=== PATIENT | female | born 1950 | race Two or more races ===

== ENCOUNTER → 2018-06-26 07:48 | Outpatient (CLI) | payer MEDICARE, OTHER, SELFPAY ==
--- NOTE | 2018-06-26 08:02 | NM_ITS ---
History and Indications: Coronary artery disease, history of DE, hypertension, hyperlipidemia, family history, chest pain and shortness of breath. Procedure: Patient received 2.2 mCi of technetium 99 Myoview for the resting study. Electrocardiogram: Not electrocardiogram performed Cardiac resting SPECT images: Cardiac resting SPECT scan shows uniform myocardial activity, computer derived ejection fraction 63% with no obvious regional wall motion abnormality. Conclusion: 1. Resting Myoview SPECT scan shows an ejection fraction of 63% with no obvious regional wall motion abnormality, there is uniform tracer distribution at rest.
--- NOTE | 2018-06-26 08:02 | CA_ITS ---
PROCEDURE: 2-D M-mode and color Doppler study INDICATIONS FOR THE TEST: Chest pain COPD Heart Murmur Tobacco Smoking Palpitations Fatigue Syncope Edema+ Hypertension+Diabetes Mellitus Rheumatic Fever SOB+NUÑEZ Obesity Hyperlipidemia+ Family History HD Additional History PACER, CABG, ABLATION, ,AFIB, CHF PATIENT INFORMATION HEIGHT: 60 WEIGHT:155 GENDER: Female B/P:125/63 2-D/M-MODE INTERPRETATION: 2-D MEASUREMENTS OBSERVED VALUES IN CMS Right Ventricular Dimension (RVDd) 2.9 Interventricular Septum (Thickness)(IVsd) 1.3 Left Ventricular Internal Dimensions(LVIDd) 5.5 Left Ventricular Posterior Wall (Thickness)(LVPWd) 1.1 Aortic Root 3.5 Aortic Cusp Separation 2.1 Left Atrial Dimensions (LAD) 4.9 2D 1. Left atrium is moderately enlarged, left ventricle is normal size, mild concentric left ventricular hypertrophy, visually estimated ejection fraction of 45%, there appears to be moderate hypokinesis involving the mid to distal septum and apical wall. Endocardial surfaces are poorly visualized. 2. The right atrium and right ventricle are moderately enlarged, contractility of the right ventricle is normal. There is a pacemaker lead seen in the right atrium and right ventricle. 3. The aortic valve is minimally thickened and calcified, leaflet continue to display mobility. 4. The mitral valve has mitral calcification, leaflets are minimally thickened. 5. The tricuspid valve is grossly normal. 6. The pulmonic valve is poorly visualized. 7. No significant pericardial effusion noted. DOPPLER INTERROGATION: Doppler interrogation of the aortic, mitral and tricuspid valvular presence of mild mitral and moderate tricuspid regurgitation, calculated right ventricular systolic pressure of 51 mmHg consistent with moderate pulmonary hypertension. Diastolic parameters are inconclusive. CONCLUSION: 1. Moderate biatrial enlargement, normal left ventricular size, visually estimated ejection fraction of 45% with segmental wall motion abnormality described above, diastolic parameters are inconclusive. 2. Moderately enlarged right ventricle with normal contractility. 3. Mild mitral and moderate tricuspid regurgitation, calculated right ventricular systolic pressure is 51 mmHg consistent with moderate pulmonary hypertension. 4. No significant pericardial effusion noted.
--- NOTE | 2018-06-26 09:48 | HMH.ITSHM ---
crestor aldactone lasix mirpex lorartan isosorbide
== END ==
PROVIDERS: PCP Internal Medicine; Visit Provider Internal Medicine
DX: I48.91 Unspecified atrial fibrillation; I11.9 Hypertensive heart disease without heart failure; I65.23 Occlusion and stenosis of bilateral carotid arteries; Z95.0 Presence of cardiac pacemaker; I25.10 Atherosclerotic heart disease of native coronary artery without angina pectoris
CPT/HCPCS: 78451; 93306; A9502

== ENCOUNTER → 2020-11-21 14:22 | Outpatient (CLI) | payer MEDICARE, OTHER, SELFPAY ==
[2020-11-21 15:09] LABS: Basophils # 0.1 K/mm3 (0-0.2); Basophils % 0.8 % (0.1-2.0); Eosinophils # 0.2 K/mm3 (0.0-0.4); Eosinophils % 2.2 % (0.1-12.0); Hematocrit 40.2 % (37.0-47.0); Hemoglobin 13.5 g/dL (12.2-16.2); Lymphocytes # 2.8 K/mm3 (0.7-4.5); Lymphocytes % 26.1 % (10-50); Mean Corpuscular HGB Conc 33.5 g/dL (31.8-35.4); Mean Corpuscular Hemoglobin 32.2 pg (27.0-31.2); Mean Corpuscular Volume 96.1 fl (81-99); Mean Platelet Volume 7.2 fl (7.4-10.4); Monocytes # 0.8 K/mm3 (0.1-1.0); Monocytes % 7.5 % (1.7-9.3); Neutrophils # 6.7 K/mm3 (1.8-7.8); Neutrophils % 63.4 % (37.0-80.0); Platelet Count 324 K/mm3 (142-424); Red Blood Count 4.18 M/mm3 (4.20-5.40); Red Cell Distribution Width 13.5 % (11.5-17.5); White Blood Count 10.6 K/mm3 (4.8-10.8)
[2020-11-21 15:32] LABS: Alanine Aminotransferase 13 U/L (12-78); Albumin Level 4.2 g/dl (3.5-5.0); Alkaline Phosphatase 99 U/L (38-126); Anion Gap 14.1 mEq/L (5-15); Aspartate Amino Transferase 20 U/L (14-36); Bilirubin,Direct 0.3 mg/dl (0.0-0.4); Bilirubin,Total 0.3 mg/dl (0.2-1.3); Blood Urea Nitrogen 8 mg/dl (7-17); Calcium 9.8 mg/dl (8.4-10.2); Carbon Dioxide 29 mmol/L (22.0-30.0); Chloride 99 mmol/L (98-107); Chol/HDL Ratio 2.5 (1-3.5); Cholesterol 143 mg/dl (140-200); Estimated Glomerular Filt Rate 98 ml/min (>60); GFR (African American) 119 ML/MIN (>60); Glucose 109 mg/dl (74-100); HDL Cholesterol 58 mg/dl (40-60); Potassium 4.1 mmoL/L (3.5-5.1); Sodium 138 mmol/L (136-145); Total Protein,Serum 7.2 g/dl (6.3-8.2); Triglycerides 175 mg/dl (30-150); VLDL Cholesterol 35 mg/dL (0-40)
[2020-11-21 15:45] LABS: Direct LDL Cholesterol 56.37 mg/dL (100-129)
[2020-11-21 15:53] LABS: Free T4 (Free Thyroxine) 1.06 ng/dl (0.78-2.19)
[2020-11-21 16:04] LABS: Thyroid Stimulating Hormone 1.23 uIU/mL (0.465-4.68)
== END ==
PROVIDERS: Visit Provider Nurse Practitioner Family
DX: E04.1 Nontoxic single thyroid nodule (principal); E78.5 Hyperlipidemia, unspecified; I07.1 Rheumatic tricuspid insufficiency; I11.9 Hypertensive heart disease without heart failure; I25.10 Atherosclerotic heart disease of native coronary artery without angina pectoris; I25.810 Atherosclerosis of coronary artery bypass graft(s) without angina pectoris; I27.20 Pulmonary hypertension, unspecified; I34.0 Nonrheumatic mitral (valve) insufficiency; I48.91 Unspecified atrial fibrillation; I65.29 Occlusion and stenosis of unspecified carotid artery; G47.33 Obstructive sleep apnea (adult) (pediatric); Z86.73 Personal history of transient ischemic attack (TIA), and cerebral infarction without residual deficits; Z99.89 Dependence on other enabling machines and devices; Z87.891 Personal history of nicotine dependence
CPT/HCPCS: 36415; 80048; 80061; 80076; 84439; 84443; 85025

== ENCOUNTER → 2020-11-22 12:25 | Outpatient (CLI) | payer MEDICARE, OTHER, SELFPAY ==
--- NOTE | 2020-11-22 12:26 | CT_ITS ---
PROCEDURE: CT CHEST W CON CLINCAL INDICATION: pulmonary nodules survellience f/u lung nodules hx of covid-19, 10/2020 cough 75ml iso 370 no prior cxr on pacs COMPARISON: No exams were available for comparison TECHNIQUE: IV Contrast: 75ml Isovue 370 Axial images obtained with sagittal and coronal reformats. All CT scans at the facility use one or more dose reduction, viz: automated exposure control, ma/kV adjustment per patient size (including targeted exams where dose is matched to indication, i.e. head), or iterative reconstruction technique. FINDINGS: There are no previous exams or reports available for comparison. There has been a prior CABG. There is mild cardiomegaly. No evidence of pulmonary embolus. No mediastinal or hilar mass or adenopathy. No evidence of aortic aneurysm. Cardiac pacemaker device is present. There is dense consolidation in the right lower lobe posteriorly consistent with pneumonia. This could obscure an underlying nodule. Therefore, follow-up is suggested. There are a few small pulmonary nodules in the right middle lobe and right lower lobe 5 mm or less. Within the lingula laterally, there is a nodular opacity measuring approximately 1.8 by 1.7 cm. Just lateral to this region is an area of gas density in the pleural area and extends just lateral to the left 6th rib between the rib and the overlying muscle. Just inferior to this region is an area of pleural thickening nonspecific. No pleural effusions evident. There postsurgical changes of the right breast There are mild degenerative changes of the thoracic spine. IMPRESSION: 1. Dense consolidation in the right lower lobe posteriorly consistent with pneumonia. Convalescent follow-up suggested as underlying lesion may be obscured. 2. Scattered small pulmonary nodules in the right middle lobe and right lower lobe. These are less than 5 mm. 3. Unusual subpleural pulmonary opacity within the lingula laterally and inferiorly with gas density lateral to this which extends just lateral to the left 6th rib. Correlation with old films needed to determine stability or progression. This could represent an area of neoplasm or inflammatory nodule. The gas in this region could be due to herniation of the pleura into the surrounding tissues. Gas-forming infection also a consideration. Small pneumothorax with subcutaneous emphysema is also consideration. Has the patient had in the biopsies of this area recently? Follow-up is recommended. Dictated by: Pradeep Wallace MD 11/23/2020 09:19 Pradeep Wallace MD in [place] 11/23/2020 09:19
--- NOTE | 2020-11-22 13:37 | CA_ITS ---
APPROVED REPORT EXAM: Comprehensive 2D, Doppler, and color-flow Echocardiogram Operations [place]: Opal Barcenas RT(R) Ht: 5 ft 1 in Wt: 154lbs BSA: 1.69 BP: 170/61 mmHg Indications: SOA, CAD, AFIB, PHTN, CHF, CM, CABG, CORINE, pacemaker, ex smoker, palpitations, HTN, hyperlipidemia 2D Dimensions LVOT 1.98 cm (M/F) 1.5-2.5 M-Mode Dimensions RVDd 2.96 cm (0.9-2.6) LA Diam 5.38 cm (1.9-4.0) LVDd 4.32 cm (3.5-5.7) Ao Diam 2.22 cm (2.0-3.7) LVDs 3.39 cm (3.5-5.7) IVSd 0.86 cm (0.6-1.1) PWd 0.61 cm (0.6-1.1) EF (Teich) 43.90% FS 21.50% EDV (Teich) 84.00 mL ESV (Teich) 47.10 mL LV Diastology LAT E' 11.00 (<10 cm/sec) Tricuspid Valve TR P. Velocity 255.00 cm/s RAP Estimate 10.00 mmHg RVSP 36.00 mmHg Left Ventricle Left atrium is mildly enlarged, left ventricle is normal size, mild concentric left ventricular hypertrophy, visually estimated ejection fraction 50% with no regional wall motion abnormality, endocardial surfaces are poorly visualized, diastolic parameters are inconclusive. There is abnormal septal motion. Right Ventricle Right atrium and right ventricle are mildly enlarged with normal contractility, there is pacemaker leads in the right ventricle. Aortic Valve Aortic valve is thickened and calcified without Doppler evidence of aortic stenosis or aortic insufficiency. Mitral Valve Mitral valve is grossly normal, there is mild mitral regurgitation. Tricuspid Valve Tricuspid valve is grossly normal, there is mild tricuspid regurgitation, tricuspid regurgitation jet velocity is inadequate for calculation of the right ventricular systolic pressure. Pulmonic Valve Pulmonic valve is poorly visualized. Great Vessels Aortic root is normal size. Pericardium No significant pericardial effusion noted. Conclusion 1. Normal left ventricular size, mild concentric left ventricular hypertrophy, visually estimated ejection fraction 50% with no regional wall motion abnormality, diastolic parameters are inconclusive. 2. Thickened and calcified aortic valve without aortic stenosis or aortic insufficiency. 3. Mild mitral and tricuspid regurgitation. 4. No significant pericardial effusion noted. Electronically signed by : Rufus Correa, 11/22/2020 21:43:25
--- NOTE | 2020-11-22 13:37 | CA_ITS ---
APPROVED REPORT Wide Area Network Engineer: LISA Laterality: Bilateral Indications: MARTA, Afib, CAD, PHTN, CHF, CORINE, pacemaker, hx CABG, HTN, Hyperlipidemia, ex smoker Risk Factors Hypertension: Hyperlipidemia Family History: Surgery/Intervention Endarterectomy: left Doppler Spectral Velocity Analysis ECA (R) 98.80/8.20 cm/s ECA (L) 111.20/13.90 cm/s dICA (R) 125.40/44.60 cm/s dCCA (L) 47.80/5.80 cm/s Vaishali (R) 143.50/51.50 cm/s pCCA (L) 77.10/15.00 cm/s pICA (R) 111.40/33.40 cm/s Vert (L) 55.60/23.50 cm/s dCCA (R) 83.40/22.50 cm/s pCCA (R) 101.60/22.50 cm/s Vert (R) 55.40/19.50 cm/s ICA/CCA 1.70 Findings Duplex evaluation demonstrates stenosis of the right proximal internal carotid artery in the range of 20-49%(upper end of scale) with PSV <140 cm/sec, EDV <100 cm/sec, and IC/CC Ratio <4.0, unchanged since study done 11/24/19 Duplex evaluation demonstrates occlusion for the left proximal internal carotid artery, unchanged from study 11/24/19. Conclusion Duplex evaluation demonstrates stenosis of the right proximal internal carotid artery in the range of 20-49%(upper end of scale) with PSV <140 cm/sec, EDV <100 cm/sec, and IC/CC Ratio <4.0, unchanged since study done 11/24/19 Duplex evaluation demonstrates occlusion for the left proximal internal carotid artery, unchanged from study 11/24/19. Electronically signed by : Pradeep Wallace MD 11/22/2020 15:12:51
== END ==
PROVIDERS: Visit Provider Nurse Practitioner Family
DX: R07.9 Chest pain, unspecified; R06.00 Dyspnea, unspecified; I65.23 Occlusion and stenosis of bilateral carotid arteries; E04.1 Nontoxic single thyroid nodule; E78.5 Hyperlipidemia, unspecified; I07.1 Rheumatic tricuspid insufficiency; I11.0 Hypertensive heart disease with heart failure; I25.810 Atherosclerosis of coronary artery bypass graft(s) without angina pectoris; I27.20 Pulmonary hypertension, unspecified; I34.0 Nonrheumatic mitral (valve) insufficiency; I48.91 Unspecified atrial fibrillation; I50.9 Heart failure, unspecified; G47.33 Obstructive sleep apnea (adult) (pediatric); Z86.73 Personal history of transient ischemic attack (TIA), and cerebral infarction without residual deficits; Z87.898 Personal history of other specified conditions; Z95.0 Presence of cardiac pacemaker; Z98.890 Other specified postprocedural states
CPT/HCPCS: 71260; 93306; 93880; Q9967

== ENCOUNTER → 2020-11-30 09:46 | Outpatient (CLI) | payer MEDICARE, OTHER, SELFPAY | PROVIDERS: Visit Provider Internal Medicine Pulmonary Disease | DX: R06.09 Other forms of dyspnea (principal); J18.9 Pneumonia, unspecified organism; R91.1 Solitary pulmonary nodule | CPT/HCPCS: 87070; 87205 ==

== ENCOUNTER → 2020-12-26 09:58 | Outpatient (CLI) | payer MEDICARE, OTHER, SELFPAY ==
--- NOTE | 2020-12-26 09:59 | CT_ITS ---
PROCEDURE: CT CHEST WO CON CLINICAL INDICATION: Follow up pneumonia cough Covid-October 2020 headache COMPARISON: CT CT CHEST W/O CONTRAST from 11/07/[address] CHEST W CON from 11/22/2020 TECHNIQUE: Axial images obtained with sagittal and coronal reformats. All CT scans at the facility use one or more dose reduction, viz: automated exposure control, ma/kV adjustment per patient size (including targeted exams where dose is matched to indication, i.e. head), or iterative reconstruction technique. FINDINGS: There has been a prior median sternotomy. Cardiac pacemaker device is present. Atherosclerotic calcification is present within the aorta. Calcified nodes are present in the mediastinum. There is mild cardiomegaly. COPD changes with evidence of old granulomatous disease. Dense consolidation has developed in the superior segment of the right lower lobe. Previously noted pneumonia in the right lower lobe posteriorly has shown improvement with some scarring/atelectatic changes in this region. There is an spiculated nodule in the right lower lobe anteriorly which is developed in the interval. This measures 13 mm. Pleural parenchymal thickening noted in the left lower lobe laterally. There is a parenchymal opacity within the left lower lobe anteriorly at not significantly changed. IMPRESSION: 1. There is mixed response. There is new consolidation in the superior segment of the right lower lobe consistent with pneumonia which has developed in the interval. There has been improvement in the right lower lobe pneumonia posteriorly with some residual atelectatic changes. 2. There is a new spiculated nodule in the right middle lobe at 13 mm. This could be inflammatory/infectious or neoplastic and continued follow-up is suggested. Dictated by: Pradeep Wallace MD 12/27/2020 11:35 Pradeep Wallace MD in [place] 12/27/2020 11:35
== END ==
PROVIDERS: PCP Family Medicine; Visit Provider Internal Medicine Pulmonary Disease
DX: R91.8 Other nonspecific abnormal finding of lung field (principal); R06.02 Shortness of breath
CPT/HCPCS: 71250; 94618

== ENCOUNTER → 2020-12-27 16:18 | Outpatient (CLI) | payer MEDICARE, OTHER, SELFPAY ==
[2020-12-27 18:57] LABS: Lactate Dehydrogenase 179 U/L (313-618)
[2020-12-27 19:04] LABS: C-Reactive Protein 25.9 mg/L (0-4)
[2020-12-30 12:32] LABS: Histoplasma Gal'mannan Ag Ur <0.5 (<0.5 ng/mL)
[2020-12-30 18:39] LABS: Aspergillus Antigen, BAL/Serum 0.04 Index (0.00-0.49); Fungitell(Beta D-Glucan) Serum <31 pg/mL (<80)
[2020-12-31 18:33] LABS: Aspergillus flavus Negative (Neg:<1:1); Aspergillus fumigatus Negative (Neg:<1:1); Aspergillus niger Negative (Neg:<1:1)
[2020-12-31 19:38] LABS: Blastomyces Antibody Negative (Neg:<1:1)
[2021-01-03 11:33] LABS: QuantiFERON-TB Gold Plus Negative (Negative)
[2021-01-07 22:14] LABS: Antinuclear Antibodies (ANA) NEGATIVE
== END ==
PROVIDERS: Visit Provider Internal Medicine Pulmonary Disease
DX: R06.00 Dyspnea, unspecified; J84.9 Interstitial pulmonary disease, unspecified; B49 Unspecified mycosis; J17 Pneumonia in diseases classified elsewhere; J84.10 Pulmonary fibrosis, unspecified
CPT/HCPCS: 36415; 83615; 86038; 86140; 86225; 86235; 86480; 86606; 86612; 87070; 87205; 87305; 87385; 87449

== ENCOUNTER → 2021-01-17 08:10 | Outpatient (CLI) | payer MEDICARE, OTHER, SELFPAY ==
--- NOTE | 2021-01-17 08:31 | XR_ITS ---
PROCEDURE: XR CHEST 2V CLINICAL HISTORY: Pneumonia COMPARISON: CR CXR1VP XR chest portable from 07/04/[address] CHEST WO CON from 12/26/2020 FINDINGS: Prior CABG. Biventricular pacemaker is present from left subclavian approach. Mild cardiomegaly without failure. Pneumonia is present in the right lower lobe superior segment. No obvious effusion. Small parenchymal opacity is present in the left lower lobe laterally nonspecific. There is mild wedging of T4 which may be old. IMPRESSION: Right lower lobe pneumonia Dictated by: Pradeep Wallace MD 01/17/2021 09:20 Pradeep Wallace MD in [place] 01/17/2021 09:20
== END ==
PROVIDERS: PCP Family Medicine; Visit Provider Internal Medicine Pulmonary Disease
DX: J44.9 Chronic obstructive pulmonary disease, unspecified (principal); Z20.822 Contact with and (suspected) exposure to COVID-19
CPT/HCPCS: 71046; U0003

== ENCOUNTER 2021-01-18 10:50 | Day surgery (SDC) | payer MEDICARE, OTHER, SELFPAY ==
[2021-01-17 14:07] VITALS: BMI 29.2
[2021-01-18] VITALS (11 sets, daily range): BP systolic 96–180; BP diastolic 44–83; PULSE 70–71; RESP 16–18; TEMP 36.1–36.3; O2SAT 91–96
--- NOTE | 2021-01-18 12:44 | P.PN_ITS ---
[facility] Anesthesia Record Part I Intake, IV Amount: 500 Estimated blood loss (mL): 0 Urine output (mL): 0 Blood Pressure: 146/59 SaO2: 93 Pulse Rate: 70 Respiratory Rate: 16 Temperature: 97 F Patient is:: Drowsy, Stable Stable to PACU at:: 12:40
--- NOTE | 2021-01-18 12:44 | P.PN_ITS ---
[facility] Anesthesia Checklist - Patient Identification Patient Identification: Arm Band - Structural Data Admitted From: Home Planned Operative Procedure/s: bronchoscopy with biopsy Consent for Planned Operative Procedure(s) Verified: Yes Verified Documents: Surgical Consent, History and Physical - NPO Status Verified Time NPO: 00:00 - Additional verifications Anesthesia Reactions: No Hx Blood Transfusions: Yes Blood Transfusion Reaction: No - Airway Assessment C-Spine Mobility Assessed: Yes (mp2) TMJ Mobility Assessed: Yes Dentition: Good Dentition - Neurological Assessment Level of Consciousness: Awake, Alert - Anesthesia Plan Anesthesia Risk discussed: Yes Anesthesia Plan: Verified ASA Class: III Anesthesia Type: General [facility] History I have reviewed the patient's past medical history: Yes Medical History: Reports:: Atrial Fibrillation, Cancer (breast), Carotid Stenosis, Congestive Heart Failure, Coronary Artery Disease, Cerebrovascular Accident, Gastroesophageal Reflux Disease(GERD), Hyperlipidemia, Hypertension, Internal Pacemaker, Palpitations Denies:: Diabetes Mellitus Type 1, Diabetes Mellitus Type 2, MRSA, Seizures *Have you ever received a pneumonia vaccine?: Yes *Have you received a flu vaccine this season?: Yes Other Medical History: Reports: Other. Denies: Blood Transfusion Reaction Anesthesia experience/problems:: nac Laterality Cases: Right: Lumpectomy Other Surgeries: Yes: Angioplasty, Cardiac Catheterization, Colonoscopy, Coronary Stent, Pacemaker, Tubal Ligation Amputation: No Fractures: No - *Social History Last grade of school completed: 9th or 10th Smoking Status: Former smoker Tobacco Type: cigarettes Alcohol Intake: never Substance Use Type: denies use *Occupational Status:: retired Housing: house Household Members: spouse *Travel in the last 8 weeks: None Family Hx:: Cancer, Coronary Artery Disease
--- NOTE | 2021-01-18 12:52 | XR_ITS ---
PROCEDURE: XR CHEST AP CLINICAL HISTORY: RIGHT LUNG BIOPSY 3:29 FLURO TIME Pulmonary mass COMPARISON: CR CXR1VP XR chest portable from 07/04/[address] CHEST WO CON from 12/26/2020 CR XR CHEST 2V from 01/17/2021 FINDINGS: Fluoroscopy time: 3 minutes and 29 seconds Single image submitted demonstrates the bronchus scope overlying the right lower lobe with biopsy catheter present. IMPRESSION: Status post fluoroscopic guided lung biopsy Dictated by: Pradeep Wallace MD 02/24/2021 17:37 Pradeep Wallace MD in [place] 02/24/2021 17:37
--- NOTE | 2021-01-18 13:14 | XR_ITS ---
PROCEDURE: XR CHEST PORTABLE CLINICAL HISTORY: post surgical Pneumonia COMPARISON: CR CXR1VP XR chest portable from 07/04/[address] CHEST WO CON from 12/26/2020 CR XR CHEST 2V from 01/17/2021 CR XR CHEST AP from 01/18/2021 Follow-up biopsy FINDINGS: Mild cardiomegaly without failure. Biventricular pacemaker is present. There has been a prior CABG. There remains consolidation in the right lower lobe which may be slightly worse compared to the previous exam. Surgical clips are present in the right hemithorax. No acute bony abnormalities. IMPRESSION: Right lower lobe pneumonia which appears slightly worse. No evidence of pneumothorax. Dictated by: Pradeep Wallace MD 01/18/2021 13:39 Pradeep Wallace MD in [place] 01/18/2021 13:39
--- NOTE | 2021-01-18 14:13 | HMH.BRONCH ---
- Procedure: Date: 01/18/21 Patient Date of :: 1950 Procedure Performed:: Bronchoscopy with bronchoalveolar lavage and transbronchial biopsy Indications:: Nonresolving pneumonia Performing Provider:: Nancy Perez MD Referring Provider:: Dr: Roberto Robles Sedation:: General anesthesia Procedure:: Bronchoscopy with bronchoalveolar lavage and transbronchial biopsy: Clean therapeutic bronchoscopy was advanced to the ET tube and airways were examined up to subsegmental bronchi, airway appeared normal with no evidence of mucous plugging or active bleeding. Bronchoalveolar lavage was performed the right lower lobe superior subsegment with a total of 60 cc instillation with a return of 30 cc, lavage was sent for BAL differential, bacterial fungal and AFB staining culture along with cytopathology. BAL Aspergillus galactomannan was also ordered. After lavage transbronchial biopsies was performed the right lower lobe superior segment. A total of 8 biopsies was performed, 6 were sent in formalin for cytopathology. 2 biopsy samples were sent for bacterial fungal and AFB cultures. Patient tolerated the procedure well with no complications. Postprocedure chest x-ray did not show any evidence of pneumothorax. Patient advised to hold Plavix for 5 more days from today. We will follow the patient in the clinic as previously scheduled. Findings:: See the procedure note Specimens:: Bronchoalveolar lavage and transbronchial biopsy specimens Recommendations:: See the procedure note Hold Plavix for 5 days. Follow in the clinic as previously scheduled. Complications:: None Estimated blood obtained (mL): 5
--- NOTE | 2021-01-18 17:22 | HMH.ANESII ---
[facility] Anesthesia Record Part II Discharge Time: 13:10 Destination: Surgical Day Care (OP Surgery) PACU nurse assessment reviewed?: Yes Patient Condition:: Good Anesthesia Complications:: None Swallowing reflex intact?: Yes Cyanosis?: No Blood Pressure: 123/74 Pulse Rate: 71 Temperature: 97 F Mental Status: Alert & Oriented Pain level:: 0 Nausea and/or vomitting:: None Intake, IV Amount: 0
[2021-01-20 23:23] LABS: Aspergillus Antigen, BAL/Serum 0.04 Index (0.00-0.49)
== END 2021-01-18 14:00 | disposition home or self-care (01) ==
LOC: OR 10:51
PROVIDERS: PCP Family Medicine; Visit Provider Internal Medicine Pulmonary Disease
DX: J18.9 Pneumonia, unspecified organism (principal); Z86.16 Personal history of COVID-19; I48.91 Unspecified atrial fibrillation; I11.0 Hypertensive heart disease with heart failure; I50.9 Heart failure, unspecified; Z87.891 Personal history of nicotine dependence; Z79.899 Other long term (current) drug therapy; Z88.8 Allergy status to other drugs, medicaments and biological substances
CPT/HCPCS: 31624; 31628; 71045; 76000; 87070; 87077; 87102; 87116; 87186; 87205; 87206; 87220; 87305; 88112; 88305; 88312; 89051; J2405

== ENCOUNTER → 2021-02-28 13:42 | Outpatient (CLI) | payer MEDICARE, OTHER, SELFPAY ==
--- NOTE | 2021-02-28 13:49 | XR_ITS ---
PROCEDURE: XR CHEST 2V CLINICAL HISTORY: pnm COMPARISON: CR CXR1VP XR chest portable from 07/04/[address] CHEST WO CON from 12/26/2020 CR XR CHEST 2V from 01/17/2021 CR XR CHEST PORTABLE from 01/18/2021 CR XR CHEST AP from 01/18/2021 FINDINGS: Prior median sternotomy. Biventricular pacemaker is present left subclavian approach. Borderline cardiomegaly without failure. Right lower lobe pneumonia has shown some improvement. There is some residual density in the superior segment of the right lower lobe suggesting persistent area of consolidation. Nodularity noted in the right mid to lower lung zone which may also be due to some persistent infiltrate. Small peripheral chronic opacification noted in the left lower lobe laterally. Surgical clips are present in the right axillary region. Prior right-sided breast surgery No acute bony abnormalities. IMPRESSION: Persistent but improving right lower lobe pneumonia Dictated by: Pradeep Wallace MD 02/28/2021 14:53 Pradeep Wallace MD in [place] 02/28/2021 14:53
== END ==
PROVIDERS: PCP Family Medicine; Visit Provider Internal Medicine Pulmonary Disease
DX: J44.9 Chronic obstructive pulmonary disease, unspecified (principal)
CPT/HCPCS: 71046

== ENCOUNTER → 2021-04-18 12:18 | Outpatient (CLI) | payer MEDICARE, OTHER, SELFPAY ==
--- NOTE | 2021-04-18 13:47 | CT_ITS ---
PROCEDURE: CT CHEST WO CON CLINICAL INDICATION: 3-month follow-up COMPARISON: CT CT CHEST W CON from 11/22/[address] CHEST WO CON from 12/26/2020 TECHNIQUE: Axial images obtained with sagittal and coronal reformats. All CT scans at the facility use one or more dose reduction, viz: automated exposure control, ma/kV adjustment per patient size (including targeted exams where dose is matched to indication, i.e. head), or iterative reconstruction technique. FINDINGS: Current exam shows near complete resolution of the previously noted consolidating infiltrate in the right lower lobe superiorly. However, current exam shows a residual area consolidation in anterior aspect of the right lower lobe measuring about 5 centimeters x 3 centimeters, with additional areas of residual nodularity in the right base measuring about 2 centimeters and subpleural in the left lower lobe with increase in the size of the pleural-based nodules now measuring upwards of 3 centimeters and 2 centimeters. Small amount of residual gas is seen along the left 7th lateral rib associated with the subpleural nodules. No discrete rib fracture. No discrete pneumothorax. Few scattered additional small subcentimeter nodules are noted and there is a small nodular density in the left lower lobe anteriorly measuring about 2 centimeters. Therefore, at this point, I would recommend PET-CT chest for further assessment. Heart is not enlarged. No pericardial effusion or thickening. Mild aneurysmal dilatation of the ascending thoracic aorta of 4.4 centimeters again noted. Dense calcified mediastinal and bilateral hilar lymph nodes. Airways are patent. Some diffuse degenerative changes of the thoracic spine are present. Images of the upper abdomen show no discrete abnormality. IMPRESSION: Near complete resolution of the previously noted consolidating infiltrate in the right lower lobe superiorly. Current exam shows residual consolidation in anterior aspect of the right lower lobe with additional areas of residual nodularity in the right base and subpleural region in the left lower lobe as well as small nodular density in the left lower lobe anteriorly. Therefore, at this point, I would recommend PET-CT chest to more definitively distinguish benign versus malignant nodules/masses. A few additional scattered small subcentimeter nodules noted in the right lower lobe. No pleural effusion or pneumothorax. Mild aneurysmal dilatation of the ascending thoracic aorta of 4.4 centimeters again noted. Dictated by: Eugene Bryan MD 04/18/2021 18:08 Eugene Bryan MD in [place] 04/18/2021 18:08
== END ==
PROVIDERS: PCP Family Medicine; Visit Provider Internal Medicine Pulmonary Disease
DX: R91.8 Other nonspecific abnormal finding of lung field
CPT/HCPCS: 71250; 94060; 94726; 94729

== ENCOUNTER → 2021-06-15 09:08 | Outpatient (CLI) | payer MEDICARE, OTHER, SELFPAY ==
--- NOTE | 2021-06-15 09:08 | US_ITS ---
PROCEDURE: US THYROID CLINICAL INDICATION: thyroid nodules COMPARISON: No exams were available for comparison FINDINGS: Right lobe: 3.2 x 1.3 x 1.7 cm. 5 mm isoechoic to slightly hypoechoic nodule upper pole without obvious calcifications wider than tall fairly well-circumscribed. 8 x 4 mm well-circumscribed I so to slightly hyperechoic nodule lower pole benign-appearing. 2 mm cystic area lower pole. Left lobe: 3.9 x 1.8 x 1.6 cm. 5 mm by 3 mm hypoechoic nodule upper pole. 4 mm hypoechoic nodule upper pole. 5 mm hypoechoic nodule mid polar region. 13 x 10 mm spongiform appearing nodule mid polar region. 7 x 3 mm isodense slightly hypoechoic nodule lower pole peripherally. Isthmus: Isoechoic 7 x 4 mm nodule in the isthmus on the left Additional findings: IMPRESSION: Bilateral thyroid nodules as described above TR level 3 in lower. Recommend 12 month follow-up. Dictated by: Pradeep Wallace MD 06/15/2021 12:12 Pradeep Wallace MD in [place] 06/15/2021 12:12
--- NOTE | 2021-06-15 09:42 | CT_ITS ---
PROCEDURE: CT CHEST WO CON CLINICAL INDICATION: soa Follow-up pulmonary nodule COMPARISON: CT CT CHEST W/CONTRAST from 06/23/[address] CHEST WO CON from 12/26/[address] CHEST WO CON from 04/18/2021 TECHNIQUE: Axial images obtained with sagittal and coronal reformats. All CT scans at the facility use one or more dose reduction, viz: automated exposure control, ma/kV adjustment per patient size (including targeted exams where dose is matched to indication, i.e. head), or iterative reconstruction technique. FINDINGS: HEART AND MEDIASTINAL STRUCTURES: Biventricular pacemaker from left subclavian approach noted. Prior CABG. LUNGS AND PLEURAL SPACES: Scattered small pulmonary nodular opacities once again noted in the right middle and right lower lobe which appears stable. Consolidation within the anterior aspect of the right lower lobe has shown improvement with some residual opacity/volume loss in this region.. Chronic nodular opacity noted in the left lower lobe anteriorly with sub adjacent pleural thickening similar to the previous exam. No new areas of consolidation and no new nodules apparent. BONY STRUCTURES: No acute bony abnormalities apparent. UPPER ABDOMEN: Unremarkable. ADDITIONAL FINDINGS: No other significant abnormalities. IMPRESSION: 1. Continued improvement in the consolidation in the right lower lobe with some residual opacity at this region which may be due to volume loss or developing scarring. 2. No change in this small pulmonary nodules in the right middle lobe and right lower lobe as well as the parenchymal opacities in the left lower lobe. Dictated by: Pradeep Wallace MD 06/16/2021 10:19 Pradeep Wallace MD in [place] 06/16/2021 10:19
== END ==
PROVIDERS: PCP Family Medicine; Visit Provider Urology
DX: E04.1 Nontoxic single thyroid nodule (principal); R91.1 Solitary pulmonary nodule
CPT/HCPCS: 71250; 76536

== ENCOUNTER → 2021-10-10 13:34 | Outpatient (CLI) | payer MEDICARE, OTHER, SELFPAY ==
--- NOTE | 2021-10-10 13:40 | XR_ITS ---
PROCEDURE: XR CHEST 2V CLINICAL HISTORY: shortness of breath COMPARISON: CR XR CHEST PORTABLE from 01/18/2021 CR XR CHEST AP from 01/18/2021 CR XR CHEST 2V from 02/28/[address] CHEST WO CON from 06/15/2021 FINDINGS: Prior CABG. Mild cardiomegaly with biventricular pacemaker present. There are some mild atelectatic changes versus scarring in the left lower lung zone. No lobar consolidation or collapse. Minimal blunting of the posterior costophrenic sulcus unchanged. Mild scarring in the left lower lobe. Mild thoracic kyphosis. IMPRESSION: Overall no change with no acute finding. Dictated by: Pradeep Wallace MD 10/10/2021 16:16 Pradeep Wallace MD in [facility] 10/10/2021 16:16
== END ==
PROVIDERS: PCP Family Medicine; Visit Provider Internal Medicine Pulmonary Disease
DX: R06.02 Shortness of breath (principal)
CPT/HCPCS: 71046

== ENCOUNTER → 2021-11-16 07:04 | Outpatient (CLI) | payer MEDICARE, OTHER, SELFPAY ==
--- NOTE | 2021-11-16 07:05 | NM_ITS ---
APPROVED REPORT Exam: Nuclear Stress Test Indication: CAD, Hx of [place], CABG, HTN, High cholesterol, Family history, Chest pain, SOB, Fatigue Patient Location: Outpatient Stress Tech: Amy Lopez NM Tech:Marelna Jim, ARRT, RT (R)(N) Ht: 5 ft 0 in Wt: 154 lbs Bra Size: 38C HR: 70 bpm BP: 170/72 mmHg BSA: 1.67 m2 History: CAD, Hx of [place], CABG, HTN, High cholesterol, Family history, Chest pain, SOB, Fatigue Procedure: Patient received a 0.4 mg of intravenous Lexiscan, resting heart rate 70 bpm, resting blood pressure 170/72 mmHg, with Lexiscan maximum heart rate achived was 73 bpm which is Less than 85 % of the maximum predicted heart rate and blood pressure was 170/72 mmHg. With Lexiscan, patient denied any complaint of chest pain. Electrocardiogram Resting electrocardiogram showed electronically paced ventricular rhythm, with Lexiscan there is less than 1.[address] segment depression or from the baseline EKG. The EKG portion of the Lexiscan is nondiagnostic. Cardiac Stress and Resting SPECT Images: Cardiac Stress and Resting SPECT images were obtained using technetium 99m Myoview 32.5 mCi stress and 10.53 mCi at rest. Gated SPECT analysis of segmental wall motion and calculation of the ejection fraction also done. Cardiac stress and rest SPECT images show mild fixed defect in the anterior wall with normal contractility on the gated SPECT is likely secondary to soft tissue attenuation, no reversible ischemia seen, however there is marked transient ischemic dilatation seen, raising the concerns for presence of balanced ischemia, computer derived ejection fraction is 68% with no regional wall motion abnormality, right ventricle is mildly enlarged with normal contractility. Conclusion: 1. The EKG portion of the Lexiscan is nondiagnostic. 2. No scintigraphic evidence of reversible ischemia seen, however there is marked transient ischemic dilatation of the left ventricle seen raising the concerns of presence of balanced ischemia. Computer read ejection fraction is 68% with no regional wall motion abnormality, right ventricle is mildly enlarged with normal contractility. 3. Abnormal Lexiscan Myoview study. Electronically signed by : Rufus Correa MD 11/16/2021 15:50:28
--- NOTE | 2021-11-16 07:05 | CA_ITS ---
FINAL REPORT TECHNIQUE: Color Doppler, duplex Doppler and corey scale sonography of the bilateral neck arterial vasculature was performed. Velocities were measured in the carotid arteries. Stenosis evaluation based on the validated velocity criteria. CLINICAL HISTORY: MARTA,HX LT ICA OCCLUSION,HX LT ENDARDECTOMY,HTN,HLD,ES-SMOKER FINDINGS: The peak systolic velocity of the right common carotid artery is 111 cm/s. The peak systolic velocity of the right internal carotid artery is 168 cm/s and end diastolic velocity 54 cm/s. A moderate amount of plaque is present. The right external carotid artery is patent. The right vertebral artery is patent with antegrade flow. The peak systolic velocity of the left common carotid artery is 78 cm/s. The left internal carotid artery is occluded. Small The left external carotid artery is patent.The left vertebral artery is patent with antegrade flow. IMPRESSION: 50-69% right internal carotid artery stenosis. Occluded left internal carotid artery. Bilateral patent vertebral arteries with antegrade flow. If indicated, CTA or MRA could further evaluate. Reviewed, Interpreted and Dictated by Zachary Frausto III, MD Transcribed by Yadi Angulo Authenticated by Zachary Frausto III, MD on 11/16/2021 10:05:45 AM [facility]
--- NOTE | 2021-11-16 07:05 | CA_ITS ---
APPROVED REPORT Exam: Pharmacologic Technologist: Amy Lopez, Ht: 5 ft 2 in Wt: 155 lbs BSA: 1.72 m2 HR: 70 bpm BP: 170/72 mmHg Rhythm: V paced rhytm Medical History Medical History: HTN, Hyperlipidemia Medications: Losartan,,,,, CloPIdogrel,,,,, Aldactone,,,,, Nitroglycerin,,,,, IsosoBIDE,,,,, ANoro,,,,, Potassium,,,,, Pramiprexole,,,,, OmPEprazole,,,,, RoSUVASatin,,,,, Furosemide,,,,, Cardiac Risk Factors: HTN, Hyperlipidemia Stress Test Details Test: LEXISCAN HR Resting HR: 70 bpm Max Heart Rate (APMHR): 147.841948 bpm Max HR Achieved: 73 bpm Target HR (85% APMHR): 124.006448 bpm % of APMHR: 49.66 Recovery HR: 70 bpm BP Resting BP: 170/72 mmHg Max BP: 170/72 mmHg Recovery BP: 155.0/64.0 mmHg ECG Resting ECG: V paced rhythm Clinical Exercise duration: 04:01 min Highest Stage Achieved: Stress ECG Conclusion During lexiscan pt experinced YENY WATT. No CP noted. Rare PVC noted. No significant changes noted to ST-T. Non diagostic lexiscan stress. Myoview images reported separately. Test Summary RECOVERY 03:19 . . 70 . 155/ 64 . . REST 02:48 . . 70 . 170/ 72 . . Stage 1 01:00 . . 70 . . . . Stage 2 01:00 . . 70 . . . . Stage 3 01:00 . . 70 . 149/ 57 . . Stage 4 01:00 . . 70 . 142/ 63 . . Stage 4 01:01 . . 70 . 142/ 63 . Stop exercise at 04:01 RECOVERY 01:00 . . 70 . . . . RECOVERY 02:00 . . 70 . . . . RECOVERY 03:00 . . 70 . 155/ 64 . . RECOVERY 03:19 . . 70 . 155/ 64 . . Electronically signed by : Rufus Correa MD 11/16/2021 15:38:13
--- NOTE | 2021-11-16 08:50 | HMH.ITSHM ---
Current Home Medications as stated by this patient Sheryl Vazquez or collections representative. []SPIRONOLACTONE PRAMIPEXOLE POTASSIUM OMEPRAZOLE NITRO LOSARTAN ROSUVASTATIN ISOSORBIDE FUROSEMIDE CLOPIDOGREL
== END ==
PROVIDERS: PCP Family Medicine; Visit Provider Urology
DX: R06.00 Dyspnea, unspecified; R07.9 Chest pain, unspecified; I65.23 Occlusion and stenosis of bilateral carotid arteries; E04.1 Nontoxic single thyroid nodule; E78.5 Hyperlipidemia, unspecified; G47.33 Obstructive sleep apnea (adult) (pediatric); I11.9 Hypertensive heart disease without heart failure; I27.20 Pulmonary hypertension, unspecified; I34.0 Nonrheumatic mitral (valve) insufficiency; I48.91 Unspecified atrial fibrillation; I50.9 Heart failure, unspecified; Z86.73 Personal history of transient ischemic attack (TIA), and cerebral infarction without residual deficits; Z87.898 Personal history of other specified conditions; Z95.0 Presence of cardiac pacemaker; Z98.890 Other specified postprocedural states; Z99.89 Dependence on other enabling machines and devices; E78.2 Mixed hyperlipidemia
CPT/HCPCS: 78452; 93017; 93880; A9502; J2785

== ENCOUNTER → 2022-03-19 14:23 | Outpatient (CLI) | payer MEDICARE, OTHER, SELFPAY ==
--- NOTE | 2022-03-19 14:23 | CT_ITS ---
FINAL REPORT TECHNIQUE: Axial images were obtained from the lung apex to the mid abdomen by computed tomography. Coronal reformatted images were obtained. This study was performed with techniques to keep radiation doses as low as reasonably achievable, (ALARA). Individualized dose reduction techniques using automated exposure control or adjustment of mA and/or kV according to the patient''s size were employed. CLINICAL HISTORY: 9-month follow-up CT chest from June 2021 COMPARISON: June 15, 2021 FINDINGS: There is been median sternotomy. The heart is enlarged. There is no axillary adenopathy. There is no hilar or mediastinal adenopathy. There is no pericardial or pleural effusion. Limited images of the upper abdomen are unremarkable. There are persistent mild pulmonary ground-glass opacities that may represent edema or of the latest. There are multiple small nodules in the right middle lobe and right lower lobe. A lateral right middle lobe nodule on image 43 measures 4 mm. Other small nodules are stable. The bilateral lower lobe parenchymal opacities are stable and favored to represent scarring. IMPRESSION: Stable small nodules are favored benign. Consider additional follow-up CT in 12 months. Reviewed, Interpreted and Dictated by Zachary Frausto III, MD Transcribed by Keo Hernandez Authenticated by Zachary Frausto III, MD on 03/19/2022 04:24:18 PM [facility]
== END ==
PROVIDERS: PCP Internal Medicine; Visit Provider Internal Medicine Pulmonary Disease
DX: R91.8 Other nonspecific abnormal finding of lung field (principal)
CPT/HCPCS: 71250

== ENCOUNTER → 2022-05-25 08:18 | Outpatient (CLI) | payer MEDICARE, OTHER, SELFPAY ==
--- NOTE | 2022-05-25 08:19 | CT_ITS ---
FINAL REPORT CLINICAL HISTORY: thoracic aneurysm COMPARISON: 04/18/2021 FINDINGS: Thin section axial CT images of the chest were obtained with contrast. 3D reformatted images were also obtained. This study was performed with techniques to keep radiation doses as low as reasonably achievable (ALARA). Individualized dose reduction techniques using automated exposure control or adjustment of mA and/or kV according to the patient's size were employed. There is postoperative change from median sternotomy. There is postoperative change in the right breast. There is no evidence of pulmonary embolism. The ascending aorta is dilated, measuring up to approximately 4 cm, stable. There is no evidence of dissection. There is no evidence of mediastinal or hilar mass or adenopathy. There are multifocal mild pulmonary ground-glass opacities representing pneumonia or edema. There is mild atelectasis or scarring. Improved atelectasis in the right lung base. There are several small nodules in the right middle lobe and right lower lobe which are stable. For example, there is an anterior right lower lobe nodule on image 44 measuring 5 mm, stable. Other small nodules are stable. Limited images of the upper abdomen are unremarkable. IMPRESSION: Ascending aorta dilation measuring up to approximately 4 cm, stable. Improved right lung base atelectasis. Other stable findings. Reviewed, Interpreted and Dictated by Zachary Frausto III, MD Transcribed by Kasie Parsons Authenticated and . [facility]
[2022-05-25 08:53] LABS: Blood Urea Nitrogen 11 mg/dl (7-17); Estimated Glomerular Filt Rate 98 ml/min (>60); GFR (African American) 119 ML/MIN (>60)
== END ==
PROVIDERS: PCP Family Medicine; Visit Provider Nurse Practitioner Family
DX: I71.2 Thoracic aortic aneurysm, without rupture (principal)
CPT/HCPCS: 36415; 71275; 82565; 84520; Q9967

== ENCOUNTER → 2023-03-20 07:59 | Outpatient (CLI) | payer MEDICARE, SELFPAY ==
--- NOTE | 2023-03-20 08:00 | CT_ITS ---
FINAL REPORT TECHNIQUE: Axial CT images were performed from the lung apices through the upper abdomen. Coronal reformats were submitted. This study was performed with techniques to keep radiation doses as low as reasonably achievable (ALARA). Individualized dose reduction techniques using automated exposure control or adjustment of mA and/or kV according to the patient's size were employed. CLINICAL HISTORY: 12 month F/U COMPARISON: 03/19/2022 FINDINGS: There is no axillary adenopathy. The patient is status post median sternotomy. Left subclavian pacer is identified. There are multiple small mediastinal nodes. There are postoperative changes in the right anterior chest wall. Heart size is normal. There is no pericardial or pleural effusion. Mild scarring is identified. There is a stable 4 mm lateral right middle lobe nodule. Multiple other small nodules are seen in both lungs measuring less than 5 mm, stable. There is a questionable small area of fat necrosis in the anterior abdominal subcutaneous tissues, stable. IMPRESSION: Multiple small pulmonary nodules which are stable. Consider additional follow-up in 12 months to ensure stability. Reviewed, Interpreted and Dictated by Zachary Frausto III, MD Transcribed by June Vasquez Authenticated and [facility]
== END ==
PROVIDERS: PCP Family Medicine; Visit Provider Internal Medicine Pulmonary Disease
DX: R91.8 Other nonspecific abnormal finding of lung field (principal)
CPT/HCPCS: 71250

== ENCOUNTER → 2023-07-09 08:47 | Outpatient (CLI) | payer MEDICARE, SELFPAY ==
--- NOTE | 2023-07-09 08:47 | CT_ITS ---
FINAL REPORT CLINICAL HISTORY: aortic aneurysm 4.0cm COMPARISON: 03/20/2023 FINDINGS: Thin section axial CT images of the chest were obtained with contrast. This study was performed with techniques to keep radiation doses as low as reasonably achievable (ALARA). Individualized dose reduction techniques using automated exposure control or adjustment of mA and/or kV according to the patient's size were employed. The patient has undergone a prior median sternotomy, and cardiomegaly remains present. There is no evidence of pulmonary embolism. There is an enlarged and ectatic ascending aorta measuring up to 4 cm in size, not significantly changed in size or appearance since the prior CT of March 2023. There is no evidence of dissection. There is no evidence of mediastinal or hilar mass or adenopathy. There are bilateral ground glass appearing pulmonary opacities, likely edema. Scarring is noted in the lung aguilar bilaterally. There is a chronic left seventh posterior rib fracture. Limited images of the upper abdomen are unremarkable. IMPRESSION: Ascending aortic aneurysm, unchanged since the prior CT of March 2023. Bilateral ground glass pulmonary opacities, likely edema. Reviewed, Interpreted and Dictated by Zachary Frausto III, MD Transcribed by Flaca Paz Authenticated and [facility]
[2023-07-09 09:32] LABS: Blood Urea Nitrogen 8 mg/dl (7-17); Estimated Glomerular Filt Rate 98 ml/min (>60); GFR (African American) 118 ML/MIN (>60)
== END ==
PROVIDERS: PCP Family Medicine; Visit Provider Physician Assistant
DX: I71.20 Thoracic aortic aneurysm, without rupture, unspecified (principal); I71.019 Dissection of thoracic aorta, unspecified
CPT/HCPCS: 36415; 71275; 82565; 84520; Q9967

== ENCOUNTER 2024-02-13 14:28 | Outpatient (CLI) | payer MEDICARE, SELFPAY ==
--- NOTE | 2024-02-13 14:30 | CA_ITS ---
FINAL REPORT TECHNIQUE: Color Doppler, duplex Doppler and corey scale sonography of the bilateral neck vasculature was performed. Velocities were measured in the carotid arteries. Stenosis evaluation based on velocity criteria. CLINICAL HISTORY: MARTA, hx LT ICA occlusion, hx lt endarterectomy, HTN, HLD, ex smoker COMPARISON: None FINDINGS: The peak systolic velocity of the right common carotid artery is 76 cm/sec and internal carotid artery 163 cm/sec. The diastolic velocity in the internal carotid artery is 49 cm/sec. The ICA/CCA ratio is 2.1. Visually, a small amount of plaque is seen. These findings are consistent with less than 50% stenosis. The external carotid artery is patent. The right vertebral artery is patent with antegrade flow. The peak systolic velocity of the left common carotid artery is 73 cm/sec. there is total occlusion of the left internal carotid artery at its origin, which was noted on prior ultrasound examinations. The ICA/CCA ratio cannot be calculated. The external carotid artery is patent. The left vertebral artery is patent with antegrade flow. IMPRESSION: The left internal carotid artery is totally occluded, as seen on prior carotid Doppler examinations. There is less than 50% luminal diameter stenosis in the right carotid bifurcation. Bilateral patent vertebral arteries. If indicated, CTA or MRA could further evaluate. Reviewed, Interpreted and Dictated by Zachary Frausto III, MD Transcribed by Flaca Paz Authenticated and [facility]
== END 2024-02-13 23:59 | disposition home or self-care (01) ==
PROVIDERS: PCP Family Medicine; Visit Provider Physician Assistant
DX: I65.23 Occlusion and stenosis of bilateral carotid arteries (principal)
CPT/HCPCS: 93880

== ENCOUNTER 2024-07-31 07:18 | Outpatient (CLI) | payer MEDICARE, SELFPAY ==
--- NOTE | 2024-07-31 07:27 | CT_ITS ---
FINAL REPORT TECHNIQUE: Postcontrast axial images of the chest were performed in a CTA protocol. This study was performed with techniques to keep radiation doses as low as reasonably achievable, (ALARA). Individualized dose reduction technique using automated exposure control or adjustment of mA and/or kV according to the patient's size were employed. CLINICAL HISTORY: thoracic aortic aneurysm COMPARISON: 07/09/2023 FINDINGS: The heart is normal in size. No adenopathy is identified. No pleural or pericardial effusion is identified. The thoracic aorta measures up to 36 mm on sagittal imaging, previously measured 38 mm. There is scattered calcified plaque disease. There is no filling defect to suggest pulmonary embolism. There are groundglass opacities diffusely, similar to prior exam which may resent air trapping. There is rounded atelectasis at the lateral lung base with a small intercostal hernia of the left lower lobe into the chest wall. The images of the upper abdomen are unremarkable. IMPRESSION: Thoracic aorta measuring at 36 mm, previously measured 38 mm. Diffuse groundglass opacities, similar to prior exam which represent air trapping. Rounded atelectasis at the lateral left lung base with a small intercostal hernia of the left lower lobe into the chest wall. Reviewed, Interpreted and Dictated by Greg Sanders MD Transcribed by Meka Tsai Authenticated and [facility]
[2024-07-31 07:50] LABS: Blood Urea Nitrogen 14 mg/dl (7-17); Estimated Glomerular Filt Rate 97 ml/min (>60); GFR (African American) 118 ML/MIN (>60)
--- NOTE | 2024-07-31 08:09 | CA_ITS ---
APPROVED REPORT EXAM: Comprehensive 2D, Doppler, and color-flow Echocardiogram Malware Analyst: Monika Joyner CRT Ht: 110 ft 10 in Wt: 154lbs BSA: 15.80 BP: 107/46 mmHg Indications: Chest Pain, COPD, CVA/TIA, Atrial Fibrillation, CAD, CABG, Ablation, COPD, SOB, HLD, 2D Dimensions LA Volume 48.80 mL LA Volume Index 3.09 mL/m2 (M/F) 16-34 M-Mode Dimensions RVDd 3.09 cm (0.9-2.6) LA Diam 4.61 cm (1.9-4.0) LVDd 4.84 cm (3.5-5.7) LVDs 3.16 cm (3.5-5.7) IVSd 1.33 cm (0.6-1.1) PWd 0.75 cm (0.6-1.1) EF (Teich) 63.80% FS 34.70% EDV (Teich) 109.60 mL TAPSE 1.15 (<1.7) ESV (Teich) 39.70 mL LV Diastology E Decel Time 213 (160-240 msec) E/A Ratio 3.4 MED A' 5.20 cm/s LAT A' 3.20 cm/s Aortic Valve AO Peak GR. 6.90 mmHg Mitral Valve MV E Max Jayme. 132.0 (40-130 cm/s) MV A Velocity 39.0 (40-130 cm/s) E/A Ratio 3.36 MV PHT 62.0 ms Pulmonary Valve PV Peak Velocity 189.0 (50-150 cm/s) Tricuspid Valve TR P. Velocity 330.00 cm/s RAP Estimate 10.00 mmHg RVSP 53.60 mmHg Left Ventricle The left ventricle is normal size. The left ventricular systolic function is normal. The left ventricular ejection fraction is within the normal range. There is increased LV wall thickness. There is normal LV segmental wall motion. Diastolic function is indeterminate. LVEF is 55%. Right Ventricle Right ventricle is moderately dilated. Right ventricle is mildly hypokinetic. There is a device lead present in the right ventricle. Atria Left atrium is moderately dilated. Right atrium is moderately dilated. There is no Doppler evidence of interatrial shunt. Aortic Valve The aortic valve is mildly thickened. There is no aortic valvular stenosis. Trace aortic regurgitation. Mitral Valve Mild mitral annular calcification. The mitral valve leaflets are mildly thickened. No evidence of mitral valve stenosis. Mild mitral regurgitation. Tricuspid Valve The tricuspid valve leaflets are thin and pliable. Moderate tricuspid regurgitation. RVSP is 40-45 mmHg. Pulmonic Valve The pulmonary valve is normal in structure. Mild pulmonic regurgitation. Great Vessels The aortic root is normal in size. The ascending aorta is normal in size. IVC is normal in size and collapses >50% with inspiration. Pericardium There is no pericardial effusion. Other Information Study Quality: Fair Conclusion Normal LV systolic function. Moderate RV dilation with mild reduction in RV function. Biatrial dilation. Mild MR, mild TR. Elevated RVSP 40-45 mmHg. Electronically signed by : Kira Talamantes MD 08/02/2024 21:09:38
[2024-07-31] MEDS: 0.9 % SODIUM CHLORIDE 50 ML VIAL IV (08:17)
[2024-07-31] MEDS: IOPAMIDOL-370 (76%);100ML BOTTLE 80 ML IV (08:17)
[2024-07-31] MEDS: SODIUM CHLORIDE 0.9% 10ML SYR (RAD ONLY) 10 ML IV (08:17)
== END 2024-07-31 23:59 | disposition home or self-care (01) ==
LOC: RAD 07:19
PROVIDERS: PCP Family Medicine; Visit Provider Nurse Practitioner Family
DX: I25.10 Atherosclerotic heart disease of native coronary artery without angina pectoris (principal); R06.09 Other forms of dyspnea; Z95.0 Presence of cardiac pacemaker; E78.2 Mixed hyperlipidemia; I11.9 Hypertensive heart disease without heart failure; I48.91 Unspecified atrial fibrillation; I65.23 Occlusion and stenosis of bilateral carotid arteries; I25.708 Atherosclerosis of coronary artery bypass graft(s), unspecified, with other forms of angina pectoris; Z86.73 Personal history of transient ischemic attack (TIA), and cerebral infarction without residual deficits; G47.33 Obstructive sleep apnea (adult) (pediatric); Z99.89 Dependence on other enabling machines and devices; Z98.890 Other specified postprocedural states; I71.20 Thoracic aortic aneurysm, without rupture, unspecified
CPT/HCPCS: 36415; 71275; 82565; 84520; 93306; Q9967

== ENCOUNTER 2024-09-22 11:20 | Outpatient (CLI) | payer MEDICARE, SELFPAY ==
[2024-09-22 12:45] LABS: Basophils # 0.1 K/mm3 (0-0.2); Basophils % 1.1 % (0.1-2.0); Eosinophils # 0.1 K/mm3 (0.0-0.4); Eosinophils % 1.3 % (0.1-12.0); Hematocrit 32.1 % (37.0-47.0); Hemoglobin 10.3 g/dL (12.2-16.2); Lymphocytes # 2.3 K/mm3 (0.7-4.5); Lymphocytes % 29.8 % (10-50); Mean Corpuscular HGB Conc 32.2 g/dL (31.8-35.4); Mean Corpuscular Hemoglobin 29.1 pg (27.0-31.2); Mean Corpuscular Volume 90.4 fl (81-99); Mean Platelet Volume 7.3 fl (7.4-10.4); Monocytes # 0.6 K/mm3 (0.1-1.0); Monocytes % 7.9 % (1.7-9.3); Neutrophils # 4.7 K/mm3 (1.8-7.8); Neutrophils % 59.9 % (37.0-80.0); Platelet Count 364 K/mm3 (142-424); Red Blood Count 3.56 M/mm3 (4.20-5.40); Red Cell Distribution Width 13.8 % (11.5-17.5); White Blood Count 7.8 K/mm3 (4.8-10.8)
[2024-09-22 13:20] LABS: Alanine Aminotransferase 12 U/L (12-78); Albumin Level 4.2 g/dl (3.5-5.0); Alkaline Phosphatase 117 U/L (38-126); Aspartate Amino Transferase 20 U/L (14-36); Bilirubin,Direct 0.3 mg/dl (0.0-0.4); Bilirubin,Indirect 0.3 mg/dL (0.0-0.9); Bilirubin,Total 0.6 mg/dl (0.2-1.3); Bilirubin,Unconjugated 0.4 mg/dL (0.0-1.1); Blood Urea Nitrogen 7 mg/dl (7-17); Calcium 9.3 mg/dl (8.4-10.2); Carbon Dioxide 27 mmol/L (22.0-30.0); Chloride 104 mmol/L (98-107); Chol/HDL Ratio 2.1 (1-3.5); Cholesterol 123 mg/dl (140-200); Estimated Glomerular Filt Rate 97 ml/min (>60); GFR (African American) 118 ML/MIN (>60); Glucose 89 mg/dl (74-100); HDL Cholesterol 59 mg/dl (40-60); Sodium 139 mmol/L (136-145); Total Protein,Serum 6.8 g/dl (6.3-8.2); Triglycerides 58 mg/dl (30-150); VLDL Cholesterol 12 mg/dL (0-40)
[2024-09-22 13:30] LABS: Direct LDL Cholesterol 55.03 mg/dL (100-129)
[2024-09-22 13:36] LABS: Free T4 (Free Thyroxine) 1.17 ng/dl (0.78-2.19)
[2024-09-22 13:51] LABS: Thyroid Stimulating Hormone 2.17 uIU/mL (0.465-4.68)
== END 2024-09-22 23:59 | disposition home or self-care (01) ==
LOC: LAB 11:21
PROVIDERS: Physician Assistant; PCP Family Medicine; Visit Provider Internal Medicine
DX: E78.5 Hyperlipidemia, unspecified (principal); R93.1 Abnormal findings on diagnostic imaging of heart and coronary circulation; R53.83 Other fatigue; R06.09 Other forms of dyspnea; I42.0 Dilated cardiomyopathy; R06.02 Shortness of breath; R06.00 Dyspnea, unspecified; R07.89 Other chest pain; I25.10 Atherosclerotic heart disease of native coronary artery without angina pectoris; I27.20 Pulmonary hypertension, unspecified; I65.23 Occlusion and stenosis of bilateral carotid arteries; I11.9 Hypertensive heart disease without heart failure; I25.810 Atherosclerosis of coronary artery bypass graft(s) without angina pectoris; I65.29 Occlusion and stenosis of unspecified carotid artery
CPT/HCPCS: 36415; 80048; 80061; 80076; 84439; 84443; 85025

== ENCOUNTER 2024-09-24 07:59 | Day surgery (SDC) | payer MEDICARE, SELFPAY ==
[2024-09-24] VITALS (14 sets, daily range): BP systolic 107–158; BP diastolic 45–80; PULSE 69–70; RESP 16–25; TEMP 36.1; O2SAT 92–98; BMI 29.5
--- NOTE | 2024-09-24 06:57 | IR_ITS ---
APPROVED REPORT Patient Location: Outpatient Manager Pharmacy: MELISSA Kramer RT (R) PROCEDURES Selective coronary angiogram Selective engagement of the saphenous vein graft to the diagonal artery Selective engagement of the saphenous vein graft to the right coronary Selective engagement of the saphenous vein graft to the circumflex artery INDICATION Coronary artery disease, History of coronary bypass surgery, Worsening angina pectoris Informed consent was obtained prior to the procedure. COMPLICATIONS NONE Estimated Blood Loss: LESS THAN 10 ML TECHNIQUE One percent lidocaine used to anesthetize the right groin. The right femoral artery was accessed via the Seldinger technique and a 5 [place] sheath was placed in the right femoral artery. A JL 4, JL 3.5 and a JL 5 JR4 catheter were used to perform left heart catheterization, left ventriculogram selective coronary angiography as well as selective engagement of the 3 vein grafts and the left internal mammary artery. A JL 5 catheter was used to eventually cannulate the left main artery. A mini exchange technique was performed with each catheter exchange. At the end of the procedure the patient was transferred to the postop holding area in stable condition for sheath removal. ANGIOGRAPHIC RESULTS The left main artery Is widely patent The left anterior descending artery Has proximal 20 and 30% stenosis with a mid vessel stent which is widely patent with mild to moderate concentric in-stent restenosis. The LAD is then occluded after 2 large second and third septal perforators. The circumflex artery Proximally occluded The right coronary artery Proximally occluded. The distal right coronary fills via left to right collaterals from the 2 large septal perforators off the LAD The JALLOH ventriculogram reveals Not performed The left ventricular end-diastolic pressure Not measured Saphenous to circumflex artery is widely patent Saphenous to right coronary artery ostially occluded Saphenous to diagonal artery ostially occluded IMPRESSION Coronary disease as described above which is unchanged from last cardiac catheterization PLAN 1. Continue medical management 2. Risk factor modification 3. Treatment of diastolic dysfunction Electronically signed by : Bin Cade MD 09/24/2024 12:15:07
[2024-09-24] MEDS: CLOPIDOGREL 75MG TAB 75 MG PO (08:32)
[2024-09-24 08:38] LABS: Basophils # 0.1 K/mm3 (0-0.2); Basophils % 1.4 % (0.1-2.0); Eosinophils # 0.2 K/mm3 (0.0-0.4); Eosinophils % 1.7 % (0.1-12.0); Hematocrit 33.8 % (37.0-47.0); Lymphocytes # 2.5 K/mm3 (0.7-4.5); Lymphocytes % 29.6 % (10-50); Mean Corpuscular HGB Conc 32.6 g/dL (31.8-35.4); Mean Corpuscular Hemoglobin 28.8 pg (27.0-31.2); Mean Corpuscular Volume 88.3 fl (81-99); Mean Platelet Volume 7.4 fl (7.4-10.4); Monocytes # 0.6 K/mm3 (0.1-1.0); Monocytes % 6.7 % (1.7-9.3); Neutrophils # 5.1 K/mm3 (1.8-7.8); Neutrophils % 60.6 % (37.0-80.0); Platelet Count 414 K/mm3 (142-424); Red Blood Count 3.82 M/mm3 (4.20-5.40); Red Cell Distribution Width 13.8 % (11.5-17.5); White Blood Count 8.5 K/mm3 (4.8-10.8)
[2024-09-24 08:53] LABS: Anion Gap 14.9 mEq/L (5-15); Blood Urea Nitrogen 19 mg/dl (7-17); Calcium 9.8 mg/dl (8.4-10.2); Carbon Dioxide 27 mmol/L (22.0-30.0); Chloride 101 mmol/L (98-107); Creatinine Clearance Estimated 52 mL/min (50-200); Estimated Glomerular Filt Rate 81 ml/min (>60); GFR (African American) 98 ML/MIN (>60); Glucose 122 mg/dl (74-100); Potassium 3.9 mmoL/L (3.5-5.1); Sodium 139 mmol/L (136-145)
[2024-09-24] MEDS: diphenhydrAMINE 50MG/ML VIAL 50 MG IV (10:36)
[2024-09-24] MEDS: LIDOCAINE 1% 10ML MDV 20 ML IJ (10:36)
[2024-09-24] MEDS: HEPARIN 1,000 UNITS/500ML NS (CATH LAB) 3000 UNIT IV (10:37)
[2024-09-24] MEDS: 0.9 % SODIUM CHLORIDE 500 ML 25 ML IV (10:37)
[2024-09-24] MEDS: FENTANYL 100MCG/2ML VIAL 50 MCG IV (11:17)
[2024-09-24] MEDS: MIDAZOLAM HCL 1MG/ML 5ML VIAL 1 MG IV (11:17)
[2024-09-24] MEDS: IOPAMIDOL-370 (76%);100ML BOTTLE 75 ML IV (11:37)
== END 2024-09-24 14:42 | disposition home or self-care (01) ==
LOC: CATHLAB 08:01
PROVIDERS: PCP Family Medicine; Visit Provider Internal Medicine
DX: I25.118 Atherosclerotic heart disease of native coronary artery with other forms of angina pectoris (principal); T82.855A Stenosis of coronary artery stent, initial encounter; I77.1 Stricture of artery; I25.810 Atherosclerosis of coronary artery bypass graft(s) without angina pectoris; I42.0 Dilated cardiomyopathy; R07.89 Other chest pain; I27.20 Pulmonary hypertension, unspecified; I65.23 Occlusion and stenosis of bilateral carotid arteries; I11.0 Hypertensive heart disease with heart failure; Z79.01 Long term (current) use of anticoagulants; Z95.1 Presence of aortocoronary bypass graft; R29.6 Repeated falls; Z79.899 Other long term (current) drug therapy; R93.1 Abnormal findings on diagnostic imaging of heart and coronary circulation; R53.83 Other fatigue; R06.02 Shortness of breath; Y83.1 Surgical operation with implant of artificial internal device as the cause of abnormal reaction of the patient, or of later complication, without mention of misadventure at the time of the procedure; I50.9 Heart failure, unspecified
CPT/HCPCS: 80048; 85025; 93459; 99152; 99153; C1725; C1769; C1894; J1200; J1644; J2250; J3010; Q9967

== ENCOUNTER 2024-11-03 09:53 | Outpatient (CLI) | payer MEDICARE, SELFPAY ==
[2024-11-03 11:07] LABS: Chloride 97 mmol/L (98-107)
[2024-11-03 11:08] LABS: Potassium 5.2 mmoL/L (3.5-5.1); Sodium 132 mmol/L (136-145)
[2024-11-03 11:11] LABS: Anion Gap 12.2 mEq/L (5-15); Blood Urea Nitrogen 14 mg/dl (7-17); Calcium 10.3 mg/dl (8.4-10.2); Carbon Dioxide 28 mmol/L (22.0-30.0); Estimated Glomerular Filt Rate 97 ml/min (>60); GFR (African American) 118 ML/MIN (>60); Glucose 107 mg/dl (74-100)
== END 2024-11-03 23:59 | disposition home or self-care (01) ==
PROVIDERS: PCP Family Medicine; Visit Provider Nurse Practitioner Family
DX: R53.83 Other fatigue (principal); E78.5 Hyperlipidemia, unspecified; I25.10 Atherosclerotic heart disease of native coronary artery without angina pectoris; Z87.891 Personal history of nicotine dependence; I11.9 Hypertensive heart disease without heart failure
CPT/HCPCS: 36415; 80048

== ENCOUNTER 2024-12-03 07:47 | Outpatient (CLI) | payer MEDICARE, SELFPAY ==
[2024-12-03 08:52] LABS: Anion Gap 12.6 mEq/L (5-15); Blood Urea Nitrogen 10 mg/dl (7-17); Calcium 10.1 mg/dl (8.4-10.2); Carbon Dioxide 34 mmol/L (22.0-30.0); Chloride 96 mmol/L (98-107); Estimated Glomerular Filt Rate 97 ml/min (>60); GFR (African American) 118 ML/MIN (>60); Glucose 119 mg/dl (74-100); Potassium 3.6 mmoL/L (3.5-5.1); Sodium 139 mmol/L (136-145)
== END 2024-12-03 23:59 | disposition home or self-care (01) ==
LOC: LAB 07:49
PROVIDERS: PCP Family Medicine; Visit Provider Nurse Practitioner Family
DX: I25.10 Atherosclerotic heart disease of native coronary artery without angina pectoris; Z95.0 Presence of cardiac pacemaker; I11.9 Hypertensive heart disease without heart failure; I48.91 Unspecified atrial fibrillation; I65.23 Occlusion and stenosis of bilateral carotid arteries; Z86.73 Personal history of transient ischemic attack (TIA), and cerebral infarction without residual deficits; G47.33 Obstructive sleep apnea (adult) (pediatric); Z98.890 Other specified postprocedural states; R53.83 Other fatigue; I71.20 Thoracic aortic aneurysm, without rupture, unspecified
CPT/HCPCS: 36415; 80048

== ENCOUNTER 2024-12-15 10:13 | Outpatient (CLI) | payer MEDICARE, SELFPAY ==
[2024-12-15 10:37] LABS: Basophils # 0.1 K/mm3 (0-0.2); Basophils % 0.7 % (0.1-2.0); Eosinophils # 0.1 K/mm3 (0.0-0.4); Eosinophils % 1.6 % (0.1-12.0); Hematocrit 35.3 % (37.0-47.0); Hemoglobin 11.5 g/dL (12.2-16.2); Lymphocytes % 23.8 % (10-50); Mean Corpuscular HGB Conc 32.6 g/dL (31.8-35.4); Mean Corpuscular Hemoglobin 30.1 pg (27.0-31.2); Mean Corpuscular Volume 92.4 fl (81-99); Mean Platelet Volume 9.4 fl (7.4-10.4); Monocytes # 0.8 K/mm3 (0.1-1.0); Monocytes % 9.2 % (1.7-9.3); Neutrophils # 5.4 K/mm3 (1.8-7.8); Neutrophils % 64.3 % (37.0-80.0); Platelet Count 265 K/mm3 (142-424); Red Blood Count 3.82 M/mm3 (4.20-5.40); Red Cell Distribution Width 16.8 % (11.5-17.5); White Blood Count 8.4 K/mm3 (4.8-10.8)
--- NOTE | 2024-12-15 10:46 | XR_ITS ---
FINAL REPORT CLINICAL HISTORY: SOB COMPARISON: None FINDINGS: No acute pulmonary density is evident. There is no evidence of effusion or other pleural disease. There is mild left pleural scarring. The patient is status post CABG. The mediastinum is otherwise unremarkable. A left-sided pacer is noted. The cardiac silhouette is unremarkable. IMPRESSION: No acute findings. Reviewed, Interpreted and Dictated by Greg Sanders MD Transcribed by Sara Hanley Authenticated and [facility]
[2024-12-15 12:33] LABS: C-Reactive Protein < 0.3 mg/L (0-4)
[2024-12-17 14:18] LABS: Strongyloides IgG Antibody Negative (Negative)
[2024-12-18 05:17] LABS: D001-IgE D pteronyssinus <0.10 kU/L (Class 0); D002-IgE D farinae <0.10 kU/L (Class 0); E001-IgE Cat Dander <0.10 kU/L (Class 0); E005-IgE Dog Dander <0.10 kU/L (Class 0); E072-IgE Mouse Urine <0.10 kU/L (Class 0); G002-IgE Bermuda Grass <0.10 kU/L (Class 0); G006-IgE Timothy Grass <0.10 kU/L (Class 0); I006-IgE Cockroach, German <0.10 kU/L (Class 0); Immunoglobulin E, Total 342 IU/mL (6-495); M001-IgE Penicillium chrysogen <0.10 kU/L (Class 0); M002-IgE Cladosporium herbarum <0.10 kU/L (Class 0); M003-IgE Aspergillus fumigatus <0.10 kU/L (Class 0); M006-IgE Alternaria alternata <0.10 kU/L (Class 0); T001-IgE Maple/Box Elder <0.10 kU/L (Class 0); T003-IgE Common Silver Birch <0.10 kU/L (Class 0); T006-IgE Cedar, Mountain <0.10 kU/L (Class 0); T007-IgE Oak, White <0.10 kU/L (Class 0); T008-IgE Elm, American <0.10 kU/L (Class 0); T010-IgE Walnut <0.10 kU/L (Class 0); T011-IgE Maple Leaf Sycamore <0.10 kU/L (Class 0); T014-IgE Cottonwood <0.10 kU/L (Class 0); T015-IgE Ash, White <0.10 kU/L (Class 0); T022-IgE Pecan, Hickory <0.10 kU/L (Class 0); T070-IgE White Mulberry <0.10 kU/L (Class 0); W001-IgE Ragweed, Short <0.10 kU/L (Class 0); W011-IgE Thistle, Russian <0.10 kU/L (Class 0); W014-IgE Pigweed, Common <0.10 kU/L (Class 0); W018-IgE Sheep Sorrel <0.10 kU/L (Class 0)
== END 2024-12-15 23:59 | disposition home or self-care (01) ==
PROVIDERS: Internal Medicine Pulmonary Disease; PCP Family Medicine; Visit Provider Nurse Practitioner Family
DX: J45.909 Unspecified asthma, uncomplicated (principal); R06.09 Other forms of dyspnea; D72.10 Eosinophilia, unspecified; J18.9 Pneumonia, unspecified organism; R06.02 Shortness of breath; J43.9 Emphysema, unspecified; R91.1 Solitary pulmonary nodule
CPT/HCPCS: 36415; 71046; 82785; 85025; 86003; 86140; 86682; 87070; 87205

== ENCOUNTER 2025-01-08 07:07 | Outpatient (CLI) | payer MEDICARE, SELFPAY ==
[2025-01-08 08:35] VITALS: PULSE 70; PULSE 71
[2025-01-08] MEDS: ALBUTEROL 0.083% 2.5 MG/3 ML NEB IH (08:35)
--- NOTE | 2025-01-08 09:17 | CT_ITS ---
FINAL REPORT TECHNIQUE: Axial CT without IV contrast administration. Supine inspiration and expiration and prone inspiration hi-resolution images were obtained and reviewed. This study was performed with techniques to keep radiation doses as low as reasonably achievable, (ALARA). Individualized dose reduction techniques using automated exposure control or adjustment of mA and/or kV according to the patient''s size were employed. CLINICAL HISTORY: . Shortness of breath, nodule COMPARISON: 07/31/2024 FINDINGS: There is no evidence of diffuse interstitial lung disease. Scarring and rounded atelectasis is again noted within the left lateral lung base with adjacent small hernia containing lung. This is located between the 7th and 8th ribs. There is minimal right middle lobe nodularity which is unchanged with nodules measuring 4 mm or less. Mild bronchiectasis is noted in the lower lobes. No pleural or pericardial effusion is seen. No adenopathy or mass lesion is present. Thoracic aorta is at the upper limits of normal measuring 37 mm. IMPRESSION: No evidence of diffuse interstitial lung disease. Mild bronchiectasis. Stable right middle lobe nodularity, likely postinflammatory. Reviewed, Interpreted and Dictated by Greg Sanders MD Transcribed by Yovana Qureshi Authenticated and [facility]
== END 2025-01-08 23:59 | disposition home or self-care (01) ==
LOC: RT 07:08
PROVIDERS: PCP Family Medicine; Visit Provider Internal Medicine Pulmonary Disease
DX: R06.09 Other forms of dyspnea (principal); J84.9 Interstitial pulmonary disease, unspecified
CPT/HCPCS: 71250; 94060; 94618; 94640; 94726; 94729; J7613

== ENCOUNTER 2025-08-11 09:55 | Outpatient (CLI) | payer MEDICARE, SELFPAY ==
[2025-08-11 11:27] LABS: Chloride 96 mmol/L (98-107); Potassium 3.7 mmoL/L (3.5-5.1); Sodium 137 mmol/L (136-145)
[2025-08-11 11:30] LABS: Anion Gap 12.7 mEq/L (5-15); Calcium 9.1 mg/dl (8.4-10.2); Carbon Dioxide 32 mmol/L (22.0-30.0); Glucose 93 mg/dl (74-100)
[2025-08-11 13:08] LABS: Blood Urea Nitrogen 13 mg/dl (7-17); Creatinine,Serum 0.70 mg/dl (0.52-1.04); Estimated Glomerular Filt Rate 81 ml/min (>60); GFR (African American) 98 ML/MIN (>60)
[2025-08-11 13:42] LABS: D-Dimer 0.62 ug/mL (0.0-0.5)
[2025-08-11 15:02] LABS: NT Pro Brain Natriuretic Pep. 1850 pg/mL (0-450)
== END 2025-08-11 23:59 | disposition home or self-care (01) ==
PROVIDERS: Nurse Practitioner Family; PCP Family Medicine; Visit Provider Physician Assistant
DX: I25.10 Atherosclerotic heart disease of native coronary artery without angina pectoris (principal); I65.29 Occlusion and stenosis of unspecified carotid artery; I71.20 Thoracic aortic aneurysm, without rupture, unspecified; I11.9 Hypertensive heart disease without heart failure; R79.89 Other specified abnormal findings of blood chemistry
CPT/HCPCS: 36415; 80048; 83880; 85378

== ENCOUNTER 2025-08-13 10:48 | Outpatient (CLI) | payer MEDICARE, SELFPAY ==
--- OUTSIDE RECORDS SUMMARY | 2025-08-13 10:51 | XMS_ITS | Clinical Summary ---
Author Organization [facility] Address [address] [place] [address] Care Team Providers Care Safety Instruction Police Officer Name Role Phone Unavailable Primary Care Provider Unavailabl e Allergies Active Allergy Reactions Criticality Noted Date Comments Aspirin Rash Medium 12/03/2014 Ciprofloxacin Photosensitivity Medium 12/03/2014 Latex, Natural Rubber Rash Medium 12/03/2014 Nickel Dermatitis Medium 12/03/2014 Medications alendronate (FOSAMAX) 70 mg tablet Take 70 mg by mouth. Active clopidogreL (PLAVIX) 75 mg tablet TAKE ONE (1) TABLET BY MOUTH EVERY DAY 2 Active SANTYL APPLY TO CLEANSED AFFECTED AREA BY TOPICAL ROUTE ONCE DAILY 2 Active PREMARIN INSERT ONE (1) G TWICE A WEEK BY VAGINAL ROUTE. 2 Active furosemide (LASIX) 80 mg tablet TAKE ONE (1) TABLET BY MOUTH EVERY DAY 2 Active isosorbide mononitrate (IMDUR) 60 mg CR tablet TAKE ONE (1) TABLET BY MOUTH EACH MORNING 2 Active losartan (COZAAR) 50 mg tablet TAKE TWO (2) TABLETS BY MOUTH EVERY DAY 2 Active pantoprazole (PROTONIX) [address] tablet TAKE 1 TABLET BY MOUTH DAILY 2 Active Pramipexole (MIRAPEX) 0.5 mg Tab tablet Take 0.5 mg by mouth. Active rosuvastatin (CRESTOR) 40 mg tablet TAKE ONE (1) TABLET BY MOUTH EVERY DAY 2 Active Spironolactone 50 mg tablet TAKE ONE (1) TABLET BY MOUTH TWICE DAILY 2 Active Active Problems No known active problems Immunizations Immunization Administration Dates Next Due Moderna SARS-COV-2 Vaccination Full Dose 021,12/08/2020 Social History Tobacco Use Types Packs/Day Years Used Date Smoking Tobacco: Never Assessed Comments Unknown Sex and Gender Information Value Date Recorded Sex Assigned at Not on file Legal Sex Female 8:56 AM EST Gender Identity Not on file Sexual Orientation Not on file Last Filed Vital Signs Vital Sign Reading Time Taken Comments Blood Pressure 138/55 11/29/2022 2:11 PM EST Pulse 69 11/29/2022 2:11 PM EST Temperature 36.6 C (97.9 F) 11/29/2022 2:11 PM EST Respiratory Rate 17 11/29/2022 2:11 PM EST Oxygen Saturation 99% 11/29/2022 2:11 PM EST Inhaled Oxygen Concentration - - Weight - - Height - - Body Mass Index - - Plan of Treatment Health Maintenance Due Date Last Done Comments HEP C SCREENING 1950 ANNUAL WELLNESS EXAM 1953 Shingles Vaccine (Shingrix) (2 of 3) 01/13/2010 11/18/2009 DEXA SCAN EVERY 2 YR (Osteoporosis Screen) 2013 PNEUMOCOCCAL VACCINE 65+ YEARS (2 of 2 - PPSV23) 10/11/2018 10/11/2017, 11/14/2016 COVID-19 Vaccine (4 - season) 2025 09/11/2021, 01/05/2021, 12/08/2020 INFLUENZA VACCINE (#1) 2025 2, 08/11/2021, 08/13/2019, Additional history exists DTAP/TDAP/TD VACCINE (2 - Td or Tdap) 03/29/2032 03/29/2022, 06/25/2003 HEP A VACCINE Aged Out No longer elig ible based on patient's age to complete this topic HIB VACCINE Aged Out No longer eligi ble based on patient's age to complete this topic ROTOVIRUS VACCINE Aged Out No longer eligible based on patient's age to complete this topic Insurance CARE
--- OUTSIDE RECORDS SUMMARY | 2025-08-13 10:51 | XMS_ITS | Clinical Summary ---
Author Organization [facility] Address [address] [place] [address] Phone Care Team Providers Care Nutritional Assistant Name Role Phone Roberto Robles Primary Care Provider [phone] Wilberto Pitts MD Unavailable [phone] Allergies Active Allergy Reactions Criticality Noted Date Comments Aspirin Rash Medium 07/25/2008 aspirin Ciprofloxacin Photosensitivity Medium 12/03/2014 Fluconazole Hives Low 11/07/2017 Latex Rash High 06/13/2010 latex Latex, Natural Rubber Rash Medium 12/03/2014 Nickel Dermatitis,Hives,Rash High 06/13/2010 Medications pantoprazole (PROTONIX) 40 mg Oral Tablet, Delayed Release (E.C.) Take 40 mg by mouth daily. Active rosuvastatin (CRESTOR) 40 mg Oral Tablet Take 40 mg by mouth daily. Active spironolactone (ALDACTONE) 50 mg Oral Tablet Take 50 mg by mouth 2 times daily. Active pramipexole (MIRAPEX) 0.5 mg Oral Tablet Take 0.5 mg by mouth daily. Active losartan (COZAAR) 100 mg Oral Tablet Take 50 mg by mouth daily. Active clopidogreL (PLAVIX) 75 mg Oral Tablet Take 75 mg by mouth daily. Active bisoprolol (ZEBETA) 5 mg Oral Tablet Take 5 mg by mouth daily. 12/14/2024 Active bumetanide (BUMEX) 2 mg Oral Tablet Take 2 mg by mouth daily. 12/14/2024 Active donepeziL (ARICEPT) 5 mg Oral Tablet Take 5 mg by mouth nightly. 12/14/2024 Active nitroGLYCERIN (NITROSTAT) 0.4 mg SL Tablet, Sublingual as needed. Active Active Problems Problem Noted Date Diagnosed Date S/P AV malena ablation 04/02/2017 Overview (04/02/2017): S/P AV node ablation by Dr. Pitts on 04/02/17 A-fib Atrial flutter Coronary atherosclerosis of unspecified type of vessel, [place] or graft MARTA (cerebral atherosclerosis) Breast cancer CAD (coronary artery disease) GERD (gastroesophageal reflux disease) HTN (hypertension) Palpitation Stroke Hyperlipidemia Resolved Problems Problem Noted Date Diagnosed Date Resolved Date Incisional hernia, without o bstruction or gangrene 06/27/2021 04/16/2025 Assessment & Plan (02/19/2025 12:36 PM EDT): Patient has an incisional hernia. We discussed incisional hernias, their natural progression, and surgical options for treatment. We reviewed robotic and open approaches. We discussed the use of mesh in repairs. After answering all of her questions, the patient does wish to proceed with surgery. I reviewed the risks, benefits, and alternatives of a robotic incisional hernia repair with mesh, possible open. We discussed the risks, benefits, alternatives, and types of mesh. We discussed postoperative course and care. I answered all of her questions. she stated her understanding and desire to proceed with surgery. she stated her agreement to the use of mesh. We reviewed warning signs and symptoms that should prompt urgent evaluation. she stated her understanding and agreement with this plan. Follow up two weeks after surgery Assessment & Plan (06/27/2021 2:02 PM EDT): Patient has a reducible incisional hernia just inferior to her breastbone. Patient has an epigastric incisional hernia. We discussed incisional hernias, their natural progression, and surgical options for treatment. We reviewed robotic and open approaches. We discussed the use of mesh in repairs. After answering all of her questions, the patient does wish to proceed with surgery at this time. I have recommended proceeding with a robotic incisional hernia repair with mesh, possible open. I reviewed the risks, benefits, and alternatives of surgery. I reviewed the risks, benefits, and types of hernia mesh. We discussed postoperative course and care. I answered all of her questions. She stated her understanding and desire to proceed with surgery. Given the patient's comorbid conditions and medications, I will ask for her primary care physician to evaluate her prior to surgery. I will leave it up to his determination if the patient should see her childbirth and infant care teacher. We reviewed warning signs and symptoms that should prompt urgent evaluation. she stated her understanding and agreement with this plan. Follow up 2 weeks after surgery Surgical History Surgery Date Site/Laterality Comments CORONARY ARTERY BYPASS GRAFT 1989; 2003 CORONARY ANGIOPLASTY WITH STENT PLACEMENT 04/27/2012 1 Stent placed CORONARY ANGIOPLASTY WITH STENT PLACEMENT 09/22/2010 2 Stent placed BREAST LUMPECTOMY 11/20/2000 Right TUBAL LIGATION 11/04/1972 - 11/03/1973 PACEMAKER PLACEMENT 12/21/2015 SJM Single PPM implant COLONOSCOPY CARDIAC CATHETERIZATION ABLATION OF DYSRHYTHMIC FOCUS 04/02/[address] Pitts HYSTERECTOMY CAROTID ENDARTERECTOMY 02/09/2013 Right CARDIAC PACEMAKER PLACEMENT EYE SURGERY Bilateral cats with IOL VENTRAL HERNIA REPAIR 07/31/2021 N/A robotic incisional hernia repair with mesh, ; Surgeon: Smooth Soto DO; Location: [facility]; Service: General Medical devices from this surgery are in the Medical Devices section. VENTRAL HERNIA REPAIR 03/31/2025 N/A Robotic incisional hernia repair with mesh; Surgeon: Smooth Soto DO; Location: [facility]; Service: General Medical devices from this surgery are in the Medical Devices section. Medical History Medical History Date Comments A-fib ([facility]) MARTA (cerebral atherosclerosis) GERD (gastroesophageal reflux disease) HTN (hypertension) Palpitation Hyperlipidemia Pneumonia Dec and March 2021 after Covid Lung nodule COPD (chronic obstructive pu lmonary disease) ([facility]) mild CAD (coronary artery disease) 1989, 2004 CA BG times 4 ( 1989 ) Cabg times 3 ( 2004 ), Cardiac stent 2003 Carotid artery occlusion left 10 0 % blocked, s/p right CEA Pacemaker PPM Arthritis back and fingers Stroke ([facility]) affected right e ye Encounter for blood transfusion with open heart surgery Breast cancer ([facility]) 2000 chemo and XR T 2000 NUÑEZ (dyspnea on exertion) Angina pectoris when walking [place] the house; seldomly takes nitro SL NH (myocardial infarction) ([facility]) was told she had one in the past Glaucoma Peripheral vision loss 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 Family History Medical History Relation Name Comments Heart Attack Father High Cholesterol Father Hypertension Father Cancer Mother Anesth Problems Neg Hx Relation Name Status Comments Father Mother Social History Tobacco Use Types Packs/Day Years Used Date Smoking Tobacco: Former Cigarettes 1 25 0 07/27/1965 - 11/04/1989 Smokeless Tobacco: Never Tobacco Cessation:Counseling Given: Not Answered Alcohol Use Standard Drinks/Week Comments No 0 (1 standard drink = 0.6 oz pur e alcohol) Comments No Sex and Gender Information Value Date Recorded Sex Assigned at Not on file Legal Sex Female 11:50 AM EST Gender Identity Not on file Sexual Orientation Not on file Last Filed Vital Signs Vital Sign Reading Time Taken Comments Blood Pressure 108/64 04/16/2025 9:55 AM EDT Pulse 89 04/16/2025 9:55 AM EDT Temperature 36.2 C (97.2 F) 04/16/2025 9:55 AM EDT Respiratory Rate 18 04/16/2025 9:55 AM EDT Oxygen Saturation 96% 03/31/2025 1:36 PM EDT Inhaled Oxygen Concentration - - Weight 67.6 kg (149 lb) 04/16/2025 9:55 AM EDT Height 152.4 cm (5') 04/16/2025 9:55 AM EDT Body Mass Index 29.1 04/16/2025 9:55 AM EDT Plan of Treatment Health Maintenance Due Date Last Done Comments Wellness Exam Medicare 1953 COVID-19 Vaccine ( season) 2025 09/11/2021, 01/05/2021, 12/08/2020 Influenza Vaccine (#1) 2025 , 08/03/2023, 08/18/2022, Additional history exists DTaP/TDaP/Td (2 - Td or Tdap) 03/29/2032 03/29/2022, 06/25/2003 Bone Density Screening Addressed 03/18/2017 (Postpo megan) Overridden with the intention of not completing the topic Colonoscopy Discontinued 03/18/2017 (Postponed) Hepatitis C Screening Addressed 03/18/2017 (Postpon ed) Overridden with the intention of not completing the topic Zoster Completed 10/22/2019, 05/2019, 11/18/2009 Pneumococcal Vaccine 50+ Completed 023, 10/11/2017, 11/14/2016, Additional history exists RSV or 60+ Completed 10/07/2023 Cologuard Discontinued 01/13/2025 Colon Cancer Screening Discontinued FIT Discontinued Hepatitis B Vaccine Aged Out No longe r eligible based on patient's age to complete this topic Meningococcal B Vaccine Aged Out No l onger eligible based on patient's age to complete this topic Sigmoidoscopy Discontinued Virtual Colonography Discontinued Medical Devices Implanted Type Area Edger Machine Setter Device Identifier Shelf Expiration Date Model / Serial / Lot Multpile Cardiac Stents Bilateral Intraocular Lenses [employer] Single Pacemaker Implanted:12/21 (Quantity not on file) [employer] SR [id number] / [id number] / Mesh Std 6x6in Sq Marlx Perfx Knit Prperitn Nabsb Sht Otter Tail - [id number] Implanted:Qty: 1 on 07/31/2021 by Smooth Soto DO at [facility] N/A: Abdomen CR BARD:DAVOL 05/01/2024 [id number] / / [id number] Mesh 4.5in Cir [address] [employer]ra Co-Knit Vntrl Prt Absb Ptc - [id number] Implanted:Qty: 1 on 03/31/2025 by Smooth Soto DO at [facility] N/A: Abdomen CR BARD:DAVOL [id number] 01/01/2026 [id number] / / [id number] Insurance A[employer] MEDICARE CMPLT FS HMO MR MEDICARE CMPLT FS HMO MR MEDICARE [place] PART A AND B Advance Directives For more information, please contact: [phone] Documents on File Type Date Recorded Patient Manager [employer] anation ADVANCE DIRECTIVE 03/31/2025 8:15 AM Power of Bed Control Specialist 03/31/2025 8:14 AM ADVANCE DIRECTIVE 07/31/2021 9:44 AM ADVANCE DIRECTIVE 07/31/2021 9:44 AM * Full Code (Latest Code Status on File) Date Activated Date Inactivated Comments 04/03/2017 10:11 AM 04/03/2017 4:58 PM Care Teams Nutritional Assistant Relationship Specialty Start Date End Date Roberto Robles [address] [place] [address] PCP - General Family Medicine 11/01/14 Wilberto Pitts MD [address] [place] [id number] Consulting Physician Internal Medicine - Clinical Cardiac Electrophysiology 03/06/17
[2025-08-13] MEDS: SODIUM CHLORIDE 0.9% 10ML SYR (RAD ONLY) 10 ML IV (11:09)
[2025-08-13] MEDS: IOPAMIDOL-370 (76%);100ML BOTTLE 85 ML IV (11:09)
[2025-08-13] MEDS: 0.9 % SODIUM CHLORIDE 50 ML VIAL IV (11:09)
--- NOTE | 2025-08-13 11:15 | CT_ITS ---
FINAL REPORT TECHNIQUE: Axial imaging of the chest is obtained after the administration of contrast. 3-D MIP reformatted images were also obtained and reviewed per PE protocol. CLINICAL HISTORY: elevated d-dimer COMPARISON: CT 01/08/2025, CTA 07/31/2024 FINDINGS: The pulmonary arteries are well filled. There is no evidence of pulmonary embolus. Exam is limited for dissection due to the timing of the contrast bolus. The thoracic aorta is at the upper limits of normal but unchanged since the previous exam. The heart is enlarged. There is no mediastinal, hilar, or axillary lymphadenopathy. Rounded atelectasis at the lung base is unchanged. There is a small hernia of lung through the lower left ribs which is unchanged. Ground-glass opacities are present. Mild edema is not excluded. Right lower lobe 5 mm nodule on series 3, image 45 is stable. Right mid lobe nodularity is unchanged. No new consolidation. There is no pleural or pericardial effusion. Limited evaluation of the upper abdomen is without acute abnormality. No acute osseous abnormality. IMPRESSION: No evidence of pulmonary embolism. Stable cardiomegaly. Ground-glass opacities may represent mild edema. Other chronic findings are stable. Reviewed, Interpreted and Dictated by Cele Dukes MD Transcribed by Yovana Qureshi Authenticated and [facility]
== END 2025-08-13 23:59 | disposition home or self-care (01) ==
LOC: RAD 10:48
PROVIDERS: PCP Family Medicine; Visit Provider Nurse Practitioner Family
DX: I11.9 Hypertensive heart disease without heart failure (principal); R91.8 Other nonspecific abnormal finding of lung field; I25.10 Atherosclerotic heart disease of native coronary artery without angina pectoris; I71.20 Thoracic aortic aneurysm, without rupture, unspecified; R79.89 Other specified abnormal findings of blood chemistry
CPT/HCPCS: 71275; Q9967

== ENCOUNTER 2025-08-24 07:16 | Outpatient (CLI) | payer MEDICARE, SELFPAY ==
--- OUTSIDE RECORDS SUMMARY | 2025-08-24 07:18 | XMS_ITS | Data Portability ---
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 Plan of Treatment Reminders Order Date Submit Date Provider Last Modified By Organization Details Last Modified Time Details Appointments OV NEW 15 2024 08:30A M GERALD GOLDSTEIN NP Not available Not available Not available Lab None recorded. Referral None recorded. Procedures None recorded. Surgeries None recorded. Imaging None recorded. Medication Orders prednison e 5 mg tablet 2023 [id number] [facility], [address] [place] [address], [address], 06/11/2024 14:02:36 Patient TargetsNo targets recorded. Patient Instructions Encounter Date Encounter Id Patient Instructions Last Modified By Organization Details Last Modified Time 06/11/2024 [id number] I have personall y reviewed the data obtained and entered from the scribe, medical cost consultant or nurse for this patient for this patient encounter. Discussed with patient pain in ear possibly related to underlying musculoskeletal issue. We will begin prednisone. Also consider CT imaging of middle ear throughout vascular lesion. Not available 06/11/2024 14:03:05 06/17/2024 [id number] The patient can return to normal activity. bettie Not available 06/17/2024 11:24:02 Patient seen by physician doctor's assistant. I have reviewed the patient's medical record, the medical decision making and treatment plan. bettie Not available 06/17/2024 11:24:05 06/25/2024 [id number] I have personall y reviewed the data obtained and entered from the scribe, medical cost consultant or nurse for this patient for this patient encounter.. Discussed with patient. Ear pain consistent with TMJ patient to use conservative measures to manage. Patient with tinnitus and hearing loss recommend an audiogram. Patient to follow-up after audiogram. Not available 06/25/2024 09:12:15 Reason for Referral None Reported. Results Created Date Observation Date Name Description Value Unit Range Abnormal Flag Note LastModifiedBy Organization Detail LastModifiedTime Result Notes None recorded. Problems Name Problem SNOMED Code Status Onset Date Resolution Date Notes Provider Name and Address Organization Details Recorded Time Myocardial infarction 99385535 Active Yoselinprasad Bland prema, JOSE - [facility] - [place] [facility] [place] 4 13:30:01 Atrial fibrillatio n 00836649 Active Oyselinprasad Bland null, JOSE - [facility] - [place] 4 13:30:01 History of cardiac catheteriza tion 7802991720840 0 Active Yoselinprasad Bland null, JOSE - [facility] - [place] [facility] [place] 4 13:30:01 Gastrointes tinal hemorrhage 89819816 Active Yoselinprasad Bland null, JOSE - [facility] - [place] [facility] [place] 4 13:30:01 Notes:Some problems listed i n Document: #[id number] could not be added to this patient's chart. Please review this document and add these problems to the patient's chart manually as needed. Problem Notes None recorded. Procedures Surgical History Date Name Laterality Status Provider Name and Address Organization Details Recorded Time 2023 Appendectomy completed Yoselinprasad Bland JOSE - [facility] - [place] 4 13:39:41 2023 appendectomy completed YoselinKain GARCIA - [facility] - [place] [facility] [place] 4 11:09:43 lumpectomy of breast completed Kari GARCIA - [facility] - [place] [facility] [place] 4 13:40:28 colonoscopy completed Yoselin GARCIA - [facility] - [place] 4 13:40:38 esophagogastroduodenoscopy completed Yoselin GARCIA - [facility] - [place] [facility] [place] 4 13:40:51 coronary artery bypa ss graft completed Yoselin [facility] & [place] 4 13:41:05 Coronary Artery Stent completed Julio [facility] & [place] 4 13:41:39 cardiac pacemaker procedure complete d Yoselin [facility] & [place] 4 13:41:50 hysterectomy completed Yoselin [facility] & [place] 4 13:42:06 Imaging Results None recorded. Procedure Notes None recorded. Medical Equipment None Reported. Allergies Allergen ID Allergen Name Allergen Category Reaction Reaction Severity Criticality Documentation Date Start Date Code Code System Note Provider Name and Address Organization Details Recorded Time 890511 Rubber (substanc e) medicatio n rash severe Not available 06/11/20242017 75703 003 SNOMED JOSE Yost [facility] & [place] 4 13:29:29 633561 aspirin medicatio n rash mild Not available 06/11/20242023 1191 RxNorm JOSE Yost [facility] & [place] 4 13:29:29 111308 ciproflox acin medicatio n Not available Not available Not available 06/11/20242013 2551 RxNorm JOSE Yost [facility] & [place] 4 13:29:29 325888 fluconazo le medicatio n hives mild Not available 06/11/20242017 4450 RxNorm JOSE Yost [facility] & [place] 4 13:29:29 794036 nickel environme nt hives severe Not available 06/11/20242013 21010 29 RxNorm JOSE Yost [facility] - [place] [facility] [place] 4 13:29:29 154989 latex environme nt,medica tion rash severe Not available 06/11/20242012 64027 91 RxNorm JOSE Yost [facility] - [place] [facility] [place] 4 13:29:29 Medications Name Sig Start Date Stop Date Status Note LastModified by Organization Details LastModified Time losartan 50 mg tablet 50 mg by oral route. active Not Available Not Available No t Available pramipexole 1 mg tablet TAKE ONE (1) TABLET BY MOUTH EVERY DAY active Not Available Not Available No t Available furosemide 40 mg tablet 40 mg by oral route. 06/05 completed Not Available Not Available Not Available doxycycline hyclate 100 mg capsule TAKE 1 CAPSULE BY MOUTH TWICE DAILY WITH MEALS FOR FIVE (5) DAYS 06/11 completed Not Available Not Available Not Available donepezil 5 mg tablet TAKE ONE (1) TABLET EVERY DAY BY ORAL ROUTE. active Not Available Not Available No t Available diltiazem ER 180 mg capsule,24 hr,extended release 360 mg by oral route. 12/06 completed Not Available Not Available Not Available diltiazem ER (XR/XT) 240 mg capsule,ext ended release 24 hr, controlled 240 mg by oral route. 11/07 completed Not Available Not Available Not Available azithromyci n 250 mg tablet TAKE TWO (2) TABLETS (500 MG) BY ORAL ROUTE ONCE DAILY FOR ONE (1) DAY THEN ONE (1) TABLET (250 MG) BY ORAL ROUTE ONCE DAILY FOR FOUR (4) DAYS 06/11 completed Not Available Not Available Not Available isosorbide mononitrate 20 mg tablet 20 mg by oral route. 08/29 completed Not Available Not Available Not Available benzonatate 200 mg capsule TAKE ONE (1) CAPSULE (200 MG) BY ORAL ROUTE THREE (3) TIMES PER DAY NEEDED 06/17 completed Not Available Not Available Not Available hydrocodone 5 mg-acetamin ophen 325 mg tablet 06/11 completed Not Available Not Available Not Available meloxicam 15 mg tablet 15 mg by oral route. 11/08 completed Not Available Not Available Not Available fluorouraci l 5 % topical cream APPLY A THIN LAYER TO BOTH LOWER LEGS TWICE DAILY FOR 3 WEEKS active Not Available Not Available No t Available prednisone 5 mg tablet ONE TABLET BY MOUTH TWICE DAILY FOR SEVEN DAYS, THEN ONE TABLET BY MOUTH ONCE DAILY FOR SEVEN DAYS active Not Available Not Available No t Available bisoprolol 5 mg-hydrochl orothiazide 6.25 mg tablet 06/11 completed Not Available Not Available Not Available clopidogrel 75 mg tablet TAKE ONE (1) TABLET BY MOUTH EVERY DAY active Not Available Not Available No t Available valacyclovi r 500 mg tablet TAKE ONE (1) TABLET BY MOUTH EVERY DAY 06/11 completed Not Available Not Available Not Available carvedilol 3.125 mg tablet 3.125 mg by oral route. 05/10 completed Not Available Not Available Not Available hydrocortis one acetate 25 mg rectal suppository 11/07 completed Not Available Not Available Not Available bisoprolol fumarate 5 mg tablet TAKE ONE (1) TABLET BY MOUTH EVERY DAY active Not Available Not Available No t Available isosorbide dinitrate 30 mg tablet 30 mg by oral route. 05/11 completed Not Available Not Available Not Available isosorbide mononitrate ER 60 mg tablet,exte nded release 24 hr Take 60 mg by oral route. 06/11 completed Not Available Not Available Not Available furosemide 80 mg tablet TAKE ONE (1) TABLET BY MOUTH EVERY DAY active Not Available Not Available No t Available pantoprazol e 40 mg tablet,eugenio yed release TAKE 1 TABLET BY MOUTH EVERY DAY active Not Available Not Available No t Available nitroglycer in 0.4 mg sublingual tablet DISSOLVE ONE (1) TABLET UNDER TONGUE EVERY FIVE (5) MINUTES FOR THREE (3) DOSES NEEDED FOR CHEST PAIN-NO RELIEF CALL 911 , CALL MD active Not Available Not Available No t Available raloxifene 60 mg tablet 60 mg by oral route. 12/06 completed Not Available Not Available Not Available cyanocobala min (vit B-12) 1,[address] ONE (1) TABLET EVERY DAY BY SUBLINGUA L ROUTE FOR 90 DAYS. active Not Available Not Available No t Available losartan 100 mg tablet 100 mg by oral route. 06/05 completed Not Available Not Available Not Available spironolact one 50 mg tablet TAKE ONE (1) TABLET BY MOUTH TWICE DAILY active Not Available Not Available No t Available amoxicillin 875 mg-potassiu m clavulanate 125 mg tablet TAKE ONE (1) TABLET BY ORAL ROUTE EVERY 12 HOURS FOR 10 DAYS 06/17 completed Not Available Not Available Not Available rosuvastati n 40 mg tablet TAKE ONE (1) TABLET BY MOUTH EVERY DAY active Not Available Not Available No t Available nitrofurant oin monohydrate /macrocryst als 100 mg capsule TAKE ONE (1) CAPSULE (100 MG) BY ORAL ROUTE EVERY 12 HOURS WITH FOOD FOR 10 DAYS 06/17 completed Not Available Not Available Not Available cholecalcif beryl (vitamin D3) 25 mcg (1,000 unit) tablet 06/05 completed Not Available Not Available Not Available alendronate 70 mg-cholecal ciferol (vitamin D3) 5,600 unit tablet 02/26 completed Not Available Not Available Not Available cholestyram ine-asparta me 4 gram oral powder 02/20 completed Not Available Not Available Not Available prasugrel HCl 10 mg tablet 10 mg by oral route. 12/06 completed Not Available Not Available Not Available pramipexole ER 1.5 mg tablet,exte nded release 24 hr Take 1 mg by oral route. 06/11 completed Not Available Not Available Not Available rivaroxaban 20 mg tablet 20 mg by oral route. 12/06 completed Not Available Not Available Not Available linaclotide 145 mcg capsule 08/29 completed Not Available Not Available Not Available Vitals Date Recorded Body height Body mass index (BMI) Body weight Body temperature Oxygen saturation Oxygen saturation in Arterial blood by Pulse oximetry Heart rate Respiratory rate Systolic And Diastolic Provider Name and Address Organization Details Last Updated DateTime 4 152.4 cm 29.3 kg/m2 00520.8 6 g 98.9 [degF] 95 % 95 % 70 /min 16 /min 116/66 mm[Hg] Yoselin [facility] & [place] 4 13:29:07 Date Recorded Body height Body mass index (BMI) Body weight Oxygen saturation Oxygen saturation in Arterial blood by Pulse oximetry Body temperature Heart rate Respiratory rate Systolic And Diastolic Provider Name and Address Organization Details Last Updated DateTime 4 152.4 cm 29.8 kg/m2 84783.9 1 g 95 % 95 % 97.9 [degF] 70 /min 16 /min 138/65 mm[Hg] Yoselin [facility] & [place] 4 11:07:35 Social History Question Answer Notes LastModified by Organizat ion Details LastModified Time Tobacco Smoking Status Former Smoker Yoselin Bland [facility], [place] - [facility] - [place] [facility] [place] 06/11/2024 13:37:33 What Is Your Level Of Caffeine Consumption? Moderate [email or web address] Information not available 06/11/2024 What Type Of Diet Are You Following? REGULAR Information not available 06/11/2024 When Did You Quit Smoking? 16+yearssincel astcigarette [email or web address] Information not available 06/11/2024 Sex: Unknown Functional Status Question Answer Note LastModified by Organizat ion Details LastModified Time Do you use any illicit or recreational drugs? No [email or web address] Information not available 06/11/2024 Do you or have you ever used any other forms of tobacco or nicotine? No [email or web address] Information not available 06/11/2024 What is your level of alcohol consumption? None [email or web address] Information not available 06/11/2024 What is your exercise level? Occasional [email or web address] Information not available 06/11/2024 Mental Status None recorded. Family History Nothing Reported. Medical History No medical history recorded. Gynecological HistoryNo gynecological history recorded. Obstetrics History GPAL:G 0 P 0 0 0 0 Past Encounters Encounter ID Performer Location Encounter Start Date Encounter Closed Date Diagnosis/Indication Diagnosis SNOMED-CT Code Diagnosis ICD10 Code Diagnosis IMO Codes Diagnosis Note [id number] MD LYNDA Damon [address] [place] [address] [place] [id number] 06/11/2024 13:01:14 06/11/2024 14:04:14 Pain of ear 873846163 H92.09 Tinnitus 98325937 H93.11 [id number] MILO Pineda [facility] [address] [place] [address],[facility] [address] [place] [address] 06/17/2024 10:27:57 06/17/2024 11:19:56 Postoperative visit 370186192 Z48.89 S/PLaparos copic appendecto my for acute appendicit is 06/05/2024 [id number] MD LYNDA Damon[address] [place] [address] [place] [address] 06/25/2024 08:31:31 06/25/2024 09:07:05 Pain of ear 878227993 H92.09 Tinnitus 54813403 H93.11 Hearing loss 64742600 H9 1.90 Health Concerns Section Related Observation LastModified by Organization Detai ls LastModified Time None Recorded Concern Status LastModified by Organization Details LastModified Time None Recorded Advance Directives Directive None Recorded Payers Insurance Date Sequence Insurance Name Policy Number Policy Fernandez Covered Member ID Fernandez Member ID Guarantor Name 08/24/2025 1 [employer] (MEDICARE REPLACEMENT/A DVANTAGE - HMO) [id number] Sheryl A George [id number] Sheryl Vazquez 08/11/2025 1 [employer] (MEDICARE REPLACEMENT/A DVANTAGE - PPO) Sheryl Maddi George [id number] Sheryl Vazquez 06/11/2024 2 [place] Sheryl Maddi George [id number] Sheryl Maddi [place] 06/11/2024 2 [facility] (MEDICARE SUPPLEMENT) Sheryl Maddi George [id number] Sheryl Vazquez Notes Date Note Type Note Provider Name and Address Organization Details Recorded Time 06/11/2024 text/html ROS as noted in the HPI Patient is here for right ear pain for 2-3 months, has ringing sounds. No drainage, there is pressure.Patient presents for evaluation management of ear pain in the right described as throbbing and also stating that people can hear noises, a clicking noise, coming from the right ear. Jw Rodriguez MD [address] [place] [address],[address], [place], [address], [place] - [facility] - [place] [facility] [place] 06/11/2024 14:03:44 06/17/2024 text/html Sheryl returns today for postop check. She had a Laparoscopic appendectomy for acute appendicitis 06/05/2024. She states that a few days after her surgery she has some redness around the umbilicus with some swelling and warmth but this has been resolving over the past couple of weeks and is much improved. Her bowels are moving normally she is voiding normally and her appetite is good. She states that she had a colonoscopy last year and did not have any polyps. 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 It was negative for invasive tumor. There was also a benign sessile serrated polyp found. The margins were clear and she had acute appendicitis as well. MILO Pineda [address] [place] [address],[address], [place], [address], [facility][1] 06/17/2024 11:24:18 06/25/2024 text/html Patient presents in follow-up. [facility] pain has improved. [facility] has hearing loss. Jw Rodriguez MD [address] [place] [address],[address], [place], [address], [facility] & [place] 06/25/2024 09:12:56 OBGyn Episode No OBEpisode recorded.
--- OUTSIDE RECORDS SUMMARY | 2025-08-24 07:19 | XMS_ITS | Data Portability ---
Author Organization [facility] MARGO Gutierrez VICTORIA CLOSED Address [address] [place] [address] Assessment No assessment recorded. Plan of Treatment Reminders Order Date Submit Date Provider Last Modified By Organization Details Last Modified Time Details Appointments None recorded. Lab surgical pathology study 2023 024 [facility], [address] [place] [address], [id number], 14:05:23 surgical pathology study 2023 024 [facility], [address] [place] [address], [id number], 13:12:37 Referral None recorded. Procedures None recorded. Surgeries None recorded. Imaging None recorded. Medication Orders None recorded. Patient TargetsNo targets recorded. Patient InstructionsNo instructions recorded. Reason for Referral None Reported. Results Created Date Observation Date Name Description Value Unit Range Abnormal Flag Note LastModifiedBy Organization Detail LastModifiedTime Result Notes None recorded. Procedures Surgical History Date Name Laterality Status Provider Name and Address Organization Details Recorded Time 09/02/20 DAK - Lesion Excision, [place]; trunk,arms,legs cancelled Rhonda Cowan [facility] 09/01/2024 12:53:29 05/27/20 Biopsy Skin Lesion; Tangential completed Yara Montoya [facility] 05/27/2024 08:42:46 05/27/20 Destruction Premalignant Lesion(s) completed Yara Montoya [facility] 05/27/2024 08:44:22 04/07/20 Suture/Staple removal completed Courtney Maravilla [facility] 04/07/2024 09:38:23 03/03/20 DAK - Lesion Excision, [place]; trunk,arms,legs completed Rhonda Cowan [facility] 03/03/2024 14:52:20 02/26/20 Destruction [place] Lesion; trunk, arm, leg completed Yara [facility] 02/26/2024 08:41:46 11/27/19 Biopsy Skin Lesion; Tangential completed [facility] 11/27/2023 10:57:09 11/27/19 Destruction Premalignant Lesion(s) completed [facility] 11/27/2023 10:37:12 Imaging Results None recorded. Procedure Notes None recorded. Medical Equipment None Reported. Allergies Allergen ID Allergen Name Allergen Category Reaction Reaction Severity Criticality Documentation Date Start Date Code Code System Note Provider Name and Address Organization Details Recorded Time 846760 aspirin medicatio n Not available Not available Not available 09/27/20162013 1191 RxNorm Comme nt: Creat ed By: Helio Siu; Creat ed Date: 2013 11:29 :15 AM; Not Available [facility] 6 10:20:02 [id number] Cipro medicatio n Not available Not available Not available 09/27/20162013 31451 3 RxNorm Comme nt: Creat ed By: Helio Rasheed Creat ed Date: 2013 11:29 :25 AM; Not Available [facility] 6 10:20:06 [id number] latex environme nt,medica tion Not available Not available Not available 09/28/20162011 78465 91 RxNorm Comme nt: Creat ed By: Gerry treviño Date: 08/28 10:44 :25 AM; Not Available [facility] 6 04:00:30 Medications Name Sig Start Date Stop Date Status Note LastModified by Organization Details LastModified Time doxycyclin e hyclate 100 mg capsule Take 1 capsule twice a day by oral route with meal(s) for 5 days. 2023 active Not Available Not Available Not Avai lable ropinirole 1 mg tablet As Directed active Frequency : as direct.;M edication Descripti on: ropinirol e; Route:ora l; refills:0 Not Available Not Available Not Available Evista 60 mg tablet active Duration: 10 days;Medi cation Descripti on: raloxifen e; Dosage:as directed; Route:ora l; refills:0 ; Quantity: 30 tablet Not Available Not Available Not Available Lasix 40 mg tablet As Directed active Duration: 30 days;Freq uency: as direct.;A lt Frequency : as direct.;M edication Descripti on: furosemid e; Dosage:as directed; Route:ora l; refills:0 ; Quantity: 30 tablet Not Available Not Available Not Available Mirapex 0.5 mg tablet As Directed active Duration: 10 days;Freq uency: as direct.;M edication Descripti on: pramipexo le; Route:ora l; refills:0 Not Available Not Available Not Available Klor-Con 20 mEq oral packet As Directed active Duration: 30 days;Freq uency: as direct.;M edication Descripti on: potassium chloride; Dosage:1; Route:ora l; refills:0 Not Available Not Available Not Available Isosorbide Mononitrat e CR 30 mg tablet,ext ended release Every morning active Duration: 10 days;Freq uency: qam;Medic ation Descripti on: isosorbid e mononitra te; Dosage:as directed; Route:ora l; refills:0 ; Quantity: 30 tablet, extended release Not Available Not Available Not Available Efudex 5 % topical cream Apply a thin layer to the b/l lower legs BID x 3 weeks 2023 active Not Available Not Available Not Avai lable Crestor 40 mg tablet Daily active Frequency : daily;Med ication Descripti on: rosuvasta tin; Dosage:1; Route:ora l; refills:0 ; Quantity: 30 tablet Not Available Not Available Not Available Coreg active Medicatio n Descripti on: carvedilo l; refills:0 Not Available Not Available Not Available Plavix active Not Available Not Availa ble Not Available spironolac tone active Medicatio n Descripti on: spironola ctone; refills:0 Not Available Not Available Not Available Protonix As Directed active Duration: 30 days;Freq uency: as direct.;M edication Descripti on: pantopraz ole; Dosage:1; Route:ora l; refills:0 Not Available Not Available Not Available Linzess 145 mcg capsule active Medicatio n Descripti on: linacloti de; Route:ora l; refills:0 Not Available Not Available Not Available Vitals None Recorded Social History Question Answer Notes LastModified by Organizat ion Details LastModified Time What Was The Date Of Your Most Recent Tobacco Screening? 05/27/2024 Information not available 05/27/2024 Sex: Unknown Functional Status None recorded. Mental Status None recorded. Family History Nothing Reported. Medical History Condition Response Skin Cancer Y Squamous Cell Carcinoma Y Gynecological HistoryNo gynecological history recorded. Obstetrics History GPAL:G 0 P 0 0 0 0 Past Encounters Encounter ID Performer Location Encounter Start Date Encounter Closed Date Diagnosis/Indication Diagnosis SNOMED-CT Code Diagnosis ICD10 Code Diagnosis IMO Codes Diagnosis Note [id number] ROD Cardona APRN [address] [address] 11/27/2023 09:34:53 11/27/2023 12:19:08 Multiple benign melanocytic nevi 664347752 D22.5 - Benign moles seen on exam today - SPF 30 or higher broad-spec trum sunscreen recommende d with re-applica tion every 2 hours - Discussed sun protection measures, including wide-brimm ed hat, sun-protec tive clothing, and avoidance of sun during peak hours of 10am-4pm - Avoid tanning beds as these can increase the chances of all 3 types of skin cancer - Instructed to monitor for changes and to call us for appointmen t with any changing or worrisome lesions Seborrheic keratosis [id number] L82.1 - Benign overgrowth s of skin - Hereditary Senile angioma 8142886 I 78.1 - Benign blood vessel growths - Hereditary Solar lentigo 37361862 L 81.4 - Benign brown spots - Sun-induce d History of malignant neoplasm of skin 527624818 Z85.828 - No evidence of recurrence today - Call with any worrisome lesions or if treated lesions return - Return at regular intervals for skin exam as recommende d Actinic keratosis 407872 007 L57.0 Actinic keratoses are precancero us lesions that may progress to squamous cell carcinoma if untreated. UV light and genetics may increase risk. Treated lesions should blister, scab over, and heal within a few weeks. If treated lesion(s) does not resolve within 1-2 months, patient agrees to follow up for re-evaluat ion. Plan to do efudex on the b/l lower legs. Efudex (5-fluorou racil) 5% cream prescribed . Apply to areas of pre-cancer s BID for 3 weeks. Avoid eye area and allow to absorb for at least 1 hour before bedtime. Expect redness, crusting, itching, and burning. Therapy may be stopped when crusting is prominent or at any time if symptoms are intolerabl e. Call the office with any concerns about symptoms as we can prescribe medication to calm the reaction if needed. Avoid sun exposure during your treatment. Can cause or bring out cold sores. Call if these arise. It will take several weeks for your skin to heal once the therapy has ended. Pigmentary change may occur. All of this explained with handout and given to pt. Photos shown to prepare patient for what skin can look like after use. Efudex has been shown to decrease the amount of AKs and prevent SCC developmen t. Neoplasm o f uncertain behavior of skin 51757925 D48.5 Recommend blade biopsy. Risks, benefit, and procedure discussed with patient. Consent obtained. [id number] ROD Cardona, WINSTON [address] [address] 02/26/2024 08:19:20 02/28/2024 15:28:16 Squamous cell carcinoma of skin 030229124 C44.729 Biopsy proven SCCis on the left thighPath #: [id number] An ED&C was recommende d. Cancer type: SCCis. The risks, alternativ es, and benefits were discussed. A verbal informed consent was discussed and agreed to with patient. The area was cleansed with alcohol solution, and then anesthetiz ed with 1% lidocaine with epinephrin e. A curettage was performed in 3 directions , followed by electrodes sication. The defect after initial curettage was 1.3 cm. Vaseline and a bandage was applied to the wound. Wound care instructio ns given. Call if the lesion returns. Squamous c ell carcinoma in situ of skin 533901572 D04.71 Biopsy proven SCCis on the right lateral upper thighPath #: [id number] An ED&C was recommende d. Cancer type: SCCis. The risks, alternativ es, and benefits were discussed. A verbal informed consent was discussed and agreed to with patient. The area was cleansed with alcohol solution, and then anesthetiz ed with 1% lidocaine with epinephrin e. A curettage was performed in 3 directions , followed by electrodes sication. The defect after initial curettage was 1.7 cm. Vaseline and a bandage was applied to the wound. Wound care instructio ns given. Call if the lesion returns. [id number] WALKER KING MD [address] [address] 03/03/2024 13:55:55 03/03/2024 16:04:24 Squamous cell carcinoma of upper extremity 540089912 C44.622 Discussed excision. SE (including but not limited to): bleeding, infection, scarring, nerve damage and re-excisio n.Will have sutures and will need to limit activity. Bx proven SCC on the Right posterior shoulderPa th #: [id number] hology discussed with patientSit e confirmed with photo [id number] RANDY JARRETT DO [address] [id number] 03/24/2024 09:52:00 03/26/2024 12:22:30 [id number] RANDY JARRETT DO [address] [address] 04/07/2024 09:26:20 04/08/2024 05:12:48 History of malignant neoplasm of skin 099464312 Z85.828 No evidence of recurrence . Discussed risk of recurrence and new skin cancers, so regular self exam and profession al skin checks are recommende d. Sun protection with broad spectrum SPF 30 sunscreen and broad-brim med hat is recommende d. Sun protection with SPF 30 broad spectrum sunscreen and protective gear discussed. Scar 785609064 L90.5 Removal of suture 571081 01 Z48.02 continue wound care qd x7 days [id number] ROD Cardona APRN [facility] [place] [address] [place] [address] 05/27/2024 08:07:37 05/27/2024 13:27:44 History of malignant neoplasm of skin 570817673 Z85.828 last skin cancer - 11/2023 - No evidence of recurrence today- Call with any worrisome lesions or if treated lesions return- Return at regular intervals for skin exam as recommende d Multiple b enign melanocytic nevi 515466569 D22.5 - Benign moles seen on exam today - SPF 30 or higher broad-spec trum sunscreen recommende d with re-applica tion every 2 hours - Discussed sun protection measures, including wide-brimm ed hat, sun-protec tive clothing, and avoidance of sun during peak hours of 10am-4pm - Avoid tanning beds as these can increase the chances of all 3 types of skin cancer - Instructed to monitor for changes and to call us for appointmen t with any changing or worrisome lesions Seborrheic keratosis 394 112917 L82.1 - Benign overgrowth s of skin - Hereditary Senile angioma 3656914 I 78.1 - Benign blood vessel growths - Hereditary Solar lentigo 93215378 L 81.4 - Benign brown spots - Sun-induce d Suture mat erial present 161157965 R89.8 Patient reports sutures still present on her incision site, mohs done 03/24/2024 Suture removal done 04/07/2024 Notes its tender to touch These are the deep sutures that are poking through the skinWe do not want to pull them out since they are still keeping the skin underneath together.P damon to cut the suture material flush with the skin today to keep from poking her.The remaining deep suture will eventually dissolve with time. Numbed the area with lidocaine and epi.Cut tops of sutures with suture scissors.V aseline applicatio n with a spot band aid applied. Actinic keratosis 007 L57.0 Actinic keratoses are precancero us lesions that may progress to squamous cell carcinoma if untreated. UV light and genetics may increase risk. Treated lesions should blister, scab over, and heal within a few weeks. If treated lesion(s) does not resolve within 1-2 months, patient agrees to follow up for re-evaluat ion. Neoplasm o f uncertain behavior of skin 01541550 D48.5 Recommend blade biopsy. Risks, benefit, and procedure discussed with patient. Consent obtained. Discussed the biopsy only takes the top layer of the lesion for testing. This does NOT treat the skin cancer if it is one. Advised they would need to return for more treatment given the type and depth of the skin cancer when the results come in. Health Concerns Section Related Observation LastModified by Organization Detai ls LastModified Time None Recorded Concern Status LastModified by Organization Details LastModified Time None Recorded Advance Directives Directive None Recorded Payers Insurance Date Sequence Insurance Name Policy Number Policy Fernandez Covered Member ID Fernandez Member ID Guarantor Name 01/25/2025 1 [id number] (MEDICARE REPLACEMENT/A DVANTAGE - PPO) Sheryl Vazquez [id number] Sheryl Vazquez 02/07/2025 1 [facility] (MEDICARE REPLACEMENT/A DVANTAGE - HMO) [id number] Sheryl Vazquez [id number] Sheryl Vazquez Notes Date Note Type Note Provider Name and Address Organization Details Recorded Time 02/26/2024 text/html ROS as noted in the HPI I am here for my EDC [id number]:L thighBx Proven SCCISPath # [id number] Location:R lateral upper thighBx proven SCCISPath #[id number] ROD FREDERICK, WINST[place] [address] [place], [address], [facility] 02/26/2024 08:59:33 03/03/2024 text/html Patient is here for an excision of aSCCon theRight posterior shoulder - Pacemaker? Yes - Defibrillator? No - Artificial Heart Valves or Joints? No When? - Is patient currently on antibiotics? No - History of bleeding, infection, or complication with other surgeries? No - Has patient taken any steroids or other immunosuppressant medications in the past 2 weeks? No - Currently on blood thinners? Yes Which? Plavix WALKER KING MD [address] [place], [address], [facility] 03/03/2024 15:02:47 04/07/2024 text/html ROS as noted in the HPI 14 day Suture RemovalMohs: 03/24/24r. thighSCCISComplex linear repair Courtney lloyd, [facility] 04/07/2024 09:38:51 05/27/2024 text/html ROS as noted in the HPI Here for a full body skin examination - last skin check: 11/2023- history of skin cancer - SCC- last skin cancer was in 11/2023- spots of concern today: Dry patch on upper on upper lip and R side of nose. ROD FREDERICK, [employer] [address], [place], [address], [facility] 05/27/2024 12:16:03 OBGyn Episode No OBEpisode recorded.
--- OUTSIDE RECORDS SUMMARY | 2025-08-24 07:19 | XMS_ITS | Data Portability ---
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 Plan of Treatment Reminders Order Date Submit Date Provider Last Modified By Organization Details Last Modified Time Details Appointments Establish ed Patient 20 2024 02:50P M Roberto Rojas MD Not available Not available Not available Lab lipid panel, serum 2024 025 [facility], [address] [place] [address], [id number], 08/07/2025 08:19:10 cobalamin and folate panel, serum 2024 025 [facility], [address] [place] [address], [address], 08/07/2025 08:19:11 TSH + free T4, serum 2024 025 [facility], [address] [place] [address], [address], 08/07/2025 08:19:09 magnesium , serum or plasma 2024 025 [facility], [address] [place] [address], [address], 08/07/2025 08:19:12 vitamin D, 25-hydrox y, total, serum 2024 [facility], [address] [place] [address], [address], 08/07/2025 08:19:11 CBC w/ auto diff 2024 [facility], [address] [place] [address], [address], 08/07/2025 08:19:09 iron + total iron-bind ing capacity (TIBC), serum 2024 [facility], [address] [place] [address], [address], 08/07/2025 08:19:10 rapid strep group A, throat 2024 025 [facility], [address] [place] [address] , [place], [address], 07/01/2025 10:39:20 rapid SARS CoV + SARS CoV 2 Ag, QL IA, respirato ry specimen 2024 025 [facility], [address] [place] [address] , [place], [address], 07/01/2025 10:39:20 rapid flu (A+B) 2024 025 [facility], [address] [place] [address] , [place], [address], 07/01/2025 10:39:20 Referral None recorded. Procedures None recorded. Surgeries None recorded. Imaging XR, foot, 3 or more view 2024 [facility], [address], [place], [address], 07/23/2025 14:58:19 XR, tibia + fibula, 2 view 2024 025 [facility] Concrete Mason, [address] [place], [place] [address]Kylah, [place], [address], 06/25/2025 08:16:28 Medication Orders Anusol-HC 2.5 % topical cream with perineal applicato r 2024 025 [facility], [address] [place] [address], [address], 08/06/2025 16:30:53 levofloxa nicole 750 mg tablet [address], [address], 08/03/2025 05:02:05 Tamiflu 75 mg capsule [address], [address], 07/22/2025 08:37:07 Paxlovid 300 mg (150 mg x 2)-100 mg tablets in a dose pack 2024 025 [facility], [address] [place] [address], [address], 07/22/2025 08:37:04 tizanidin e 4 mg tablet [address], [address], 06/24/2025 09:48:29 ropinirol e 1 mg tablet [address], [address], 06/10/2025 13:27:04 Patient TargetsNo targets recorded. Patient Instructions Encounter Date Encounter Id Patient Instructions Last Modified By Organization Details Last Modified Time 06/10/2025 [id number] restless legs syndrome: care instructions [email or web address] Not available 06/10/2025 13:27:02 When You Want to Lose Weight: Care Instructions [email or web address] Not available 06/10/2025 13:01:38 Discussed option s for osteopenia, declines meds and will con't calcium/Vit D tgrosser Not available 06/10/2025 13:27:02 06/24/2025 [id number] When You Want to Lose Weight: Care Instructions [email or web address] Not available 06/25/2025 08:40:45 07/01/2025 [id number] When You Want to Lose Weight: Care Instructions [email or web address] Not available 07/01/2025 10:39:20 07/22/2025 [id number] puncture wounds: care instructions [email or web address] Not available 07/22/2025 09:20:22 Levofloxacin Ora l Tablet (LEVOFLOXACIN - ORAL) [email or web address] Not available 07/22/2025 09:20:22 Puncture Wound Take medications as prescribed. Call your doctor now or seek immediate medical care at an urgent care or emergency department if: - You have new pain, or your pain gets worse. - The wound starts to bleed, and blood soaks through the bandage. Oozing small amounts of blood is normal. - The skin near the wound is cold or pale or changes color. - You have tingling, weakness, or numbness near the wound. - You have trouble moving the area near the wound. - You have symptoms of infection, such as: - Increased pain, swelling, warmth, or redness around the wound. - Red streaks leading from the wound. - Pus draining from the wound. - A fever. Watch closely for changes in your health, and be sure to contact your health care provider if: - The wound is not closing (getting smaller). - You do not get better as expected. [email or web address] Not available 07/22/2025 09:16:18 Discussed plan o f care with the patient. Answered all of patient's questions. Patient agreeable to plan of care. Advised patient to take medications as prescribed. Discussed possible side effects of new medication with patient. Patient verbalized understanding. Not available 07/22/2025 09:20:30 08/06/2025 [id number] hemorrhoids: car e instructions [email or web address] Not available 08/06/2025 16:30:52 When You Want to Lose Weight: Care Instructions [email or web address] Not available 08/06/2025 16:31:34 body mass index: care instructions [email or web address] Not available 08/06/2025 16:30:52 learning about healthy weight [email or web address] Not available 08/06/2025 16:30:52 Reason for Referral None Reported. Results Created Date Observation Date Name Description Value Unit Range Abnormal Flag Note LastModifiedBy Organization Detail LastModifiedTime 07/01/20 25 07/01/2025 rapid SARS CoV + SARS CoV 2 Ag, QL IA, respi rator y speci men SARS CoV antigen Positi ve Not Available [address] , [place], [address], 07/01/2025 10:05:49 07/01/20 25 07/01/2025 rapid strep group A, throa t Strep negati ve Not Available [address] , [place], [address], 07/01/2025 10:02:03 07/01/20 25 07/01/2025 rapid strep group A, throa t Culture No Not Available [address] , [place], [address], 07/01/2025 10:02:03 07/01/20 25 07/01/2025 rapid flu (A+B) Flu positi ve Not Available [address] , [place], [address], 07/01/2025 10:06:22 07/01/20 25 07/01/2025 rapid flu (A+B) Type B Not Available [address] , [place], [address], 07/01/2025 10:06:22 08/06/20 25 08/07/2025 TSH+F REE T4 TSH 1.540 uIU/m L 0.450- 4.500 normal Not Available [facility] ([facility]) [address] [place], [address], 08/07/2025 08:19:09 08/06/2008/07/2025 TSH+F REE T4 T4,free(dire ct) 1.16 NG/dL 0.82-1 .77 normal Not Available [facility] ([facility]) [address] [place], [address], 08/07/2025 08:19:09 08/06/2008/07/2025 CBC WITH DIFFE RENTI AL/PL ATELE T WBC 9.4 x10e3 /uL 3.4-10 .8 normal Not Available [facility] ([facility]) [address] [facility], [place], [address], 08/07/2025 08:19:09 08/06/2008/07/2025 CBC WITH DIFFE RENTI AL/PL ATELE T RBC 3.32 x10e6 /uL 3.77-5 .28 below low normal Not Available [facility] ([facility]) [address] [place], [address], 08/07/2025 08:19:09 08/06/2008/07/2025 CBC WITH DIFFE RENTI AL/PL ATELE T hemoglobin 8.7 g/dL 11.1-1 5.9 below low normal Not Available [facility] ([facility]) [address] [place], [address], 08/07/2025 08:19:09 08/06/2008/07/2025 CBC WITH DIFFE RENTI AL/PL ATELE T hematocrit 28.9 % 34.0-4 6.6 below low normal Not Available [facility] ([facility]) [address] [place], [address], 08/07/2025 08:19:09 08/06/2008/07/2025 CBC WITH DIFFE RENTI AL/PL ATELE T MCV 87 fL 79-97 normal Not Available [facility] ([facility]) [address] [place], [address], 08/07/2025 08:19:09 08/06/20 25 08/07/2025 CBC WITH DIFFE RENTI AL/PL ATELE T MCH 26.2 pg 26.6-3 3.0 below low normal Not Available [facility] ([facility]) [address] [place], [address], 08/07/2025 08:19:09 08/06/2008/07/2025 CBC WITH DIFFE RENTI AL/PL ATELE T MCHC 30.1 g/dL 31.5-3 5.7 below low normal Not Available [facility] ([facility]) [address] [place], [address], 08/07/2025 08:19:09 08/06/2008/07/2025 CBC WITH DIFFE RENTI AL/PL ATELE T RDW 13.4 % 11.7-1 5.4 Not Available [facility] ([facility]) [address] [place], [address], 08/07/2025 08:19:09 08/06/2008/07/2025 CBC WITH DIFFE RENTI AL/PL ATELE T platelets 310 x10e3 /uL 150-45 0 normal Not Available [facility] ([facility]) [address] [place], [address], 08/07/2025 08:19:09 08/06/2008/07/2025 CBC WITH DIFFE RENTI AL/PL ATELE T neutrophils 63 % not estab. normal Not Available [facility] ([facility]) [address] [place], [address], 08/07/2025 08:19:09 08/06/20 25 08/07/2025 CBC WITH DIFFE RENTI AL/PL ATELE T lymphs 23 % not estab. normal Not Available [facility] ([facility]) [address] [facility], [place], [address], 08/07/2025 08:19:09 08/06/2008/07/2025 CBC WITH DIFFE RENTI AL/PL ATELE T monocytes 11 % not estab. normal Not Available [facility] ([facility]) [address] [facility], [place], [address], 08/07/2025 08:19:09 08/06/2008/07/2025 CBC WITH DIFFE RENTI AL/PL ATELE T eos 2 % not estab. normal Not Available [facility] ([facility]) [address] [facility], [place], [address], 08/07/2025 08:19:09 08/06/2008/07/2025 CBC WITH DIFFE RENTI AL/PL ATELE T basos 1 % not estab. normal Not Available [facility] ([facility]) [address] [facility], [place], [address], 08/07/2025 08:19:09 08/06/2008/07/2025 CBC WITH DIFFE RENTI AL/PL ATELE T immature cells STRIP TANK TENDER Not Available [facility] ([facility]) [address] [place], [address], 08/07/2025 08:19:09 08/06/2008/07/2025 CBC WITH DIFFE RENTI AL/PL ATELE T neutrophils (absolute) 6.0 x10e3 /uL 1.4-7. 0 normal Not Available [facility] ([facility]) [address] [place], [address], 08/07/2025 08:19:09 08/06/20 25 08/07/2025 CBC WITH DIFFE RENTI AL/PL ATELE T lymphs (absolute) 2.2 x10e3 /uL 0.7-3. 1 normal Not Available [facility] ([facility]) [address] [facility], [place], [address], 08/07/2025 08:19:09 08/06/20 25 08/07/2025 CBC WITH DIFFE RENTI AL/PL ATELE T monocytes(ab solute) 1.0 x10e3 /uL 0.1-0. 9 above high normal Not Available [facility] ([facility]) [address] [facility], [place], [address], 08/07/2025 08:19:09 08/06/20 25 08/07/2025 CBC WITH DIFFE RENTI AL/PL ATELE T eos (absolute) 0.2 x10e3 /uL 0.0-0. 4 normal Not Available [facility] ([facility]) [address] [facility], [place], [address], 08/07/2025 08:19:09 08/06/20 25 08/07/2025 CBC WITH DIFFE RENTI AL/PL ATELE T baso (absolute) 0.1 x10e3 /uL 0.0-0. 2 normal Not Available [facility] ([facility]) [address] [facility], [place], [address], 08/07/2025 08:19:09 08/06/20 25 08/07/2025 CBC WITH DIFFE RENTI AL/PL ATELE T immature granulocytes 0 % not estab. Not Available [facility] ([facility]) [address] [place], [address], 08/07/2025 08:19:09 08/06/20 25 08/07/2025 CBC WITH DIFFE RENTI AL/PL ATELE T immature grans (abs) 0.0 x10e3 /uL 0.0-0. 1 Not Available [facility] ([facility]) [address] [facility], [place], [address], 08/07/2025 08:19:09 08/06/20 25 08/07/2025 CBC WITH DIFFE RENTI AL/PL ATELE T NRBC STRIP TANK TENDER Not Available [facility] ([facility]) [address] [facility], [place], [address], 08/07/2025 08:19:09 08/06/2008/07/2025 CBC WITH DIFFE RENTI AL/PL ATELE T hematology comments: STRIP TANK TENDER Not Available [facility] ([facility]) [address] [facility], [place], [address], 08/07/2025 08:19:09 08/06/2008/07/2025 LIPID PANEL cholesterol, total 109 mg/dL 100-19 9 normal Not Available [facility] ([facility]) [address] [facility], [place], [address], 08/07/2025 08:19:10 08/06/2008/07/2025 LIPID PANEL triglyceride s 87 mg/dL 0-149 normal Not Available [facility] ([facility]) [address] [facility], [place], [address], 08/07/2025 08:19:10 08/06/2008/07/2025 LIPID PANEL HDL cholesterol 47 mg/dL >39 normal Not Available [facility] ([facility]) [address] [facility], [place], [address], 08/07/2025 08:19:10 08/06/20 25 08/07/2025 LIPID PANEL VLDL cholesterol xiomara 17 mg/dL 5-40 Not Available [facility] ([facility]) [address] [facility], [place], [address], 08/07/2025 08:19:10 08/06/2008/07/2025 LIPID PANEL LDL chol calc ([facility]) 45 mg/dL 0-99 Not Available [facility] ([facility]) [address] [facility], [place], [address], 08/07/2025 08:19:10 08/06/20 08/07/2025 LIPID PANEL LDL calc comment: STRIP TANK TENDER Not Available [facility] ([facility]) [address] [facility], [place], [address], 08/07/2025 08:19:10 08/06/2008/07/2025 IRON AND TIBC iron bind.cap.(TI BC) 429 ug/dL 250-45 0 normal Not Available [facility] ([facility]) [address] [facility], [place], [address], 08/07/2025 08:19:10 08/06/2008/07/2025 IRON AND TIBC UIBC 412 ug/dL 118-36 9 above high normal Not Available [facility] ([facility]) [address] [facility], [place], [address], 08/07/2025 08:19:10 08/06/2008/07/2025 IRON AND TIBC iron 17 ug/dL 27-139 below low normal Not Available [facility] ([facility]) [address] [facility], [place], [address], 08/07/2025 08:19:10 08/06/2008/07/2025 IRON AND TIBC iron saturation 4 % 15-55 alert low Not Available [facility] ([facility]) [address] [facility], [place], [address], 08/07/2025 08:19:10 08/06/2008/07/2025 VITAM IN B12 AND FOLAT E vitamin B12 686 pg/mL 232-12 45 normal Not Available [facility] ([facility]) [address] [facility], [place], [address], 08/07/2025 08:19:11 08/06/2008/07/2025 VITAM IN B12 AND FOLAT E folate (folic acid), serum 12.6 NG/mL >3.0 normal A serum folat e ronna ntrat ion of less than 3.1 ng/mL is consi dered to repre sent clini xiomara defic iency . Not Available [facility] ([facility]) [address] [facility], [place], [address], 08/07/2025 08:19:11 08/06/2008/07/2025 VITAM IN D, 25-HY DROXY vitamin D, 25-hydroxy 46.2 NG/mL 30.0-1 00.0 Vitam in D defic iency has been defin ed by the Insti tute of Medic ine and an Endoc rine Socie ty pract ice guide line as a level of serum 25-OH vitam in D less than 20 ng/mL (1,2) . The Endoc rine Socie ty went on to furth er defin e vitam in D insuf ficie ncy as a level betwe en 21 and 29 ng/mL (2). 1. IOM (Inst itute of Medic ine). 2010. Dieta ry refer ence stacey es for calci um and D. Nidia betancourt [place]: The [facility] Press . 2. Medhat kelley [place], Janie motley [place], [place] off-F errar i SAINI, et al. Evalu ation , treat ment, and preve ntion of vitam in D defic iency : an Endoc rine Socie ty clini xiomara pract ice guide line. JCEM. 2010; 96(7) :1911 -30. Not Available [facility] ([facility]) [address] [facility], [place], [address], 08/07/2025 08:19:11 08/06/2008/07/2025 MAGNE SIUM magnesium 1.8 mg/dL 1.6-2. 3 normal Not Available [facility] ([facility]) [address] [facility], [place], [address], 08/07/2025 08:19:12 06/01/2005/31/2025 DEXA [facility] Name: DOUG REINA [address] Phys: Ana velásquez MD, [place] [address] : 1949 Age: 74 Sex: F Acct: [id number] Loc: LIVIER PHONE #: Exam Date: 2024 Status : LATISHA CURTISI FAX #: [phone] Rad# [id number] Unit# [id number] Admit Date: 2024 EXAMS: CPT CODE: [id number] DEXA BONE DENSIT Y AXIAL 13923 EXAMIN ATION: DUAL X-RAY ABSORP TIOMET RY (DXA) FOR BONE MINERA L DENSIT Y. CLINIC AL INDICA TION: M81.0 - Age-re lated osteop orosis withou t a curren t pathol ogical fractu re. CLINIC AL HISTOR Y: 74 years old, Female . Postme nopaus al. TECHNI QUE: An axial (e.g., hips, spine) and/or append icular (e.g., radius ) exam was perfor med, as approp riate, using [employer] Prodig y densit ometer . Images are obtain ed for bone minera l densit y measur ement and are not obtain ed for diagno stic purpos es. [id number] COMPAR MARIPOSA: 2020. FINDIN GS: Scan qualit y: Good. LUMBAR SPINE (L1-L4 ): BMD (in g/cm*2 ): 0.907. T-scor e: -2.3. Z-scor e: -0.5. Rate of change from previo us exam: -4.2%. LEFT FEMORA L NECK: BMD (in g/cm*2 ): 0.725. T-scor e: -2.3. Z-scor e: -0.3. No signif icant rate of change from previo us exam. RIGHT FEMORA L NECK: BMD (in g/cm*2 ): 0.745. T-scor e: -2.1. Z-scor e: -0.1. Rate of change from previo us exam: -7.2%. FRAX 10-YEA R PROBAB ILITY OF FRACTU RE: 10-yea r fractu re risk is perfor med using the Univer sitKate castañeda FRAX calcul ator based on patien t-repo rted risk factor s. Major osteop orotic fractu re: 15.5%. Hip fractu re: 4.6%. IMPRES CRIS: Osteop enia based on BMD. PAGE 1 Signed Report (MERE NUED) [facility] Name: DOUG REINA [facility] [address] Phys: Ana velásquez MD, [place] [address] : 1949 Age: 74 Sex: F Acct: [id number] Loc: EmyRAD PHONE #: Exam Date: 2024 Status : DEP CLI FAX #: [phone] Rad# [id number] Unit# [id number] Admit Date: 2024 EXAMS: CPT CODE: [id number] DEXA BONE DENSIT Y AXIAL 18718 World Health Organi zation criter ia for BMD impres cris classi fy patien ts as: - Normal (T-sco re at or above -1.0). - Osteop enia (T-sco re betwee n -1.0 and -2.5). - Osteop orosis (T-sco re at or below -2.5). Per the Bone Health and Osteop orosis Founda tion the FRAX tool is most useful in patien ts with low femora l neck bone minera l densit y (osteo penia) . FRAX is calcul ated per reques t. RECOMM ENDATI ONS: 1. All patien ts should optimi ze their calciu m and vitami n D intake . 2. Consid er FDA-ap proved medica l therap ies in postme nopaus al women and men aged 50 years and older, based on the follow ing: - A hip or verteb ral (clini xiomara or morpho metric ) fractu re. - T-scor e less than or equal to -2.5 at the femora l neck or spine after approp riate evalua tion to exclud e second william causes . - Low bone densit y (T-sco re betwee n -1.0 and -2.5 at the femora l neck or spine) and a 10-yea r probab ility of a hip fractu re greate r than or equal to 3% or a 10-yea r probab ility of a major osteop orosis -relat ed fractu re greate r than or equal to 20% based on FRAX calcul ation. - Clinic ronnie judgme nt and/or patien t prefer ences may indica te treatm ent for people with 10-yea r fractu re probab ilitie s above or below these levels . - Cristel dumont ce on treatm ent can be found at the [facility] al Osteop orosis Founda tion's websit e boneso urce.o rg. 3. Patien ts with diagno sis of osteop orosis or at high risk for fractu re should have regula r bone minera l densit y tests. For patien ts eligib le for Medica re, routin e testin g is allowe d once every 2 years. The testin g freque ncy can be increa sed to one year for patien ts who have rapidl y progre ssing diseas e, those who are receiv ing or discon tinuin g medica l therap y to restor e bone mass or have additi onal risk factor s. Electr onical ly signed by: Bryson Finnegan MD 2024 11:06 AM EDT RP Workst ation: [id number] Electr onical ly Signed by BRYSON FINNEGAN on 2024 at 1858 Report ed and signed by: Brendan FINNEGAN PAGE 2 Signed Report (MERE NUED) [facility] Name: DOUG REINA [address] [email or web address] Phys: Ana velásquez MD, [place] [address] : 1949 Age: 74 Sex: F Acct: [id number] Loc: LIVIER PHONE #: Exam Date: 2024 Status : DEP CLI FAX #: Rad# [id number] Unit# [id number] Admit Date: 2024 EXAMS: CPT CODE: [id number] DEXA BONE DENSIT Y AXIAL 59751 CC: Govind velásquez Dictat ed Date/T rich: 2024 (1857) Techno logist : MARIANNE CRUZ N RT(R)( CT) Transc ribed Date/T rich: 2024 (1857) Transc riptio nist: DR.BUC JESUS Watters onic Signat ure Date/T rich: 2024 (1857) Printe d Date/T rich: 2024 (1108) BATCH NO: N/A PAGE 3 Signed Report CC'ed Logic: Orderi ng Provid er: ANA Mario Attend ing Provid er: ANA Mario Referr ing Provid er: ANA Mario Consul ting Provid er: ANA CURIEL Y [address] , [place], [address], 06/10/2025 10:25:15 06/25/20 25 XR, tibia + fibul a, 2 view No observ ation record ed. [address] Concrete [employer] [address] [place] [address] , [place], [address], 06/25/2025 09:51:56 06/25/20 25 XR, tibia + fibul a, 2 view No observ ation record ed. [address] [employer] [address] [place] [address] , [place], [address], 06/25/2025 09:51:56 07/23/20 25 XR, foot, 3 or more view No observ ation record ed. [email or web address] [address], [place], [address], 07/30/2025 12:55:40 08/13/20 25 08/13/2025 CT, angio gram, chest , w/ contr ast No observ ation record ed. [email or web address] [address], [place], [address], 08/13/2025 12:55:00 Result Notes None recorded. 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 Eusebia Alexander MD [address], [place], [address], [place] - [facility] 10:31:10 Cardiac pacemake r in situ 708677852 Active Eusebia Alexander MD [address], [place], [address], [place] [facility] 10:31:11 Hyperlip idemia 29653272 Active Eusebia Alexander MD [address], [place], [address], [place] [facility] 10:31:11 Hyperten sive disorder 54645560 Active Eusebia Alexander MD [address], [place], [address], [place] [facility] 10:31:11 Sciatica 85882846 Active Eusebia Alexander MD [address], [place], [address], [place] [facility] 10:31:10 Atrial fibrilla tion 55467318 Active Eusebia Alexander MD [address], [place], [address], [place] [facility] 10:31:11 Carotid artery stenosis 30621110 Active Eusebia Alexander MD [address], [place], [address], [place] [facility] 10:31:11 Coronary arterios clerosis 06189130 Active Eusebia Alexander MD [address], [place], [address], [place] [facility] 10:31:11 Gastroes ophageal reflux disease 068219376 Active Eusebia Alexander MD [address], [place], [address], [place] [facility] 10:31:10 Actinic keratosi s 885967278 Active Skyla Love null, [place] - [facility] 09:05:50 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 ER/ME/he r2 negative , nodes negative . s/p lumpecto my, radiatio n and adjuvant CMF Eusebia Alexander MD [address], [place], [address], [place] [facility] 10:31:11 Herpes zoster 8061565 Active 2015 Eusebia Alexander MD [address], [place], [address], [place] [facility] 10:31:11 Hernia of anterior abdomina l wall 339259102 Active 2019 uEsebia Alexander MD [address], [place], [address], [place] [facility] 10:31:11 Painless rectal bleeding 684850455 Active 2019 Eusebia Alexander MD [address], [place], [address], [place] [facility] 10:31:11 Overacti ve urinary bladder 316816381 Active 2019 Eusebia Alexander MD [address], [place], [address], [place] [facility] 10:31:11 Mixed urinary incontin ence 958301639 Active 2019 Eusebia Alexander MD [address], [place], [address], [place] [facility] 10:31:11 Cystocel e 206438921 Active 2019 Eusebia Alexander MD [address], [place], [address] 7[place] [facility] 10:31:11 Posterio r vaginal wall prolapse [id number] Active 2019 Eusebia Alexander MD [address], [place], [address], [place] [facility] 10:31:10 Exposure to SARS-CoV -2 Active 2019 Eusebia Alexander MD [address], [place], [address] [facility] 10:31:11 Vaccine declined by patient [id number] 2 Active 2020 Eusebia Alexander MD [address], [place], [address] [facility] 10:31:11 History of adenomat ous polyp of colon 393916586 Active 2020 Eusebia Alexander MD [address], [place], [address] [facility] 10:31:11 History of total hysterec filemon 916862912 Active 2020 Eusebia Alexander MD [address], [place], [address], [place] - [facility] 10:31:11 Osteopen ia 641808016 Active 202005/31/21S till in osteopen ia reading, stable at LS and R FN but signific antly decrease d in LFN. Current fracture risk score at 3.6% enough to advise for treatmen t. Given prior history of breast cancer would advise E Barnard as top recommen dation. 60 mg #30 refill 11. Recheck 2 years. 06/13/21 pt declined rx. Eusebia Alexander MD [address], [place], [address], [place] [facility] 10:31:11 Pain of right knee joint [id number] 4100 Active 2021 Eusebia Alexander MD [address], [place], [address], [place] [facility] 10:31:11 Cobalami n deficien cy 506518232 Active 2023 Cristina lloyd [place] - [facility] 4 10:41:31 Acute sinusiti s 06057679 Completed 202307/22/2025 Cas March, [employer] [address], [place], [address], [place] - [facility] 5 09:17:09 Overweig ht 796893025 Active 2023 Heladio Prince, [employer] [address], [place], [address], [place] [facility] 13:15:36 Iron deficien cy anemia 69304802 Active 2023 JOSE Cabrales - [facility] 09:27:44 Problem Notes None recorded. Procedures Surgical History Date Name Laterality Status Provider Name and Address Organization Details Recorded Time 025 hernia repair completed Cristina GARCIA - [facility] 05/26/2025 15:35:00 025 Advance Care Planning completed Cristina GARCIA - [facility] 03/24/2025 09:26:24 025 Functional Status Assessed completed Cristina GARCIA - [facility] 03/24/2025 09:26:24 024 Appendectomy completed Cristina GARCIA - [facility] 07/17/2024 14:44:53 024 Advance Care Planning completed Cristina GARCIA - [facility] 03/20/2024 09:42:23 024 Functional Status Assessed completed Cristina GARCIA - [facility] 03/20/2024 09:42:23 023 Advance Care Planning completed Cristina GARCIA - [facility] 03/21/2023 09:48:13 023 Functional Status Assessed completed Cristina GARCIA - [facility] 03/21/2023 09:48:13 023 Cryosurgery Dermatology completed Marissa Solorio APRN [address], [place], [address], [place] - [facility] 01/01/2023 09:39:15 022 Medication Reconcilliation completed Vielka Mcgregor [place] - [facility] 08/08/2022 08:28:58 022 Cryosurgery Dermatology completed Marissa Solorio APRN [address], [place], [address], [place] - [facility] 06/19/2022 12:08:59 022 Advance Care Planning completed Cristina GARCIA [facility] 03/29/2022 09:23:56 022 Functional Status Assessed completed Cristina GARCIA - [facility] 03/29/2022 09:23:56 022 Date of Last Colonoscopy completed Liza GARCIA - [facility] 06/28/2022 16:34:56 021 Most Recent Bone Density completed Liza GARCIA - [facility] 06/13/2021 16:14:02 021 Date of Last Mammogram completed Liza GARCIA - [facility] 06/13/2021 16:13:43 021 Diastolic B/P less than 80 mm Hg completed Cristina Jimenez [place] - [facility] 12/22/2020 10:55:22 021 Systolic B/P 130-139 mm Hg completed Cristina GARCIA - [facility] 12/22/2020 10:55:18 020 Systolic B/P less than 130 mm Hg completed Cristina GARCIA - [facility] 07/07/2020 17:00:29 020 Diastolic B/P less than 80 mm Hg completed Cristina GARCIA - [facility] 07/07/2020 17:00:33 020 Fitting & Insertion of Pessary completed Makenna Boucher MD [address], [place], [address], [place] [facility] 03/07/2020 20:34:53 020 Fitting & Insertion of Pessary completed Makenna Boucher MD [address], [place], [address], [place] [facility] 03/04/2020 13:22:48 020 Pediatric Cath completed Makenna Boucher MD [address], [place], [address], [place] [facility] 12/17/2019 13:40:51 020 Diastolic B/P 80-89 mm Hg completed Aquiles Dutta [place] - [facility] 12/10/2019 08:39:12 020 Systolic B/P 130-139 mm Hg completed Aquiles Dutta [place] - [facility] 12/10/2019 08:39:05 019 Systolic B/P less than 130 mm Hg completed Cristina GARCIA - [facility] 10/16/2019 09:38:43 019 Diastolic B/P less than 80 mm Hg completed Cristina Jimenez [place] - [facility] 10/16/2019 09:38:52 017 Punch Biopsy completed Roberto Rojas MD [address], [place], [address], [place] [facility] 05/03/2017 16:17:18 017 Cardiac ablation completed Chrissy Martinez [place] - [facility] 04/23/2017 14:56:56 017 hemorrhoid operation completed Makenna Boucher MD [address], [place], [address], [place] [facility] 01/22/2020 21:55:14 016 Colonoscopy completed Cristina Jimenez [place] - [facility] 11/14/2016 09:00:35 016 Pacemaker Placement completed Cristina Jimenez [place] - [facility] 11/14/2016 08:59:24 012 Angioplasty completed Tri Augie [place] - [facility] 10/22/2016 12:52:56 011 Date of Last Pap Smear completed Tri Augie [place] - [facility] 10/22/2016 12:50:08 001 Breast Lumpectomy completed Tri Augie [place] - [facility] 10/22/2016 12:54:21 987 Hysterectomy, Total Abdominal completed Tri Augie [place] - [facility] 10/22/2016 12:54:57 Cardiac Cath completed Tri [place]ie [place] - [facility] 10/22/2016 12:53:06 Cardioversion electric ext completed Tri Augie [place] - [facility] 10/22/2016 12:53:32 Dilation and curettage completed Tri Augie [place] - [facility] 10/22/2016 12:53:42 Tubal Ligation completed [place] - [facility] 10/22/2016 12:55:09 Imaging Results None recorded. Procedure Notes None recorded. Medical Equipment None Reported. Allergies Allergen ID Allergen Name Allergen Category Reaction Reaction Severity Criticality Documentation Date Start Date Code Code System Note Provider Name and Address Organization Details Recorded Time 42514 latex environme nt,medica tion Not available Not available Not available 08/10/20162009 44183 91 RxNorm Not Available [facility] 6 08:32:55 69979 Cipro medicatio n Not available Not available Not available 08/10/2016200856 3 RxNorm React ion: Tongu e sore; Not Available [facility] 6 08:32:55 58711 nickel environme nt,medica tion Not available Not available Not available 08/10/20162009 26878 29 RxNorm Not Available [facility] 6 08:33:10 81228 aspirin medicatio n rash Not available Not available 08/10/20162007 1191 RxNorm React ion: Rash; Comme nt: ASPIR IN; Not Available [facility] 6 09:15:36 90702 fluconazo le medicatio n hives Not available Not available 05/03/2017 4450 RxNorm Cristina lloyd, [place] - [facility] 7 15:45:37 Medications Name Sig Start Date Stop Date Status Note LastModified by Organization Details LastModified Time clopidogr el 75 mg tabs 05/09 completed Not Available Not Available Not Available losartan potassium 100 mg tabs 05/09 completed Not Available Not Available Not Available rosuvasta tin calcium 40 mg tabs 05/09 completed Not Available Not Available Not Available furosemid e 80 mg tabs 07/07 completed Not Available Not Available Not Available omeprazol e 40 mg cpdr 05/09 completed Not Available Not Available Not Available losartan 50 mg tablet TAKE TWO (2) TABLETS BY MOUTH EVERY DAY active Not Available Not Available No t Available Santyl 250 unit/gram topical ointment APPLY TO CLEANSED AFFECTED AREA BY TOPICAL ROUTE ONCE DAILY 01/23 completed Not Available Not Available Not Available pramipexo le 1 mg tablet TAKE ONE (1) TABLET BY MOUTH EVERY DAY 07/22 completed Not Available Not Available Not Available furosemid e 40 mg tablet take 1 tablet (40 mg) by oral route once daily 02/05 completed Not Available Not Available Not Available metolazon e 2.5 mg tablet take 1 tablet (2.5 mg) by oral route once daily for 30 days 12/01 completed metolazo ne 2.5 mg oral tablet;P rescribe Status: Prescrib ed on: 05/21/20 14 1:45PM;D iscontin ued Status: Disconti nued on: 12/01/19 16 10:39AM; User: lois;Est . Completi on: 11/17/19 15;Pharm Endy ied: 05/21/20 14 1:45PM Not Available Not Available Not Available nystatin 100,000 unit/mL oral suspensio n TAKE FIVE (5) ML FOUR (4) TIMES A DAY BY ORAL ROUTE FOR 7 DAYS. 09/26 completed Not Available Not Available Not Available doxycycli ne hyclate 100 mg capsule TAKE 1 CAPSULE BY MOUTH TWICE DAILY WITH MEALS FOR FIVE (5) DAYS 05/04 completed Not Available Not Available Not Available ropinirol e 1 mg tablet TAKE ONE (1) TABLET EVERY DAY BY ORAL ROUTE AT BEDTIME. active Not Available Not Available No t Available Neurontin 300 mg capsule take 1 capsule (300 mg) by oral route 3 times per day for 30 days 01/21 completed Neuronti n 300 mg oral capsule; Recorded Status: Recorded on: 07/31/20 12 11:50AM; Disconti nued Status: Disconti nued on: 01/22/20 14 11:23AM; User: lois;Est . Completi on: 10/29/20 12 Not Available Not Available Not Available donepezil 5 mg tablet TAKE ONE (1) TABLET EVERY DAY BY ORAL ROUTE. active Not Available Not Available No t Available Evista 60 mg tablet take 1 tablet (60 mg) by oral route once daily for 30 days 01/13 completed Evista 60 mg oral tablet;P rescribe Status: Prescrib ed on: 06/11/20 14 12:52PM; Disconti nued Status: Disconti nued on: 01/14/20 15 1:47PM;U ser: lois;Est . Completi on: 12/08/19 15;Pharm Endy ied: 06/11/20 14 12:52PM Not Available Not Available Not Available bumetanid e 2 mg tablet TAKE 1 TABLET BY MOUTH EVERY DAY active Not Available Not Available No t Available Klor-Con 20 mEq tablet,ex tended release Take 1 tablet every other day by oral route. 02/05 completed Not Available Not Available Not Available oxybutyni n chloride ER 10 mg tablet,ex tended release 24 hr Take 1 tablet every day by oral route. 03/04 completed stoppe due to dry mouth Not Available Not Available Not Available azithromy nicole 250 mg tablet TAKE TWO (2) TABLETS (500 MG) BY ORAL ROUTE ONCE DAILY FOR ONE (1) DAY THEN ONE (1) TABLET (250 MG) BY ORAL ROUTE ONCE DAILY FOR FOUR (4) DAYS 03/20 completed Not Available Not Available Not Available isosorbid e mononitra te 20 mg tablet take 1 tablet by oral route daily 03/21 completed isosorbi de mononitr ate 20 mg oral tablet;R ecorded Status: Recorded on: 12/01/19 16 10:37AM; Disconti nued Status: Disconti nued on: 03/21/20 16 1:48PM;U ser: haym Not Available Not Available Not Available tizanidin e 4 mg tablet TAKE ONE (1) TABLET THREE (3) TIMES A DAY BY ORAL ROUTE. active Not Available Not Available No t Available fluconazo le 150 mg tablet Take 1 tablet every day by oral route. 09/24 completed Not Available Not Available Not Available amiodaron e 200 mg tablet take 1 tablet (200 mg) by oral route once daily 01/21 completed amiodaro ne 200 mg oral tablet;R ecorded Status: Recorded on: 01/16/20 12 11:22AM; Disconti nued Status: Disconti nued on: 01/22/20 14 11:23AM; User: haym Not Available Not Available Not Available benzonata te 200 mg capsule TAKE ONE (1) CAPSULE (200 MG) BY ORAL ROUTE THREE (3) TIMES PER DAY NEEDED 06/05 completed Not Available Not Available Not Available metoprolo l succinate ER 50 mg tablet,ex tended release 24 hr 04/23 completed Not Available Not Available Not Available Coreg 6.25 mg tablet take 1 tablet (6.25 mg) by oral route 2 times per day with food 05/14 completed Coreg 6.25 mg oral tablet;R ecorded Status: Recorded on: 06/05/20 13 10:57AM; Disconti nued Status: Disconti nued on: 05/14/20 14 11:01AM; User: haym Not Available Not Available Not Available valacyclo vir 1 gram tablet Take 1 tablet every 12 hours by oral route for 5 days. 05/03 completed Not Available Not Available Not Available Lotrisone 1 %-0.05 % topical cream apply to the affected and surround ing areas of skin by topical route 2 times per day morning and evening for 30 days 12/22 completed Not Available Not Available Not Available hydrocodo ne 5 mg-acetam inophen 325 mg tablet TAKE 1 TO 2 TABLETS BY MOUTH EVERY SIX (6) HOURS NEEDED FOR PAIN SCLAE 1-5 07/17 completed Not Available Not Available Not Available fluconazo le 200 mg tablet take 1 tablet by oral route daily for 3 days 11/14 completed Not Available Not Available Not Available meloxicam 15 mg tablet TAKE ONE (1) TABLET EVERY DAY BY MOUTH 03/20 completed Not Available Not Available Not Available Medrol (Porfirio) 4 mg tablets in a dose pack 09/20 completed Medrol (Porfirio) 4 mg oral tablets, dose pack;Rec orded Status: Recorded on: 07/06/20 10 6:31AM;D iscontin ued Status: Disconti nued on: 09/20/20 10 3:16PM;U ser: keefk Not Available Not Available Not Available prednison e 20 mg tablet take 1 tablet (20 mg) by oral route 3 times per day till clear, then taper off by decreasi ng by a 1/2 tablet qd. 09/24 completed Not Available Not Available Not Available isosorbid e mononitra te ER 30 mg tablet,ex tended release 24 hr take 1 tablet (30 mg) by oral route once daily in the morning for 30 days 11/20 completed Not Available Not Available Not Available alendrona te 70 mg tablet take 1 tablet (70 mg) by oral route once weekly in the morning, at least 30 min before first food, beverage , or medicati on of day 02/05 completed Not Available Not Available Not Available fluoroura cil 5 % topical cream APPLY A THIN LAYER TO BOTH LOWER LEGS TWICE DAILY FOR 3 WEEKS 03/20 completed Not Available Not Available Not Available prednison e 5 mg tablet ONE TABLET BY MOUTH TWICE DAILY FOR SEVEN DAYS, THEN ONE TABLET BY MOUTH ONCE DAILY FOR SEVEN DAYS 07/17 completed Not Available Not Available Not Available clobetaso l 0.05 % topical cream USE PRN ON HANDS 12/30 completed clobetas ol 0.05 % topical cream;Re corded Status: Recorded on: 08/07/20 08 10:03PM; Disconti nued Status: Disconti nued on: 12/30/19 09 12:48PM; User: haym Not Available Not Available Not Available diltiazem ER 360 mg capsule,2 4 hr,extend ed release take 1 capsule (360 mg) by oral route once daily 01/13 completed diltiaze m HCl 360 mg oral capsule, extended release; Recorded Status: Recorded on: 05/14/20 14 11:01AM; Disconti nued Status: Disconti nued on: 01/14/20 15 1:47PM;U ser: haym Not Available Not Available Not Available Klor-Con 20 mEq oral packet take 1 packet (20 meq) dissolve d in 4-6 ounces of cold water or juice by oral route 2 times per day 12/21 completed Klor-Con 20 mEq oral packet;R ecorded Status: Recorded on: 06/21/20 10 4:54PM;D iscontin ued Status: Disconti nued on: 12/21/19 11 9:55AM;U ser: haym;Est . Completi on: 12/18/19 11 Not Available Not Available Not Available clopidogr el 75 mg tablet TAKE ONE (1) TABLET BY MOUTH EVERY DAY active Not Available Not Available No t Available Cardizem CD 180 mg capsule,e xtended release take 2 capsules (360 mg) by oral route once daily 12/01 completed Cardizem CD 180 mg oral capsule, extended release 24hr;Rec orded Status: Recorded on: 01/14/20 15 1:50PM;D iscontin ued Status: Disconti nued on: 12/01/19 16 10:39AM; User: haym Not Available Not Available Not Available valacyclo vir 500 mg tablet TAKE ONE (1) TABLET BY MOUTH EVERY DAY 07/22 completed Not Available Not Available Not Available sulfameth oxazole 800 mg-trimet hoprim 160 mg tablet TAKE ONE (1) TABLET BY ORAL ROUTE TWO (2) TIMES PER DAY FOR 10 DAYS 09/13 completed Not Available Not Available Not Available omeprazol e 40 mg capsule,d elayed release TAKE ONE (1) CAPSULE BY MOUTH EVERY DAY 02/01 completed Not Available Not Available Not Available triamcino lone acetonide 0.1 % topical cream apply a thin layer to the affected area(s) by topical route 4 times per day for 30 days 11/20 completed Not Available Not Available Not Available ondansetr on 8 mg disintegr ating tablet Place 1 tablet every 8 hours by translin gual route as needed for 7 days. 09/05 completed Not Available Not Available Not Available isosorbid e mononitra te ER 120 mg tablet,ex tended release 24 hr take 1 tablet (120 mg) by oral route once daily in the morning for 30 days 10/22 completed Not Available Not Available Not Available hydrocort isone acetate 25 mg rectal supposito ry Insert 1 supposit ory twice a day by rectal route as needed for 10 days. 12/22 completed Not Available Not Available Not Available bisoprolo l fumarate 5 mg tablet TAKE ONE (1) TABLET BY MOUTH EVERY DAY active Not Available Not Available No t Available pramipexo le 0.5 mg tablet TAKE 1 TABLET BY MOUTH TWO (2) TO THREE (3) HOURS BEFORE BEDTIME 07/20 completed Not Available Not Available Not Available hydrocort isone 2.5 % topical cream with perineal applicato r APPLY A THIN LAYER TO THE AFFECTED AREA(S) BY TOPICAL ROUTE FOUR (4) TIMES DAILY active Not Available Not Available No t Available Tessalon Perles 100 mg capsule take 2 capsule (100 mg) by oral route 3 times per day for 10 days 02/28 completed Not Available Not Available Not Available isosorbid e mononitra te ER 60 mg tablet,ex tended release 24 hr TAKE ONE (1) TABLET BY MOUTH EACH MORNING 03/20 completed Not Available Not Available Not Available potassium chloride ER 20 mEq tablet,ex tended release(p art/cryst ) Take 1 tablet every other day by oral route for 30 days. 04/19 completed Not Available Not Available Not Available Zoloft 50 mg tablet take 1 tablet (50 mg) by oral route once daily for 30 days 01/21 completed Zoloft 50 mg oral tablet;P rescribe Status: Prescrib ed on: 01/15/20 14 9:04AM;D iscontin ued Status: Disconti nued on: 01/22/20 14 11:23AM; User: bunny gabriel;Est. Completi on: 02/14/20 14;Pharm acyVerif ied: 01/15/20 14 9:04AM Not Available Not Available Not Available oxycodone -acetamin ophen 10 mg-325 mg tablet 09/05 completed Not Available Not Available Not Available furosemid e 80 mg tablet TAKE ONE (1) TABLET BY MOUTH EVERY DAY active Not Available Not Available No t Available Lizette 180 mg tablet take 1 tablet (180 mg) by oral route once daily for 30 days 06/05 completed Lizette 180 mg oral tablet;R ecorded Status: Recorded on: 04/12/20 11 9:40AM;D iscontin ued Status: Disconti nued on: 06/05/20 13 10:57AM; User: clayton ;Est. Completi on: 10/09/20 11;Indic ation: Allergic Rhinitis - (08.1779 00);Prin bry: 04/12/20 11 Not Available Not Available Not Available pantopraz ole 40 mg tablet,de layed release TAKE ONE (1) TABLET BY MOUTH EVERY DAY active Not Available Not Available No t Available cyanocoba anthony (vit B-12) 1,000 mcg/mL injection solution Inject 1 mL every month by subcutan eous route. 03/24 completed Not Available Not Available Not Available oseltamiv ir 75 mg capsule TAKE ONE (1) CAPSULE TWICE A DAY BY ORAL ROUTE. 07/22 completed Not Available Not Available Not Available Cipro 500 mg tablet take 1 tablet (500 mg) by oral route every 12 hours for 10 days 01/09 completed Cipro 500 mg oral tablet;R ecorded Status: Recorded on: 10/11/20 10 1:23PM;D iscontin ued Status: Disconti nued on: 01/10/20 11 2:24PM;U ser: clayton Uribe on: 10/31/20 10;Indic ation: Acute Maxillar y Haemophi bhargavi Influenz ae Sinusiti s - (.4610 02);Prin bry: 10/11/20 10 Not Available Not Available Not Available ranitidin e 150 mg tablet take 1 tablet (150 mg) by oral route 2 times per day 10/22 completed Not Available Not Available Not Available olopatadi ne 0.1 % eye drops INSTILL ONE (1) DROP INTO AFFECTED EYE(S) BY OPHTHALM IC ROUTE TWO (2) TIMES PER DAY 03/20 completed Not Available Not Available Not Available lisinopri l 10 mg tablet take 1 tablet (10 mg) by oral route once daily for 30 days 05/14 completed lisinopr il 10 mg oral tablet;R ecorded Status: Recorded on: 01/22/20 14 11:42AM; Disconti nued Status: Disconti nued on: 05/14/20 14 11:01AM; User: clayton Uribe on: 07/20/20 14;Print ed: 01/22/20 14 Not Available Not Available Not Available nitroglyc yenni 0.4 mg sublingua l tablet PLACE ONE (1) TABLET (0.4 MG) BY BUCCAL ROUTE AT THE FIRST SIGN OF AN ATTACK; NO MORE THAN THREE (3) TABS ARE RECOMMEN DED WITHIN A 15 MINUTE PERIOD. FOR THREE (3) active Not Available Not Available No t Available Prevalite 4 gram powder for suspensio n in a packet 11/20 completed Not Available Not Available Not Available Requip 4 mg tablet take 1 tablet (4 mg) by oral route 1-3 hours before bedtime for 30 days 12/01 completed Requip 4 mg oral tablet;P rescribe Status: Prescrib ed on: 10/14/20 15 4:39PM;D iscontin ued Status: Disconti nued on: 12/01/19 16 10:39AM; User: Roby Uribe on: 11/13/19 16;Pharm acJuan Manuel ied: 10/14/20 15 4:39PM Not Available Not Available Not Available Requip 2 mg tablet take 1 tablet (2 mg) by oral route 1-3 hours before bedtime for 30 days 01/13 completed Requip 2 mg oral tablet;P rescribe Status: Prescrib ed on: 09/27/20 14 1:10PM;D iscontin ued Status: Disconti nued on: 01/14/20 15 2:20PM;U ser: lois;Est . Completi on: 12/26/19 15;Pharm acyVerif ied: 09/27/20 14 1:10PM Not Available Not Available Not Available Cartia XT 240 mg capsule,e xtended release take 2 capsules (480 mg) by oral route once daily 04/23 completed Not Available Not Available Not Available cyanocoba anthony (vit B-12) 1,000 mcg sublingua l tablet PLACE ONE (1) TABLET UNDER THE TONGUE EVERY DAY active Not Available Not Available No t Available lisinopri l 5 mg tablet take 1 tablet (5 mg) by oral route once daily 10/11 completed lisinopr il 5 mg oral tablet;R ecorded Status: Recorded on: 12/29/19 10 1:52PM;D iscontin ued Status: Disconti nued on: 10/11/20 10 1:16PM;U ser: clayton MooneyEst. Completi on: 06/27/20 10;Print ed: 12/29/19 10 Not Available Not Available Not Available mupirocin 2 % topical ointment APPLY A SMALL AMOUNT TO THE AFFECTED AREA BY TOPICAL ROUTE THREE (3) TIMES PER DAY FOR 10 DAYS active Not Available Not Available No t Available digoxin 125 mcg (0.125 mg) tablet take 1 tablet (125 mcg) by oral route once daily 04/23 completed Not Available Not Available Not Available Vistaril 25 mg capsule take 1 capsule (25 mg) by oral route 3 times per day for 7 days 09/20 completed Vistaril 25 mg oral capsule; Recorded Status: Recorded on: 06/13/20 10 11:57AM; Disconti nued Status: Disconti nued on: 09/20/20 10 3:16PM;U ser: Noelle Uribe on: 06/20/20 10;Indic ation: Pruritus of Skin - (12.6989 00);Prin bry: 06/13/20 10 Not Available Not Available Not Available Levaquin 500 mg tablet take 1 tablet (500 mg) by oral route once daily for 10 days 01/15 completed Levaquin 500 mg oral tablet;R ecorded Status: Recorded on: 01/16/20 12 12:04PM; Disconti nued Status: Disconti nued on: 01/16/20 12 12:06PM; User: clayton Uribe on: 02/05/20 12;Indic ation: Bronchit is, Acute - (466.0); Printed: 01/16/20 12 Not Available Not Available Not Available metoprolo l succinate ER 25 mg tablet,ex tended release 24 hr 04/23 completed Not Available Not Available Not Available albuterol 90 mcg/actua tion aerosol inhaler inhale 2 puffs by inhalati on route every 4 hours as needed for 10 days 01/17 completed albutero l 90 mcg/actu ation inhalati on aerosol; Recorded Status: Recorded on: 12/30/19 09 1:10PM;D iscontin ued Status: Disconti nued on: 01/18/20 09 5:31PM;U ser: clayton Uribe on: 01/20/20 09;Print ed: 12/30/19 09 Not Available Not Available Not Available azelastin e 137 mcg (0.1 %) nasal spray instill 1 SPRAY IN EACH NOSTRIL EVERY 6 HOURS NEEDED FOR ALLERGY symptoms 03/20 completed Not Available Not Available Not Available Nasonex 50 mcg/actua tion [place] 1 sniff bilat bid 01/13 completed Nasonex 50 mcg/actu ation nasal spray,no n-aeroso l;Record ed Status: Recorded on: 01/30/20 14 2:49PM;D iscontin ued Status: Disconti nued on: 01/14/20 15 1:47PM;U ser: grossert ;Est. Completi on: 07/28/20 14;Indic ation: Maxillar y Sinusiti s, Acute - (461.0) Not Available Not Available Not Available lisinopri l 10 mg-hydroc hlorothia zide 12.5 mg tablet take 1 tablet by oral route once daily 12/17 completed lisinopr il-hydro chloroth iazide 10-12.5 mg oral tablet;R ecorded Status: Recorded on: 10/11/20 10 1:17PM;D iscontin ued Status: Disconti nued on: 12/17/19 12 2:00PM;U ser: haym;Ind ication: Hyperten cris - () Not Available Not Available Not Available cefuroxim e axetil 500 mg tablet TAKE 1 TABLET BY MOUTH TWICE DAILY 04/19 completed Not Available Not Available Not Available levofloxa nicole 750 mg tablet Take 1 tablet every day by oral route for 5 days. 08/03 completed Not Available Not Available Not Available albuterol sulfate HFA 90 mcg/actua tion aerosol inhaler INHALE TWO (2) PUFFS EVERY SIX (6) HOURS NEEDED FOR SHORTNES S OF BREATH OR WHEEZING 03/21 completed Not Available Not Available Not Available losartan 50 mg-hydroc hlorothia zide 12.5 mg tablet 04/23 completed Not Available Not Available Not Available hydrocort isone 2.5 % topical ointment APPLY TO AFFECTED AREA EVERY DAY 03/29 completed Not Available Not Available Not Available fluocinon fabiola 0.05 % topical cream apply to the affected area(s) by topical route 2 times per day for 30 days 06/11 completed fluocino nide 0.05 % topical cream;Re corded Status: Recorded on: 10/04/20 10 1:11PM;D iscontin ued Status: Disconti nued on: 06/11/20 12 4:24PM;U ser: haym;Est . Completi on: 04/02/20 11 Not Available Not Available Not Available ondansetr on 4 mg disintegr ating tablet 11/20 completed Not Available Not Available Not Available cefdinir 300 mg capsule take 1 capsule (300 mg) by oral route every 12 hours for 10 days 06/17 completed Not Available Not Available Not Available losartan 100 mg tablet Take 1 tablet every day by oral route for 30 days. 03/29 completed Not Available Not Available Not Available fluticaso ne propionat e 50 mcg/actua tion nasal spray,zacarias pension INSTILL ONE (1) SPRAY EACH NOSTRIL EVERY DAY 02/01 completed Not Available Not Available Not Available atenolol 50 mg tablet TAKE ONE-HALF TABLET BY MOUTH EVERY DAY 06/05 completed atenolol 50 mg oral tablet;R ecorded Status: Recorded on: 04/17/20 12 1:45PM;D iscontin ued Status: Disconti nued on: 06/05/20 13 10:57AM; User: clayton Uribe on: 10/14/20 12;Print ed: 04/17/20 12 Not Available Not Available Not Available loratadin e 10 mg tablet Take 1 tablet every day by oral route. 03/24 completed Not Available Not Available Not Available naproxen 500 mg tablet take one po BID pc 11/24 completed naproxen 500 mg oral tablet;R ecorded Status: Recorded on: 11/05/19 09 3:56PM;D iscontin ued Status: Disconti nued on: 11/24/19 09 11:19AM; User: Noelle Uribe on: 12/17/19 09;Indic ation: PAIN - ([phone]);Prin bry: 11/05/19 09 Not Available Not Available Not Available spironola ctone 50 mg tablet TAKE ONE (1) TABLET BY MOUTH TWICE DAILY active Not Available Not Available No t Available amoxicill in 875 mg-potass ium clavulana te 125 mg tablet TAKE ONE (1) TABLET BY ORAL ROUTE EVERY 12 HOURS FOR 10 DAYS 03/24 completed Not Available Not Available Not Available oxycodone 5 mg tablet TAKE ONE (1) TABLET BY MOUTH EVERY SIX (6) HOURS NEEDED FOR MAJOR SURGERY/ TRAUMA (G89.18) . 05/26 completed Not Available Not Available Not Available neomycin- polymyxin -hydrocor t 3.5 mg-10,000 unit/mL-1 % ear drops,zacarias p INSTILL 4 DROPS INTO AFFECTED EAR(S) BY OTIC ROUTE 3 TIMES PER DAY 11/14 completed Not Available Not Available Not Available Augmentin 875 mg tablet 1 bid 08/26 completed Replaced /Retired Drug 875 mg oral tablet;R ecorded Status: Recorded on: 08/07/20 08 10:05PM; Disconti nued Status: Disconti nued on: 08/26/20 08 10:43AM; User: grossert Not Available Not Available Not Available Zetia 10 mg tablet 1 QD 08/26 completed Zetia 10 mg oral tablet;R ecorded Status: Recorded on: 08/07/20 08 10:05PM; Disconti nued Status: Disconti nued on: 08/26/20 08 10:43AM; User: haym Not Available Not Available Not Available acyclovir 5 % topical cream APPLY TO THE AFFECTED AREA(S) BY TOPICAL ROUTE 3 x per day 11/14 completed Not Available Not Available Not Available Premarin 0.625 mg/gram vaginal cream INSERT ONE (1) G TWICE A WEEK BY VAGINAL ROUTE. 03/21 completed Not Available Not Available Not Available rosuvasta tin 40 mg tablet TAKE ONE (1) TABLET BY MOUTH EVERY DAY active Not Available Not Available No t Available Crestor 10 mg tablet 1 QD 08/26 completed Crestor 10 mg oral tablet;R ecorded Status: Recorded on: 08/07/20 08 10:02PM; Disconti nued Status: Disconti nued on: 08/26/20 08 10:43AM; User: haym Not Available Not Available Not Available Crestor 20 mg tablet take 1 tablet (20 mg) by oral route once daily for 30 days 04/13 completed Crestor 20 mg oral tablet;R ecorded Status: Recorded on: 03/22/20 11 10:13AM; Disconti nued Status: Disconti nued on: 04/13/20 11 2:21PM;U ser: lois;Est . Completi on: 06/20/20 11;Indic ation: Hypercho lesterol emia - () Not Available Not Available Not Available potassium chloride ER 10 mEq tablet,ex tended release(p art/cryst ) TAKE TWO (2) TABLETS BY MOUTH EVERY DAY 03/20 completed Not Available Not Available Not Available nitrofura ntoin monohydra te/macroc rystals 100 mg capsule TAKE ONE (1) CAPSULE (100 MG) BY ORAL ROUTE EVERY 12 HOURS WITH FOOD FOR 10 DAYS 01/06 completed Not Available Not Available Not Available Ranexa 500 mg tablet,ex tended release take 1 tablet by oral route daily 04/23 completed Not Available Not Available Not Available ferrous gluconate 324 mg (38 mg iron) tablet TAKE ONE (1) TABLET TWICE A DAY BY ORAL ROUTE FOR 90 DAYS. 02/26 completed Not Available Not Available Not Available FeroSul 325 mg (65 mg iron) tablet TAKE ONE (1) TABLET BY ORAL ROUTE TWO (2) TIMES A DAY active Not Available Not Available No t Available Mucinex 1,200 mg tablet, extended release Take 1 tablet twice a day by oral route. 02/01 completed Not Available Not Available Not Available Effient 10 mg tablet take 1 tablet (10 mg) by oral route once daily for 30 days 05/14 completed Effient 10 mg oral tablet;R ecorded Status: Recorded on: 01/22/20 14 11:42AM; Disconti nued Status: Disconti nued on: 05/14/20 14 11:01AM; User: clayton ;Est. Completi on: 07/20/20 14;Print ed: 01/22/20 14 Not Available Not Available Not Available Mucus Relief ER 600 mg tablet, extended release TAKE 2 TABLETS BY MOUTH TWICE DAILY 02/01 completed Not Available Not Available Not Available Suprep Bowel Prep Kit 17.5 gram-3.13 gram-1.6 gram oral solution USE DIRECTED 03/29 completed Not Available Not Available Not Available pramipexo le ER 2.25 mg tablet,ex tended release 24 hr Take 1 tablet every day by oral route at bedtime. 06/10 completed Not Available Not Available Not Available Xarelto 1 a day 05/16 completed Xarelto Oral 20 mg;Recor ded Status: Recorded on: 12/17/19 12 2:00PM;D iscontin ued Status: Disconti nued on: 05/16/20 12 11:42AM; User: dejon Jett on: - (-5) Not Available Not Available Not Available lactulose 20 gram/30 mL oral solution take 30 millilit ers (20 gram) by oral route once daily for 30 days 06/05 completed lactulos e 20 gram/30 mL oral solution ;Recorde d Status: Recorded on: 09/18/20 12 4:36PM;D iscontin ued Status: Disconti nued on: 06/05/20 13 10:57AM; User: haym;Est . Completi on: 12/17/19 13 Not Available Not Available Not Available Myrbetriq 50 mg tablet,ex tended release Take 1 tablet every day by oral route. 12/22 completed Not Available Not Available Not Available Linzess 145 mcg capsule take 1 capsule (145 mcg) by oral route once daily on an empty stomach at least 30 minutes before 1st meal of the day swallowi ng whole. Do no 10/22 completed Not Available Not Available Not Available Anoro Ellipta 62.5 mcg-25 mcg/actua tion powder for inhalatio n INHALE ONE (1) PUFF BY MOUTH EVERY DAY 2024 active Not Available Not Available Not Avai lable Shingrix (PF) 50 mcg/0.5 mL intramusc ular suspensio n, kit 12/16 completed Not Available Not Available Not Available Paxlovid 300 mg (150 mg x 2)-100 mg tablets in a dose pack USE DIRECTED ON PACKAGE 07/22 completed Not Available Not Available Not Available Vitals Date Recorded Body height Body mass index (BMI) Body weight Body temperature Heart rate Oxygen saturation Oxygen saturation in Arterial blood by Pulse oximetry Respiratory rate Pain severity - 0-10 verbal numeric rating [Score] - Reported Systolic And Diastolic Provider Name and Address Organization Details Last Updated DateTime 5 152.4 cm 30.1 kg/m2 11559.2 2 g 98.2 [degF] 68 /min 92 % 92 % 18 /min 0 104/62 mm[Hg] Cristina Jimenez [place] - [facility] 5 13:06:51 Date Recorded Body height Body mass index (BMI) Body weight Body temperature Heart rate Oxygen saturation Oxygen saturation in Arterial blood by Pulse oximetry Respiratory rate Pain severity - 0-10 verbal numeric rating [Score] - Reported Systolic And Diastolic Provider Name and Address Organization Details Last Updated DateTime 5 152.4 cm 29.9 kg/m2 26583.6 3 g 97.9 [degF] 70 /min 96 % 96 % 18 /min 0 130/60 mm[Hg] Cristina Jimenez [facility] 5 09:24:44 Date Recorded Body height Body mass index (BMI) Body weight Body temperature Heart rate Oxygen saturation Oxygen saturation in Arterial blood by Pulse oximetry Respiratory rate Pain severity - 0-10 verbal numeric rating [Score] - Reported Systolic And Diastolic Provider Name and Address Organization Details Last Updated DateTime 5 152.4 cm 29.5 kg/m2 36492.4 5 g 98.1 [degF] 68 /min 97 % 97 % 18 /min 0 124/70 mm[Hg] Cristina Jimenez [facility] 5 10:03:39 Date Recorded Body height Body mass index (BMI) Body weight Respiratory rate Pain severity - 0-10 verbal numeric rating [Score] - Reported Oxygen saturation Oxygen saturation in Arterial blood by Pulse oximetry Heart rate Body temperature Systolic And Diastolic Provider Name and Address Organization Details Last Updated DateTime 5 152.4 cm 29.1 kg/m2 53705.6 6 g 16 /min 0 96.99 % 96.99 % 69 /min 98.1 [degF] 128/64 mm[Hg] Neelima Antonio [place] - [facility] 5 08:23:05 Date Recorded Body height Body mass index (BMI) Body weight Body temperature Heart rate Oxygen saturation Oxygen saturation in Arterial blood by Pulse oximetry Respiratory rate Pain severity - 0-10 verbal numeric rating [Score] - Reported Systolic And Diastolic Provider Name and Address Organization Details Last Updated DateTime 5 152.4 cm 30.5 kg/m2 44419.4 1 g 98 [degF] 64 /min 90 % 90 % 24 /min 10 120/72 mm[Hg] Cristina Jimenez [place] - [facility] 16:00:57 Social History Question Answer Notes LastModified by Organizat ion Details LastModified Time Tobacco Smoking Status Former Smoker Tri lloyd [place] - [facility] 10/22/2016 13:07:06 Able To Swim? No Information not available 11/14/2016 Do You Have An Advance Directive? Yes Information not available 10/22/2016 Do You Wear A Helmet When Biking? No Information not available 11/14/2016 Are You Blind Or Do You Have Difficulty Seeing? No Information not available 11/14/2016 What Is Your Level Of Caffeine Consumption? Moderate Information not available 10/22/2016 How Much Tobacco Do You Chew? None Information not available 10/22/2016 In The 14 Days Before Symptom Onset, Have You Had Close Contact With A Laboratory-confir med COVID-19 While That Case Was Ill? No Information not available 09/19/2023 In The 14 Days Before Symptom Onset, Have You Had Close Contact With A Person Who Is Under Investigation For COVID-19 While That Person Was Ill? No Information not available 09/19/2023 Have You Been To An Area Known To Be High Risk For COVID-19? No Information not available 09/19/2023 Are You Deaf Or Do You Have Serious Difficulty Hearing? No Information not available 11/14/2016 What Type Of Diet Are You Following? CARDIAC Information not available 11/14/2016 Which Illicit Or Recreational Drugs Have You Used? No Information not available 11/14/2016 Have You Processed Blood Or Body Fluids From An Ebola Virus Disease Patient Without Appropriate PPE? No Information not available 09/19/2023 Do You Reside In Or Have You Traveled To An Area Where Ebola Virus Transmission Is Active? No Information not available 09/19/2023 Education 10 Information no t available 11/14/2016 What Is The Highest Grade Or Level Of School You Have Completed Or The Highest Degree You Have Received? [id number] Information not available 06/28/2021 Swimming/diving Yes Informati on not available 11/14/2016 Have There Been Any Changes To Your Family Or Social Situation? No Information no t available 06/28/2021 What Is The Fluoride Status Of Your Home? Fluoridated Information not available 06/28/2021 When Did You Quit Smoking? 16+yearssincelast cigarette Information not available 06/28/2021 Are There Any Guns Present In Your Home? Yes Information not available 11/14/2016 Hard Of Hearing Or Deaf In One Or Both Ears? No Information not available 11/14/2016 Have You Recently Or Are You Planning To Travel To An Area With Zika Virus? No Information not available 09/19/2023 Legally Blind In One Or Both Eyes? No Information no t available 11/14/2016 Live Alone Or With Others? With Others Information not available 10/22/2016 What Was The Date Of Your Most Recent Tobacco Screening? 08/06/2025 Information not available 08/06/2025 How Many Children Do You Have? 3 Information not available 10/22/2016 What Is Your Current Pack Years? 20-29packyears Information not available 05/03/2017 Performs Monthly Self-breast Exam? Yes Information no t available 10/22/2016 Do You Use Protection During Sex? No Information not available 11/14/2016 Do You Use Protection Against STDs? No Information not available 01/23/2023 What Is Your Relationship Status? Information not available 10/22/2016 Seat Belts Used Routinely Yes Information not available 10/22/2016 Are You Sexually Active? Yes Information not available 11/14/2016 Smoke Alarm In Home Yes Information not available 11/14/2016 Do You Have Smoke And Carbon Monoxide Detectors In Your Home? Yes Information not available 06/28/2021 At What Age Did You Start Smoking Tobacco? 14 Information not available 11/14/2016 Are You Passively Exposed To Smoke? No Information no t available 11/14/2016 How Much Tobacco Do You Smoke? 2 PPD Information not available 11/14/2016 General Stress Level Medium Information not available 11/14/2016 Do You Use Sunscreen Routinely? Yes Information not available 10/22/2016 Has Tobacco Cessation Counseling Been Provided? No Information not available 10/10/2017 How Many Years Have You Smoked Tobacco? 25 Information not available 11/14/2016 Do You Have Difficulty Walking Or Climbing Stairs? Yes Information not available 11/14/2016 What Contraceptive Method Was Reported At Start Of This Visit? Female Sterilization Information not available 09/19/2023 What Contraceptive Method Was Reported At End Of This Visit? Female Sterilization Information not available 09/19/2023 Do You Want To Talk About Contraception Or Prevention During Your Visit Today? No - This Question Does Not Apply To Me/I Prefer Not To Answer Information not available 01/23/2023 Do You Have Any Future Plans To Get ? No, I Don't Want To Become Information not available 01/23/2023 Sex: Female Functional Status Question Answer Note LastModified by Organizat ion Details LastModified Time Do you or have you ever used smokeless tobacco? Never used smokeless tobacco Information not available 06/17/2019 Are you currently employed? No Information not available 10/22/2016 Do you have transportation difficulties? No Information not available 06/28/2021 Are you able to care for yourself independently? Yes Information not available 11/14/2016 Do you have difficulty dressing, bathing, grooming, or toileting? No Information not available 11/14/2016 Do you or have you ever used e-cigarettes or vape? Never used electronic cigarettes Information not available 06/17/2019 What is your exercise level? Occasional Information not available 11/14/2016 Do you use any illicit or recreational drugs? No Information not available 06/28/2021 Do you or have you ever used any other forms of tobacco or nicotine? No Information not available 06/28/2021 What is your level of alcohol consumption? None Information not available 10/22/2016 What is your status? Not Information no t available 01/23/2023 Are you able to walk independently without assistance or assistive devices? YESWOREST Information not available 05/03/2017 Do you have difficulty doing errands alone? No Information not available 11/14/2016 What is your occupation? retired Information not available 10/22/2016 Mental Status Question Answer Note LastModified by Organizat ion Details LastModified Time Do you feel stressed (tense, restless, nervous, or anxious, or unable to sleep at night)? [id number] Information not available 06/28/2021 Do you have difficulty concentrating, remembering or making decisions? No Information no t available 11/14/2016 Family History Relationship Description Onset Age of this Age Resolved Age Notes LastModified by Organization Details LastModified Time Father Aortic aneurysm [email or web address] Not available 2024 09:14:52 Father Hyperlipidem ia mstears Not available 2024 09:14:52 Father Hypertensive disorder Not available 2015 12:52:23 Father Myocardial infarction mstears Not available 03/24 09:14:52 Medical History Condition Response Atrial Fibrillation Y Breast Cancer Y Acid Reflux (GERD) Y Hyperlipidemia Y Heart Disease Y Hypertension Y Gynecological History Statement/Question Response Last Annual Exam/Provider 04/19/21 [facility] Abnormal Pap N Date of Last Colonoscopy 02/26/2022 Date of Last Mammogram 05/31/2021 Most Recent Bone Density 05/31/2021 Sexually Active? N Post Menopausal Bleeding N Date of Last Pap Smear 01/09/2011 Current Control Method Hysterectom y Hormone Replacement Therapy Obstetrics History GPAL:G 3 P 3 0 0 3 Type Value Multiple Births 0 Full Term 3 Induced 0 Spontaneous 0 Premature 0 Living 3 Ectopics 0 Total 3 Immunizations Vaccine Type Date Status Note Provider Nam e and Address Organization Details Recorded Time Influenza, high-dose, quadrivalent, PF 1 completed Sakshi Marte null, [place] - [facility] 10/21/2024 10:44:09 Influenza, high-dose, quadrivalent, PF 2 completed Sakshi Marte null, [place] - [facility] 10/21/2024 10:44:09 COVID-19, mRNA, LNP-S, PF, 100 mcg/0.5mL dose or 50 mcg/0.25mL dose 1 completed Sakshi Marte null, [place] - [facility] 10/21/2024 10:44:10 Influenza, split virus, trivalent, PF 2 completed Sakshi Mart[place] - [facility] 10/21/2024 10:44:10 Td (adult), 2 Lf tetanus toxoid, preservative free, adsorbed 3 completed Sakshijethro Marte null[place] - [facility] 10/21/2024 10:44:10 Influenza, high-dose, quadrivalent, PF 3 completed Not Available [facility] 08/06/2025 15:52:17 RSV, bivalent, protein subunit RSVpreF, diluent reconstituted, 0.5 mL, PF 3 completed Not Available [facility] 08/06/2025 15:52:17 Influenza, high-dose, trivalent, PF 4 completed Not Available [facility] 08/06/2025 15:52:17 Tdap 2 completed Cristina Tony null, [place] - [facility] 03/29/2022 10:21:04 Pneumococcal conjugate PCV 13 7 completed Not Available [facility] 11/21/2019 03:54:53 influenza, unspecified formulation 4 completed Not Available [facility] 12/05/2019 02:21:49 Pneumococcal conjugate PCV 13 8 completed Not Available [facility] 12/05/2019 02:21:49 influenza, unspecified formulation 2 completed Sakshijethro Marte null[place] - [facility] 10/21/2024 10:44:10 influenza, unspecified formulation 3 completed Not Available [facility] 12/05/2019 02:21:49 pneumococcal polysaccharide PPV23 3 completed Cristina Hay null, [place] - [facility] 03/21/2023 10:55:33 influenza, unspecified formulation 7 completed Cristina [place] - [facility] 11/20/2017 13:07:47 Influenza, split virus, quadrivalent, preservative 8 completed Cristina [place] - [facility] 09/05/2018 09:04:06 zoster recombinant 9 completed Cristina [place] - [facility] 08/24/2019 17:05:05 zoster recombinant 9 completed Cristina Jimenez [place] - [facility] 10/26/2019 16:06:36 Tdap 5 completed Neelima Jonathantiesha null[place] - [facility] 07/22/2025 10:02:38 Influenza, split virus, quadrivalent, preservative 0 completed Cristina Jimenez [place] - [facility] 12/22/2020 10:54:17 COVID-19, mRNA, LNP-S, PF, 100 mcg/0.5mL dose or 50 mcg/0.25mL dose 1 completed Sakshi Mart[place] - [facility] 10/21/2024 10:44:09 COVID-19, mRNA, LNP-S, PF, 100 mcg/0.5mL dose or 50 mcg/0.25mL dose 1 completed Sakshijethro Marte [place] - [facility] 10/21/2024 10:44:10 zoster live 0 completed Liza Breanna null[place] - [facility] 04/18/2021 11:28:40 Td (adult) 3 completed Liza Andrus null[place] - [facility] 04/18/2021 11:29:09 Pneumococcal conjugate PCV 13 7 completed Not Available [facility] 11/21/2019 03:54:22 influenza nasal, unspecified formulation 2 completed Zoya Mayers null[place] - [facility] 08/29/2022 10:13:39 Influenza, high-dose, trivalent, PF 9 completed Not Available [facility] 11/21/2019 03:56:02 Past Encounters Encounter ID Performer Location Encounter Start Date Encounter Closed Date Diagnosis/Indication Diagnosis SNOMED-CT Code Diagnosis ICD10 Code Diagnosis IMO Codes Diagnosis Note [id number] [facility] [address] [place] [address] 05/21/2008 00:00:00 [id number] [facility] [address] [place] [address] 06/18/2008 00:00:00 [id number] [facility] [address] [place] [address] 06/23/2008 00:00:00 [id number] [facility] [address] [place] [address] 11/21/2005 00:00:00 [id number] [facility] [address] [place] [address] 01/01/2006 00:00:00 [id number] [facility] [address] [place] [address] 01/01/2007 00:00:00 [id number] [facility] [address] [place] [address] 08/26/2008 00:00:00 [id number] [facility] [address] [place] [address] 11/05/2008 00:00:00 [id number] [facility] [address] [place] [address] 11/24/2008 00:00:00 [id number] [facility] [address] [place] [address] 12/15/2008 00:00:00 [id number] [facility] [address] [place] [address] 12/30/2008 00:00:00 [id number] [facility] [address] [place] [address] 01/17/2009 00:00:00 [id number] [facility] [address] [place] [address] 09/15/2009 00:00:00 [id number] [facility] [address] [place] [address] 12/29/2009 00:00:00 [id number] [facility] [address] [place] [address] 09/24/2013 00:00:00 [id number] [facility] [address] [place] [address] 01/21/2014 00:00:00 [id number] [facility] [address] [place] [address] 06/13/2010 00:00:00 [id number] [facility] [address] [place] [address] 06/22/2010 00:00:00 [id number] [facility] [address] [place] [address] 01/29/2014 00:00:00 [id number] [facility] [address] [place] [address] 09/20/2010 00:00:00 [id number] [facility] [address] [place] [address] 05/14/2014 00:00:00 [id number] [facility] [address] [place] [address] 10/11/2010 00:00:00 [id number] [facility] [address] [place] [address] 01/13/2015 00:00:00 [id number] [facility] [address] [place] [address] 05/09/2015 00:00:00 [id number] [facility] [address] [place] [address] 12/01/2015 00:00:00 [id number] [facility] [address] [place] [address] 03/21/2016 00:00:00 [id number] [facility] [address] [place] [address] 04/24/2016 00:00:00 [id number] [facility] [address] [place] [address] 05/01/2016 00:00:00 [id number] [facility] [address] [place] [address] 12/13/2010 00:00:00 [id number] [facility] [address] [place] [address] 01/09/2011 00:00:00 [id number] [facility] [address] [place] [address] 04/12/2011 00:00:00 [id number] [facility] [address] [place] [address] 08/30/2011 00:00:00 [id number] [facility] [address] [place] [address] 12/17/2011 00:00:00 [id number] [facility] [address] [place] [address] 01/16/2012 00:00:00 [id number] [facility] [address] [place] [address] 01/31/2012 00:00:00 [id number] [facility] [address] [place] [address] 04/17/2012 00:00:00 [id number] [facility] [address] [place] [address] 5 05/16/2012 00:00:00 [id number] [facility] [address] [place] [address] 06/11/2012 00:00:00 [id number] [facility] [address] [place] [address] 5 07/24/2012 00:00:00 [id number] [facility] [address] [place] [address] 10/31/2012 00:00:00 [id number] [facility] [address] [place] [address] 06/05/2013 00:00:00 [id number] [facility] [address] [place] [address] 07/23/2013 00:00:00 [id number] Pia Jim MD [place] [facility] [address] [place] [address] [place] [address] 10/22/2016 12:33:34 10/22/2016 13:58:49 Herpes zoster 6070410 B02.9 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 [id number] MD [place]aila [place] [facility] [address] [place] [address] [place] [address] 10/31/2016 09:39:58 10/31/2016 11:26:31 Herpes zoster 0562687 B02.9 [id number] Roberto Rojas MD [address] [place] [address] 11/14/2016 08:30:32 11/14/2016 09:46:09 Gastroesophageal reflux disease 524887426 K21.9 Malignant neoplasm of breast 185116611 C50.911 Hypertensive disorder 38 955792 I10 Herpes zoster 0386917 B0 2.9 Atrial fibrillation 4943 6004 I48.91 Coronary arteriosclerosis 98971697 I25.10 Hyperlipidemia 47927800 E78.5 Carotid ar corey stenosis 01231760 I65.29 Sciatica 63171241 M54.31 Administra tion of pneumococcal vaccine 93753097 Z23 Body mass index 25-29 - overweight 612090229 Z68.28 [id number] MD Chano Juárez [facility] [address] [place] [address] [place] [address] 04/23/2017 14:10:50 04/23/2017 15:28:54 Viral infection of skin 488219226 B[address] Rojas DIOGENES for probable biopsy [id number] Roberto Rojas MD [address] [place] [address] 05/03/2017 15:34:16 05/03/2017 16:44:53 Chronic eczema 00593861 L30.9 Body mass index 25-29 - overweight 429584432 Z68.28 [id number] Roberto Rojas MD [address] [place] [address] 05/17/2017 09:43:51 05/17/2017 10:23:59 Allergic rhinitis 82608520 J30.9 Mass of neck 165196595 R 22.1 Eczema 93588652 L30.9 Body mass index 25-29 - overweight 825084561 Z68.29 [id number] Roberto Rojas MD [address] [place] [address] 10/10/2017 16:41:21 10/10/2017 17:31:13 Coronary arteriosclerosis 90230515 I25.10 Acute maxi llary sinusitis 39347544 J01.00 Generalize d osteoarthritis 821767031 M15.9 Administra tion of pneumococcal vaccine 71149686 Z23 Body mass index 25-29 - overweight 812774590 Z68.29 [id number] Roberto Rojas MD [address] [place] [address] 11/20/2017 12:50:32 11/20/2017 13:41:55 Acute gastroenteritis 36537387 K52.9 resolved Hilar lymphadenopathy 87 012867 R59.0 History of gastrointestinal bleed 245667979 Z87.19 Body mass index 25-29 - overweight 956976514 Z68.28 [id number] Roberto Rojas MD [address] [place] [address] 02/05/2018 09:35:31 02/05/2018 10:50:37 Influenza 6300353 J11.1 Acute bronchitis 1228382 2 J20.9 Candidiasis 13962790 B37 .9 Body mass index 25-29 - overweight 138837442 Z68.29 [id number] Roberto Rojas MD [address] [place] [address] 02/28/2018 15:44:32 02/28/2018 16:16:30 Acute bronchitis 63924802 J20.9 Herpes zoster 7275301 B0 2.9 Body mass index 25-29 - overweight 346525269 Z68.29 [id number] Roberto Rojas MD [address] [place] [address] 06/06/2018 13:27:04 06/06/2018 14:40:08 Inflammation of right sacroiliac joint 3049849882 5875109 M46.1 Body mass index 30+ - obesity 832994890 Z68.30 [id number] Roberto Rojas MD [address] [place] [address] 06/13/2018 14:49:22 06/13/2018 16:25:47 Abdominal mass 155334018 R19.00 Solitary n odule of lung 521285905 R91.1 Body mass index 30+ - obesity 503674025 Z68.31 Essential hypertension 21609156 I10 [id number] Roberto Rojas MD [address] [place] [address] 09/05/2018 08:13:51 09/05/2018 09:22:01 Acute otitis externa 28151142 H60.502 Body mass index 25-29 - overweight 706441784 Z68.29 [id number] Roberto Rojas MD [address] [place] [address] 11/14/2018 15:28:26 11/14/2018 16:42:57 Acute urinary tract infection 394296901 N39.0 Body mass index 30+ - obesity 097016946 Z68.30 [id number] Roberto Rojas MD [address] [place] [address] 06/17/2019 08:49:40 06/17/2019 10:07:47 Sciatica 83590207 M54.31 Gastroesop hageal reflux disease 993513635 K21.9 Malignant neoplasm of breast 797775700 C50.911 Hypertensive disorder 38 299540 I10 Herpes zoster 4896535 B0 2.9 Atrial fibrillation 4943 6004 I48.91 Coronary arteriosclerosis 59247551 I25.10 Hyperlipidemia 18186476 E78.5 Carotid ar corey stenosis 98387937 I65.29 Essential hypertension 34760865 I10 Body mass index 30+ - obesity 356586626 Z68.30 [id number] Roberto Rojas MD [address] [place] [address] 08/13/2019 15:43:12 08/13/2019 16:36:07 Administration of influenza vaccine 67980126 Z23 Acute maxi llary sinusitis 15260866 J01.00 Candidal vulvovaginitis 29270338 B37.3 Body mass index 30+ - obesity 739625193 Z68.30 [id number] Roberto Rojas MD [address] [place] [address] 09/24/2019 09:46:29 09/24/2019 11:52:28 Acute bronchitis 49009858 J20.9 Body mass index 30+ - obesity 500096279 Z68.30 [id number] Roberto Rojas MD [address] [place] [address] 10/16/2019 09:17:38 10/16/2019 09:53:17 Contusion of thoracic spine 353566479 S24.159A Pain in lumbar spine 267 459899 M54.5 Otalgia of right ear 798 6821433 164574 H92.01 normal exam Body mass index 30+ - obesity 251489182 Z68.31 [id number] Roberto Rojas MD [address] [place] [address] 12/10/2019 08:13:12 12/10/2019 09:29:21 Acute urinary tract infection 892889468 N39.0 Hernia of anterior abdominal wall 781662040 K43.9 Body mass index 30+ - obesity 056863860 Z68.30 [id number] Makenna Boucher MD [place] [facility] [address] [place] [address] [place] [address] 12/16/2019 12:51:52 12/16/2019 14:57:27 Posterior vaginal wall prolapse 140134724 N81.6 Grade 3-and irritation symptoms only noted within the last 2 weeks. Suspect has been more symptomati c after possible yeast infection that has now been self treated, as well as with atrophy rather than any significan t anatomic shift recently. Had been described as grade 2 and asymptomat ic 3 years ago. No defecation symptoms Cystocele 500726613 N81. 10 Grade 1-2 Increased frequency of urination 324634917 R35.0 cath ua culture. post void residual 30cc. Reassess with rogerio riojas given possible occult hematuria on dip specimen here last week. 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 She will be notified by facility of result after completion . Advise yearly Clinical Breast exam with Annual exam. Mixed urin william incontinence 106581979 N39.46 . Not requesting any treatment currently Malignant neoplasm of breast 422604556 C50.911 2000 history. No longer following with oncology [id number] MD Chano [place] [facility] [address] [place] [address] 01/22/2020 09:14:40 01/22/2020 11:11:20 Increased frequency of urination 475715196 R35.0 OAB/Noctui a.. Previous negative culture despite empiric treatment. Negative PVR at initial visit 12/16 . Recheck UA culture with ongoing symptoms. Interested in medical treatment now, trial oxybutynin , risks and benefits reviewed Mixed urin william incontinence 580775872 N39.46 . Starting oxybutynin trial Atrophy of vagina 485710 009 N95.2 Encourage continued use at least through current 3-month supply reassured with relative safety with vaginal applicatio n even in setting of prior breast cancer. Posterior vaginal wall prolapse 245166781 N81.6 Grade 3-and irritation symptoms only noted within the last 6 weeks. Suspect has been more symptomati c after possible yeast infection that was self treated in November as well as with atrophy rather than any significan t anatomic shift recently. Had been described as grade 2 and asymptomat ic 3 years ago. No defecation symptoms. No improvemen t with 1 month vaginal estrogen and interested in pessary trial Cystocele 610632934 N81. 10 Grade 1-2 Malignant neoplasm of breast 053482181 C50.911 2000 history. No longer following with oncology Painless r ectal bleeding 639184365 K62.5 Suspect bleeding internal hemorrhoid s. ;last CS 09/03/16; -Prior consults 2016 Dr. Galan and had infrared coagulatio n of hemorrhoid s at office, notes reviewed. Discussed possible new or different pathology developing in the interim and encouraged referral back to either colorectal surgery or general surgery. She prefers more local referral but does not want to do anything until she gets this other stuff fixed . Agrees to trial of hydrocorti sone suppositor ies. Had normal digital rectal exam last visit. Advise stool softeners and over-the-c ounter fiber [id number] MD Chano Freeman [facility] [address] [facility] [place] [address] 03/04/2020 11:07:54 03/04/2020 12:25:02 Mixed urinary incontinence 013342028 N39.46 Overactive urinary bladder 805497951 N32.81 d/c oxybutynin due to dry mouth. samples given for myrbetriq Posterior vaginal wall prolapse 973048690 N81.6 Grade 3-and irritation symptoms only noted since December.. Suspect has been more symptomati c after possible yeast infection that was self treated in November as well as with atrophy rather than any significan t anatomic shift recently. Had been described as grade 2 and asymptomat ic 3 years ago. No defecation symptoms. No improvemen t with vaginal estrogen alone that was started in December and interested in pessary trial. #3 ring with knob and support fit adequately today and will follow-up short-term Cystocele 087767733 N81. 10 Grade 1-2 Painless r ectal bleeding 706719534 K62.5 Suspect bleeding internal hemorrhoid s. ;last CS 09/03/16; -Prior consults 2016 Dr. Galan and had infrared coagulatio n of hemorrhoid s at office, notes reviewed. Discussed possible new or different pathology developing in the interim and encouraged referral back to either colorectal surgery or general surgery. She prefers more local referral but does not want to do anything until she gets this other stuff fixed . Improving with initial trial of hydrocorti sone suppositor ies had normal digital rectal exam. Very 2019. Advise stool softeners and over-the-c ounter fiber. Pending referral from January to Dr. Olmos, check on status at RTO [id number] MD Chano Freeman [facility] [address] [place] [address] [place] [address] 03/07/2020 10:10:51 03/07/2020 11:07:30 Posterior vaginal wall prolapse 374693059 N81.6 Pessary care 779118050 Z 46.89 Changed today from initial size 3 pink with support and knob to size 3 white with support no knob, states more comfortabl e. Follow-up as scheduled approximat chastity 10 days, sooner as needed. Continue Premarin cream [id number] MD Chano Freeman [facility] [address] [place] [address] [place] [address] 03/18/2020 11:05:55 03/18/2020 12:47:57 Pessary care 117080266 Z46.89 Posterior vaginal wall prolapse 699589991 N81.6 Replaced #3 right ring with support today after spontaneou s expulsion. Fits well and she wants to continue trial with this. We did not have a 3 pink without knob available for trial Cystocele 544132455 N81. 10 Grade 1-2 Constipation 44575962 K5 9.00 OTC bowel regimen dosing reviewed. Discussed if he can avoid straining may have better he long-term pessary use [id number] MD Chano Freeman [facility] [address] [place] [address] [place] [address] 05/09/2020 09:23:49 05/09/2020 10:58:51 Increased frequency of urination 002639000 R35.0 Pessary care 364310544 Z 46.89 Size 3 white ring without knob with support seems comfortabl e tumor but is fallen out now twice after 1 to 2 weeks of use each time with straining Posterior vaginal wall prolapse 133876201 N81.6 Replaced #3 right ring with support today after spontaneou s expulsion. Fits well and she wants to continue trial with this. We did not have a 3 pink or #4 white without knob available for trial. Advise she can call short-term notice if she needs replaced if expelled. I am still advising trials with pessary rather than moving to surgery at this point due to significan t cardiovasc ular history Cystocele 635873155 N81. 10 Grade 1-2 Mixed urin william incontinence 296459105 N39.46 Prior history. Primarily frequency rather than urinary incontinen ce as of today Overactive urinary bladder 396473133 N32.81 Oxybutynin trial started 4 2 8 visit. 5 1 visit d/c oxybutynin due to dry mouth. samples given for myrbetriq- we will check on status of use 1 week call with urine results [id number] [facility] [address] [place] [address] [place] [address] 05/20/2020 10:15:27 05/20/2020 10:46:30 Cystocele 016101059 N81.10 Grade 1-2 Posterior vaginal wall prolapse 107529562 N81.6 Removed # 3 white pessary with support.Pt given pessary to take home and encouraged to bring with her to her f/u appt with Dr. Mojica on 06/07/20 [id number] Roberto Rojas MD [address] [place] [address] 07/07/2020 16:37:57 07/07/2020 17:47:41 Sciatica 95072466 M54.31 Cerebrovas cular accident 358001457 I63.9 Gastroesop hageal reflux disease 519684477 K21.9 Malignant neoplasm of breast 220235284 C50.911 Hypertensive disorder 38 529958 I10 Mixed urin william incontinence 712822954 N39.46 Hernia of anterior abdominal wall 236517639 K43.9 Cardiac pa cemaker in situ 585547107 Z95.0 Herpes zoster 4505359 B0 2.9 Atrial fibrillation 4943 6004 I48.91 Coronary arteriosclerosis 28765149 I25.10 Hyperlipidemia 45905651 E78.5 Carotid ar corey stenosis 97940478 I65.29 Overactive urinary bladder 351997589 N32.81 Thyroid nodule 143837618 E04.1 Tremor 65346816 R25.1 Body mass index 25-29 - overweight 028283704 Z68.29 [id number] Tri Serna APRN [address] [place] [address] 10/11/2020 08:27:05 10/11/2020 09:20:40 Exposure to SARS-CoV-2 339017264 Z20.030 [id number] Roberto Rojas MD [address] [place] [address] 12/22/2020 10:41:18 12/22/2020 11:26:02 Cerebrovascular accident 317228924 I63.9 resolved Gastroesop hageal reflux disease 918867726 K21.9 controlled , Malignant neoplasm of breast 970135715 C50.911 remission, Hypertensive disorder 38 068840 I10 controlled Mixed urin william incontinence 232847625 N39.46 controlled Cardiac pa cemaker in situ 488474710 Z95.0 Atrial fibrillation 4943 6004 I48.91 controlled Coronary arteriosclerosis 90033534 I25.10 stable Hyperlipidemia 12516493 E78.5 controlled Carotid ar corey stenosis 69189083 I65.29 stable Cough 81797066 R05 Body mass index 25-29 - overweight 078867984 Z68.29 [id number] Makenna Boucher MD [place] [facility] [address] [place] [address] [place] [address] 04/19/2021 08:02:18 04/19/2021 10:52:33 Gynecologic examination 11794646 Z01.419 No pap indicated as status post total hysterecto my. Depression screening 171 523909 Z13.89 Hypertensi on screening 598444514 Z13.6 Patient currently is within goal of less than 140/90. We will rescreen at annual visit, sooner if needed Exercises education, guidance, and counseling 330321420 Z71.82 Advise 30 minutes 3 times a week at a minimum of purposeful exercise. Patient is not currently meeting this goal. History of total hysterectomy 829823546 Z90.710 Screening for malignant neoplasm of breast 530798144 Z12.31 Patient aware of due date for next Mammogram as indicated below. teodora but advised She will be notified by facility of result after completion . Advise yearly Clinical Breast exam with Annual exam. Screening for osteoporosis 863115074 Z13.820 Z78.0 Overdue, osteopenia 2008 Body mass index 30+ - obesity 310342467 Z68.30 Atrophy of vagina 195288 009 N95.2 Improving with treatment. Continue Dysuria 89939152 R30.9 Microscopic hematuria 19 7081712 R31.29 noted today- await micro adn CS, last visit was 0-2 cells- below threshold for eval Painless r ectal bleeding 780857543 K62.5 Suspect bleeding internal hemorrhoid s. ;last CS 09/03/16; -Prior consults 2016 Dr. Galan and had infrared coagulatio n of hemorrhoid s at office, notes reviewed. Discussed possible new or different pathology developing in the interim and encouraged referral back to either colorectal surgery or general surgery. might consider CS with Dr Hui but did not want referral for Hemorhoid tx. History of adenomatous polyp of colon 074410310 Z86.010 09/03/16 per path- pt has not recieved callback- referred back 04/24 for CS Vaccine de clined by patient 4096928039 02 Z28.20 declines tdap , say will dw dr rojas. due flu this fall Personal h istory of primary malignant neoplasm of breast 153828643 Z85.3 R lumpectomy 2000 Vaginal irritation 34661 6004 N89.8 Unclear vaginal versus urethral irritation . Check urinary and vaginal swabs. Osteopenia 022931733 M85 .80 2009 diagnosis. No active treatment since?2018 Posterior vaginal wall prolapse 028136027 N81.6 Grade 3 -mild symptoms. Previous trials with ring pessaries previous trials with ring pessaries 2019- did not stay in well and she did not want to continue further trials. Does not feel bothered enough to consider surgical management as she is poor candidate with cardiovasc ular history. Natural history reviewed, reassured against any serious complicati ons. Encouraged ongoing Premarin cream use to limit symptoms Cystocele 239188354 N81. 10 Grade 1-2 Female uri nary stress incontinence 31322739 N39.3 Stable rare symptoms. Does not feel things are bad enough to consider surgery from the standpoint . Continue Premarin cream and pelvic floor exercises [id number] Roberto Rojas MD [address] [place] [address] 06/01/2021 12:34:47 06/01/2021 14:46:03 Hernia of anterior abdominal wall 194132121 K43.9 Body mass index 25-29 - overweight 677598365 Z68.29 [id number] Roberto Rojas MD [address] [place] [address] 06/28/2021 09:54:53 06/28/2021 10:56:11 Atrial fibrillation 06780323 I48.91 controlled Cardiac pa cemaker in situ 462929565 Z95.0 Carotid ar corey stenosis 73828995 I65.29 stable Cerebrovas cular accident 463223759 I63.9 resolved Coronary arteriosclerosis 92289830 I25.10 stable Cystocele 278727460 N81. 10 Gastroesop hageal reflux disease 914626971 K21.9 controlled , Hernia of anterior abdominal wall 000541445 K43.9 Herpes zoster 5100078 B0 2.9 Hyperlipidemia 26755430 E78.5 controlled Hypertensive disorder 38 448575 I10 controlled Malignant neoplasm of breast 309210998 C50.911 remission, Osteopenia 662124199 M85 .80 Overactive urinary bladder 739464553 N32.81 Body mass index 30+ - obesity 514594067 Z68.30 [id number] Marissa Solorio [employer] [address] [place] [address] 12/20/2021 09:07:56 12/20/2021 10:04:47 Actinic keratosis 517137670 L57.0 monitoring nose. Follow up in 6 months to re-eval lesion on left upper inner portion of arm. If not resolved post cryo, 8 mm punch, 4 nylon [id number] Tri Serna APRN [address] [place] [address] 12/22/2021 14:53:19 12/22/2021 15:36:54 Acute otitis media with effusion 070007754 H65.199 Otitis media 84410895 H6 6.91 Body mass index 30+ - obesity 122426037 Z68.30 [id number] Roberto Rojas MD [address] [place] [address] 02/01/2022 09:13:22 02/01/2022 10:01:34 Pain of right calf 1561473856 709192 M79.661 Diarrhea 21399693 R19.7 Body mass index 30+ - obesity 033046988 Z68.30 [id number] Roberto Rojas MD [address] [place] [address] 03/29/2022 09:09:11 03/29/2022 10:16:09 Adult health examination 905475948 Z00.00 Depression screening 171 691094 Z13.89 Examinatio n of blood pressure 734306397 Z01.30 Diet education 32611128 Z71.3 Counseling 846379600 Z71 .82 Exercise counseling . Patient encouraged to exercise 30 minutes 5 days a week. At [facility] risk for falls 866206909 Z91.81 STEADI FAST screening score of __5___. Advance care planning 71 9542496 Z71.89 Atrial fibrillation 4943 6004 I48.91 controlled Cardiac pa cemaker in situ 096774172 Z95.0 Cerebrovas cular accident 013718695 I63.9 resolved Carotid ar corey stenosis 27489106 I65.29 stable Coronary arteriosclerosis 73145103 I25.10 stable Gastroesop hageal reflux disease 922231143 K21.9 controlled , Hyperlipidemia 04667178 E78.5 controlled Hypertensive disorder 38 737133 I10 controlled Malignant neoplasm of breast 615895971 C50.911 remission, Mixed urin william incontinence 885698341 N39.46 controlled Osteopenia 445086331 M85 .80 Overactive urinary bladder 706044221 N32.81 Hepatitis C screening 41 1188334 Z11.59 Active or passive immunization 572615385 Z23 Body mass index 30+ - obesity 546282537 Z68.30 [id number] Marissa Solorio APRN [facility] [address] [place] [address] 06/19/2022 07:59:32 06/19/2022 09:15:36 Actinic keratosis 203025876 L57.0 Apply Efudex BID during the cooler months cryo on right upper arm, Senile hyperkeratosis 39 2916742 L82.1 cryo on left arm x3 [id number] Roberto Rojas MD [address] [place] [address] 07/26/2022 14:17:42 07/26/2022 15:16:47 Pain of bilateral hands 4623350146 6732524 M79.641 Body mass index 25-29 - overweight 740380792 Z68.29 [id number] Roberto Rojas MD [address] [place] [address] 08/08/2022 08:27:08 08/08/2022 09:07:06 Cellulitis of lower limb 558174314 L03.119 Injury of soft tissue 28 0020966 T14.90XA Pain of right calf 72430 39030 006616 M79.661 Body mass index 30+ - obesity 126614198 Z68.31 [id number] Eusebia Alexander MD [address] [place] [address] 08/29/2022 09:42:51 08/29/2022 10:52:59 Infected abrasion of skin of right knee region 4390097451 0158928 L08.9 Lipoma of skin 520072598 D17.30 right lateral thigh [id number] Roberto Rojas MD [address] [place] [address] 09/13/2022 11:06:55 09/13/2022 11:45:57 Ulcer of lower extremity 08297669 L97.909 Body mass index 25-29 - overweight 762490064 Z68.28 [id number] Roberto Rojas MD [address] [place] [address] 09/20/2022 09:05:01 09/20/2022 10:14:33 Sore throat 332912988 J02.9 Ulcer of l ower extremity 93942210 L97.909 improved Body mass index 25-29 - overweight 928446523 Z68.29 Candidiasis of mouth 797 08405 B37.0 [id number] Roberto Rojas MD [address] [place] [address] 09/26/2022 08:51:21 09/26/2022 09:42:13 Ulcer of lower extremity 39942088 L97.909 improved Pain of right calf 88103 67691 106814 M79.661 Body mass index 25-29 - overweight 377556052 Z68.29 [id number] Roberto Rojas MD [address] [place] [address] 10/25/2022 12:39:55 10/25/2022 13:30:16 Hypertensive disorder 05903338 I10 controlled Ulcer of l ower extremity 43410384 L97.909 improved Body mass index 25-29 - overweight 599724028 Z68.29 [id number] Marissa Solorio APRN [facility] [facility] [address] [place] [address] 01/01/2023 08:37:48 01/01/2023 09:40:45 Actinic keratosis 886665039 L57.0 much improvemen t post Efudex. treat remaining places with cryo today. [id number] Roberto Rojas MD [address] [place] [address] 01/23/2023 13:57:32 01/23/2023 14:44:50 Acute urinary tract infection 612801548 N39.0 Poor short -term memory 634397574 R41.3 Body mass index 30+ - obesity 362360272 Z68.30 [id number] Roberto Rojas MD [address] [place] [address] 03/21/2023 09:22:25 03/21/2023 10:35:35 Adult health examination 895037506 Z00.00 Depression screening 171 246667 Z13.89 Examinatio n of blood pressure 384786114 Z01.30 Diet education 96238062 Z71.3 Counseling 495735102 Z71 .82 Exercise counseling . Patient encouraged to exercise 30 minutes 5 days a week. At [facility] ed risk for falls 779680393 Z91.81 STEADI FAST screening score of ___5__. Advance care planning 71 0275421 Z71.89 Cerebrovas cular accident 970508306 I63.9 resolved Gastroesop hageal reflux disease 730836446 K21.9 controlled , Malignant neoplasm of breast 881533106 C50.911 remission, Osteopenia 532757748 M85 .80 Hypertensive disorder 38 807855 I10 controlled Mixed urin william incontinence 573422377 N39.46 controlled Hernia of anterior abdominal wall 767105254 K43.9 Atrial fibrillation 4943 6004 I48.91 controlled Coronary arteriosclerosis 80572496 I25.10 Hyperlipidemia 58717188 E78.5 controlled Carotid ar corey stenosis 21462896 I65.29 stable Overactive urinary bladder 734350675 N32.81 Body mass index 30+ - obesity 044573492 Z68.30 Allergic conjunctivitis 787797648 H10.11 Active or passive immunization 077376700 Z23 [id number] Roberto Rojas MD [address] [place] [address] 09/19/2023 09:06:03 09/19/2023 10:00:46 Acute bronchitis 69877925 J20.9 Body mass index 30+ - obesity 811646058 Z68.30 [id number] Roberto Rojas MD [address] [place] [address] 03/20/2024 09:22:48 03/20/2024 10:40:29 Adult health examination 230187251 Z00.00 Depression screening 171 119030 Z13.31 A depression screening was completed via a standardiz ed screening tool. 5 minutes were spent discussing depression screening results and risk factors. Examinatio n of blood pressure 312408968 Z01.30 Diet education 03475302 Z71.3 Counseling 830854406 Z71 .82 Exercise counseling . Patient encouraged to exercise 30 minutes 5 days a week. At [facility] ed risk for falls 514648813 Z91.81 STEADI FAST screening score of ___5__. Advance care planning 71 3556222 Z71.89 Atrial fibrillation 4943 6004 I48.91 controlled Carotid ar corey stenosis 85146579 I65.29 stable Cerebrovas cular accident 173729191 I63.9 resolved Coronary arteriosclerosis 68240812 I25.10 Gastroesop hageal reflux disease 752653875 K21.9 controlled , Hernia of anterior abdominal wall 778117940 K43.9 Herpes zoster 5513287 B0 2.9 Hyperlipidemia 09444223 E78.5 controlled Hypertensive disorder 38 803300 I10 controlled Malignant neoplasm of breast 754999827 C50.911 remission, Mixed urin william incontinence 632762723 N39.46 controlled Osteopenia 771253770 M85 .80 Overactive urinary bladder 642369846 N32.81 Poor short -term memory 144170937 R41.3 Body mass index 30+ - obesity 109879221 Z68.30 [id number] Roberto Rojas MD [address] [place] [address] 03/25/2024 10:40:36 03/25/2024 12:18:35 Cobalamin deficiency 039750059 E53.8 [id number] Heladio Prince APRN [address] [place] [address] 05/04/2024 12:48:42 05/04/2024 13:22:37 Body mass index 25-29 - overweight 684760254 Z68.29 Overweight 556109385 E66 .3 Acute sinusitis 57435472 J01.90 Patient likely has an acute bacterial sinusitis. Will treat as below. No signs of preseptal or orbital cellulitis , meningismu s, or neurologic changes concerning for intracrani al process. Instructed family to monitor patient closely and call office for any of these symptoms. Supportive care reviewed: raising HOB, humidifier use, saline nasal spray, rest, encourage PO fluids and monitor hydration status, infection control measures. Recommende d acetaminop hen/ibupro fen PRN pain, fever; reviewed appropriat e doses. Follow-up as below. [id number] Roberto Rojas MD [address] [place] [address] 06/05/2024 10:28:11 06/05/2024 11:11:13 Abdominal pain 39650406 R10.9 Overweight 808579945 E66 .3 Acute urin william tract infection 080260397 N39.0 Allergic rhinitis 628161 04 J30.9 Body mass index 25-29 - overweight 901395762 Z68.29 Morgan hematuria 09133101 5 R31.0 [id number] Roberto Rojas MD [address] [place] [address] 07/17/2024 14:26:48 07/17/2024 15:11:56 Overweight 987515275 E66.3 External hemorrhoids 239 14677 K64.4 Body mass index 25-29 - overweight 052182695 Z68.29 [id number] Roberto Rojas MD [address] [place] [address] 10/21/2024 10:34:58 10/21/2024 11:18:43 Fatigue 84746446 R53.83 Dyspnea on exertion 6084 5006 R06.09 Cobalamin deficiency 190 849856 E53.8 Body mass index 25-29 - overweight 133592587 Z68.29 [id number] Roberto Rojas MD [address] [place] [address] 01/06/2025 15:49:46 01/06/2025 16:53:45 Overweight 856835747 E66.3 Abdominal mass 316125674 R19.00 Screening for malignant neoplasm of colon 574758294 Z12.11 Diarrhea 73594852 R19.7 Herpes labialis 9197115 B00.1 Body mass index 25-29 - overweight 104326708 Z68.29 [id number] Roberto Rojas MD [address] [place] [address] 02/17/2025 14:13:41 02/17/2025 15:03:45 Overweight 580675631 E66.3 Diarrhea 84361907 R19.7 21336844 Overweight in adulthood with body mass index of 25 or more but less than 30 680812161 Z68.29 56698053 [id number] Roberto Rojas MD [address] [place] [address] 03/24/2025 09:14:36 03/24/2025 10:12:53 Adult health examination 754830548 Z00.00 Depression screening 171 711163 Z13.31 A depression screening was completed via a standardiz ed screening tool. 5 minutes were spent discussing depression screening results and risk factors. Examinatio n of blood pressure 807465523 Z01.30 Diet education 77032370 Z71.3 Counseling 277442548 Z71 .82 Exercise counseling . Patient encouraged to exercise 30 minutes 5 days a week. At [facility] ed risk for falls 196603865 Z91.81 STEADI FAST screening score of ___6__. 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 [address] 05/26/2025 15:13:00 05/26/2025 15:50:28 Overweight 998394841 E66.3 Osteopenia 289932601 M85 .80 Postmenopa usal osteoporosis 246628367 M81.0 2201 Restless l egs syndrome 65245505 G25.81 694193 Skin ulcer 36275108 L98. 915 5947317 Overweight in adulthood with body mass index of 25 or more but less than 30 489908077 Z68.29 04363311 [id number] Roberto Rojas MD [address] [place] [address] 06/10/2025 12:29:09 06/10/2025 13:25:37 Overweight 850343238 E66.3 Restless l egs syndrome 47922803 G25.81 859508 [id number] Roberto Rojas MD [address] [place] [address] 06/24/2025 09:09:02 06/24/2025 09:50:04 Overweight 780264877 E66.3 Pain in bi lateral legs 3216649754 2595054 M79.604 M79.605 029618 Overweight in adulthood with body mass index of 25 or more but less than 30 978081287 Z68.29 48873874 [id number] Roberto Rojas MD [address] [place] [address] 07/01/2025 09:44:07 07/01/2025 10:29:16 Pharyngitis 987454378 J02.9 Overweight 868109283 E66 .3 Viral scre ening status 213102347 Z11.59 264623 Acute COVID-19 642213164 8 U07.1 9451153933 Influenza caused by Influenza B virus 60779648 J10.1 631482 Overweight in adulthood with body mass index of 25 or more but less than 30 074437446 Z68.29 19437291 [id number] Cas March APRN [facility] [address] [place] [address] 07/22/2025 08:02:25 07/22/2025 09:18:41 Active immunization 45365928 Z23 1233721 Puncture w ound of left foot 8406864236 6672643 S91.332A 6357057 New ProblemAcu teNo evidence of radiopaque foreign body on imageManag ement: 5-day course of Levofloxac inFollow up as needed [id number] Roberto Rojas MD [address] [place] [address] 08/06/2025 15:51:34 08/06/2025 16:28:28 Overweight 358436452 E66.3 Fatigue 26927661 R53.83 9353842 Coronary arteriosclerosis 68491824 I25.10 External hemorrhoids 239 61386 K64.4 05432 Body mass index 30+ - obesity 716331901 Z68.30 2015768997 Health Concerns Section Related Observation LastModified by Organization Detai ls LastModified Time None Recorded Concern Status LastModified by Organization Details LastModified Time None Recorded Advance Directives Directive Y: Payers Insurance Date Sequence Insurance Name Policy Number Policy Fernandez Covered Member ID Fernandez Member ID Guarantor Name 08/06/2025 [employer] - [place]IC[place] - [place]-FQ (MEDICARE) Sheryl Vazquez [id number] [facility] 05/04/2024 1 [place] Sheryl Vazquez [id number] [facility] 05/04/2024 2 [employer] Sheryl George [id number] [facility] 12/02/2024 1 [employer] (MEDICARE REPLACEMENT/A DVANTAGE - PPO) Sheryl Vazquez [id number] Sheryl George 08/06/2025 1 [facility] (MEDICARE REPLACEMENT/A DVANTAGE - HMO) [id number] Sheryl A George [id number] [facility] 05/04/2024 2 [employer] (MEDICARE SUPPLEMENT) Sheryl George [facility] 05/04/2024 2 [place] Sheryl Vazquez [id number] [facility] Notes Date Note Type Note Provider Name and Address Organization Details Recorded Time 06/10/2025 text/html Here to discuss bone dex. T score hips -2.3, worse than 4 years ago. Also ins denied pramipexol for RLS. Roberto Rojas MD [address], [place], [address], [place] [facility] 06/10/2025 13:27:37 06/24/2025 text/html Still c/O bilat lower leg cramps day and night. Ropinolol did not help much. Roberto Rojas MD [address], [place], [address], [facility] 06/24/2025 09:49:03 07/01/2025 text/html C/O 4 day history fever, chills, aches, cough, clear sputum and nasal drainage. Roberto Rojas MD [address], [place], [address], [facility] 07/01/2025 10:32:53 07/22/2025 text/html ROS as noted in the HPI Foot Pain- Onset was 30 minutes ago, due to stepping on nail while wearing shoe- Symptoms described as left foot pain in the plantar arch- Occurs continous- Severity is mild- Aggravating factors: weight bearing- Alleviating factors: none- Negative ROS: No bruising, fever, neurologic deficit, paresthesias - Associated medical history: A Fib, carotid artery disease, CAD, HTN Cas March, [employer] [address], [place], [address], [facility] 07/22/2025 09:21:27 08/06/2025 text/html C/O bleeding hemorrhoids and thinks lost lot blood. Worried blood count low. C/O SOB and weakness. Roberto Rojas MD [address], [place], [address], [facility] 08/06/2025 16:31:26 OBGyn Episode No OBEpisode recorded.
--- OUTSIDE RECORDS SUMMARY | 2025-08-24 07:19 | XMS_ITS | Continuity of Care Document ---
Author Organization [facility] Address [address] [place] [address] Care Team Providers Care Software Test Analyst Name Role Phone PIA SIMS Laundry Manager Unavailable ABILIO RAYMOND Seo Strategist Assessment No assessment recorded. Plan of Treatment Reminders Order Date Submit Date Provider Last Modified By Organization Details Last Modified Time Details Appointments Establish ed Patient 20 2024 02:50P M Roberto Robles MD Not available Not available Not available Lab None recorded. Referral None recorded. Procedures None recorded. Surgeries None recorded. Imaging XR, foot, 3 or more view 2024 025 [facility], [address], [place], [address], 07/23/2025 14:58:19 Medication Orders levofloxa nicole 750 mg tablet 2024 025 [facility], [address] [place] [address], [address], 08/03/2025 05:02:05 Patient TargetsNo targets recorded. Patient Instructions Encounter Date Encounter Id Patient Instructions Last Modified By Organization Details Last Modified Time 07/22/2025 [id number] puncture wounds: care instructions [email or web address] Not available 07/22/2025 09:20:22 Levofloxacin Ora l Tablet (LEVOFLOXACIN - ORAL) Not available 07/22/2025 09:20:22 Puncture Wound Take [...] You do not get better as expected. [email or web address] Not available 07/22/2025 09:16:18 Discussed plan o f care with the patient. Answered all of patient's questions. Patient agreeable to plan of care. Advised patient to take medications as prescribed. Discussed possible side effects of new medication with patient. Patient verbalized understanding. [email or web address] Not available 07/22/2025 09:20:30 Reason for Referral None Reported. Results Created Date Observation Date Name Description Value Unit Range Abnormal Flag Note LastModifiedBy Organization Detail LastModifiedTime 07/01/2007/01/2025 rapid SARS CoV + SARS CoV 2 Ag, QL IA, respi rator y speci men SARS CoV antigen Positi ve Not Available [address] , [place], [address], 07/01/2025 10:05:49 07/01/2007/01/2025 rapid strep group A, throa t Strep negati ve Not Available [address] , [place], [address], 07/01/2025 10:02:03 07/01/2007/01/2025 rapid strep group A, throa t Culture No Not Available [address] , [place], [address], 07/01/2025 10:02:03 07/01/20 25 07/01/2025 rapid flu (A+B) Flu positi ve Not Available [address] , [place], [address], 07/01/2025 10:06:22 07/01/20 25 07/01/2025 rapid flu (A+B) Type B Not Available [address] , [place], [address], 07/01/2025 10:06:22 06/25/20 25 XR, tibia + fibul a, 2 view No observ ation record ed. [address] Laundry Manager [address] [place] [address] , [place], [address], 06/25/2025 09:51:56 06/25/20 25 XR, tibia + fibul a, 2 view No observ ation record ed. [address] Laundry Manager [address] [place] [address] , [place], [address], 06/25/2025 09:51:56 07/23/20 25 XR, foot, 3 or more view No observ ation record ed. [facility] [address], [place], [address], 07/30/2025 12:55:40 08/13/20 25 08/13/2025 CT, angio gram, chest , w/ contr ast No observ ation record ed. [email or web address] [address], [place], [address], 08/13/2025 12:55:00 Result Notes None recorded. Problems Name Problem SNOMED Code Status Onset Date Resolution Date Notes Provider Name and Address Organization Details Recorded Time Cerebrov ascular accident 462454520 Active 02/03/13 Eusebia Alexander MD [address], [place], [address], [place] - [facility] 2 10:31:10 Cardiac pacemake r in situ 433435215 Active Eusebia Alexander MD [address], [place], [address] [facility] 10:31:11 Hyperlip idemia 29161569 Active Eusebia Alexander MD [address], [place], [address] [facility] 2 10:31:11 Hyperten sive disorder 39791245 Active Eusebia Alexander MD [address], [place], [address], [place] [facility] 2 10:31:11 Sciatica 68336810 Active Eusebia Alexander MD [address], [place], [address], [place] [facility] 2 10:31:10 Atrial fibrilla tion 76608455 Active Eusebia Alexander MD [address], [place], [address] [facility] 2 10:31:11 Carotid artery stenosis 27887968 Active Eusebia Alexander MD [address], [place], [address] [facility] 2 10:31:11 Coronary arterios clerosis 06480770 Active Eusebia Alexander MD [address], [place], [address], [place] [facility] 2 10:31:11 Gastroes ophageal reflux disease 842433293 Active Eusebia Alexander MD [address], [place], [address] [facility] 2 10:31:10 Actinic keratosi s 916019044 Active Skylamurphy Love null, [place] - [facility] 3 09:05:50 Malignan t neoplasm of breast 683769443 Active 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 ER/ID/he r2 negative , nodes negative . s/p lumpecto my, radiatio n and adjuvant CMF Eusebia Alexander MD [address], [place], [address], [place] [facility] 2 10:31:11 Herpes zoster 6873621 Active 2015 Eusebia Alexander MD [address], [place], [address], [place] [facility] 2 10:31:11 Hernia of anterior abdomina l wall 001936115 Active 2019 Eusebia Alexander MD [address], [place], [address], [place] [facility] 10:31:11 Painless rectal bleeding 687928439 Active 2019 Eusebia Alexander MD [address], [place], [address], [place] [facility] 2 10:31:11 Overacti ve urinary bladder 381997952 Active 2019 Eusebia Alexander MD [address], [place], [address] [facility] 10:31:11 Mixed urinary incontin ence 304786258 Active 2019 Eusebia Alexander MD [address], [place], [address] [facility] 10:31:11 Cystocel e 926333508 Active 2019 Eusebia Alexander MD [address], [place], [address], [place] [facility] 10:31:11 Posterio r vaginal wall prolapse 635552759 Active 2019 Eusebia Alexander MD [address], [place], [address], [place] [facility] 2 10:31:10 Exposure to SARS-CoV -2 Active 2019 Eusebia Alexander MD [address], [place], [address], [place] [facility] 10:31:11 Vaccine declined by patient 65208084508 2 Active 2020 Eusebia Alexander MD [address], [place], [address], [place] [facility] 2 10:31:11 History of adenomat ous polyp of colon 851101944 Active 2020 Eusebia Alexander MD [address], [place], [address], [place] [facility] 2 10:31:11 History of total hysterec filemon 499884314 Active 2020 Eusebia Alexander MD [address], [place], [address], [place] [facility] 2 10:31:11 Osteopen ia 472443266 Active 202005/31/21S till in osteopen ia reading, stable at LS and R FN but signific antly decrease d in LFN. Current fracture risk score at 3.6% enough to advise for treatmen t. Given prior history of breast cancer would advise [facility] as top recommen dation. 60 mg #30 refill 11. Recheck 2 years. 06/13/21 pt declined rx. Eusebia Alexander MD [address], [place], [address], [place] [facility] 2 10:31:11 Pain of right knee joint 07621897850 4100 Active 2021 Eusebia Alexander MD [address], [place], [address], [place] [facility] 2 10:31:11 Cobalami n deficien cy 825440173 Active 2023 Cristina lloyd, [place] - [facility] 4 10:41:31 Acute sinusiti s 62502032 Completed 202307/22/2025 Cas March, BENEFITS TECHNICIAN [address], [place], [address], [place] [facility] 5 09:17:09 Overweig ht 014771766 Active 2023 Heladio Prince, BENEFITS TECHNICIAN [address], [place], [address], [place] [facility] 4 13:15:36 Iron deficien cy anemia 58309896 Active 2023 JOSE Cabrales - [facility] 09:27:44 [...] 024 Advance Care Planning completed Cristina GARCIA [facility] 03/20/2024 09:42:23 024 Functional Status Assessed completed Cristina GARCIA [facility] 03/20/2024 09:42:23 023 Advance Care Planning completed Cristina GARCIA [facility] 03/21/2023 09:48:13 023 Functional Status Assessed completed Cristina GARCIA [facility] 03/21/2023 09:48:13 023 Cryosurgery Dermatology completed Marissa Solorio APRN [address], [place], [address], [place] - [facility] 01/01/2023 09:39:15 022 Medication Reconcilliation completed Vielka Mcgregor [place] - [facility] 08/08/2022 08:28:58 022 Cryosurgery Dermatology completed Marissa Solorio APRN [address], [place], [address], [place] [facility] 06/19/2022 12:08:59 022 Advance Care Planning completed Cristina GARCIA - [facility] 03/29/2022 09:23:56 022 Functional Status Assessed completed Cristina GARCIA - [facility] 03/29/2022 09:23:56 022 Date of Last Colonoscopy completed Liza Carlos [place] - [facility] 06/28/2022 16:34:56 021 Most Recent Bone Density completed Liza Carlos [place] - [facility] 06/13/2021 16:14:02 021 Date of Last Mammogram completed Liza Carlos [place] - [facility] 06/13/2021 16:13:43 021 Diastolic B/P less than 80 mm Hg completed Cristina Jimenez [place] - [facility] 12/22/2020 10:55:22 021 Systolic B/P 130-139 mm Hg completed Cristina Jimenez [place] [facility] 12/22/2020 10:55:18 020 Systolic B/P less than 130 mm Hg completed Cristina Jimenez [place] [facility] 07/07/2020 17:00:29 020 Diastolic B/P less than 80 mm Hg completed Cristina Jimenez [place] [facility] 07/07/2020 17:00:33 020 Fitting & Insertion of Pessary completed Makenna Boucher MD [address], [place], [address], [place] [facility] 03/07/2020 20:34:53 020 Fitting & Insertion of Pessary completed Makenna Boucher MD [address], [place], [address], [place] [facility] 03/04/2020 13:22:48 020 Pediatric Cath completed Makenna Boucher MD [address], [place], [address], [place] [facility] 12/17/2019 13:40:51 020 Diastolic B/P 80-89 mm Hg completed Aquiles Dutta [place] - [facility] 12/10/2019 08:39:12 020 Systolic B/P 130-139 mm Hg completed Aquiles Dutta [place] [facility] 12/10/2019 08:39:05 019 Systolic B/P less than 130 mm Hg completed Cristina Jimenez [place] - [facility] 10/16/2019 09:38:43 019 Diastolic B/P less than 80 mm Hg completed Cristina Jimenez [place] [facility] 10/16/2019 09:38:52 017 Punch Biopsy completed Roberto Robles MD [address], [place], [address], [place] [facility] 05/03/2017 16:17:18 017 Cardiac ablation completed Chrissy Martinez [place] - [facility] 04/23/2017 14:56:56 017 hemorrhoid operation completed Makenna Boucher MD [address], [place], [address], [place] [facility] 01/22/2020 21:55:14 016 Colonoscopy completed Cristina Jimenez [place] - [facility] 11/14/2016 09:00:35 016 Pacemaker Placement completed Cristina Jimenez [employer] - [facility] 11/14/2016 08:59:24 012 Angioplasty completed [employer] - [facility] 10/22/2016 12:52:56 011 Date of Last Pap Smear completed [employer] - [facility] 10/22/2016 12:50:08 001 Breast Lumpectomy completed [employer] - [facility] 10/22/2016 12:54:21 987 Hysterectomy, Total Abdominal completed [employer] - [facility] 10/22/2016 12:54:57 Cardiac Cath completed [employer] - [facility] 10/22/2016 12:53:06 Cardioversion electric ext completed [employer] - [facility] 10/22/2016 12:53:32 Dilation and curettage completed [employer] - [facility] 10/22/2016 12:53:42 Tubal Ligation completed [employer] - [facility] 10/22/2016 12:55:09 Imaging Results None recorded. Procedure Notes None recorded. Medical Equipment None Reported. Allergies Allergen ID Allergen Name Allergen Category Reaction Reaction Severity Criticality Documentation Date Start Date Code Code System Note Provider Name and Address Organization Details Recorded Time 34666 latex environme nt,medica tion Not available Not available Not available 08/10/20162009 81240 91 RxNorm Not Available [facility] 6 08:32:55 66322 Cipro medicatio n Not available Not available Not available 08/10/2016200856 3 RxNorm React ion: Tongu e sore; Not Available [facility] 6 08:32:55 12443 nickel environme nt,medica tion Not available Not available Not available 08/10/20162009 14653 29 RxNorm Not Available [facility] 6 08:33:10 32272 aspirin medicatio n rash Not available Not available 08/10/20162007 1191 RxNorm React ion: Rash; Comme nt: ASPIR IN; Not Available [facility] 6 09:15:36 53639 fluconazo le medicatio n hives Not available Not available 05/03/2017 4450 RxNorm JOSE Cabrales - [facility] 7 15:45:37 Medications Name Sig [...] User: lois;Est . Completi on: 11/17/19 15;Pharm acyVerif ied: 05/21/20 14 1:45PM Not Available Not [...] ser: lois;Est . Completi on: 12/08/19 15;Pharm acyVerif ied: 06/11/20 14 12:52PM Not Available Not [...] nued on: 01/22/20 14 11:23AM; User: bunny colemanEst. Completi on: 02/14/20 14;Pharm acyVerif ied: 01/15/20 [...] nued on: 06/05/20 13 10:57AM; User: clayton MooneyEstKylah Completi on: 10/09/20 11;Indic ation: Allergic Rhinitis - (08.2779 00);Prin bry: 04/12/20 11 Not Available Not [...] nued on: 01/10/20 11 2:24PM;U ser: clayton MooneyEst. Completi on: 10/31/20 10;Indic ation: Acute Maxillar y Haemophi bhargavi Influenz ae Sinusiti s - (08.4610 02);Prin bry: 10/11/20 10 Not Available Not [...] nued on: 05/14/20 14 11:01AM; User: clayton MooneyEstKylah Uribe on: 07/20/20 14;Print ed: 01/22/20 14 [...] Disconti nued on: 12/01/19 16 10:39AM; User: trudiEst . Completi on: 11/13/19 16;Pharm acyVerif ied: 10/14/20 15 4:39PM Not Available Not [...] nued on: 10/11/20 10 1:16PM;U ser: clayton ;Est. Completi on: 06/27/20 10;Print ed: 12/29/19 10 [...] Disconti nued on: 09/20/20 10 3:16PM;U ser: rosa;Tianna t. Completi on: 06/20/20 10;Indic ation: Pruritus of Skin - (12.6989 00);Prin bry: 06/13/20 10 Not Available Not Available Not Available Levaquin 500 mg tablet take 1 tablet (500 mg) by oral route once daily for 10 days 01/15 completed Levaquin 500 mg oral tablet;R ecorded Status: Recorded on: 01/16/20 12 12:04PM; Disconti nued Status: Disconti nued on: 01/16/20 12 12:06PM; User: clayton ;Est. Completi on: 02/05/20 12;Indic ation: Bronchit is, Acute [...] nued on: 01/18/20 09 5:31PM;U ser: clayton ;Est. Completi on: 01/20/20 09;Print ed: 12/30/19 09 Not Available Not Available Not Available azelastin e 137 mcg (0.1 %) nasal spray instill 1 SPRAY IN EACH NOSTRIL EVERY 6 HOURS NEEDED FOR ALLERGY symptoms 03/20 completed Not Available Not Available Not Available Nasonex 50 mcg/actua tion [place] 1 sniff bilat bid 01/13 completed Nasonex 50 mcg/actu ation nasal spray,no n-aeroso l;Record ed Status: Recorded on: 01/30/20 14 2:49PM;D iscontin ued Status: Disconti nued on: 01/14/20 15 1:47PM;U ser: kristinert ;Est. Completi on: 07/28/20 14;Indic ation: Maxillar [...] 2:00PM;U ser: haym;Ind ication: Hyperten cris - (4019 ) Not Available Not Available Not Available cefuroxim [...] nued on: 06/05/20 13 10:57AM; User: clayton MooneyEstKylah Uribe on: 10/14/20 12;Print ed: 04/17/20 12 [...] nued on: 11/24/19 09 11:19AM; User: Noelle tKylah Completi on: 12/17/19 09;Indic ation: PAIN - (16.7809 [...] Disconti nued on: 08/26/20 08 10:43AM; User: clayton Not Available Not Available Not Available Zetia 10 mg tablet 1 QD 08/26 completed Zetia 10 mg oral tablet;R ecorded Status: Recorded on: 08/07/20 08 10:05PM; Disconti nued Status: Disconti nued on: 08/26/20 08 10:43AM; User: lois Not Available Not Available Not Available acyclovir [...] Disconti nued on: 08/26/20 08 10:43AM; User: lois Not Available Not Available Not Available Crestor 20 mg tablet take 1 tablet (20 mg) by oral route once daily for 30 days 04/13 completed Crestor 20 mg oral tablet;R ecorded Status: Recorded on: 03/22/20 11 10:13AM; Disconti nued Status: Disconti nued on: 04/13/20 11 2:21PM;U ser: haym;Est . Completi on: 06/20/20 11;Indic ation: Hypercho [...] nued on: 05/14/20 14 11:01AM; User: clayton MooneyEstKylah Uribe on: 07/20/20 14;Print ed: 01/22/20 14 [...] Disconti nued on: 06/05/20 13 10:57AM; User: lois;Est . Completi on: 12/17/19 13 Not Available [...] Updated DateTime 5 152.4 cm 29.1 kg/m2 05157.6 6 g 16 /min 0 96.99 % 96.99 % 69 /min 98.1 [degF] 128/64 mm[Hg] Neelima Antonio [place] - [facility] 5 08:23:05 Social History Question Answer Notes LastModified by Organizat ion Details LastModified Time Tobacco Smoking Status Former Smoker Tri Ghosh null, [place] - [facility] 10/22/2016 13:07:06 Able To [...] Or The Highest Degree You Have Received? [id number] Information not available 06/28/2021 Swimming/diving Yes Informati [...] Functional Status Question Answer Note LastModified by [employer] ion Details LastModified Time Do you or [...] anxious, or unable to sleep at night)? [id number] [email or web address] Information not available 06/28/2021 Do you have [...] Influenza, high-dose, quadrivalent, PF 1 completed Sakshi Estuardo [place] [facility] 10/21/2024 10:44:09 Influenza, high-dose, quadrivalent, PF 2 completed Sakshi Estuardo [place] [facility] 10/21/2024 10:44:09 COVID-19, mRNA, LNP-S, PF, 100 mcg/0.5mL dose or 50 mcg/0.25mL dose 1 completed Sakshi Estuardo [place] [facility] 10/21/2024 10:44:10 Influenza, split virus, trivalent, PF 2 completed Sakshi Estuardo [place] [facility] 10/21/2024 10:44:10 Td (adult), 2 Lf tetanus toxoid, preservative free, adsorbed 3 completed Sakshi Marte [place] [facility] 10/21/2024 10:44:10 Influenza, high-dose, quadrivalent, PF 3 completed Not Available [facility] 08/06/2025 15:52:17 RSV, bivalent, protein subunit RSVpreF, diluent reconstituted, 0.5 mL, PF 3 completed Not Available [facility] 08/06/2025 15:52:17 Influenza, high-dose, trivalent, PF 4 completed Not Available [facility] 08/06/2025 15:52:17 Tdap 2 completed Cristina Jimenez [place] [facility] 03/29/2022 10:21:04 Pneumococcal conjugate PCV 13 7 completed Not Available [facility] 11/21/2019 03:54:53 influenza, unspecified formulation 4 completed Not Available [facility] 12/05/2019 02:21:49 Pneumococcal conjugate PCV 13 8 completed Not Available [facility] 12/05/2019 02:21:49 influenza, unspecified formulation 2 completed Sakshi Marte null, [place] - [facility] 10/21/2024 10:44:10 influenza, unspecified formulation 3 completed Not Available [facility] 12/05/2019 02:21:49 pneumococcal polysaccharide PPV23 3 completed Cristina Jimenez [place] [facility] 03/21/2023 10:55:33 influenza, unspecified formulation 7 completed Cristina [place] [facility] 11/20/2017 13:07:47 Influenza, split virus, quadrivalent, preservative 8 completed Cristina Jim[place] [facility] 09/05/2018 09:04:06 zoster recombinant 9 completed Cristina [place] [facility] 08/24/2019 17:05:05 zoster recombinant 9 completed Cristina [place] [facility] 10/26/2019 16:06:36 Tdap 5 completed Neelima Antonio [place] [facility] 07/22/2025 10:02:38 Influenza, [...] 10/21/2024 10:44:10 zoster live 0 completed Liza Carlos null[place] [facility] 04/18/2021 11:28:40 Td (adult) 3 completed Liza Carlos [place] [facility] 04/18/2021 11:29:09 Pneumococcal conjugate PCV 13 7 completed Not Available [facility] 11/21/2019 03:54:22 influenza nasal, unspecified formulation 2 completed Zoya Mayers null[place] - [facility] 08/29/2022 10:13:39 Influenza, high-dose, trivalent, PF 9 completed Not Available [facility] 11/21/2019 03:56:02 Past Encounters Encounter ID Performer Location Encounter Start Date Encounter Closed Date Diagnosis/Indication Diagnosis SNOMED-CT Code Diagnosis ICD10 Code Diagnosis IMO Codes Diagnosis Note [id number] Roberto Robles MD [address] [place] [address] 06/24/2025 09:09:02 06/24/2025 09:50:04 Overweight 259153014 E66.3 Pain in bi lateral legs 7030695490 7359690 M79.604 M79.605 056753 Overweight in adulthood with body mass index of 25 or more but less than 30 493924359 Z68.29 [id number] Roberto Robles MD [address] [place] [address] 07/01/2025 09:44:07 07/01/2025 10:29:16 Pharyngitis 350885795 J02.9 Overweight 117003353 E66 .3 Viral scre ening status 325681960 Z11.59 740841 Acute COVID-19 994148074 8 U07.5 7147881327 Influenza caused by Influenza B virus 64694600 J10.1 058183 Overweight in adulthood with body mass index of 25 or more but less than 30 656656571 Z68.29 [id number] Cas March APRN [facility] [address] [place] [address] 07/22/2025 08:02:25 07/22/2025 09:18:41 Active immunization 12630593 Z23 4608688 Puncture w ound of left foot 0188888476 8446760 S91.332A 5741527 New ProblemAcu teNo evidence of radiopaque foreign body on imageManag ement: 5-day course of Levofloxac inFollow up as needed Health Concerns Section Related Observation LastModified by Organization Detai ls LastModified Time None Recorded Concern Status LastModified by Organization Details LastModified Time None Recorded Payers Encounter Date Sequence Insurance Name Policy Number Policy Fernandez Covered Member ID Fernandez Member ID Guarantor Name 07/22/2025 1 [facility] (MEDICARE REPLACEMENT/A DVANTAGE - HMO) [id number] Sheryl Vazquez [id number] Sheryl Vazquez Notes Date Note Type Note Provider Name and Address Organization Details Recorded Time 07/22/2025 text/html ROS as noted in the [...] Fib, carotid artery disease, CAD, HTN Cas March APRN [address], [place], [address], [place] [facility] 07/22/2025 09:21:27 OBGyn Episode No OBEpisode recorded.
--- OUTSIDE RECORDS SUMMARY | 2025-08-24 07:20 | XMS_ITS | Clinical Summary ---
Author Organization [facility] Address [address] [place] [address] Phone Care Team Providers Care Media Sales Consultant Name Role Phone Roberto Robles Primary Care Provider [phone] Wilberto Pitts MD Unavailable [phone] Allergies Active Allergy Reactions Criticality Noted Date [...] Coronary atherosclerosis of unspecified type of vessel, [place] or graft MARTA (cerebral atherosclerosis) Breast cancer [...] determination if the patient should see her sonar watchstander. We reviewed warning signs and symptoms that [...] History Medical History Date Comments A-fib ([facility]) MARTA (cerebral atherosclerosis) GERD (gastroesophageal reflux disease) HTN (hypertension) Palpitation Hyperlipidemia Pneumonia Dec and March 2021 after Covid Lung nodule COPD (chronic obstructive pu lmonary disease) ([facility]) mild CAD (coronary artery disease) 1989, 2004 CA BG times 4 ( 1989 ) Cabg times 3 ( 2004 ), Cardiac stent 2003 Carotid artery occlusion left 10 0 % blocked, s/p right CEA Pacemaker PPM Arthritis back and fingers Stroke ([facility]) affected right e ye Encounter for blood transfusion with open heart surgery Breast cancer ([facility]) 2000 chemo and XR T 2000 NUÑEZ (dyspnea on exertion) Angina pectoris when walking [place]; seldomly takes nitro SL PR (myocardial infarction) ([facility]) was told she had one in the [...] Colonography Discontinued Medical Devices Implanted Type Area Urban Sociologist Device Identifier Shelf Expiration Date Model / Serial / Lot Multpile Cardiac Stents Bilateral Intraocular Lenses [employer] Single Pacemaker Implanted:12/21 (Quantity not on file) [employer] SR 1160 / [id number] / Mesh Std 6x6in Sq Marlx Perfx Knit Prperitn Nabsb Sht [place] - [id number] Implanted:Qty: 1 on 07/31/2021 by Smooth Soto DO at [facility] N/A: Abdomen CR BARD:DAVOL 05/01/2024 [id number] / / [id number] Mesh 4.5in [address] Sepra Co-Knit Vntrl Prt Absb Ptc - [id number] Implanted:Qty: 1 on 03/31/2025 by Smooth Soto DO at [facility] N/A: Abdomen CR BARD:DAVOL [id number] 01/01/2026 [id number] / / [id number] Insurance A[employer] MEDICARE CMPLT FS HMO MR MEDICARE CMPLT FS HMO MR MEDICARE [place] PART A AND B Advance Directives For more information, please contact: [phone] Documents on File Type Date Recorded Patient Medicare Specialist Expl anation ADVANCE DIRECTIVE 03/31/2025 8:15 AM Power of Oil Plant Operator 03/31/2025 8:14 AM ADVANCE DIRECTIVE 07/31/2021 9:44 AM ADVANCE DIRECTIVE 07/31/2021 9:44 AM * Full Code (Latest Code Status on File) Date Activated Date Inactivated Comments 04/03/2017 10:11 AM 04/03/2017 4:58 PM Care Teams Media Sales Consultant Relationship Specialty Start Date End Date Roberto Robles [address] [place] [address] PCP - General Family Medicine 11/01/14 Wilberto Pitts MD [address] [place] [id number] Consulting Physician Internal Medicine - Clinical Cardiac Electrophysiology 03/06/17
--- OUTSIDE RECORDS SUMMARY | 2025-08-24 07:20 | XMS_ITS | Continuity of Care Document ---
Author Organization [facility] Address [address] [place], [place] [address] [address] Care Team Providers Care Associate Professor Of Management Name Role Phone PIA SIMS On [employer] Personality Unavailable ABILIO RAYMOND Dewer Assessment No assessment recorded. Plan of Treatment Reminders Order Date Submit Date Provider Last Modified By Organization Details Last Modified Time Details Appointments Establish ed Patient 20 2024 02:50P M Roberto Robles MD Not available Not available Not available Lab rapid strep group A, throat 2024 025 [facility], [address] [place] [address] , [place], [address], 07/01/2025 10:39:20 rapid SARS CoV + SARS CoV 2 Ag, QL IA, respirato ry specimen 2024 025 [facility], [address] [place] [address] , [place], [address], 07/01/2025 10:39:20 rapid flu (A+B) [address] , [place], [address], 07/01/2025 10:39:20 Referral None recorded. Procedures None recorded. Surgeries None recorded. Imaging None recorded. Medication Orders Tamiflu 75 mg capsule 2024 025 [facility], [address] [place] [address], [address], 07/22/2025 08:37:07 Paxlovid 300 mg (150 mg x 2)-100 mg tablets in a dose pack 2024 025 [facility], [address] [place] [address], [address], 07/22/2025 08:37:04 Patient TargetsNo targets recorded. Patient Instructions Encounter Date Encounter Id Patient Instructions Last Modified By Organization Details Last Modified Time 07/01/2025 [id number] When You Want to Lose Weight: Care Instructions [email or web address] Not available 07/01/2025 10:39:20 Reason for Referral None Reported. Results Created Date Observation Date Name Description Value Unit Range Abnormal Flag Note LastModifiedBy Organization Detail LastModifiedTime 07/01/2007/01/2025 rapid SARS CoV + SARS CoV 2 Ag, QL IA, respi rator y speci men SARS CoV antigen Positi ve Not Available [address] , [place], [address], 07/01/2025 10:05:49 07/01/20 25 07/01/2025 rapid strep group A, throa t Strep negati ve Not Available [address] , [place], [address], 07/01/2025 10:02:03 07/01/20 25 07/01/2025 rapid strep group A, throa t Culture No Not Available [address] , [place], [address], 07/01/2025 10:02:03 07/01/20 25 07/01/2025 rapid flu (A+B) Flu positi ve Not Available [address] , [place], [address], 07/01/2025 10:06:22 07/01/20 25 07/01/2025 rapid flu (A+B) Type B Not Available [address] , [place], [address], 07/01/2025 10:06:22 06/01/20 25 05/31/2025 D[facility] [place] [facility] Name: [facility] Medica l Foap AB Phys: Bao velásquez MD, [place] [address] : 1949 Age: 74 Sex: F Acct: [id number] Loc: LIVIER PHONE #: Exam Date: 2024 Status : DEP CLI FAX #: Rad# [id number] Unit# [id number] Admit Date: 2024 EXAMS: CPT CODE: [id number] DEXA BONE DENSIT Y AXIAL 71072 EXAMIN ATION: DUAL X-RAY ABSORP TIOMET RY [...] was perfor med, as approp riate, using [employer] Prodig y densit ometer . Images are [...] risk is perfor med using the [facility] FRAX calcul ator based on patien t-repo rted risk factor s. Major osteop orotic fractu re: 15.5%. Hip fractu re: 4.6%. IMPRES NASEEM: Osteop enia based on BMD. PAGE 1 Signed Report (MERE NUED) [facility] Name: [facility] [employer] Foap AB Phys: Bao velásquez MD, Sab[place] [address] : 1949 Age: 74 Sex: F Acct: [id number] Loc: LIVIER PHONE #: [phone] Exam Date: 2024 Status : DEP CLI FAX #: [phone] Rad# [id number] Unit# [id number] Admit Date: 2024 EXAMS: CPT CODE: [id number] 493 DEXA BONE DENSIT Y AXIAL 21807 World Health Organi zation criter ia for BMD impres naseem classi fy patien ts as: - Normal [...] treatm ent can be found at the [facility]'s websit e [...] Brendan FINNEGAN PAGE 2 Signed Report (MERE NUMARQUIS) [facility] Name: [facility] Med[facility] [address] Phys: Kayce Sauceda MD [place] [address] : 1949 Age: 74 Sex: F Acct: [id number] Loc: EmyRAD PHONE #: Exam Date: 2024 Status : DEP CLI FAX #: Rad# [id number] Unit# [id number] Admit Date: 2024 EXAMS: CPT CODE: [id number] 493 DEXA BONE DENSIT Y AXIAL 35887 CC: Govind velásquez Dictat ed Date/T rich: 2024 (1857) Techno logist : MARIANNE CRUZ N RT(R)( CT) Transc ribed Date/T rich: 2024 (1857) Transc riptio nist: DR.BUC JESUS Watters onic Signat ure Date/T rich: 2024 (1857) Printe d Date/T rich: 2024 (1108) BATCH NO: N/A PAGE 3 Signed Report CC'ed Logic: Orderi ng Provid er: BAO Mario Attend ing Provid er: BAO Mario Referr ing Provid er: BAO CURIEL Y Consul ting Provid er: BAO Mario [address] [place], [address], 06/10/2025 10:25:15 06/25/20 25 XR, tibia + fibul a, 2 view No observ ation record ed. [address] [employer] [address] [place] [address] , [place], [address], 06/25/2025 09:51:56 06/25/20 25 XR, tibia + fibul a, 2 view No observ ation record ed. [address] [employer] [address] [place] [address] , [place], [address], 06/25/2025 09:51:56 07/23/20 XR, foot, 3 or more view No observ ation record ed. [facility] [address], [place], [address], 07/30/2025 12:55:40 08/13/20 25 08/13/2025 CT, angio gram, chest , w/ contr ast No observ ation record ed. [facility] [address], [place], [address], 08/13/2025 12:55:00 Result Notes None recorded. 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 02/03/13 Eusebia Alexander MD [address], [place], [address], [place] - [facility] 2 10:31:10 Cardiac pacemake r in situ 670568791 Active Eusebia Alexander MD [address], [place], [address], [place] [facility] 2 10:31:11 Hyperlip idemia 78345771 Active Eusebia Alexander MD [address], [place], [address], [place] [facility] 2 10:31:11 Hyperten sive disorder 36061151 Active Eusebia Alexander MD [address], [place], [address], [place] [facility] 2 10:31:11 Sciatica 98054828 Active Eusebia Alexander MD [address], [place], [address], [place] [facility] 2 10:31:10 Atrial fibrilla tion 40989605 Active Eusebia Alexander MD [address], [place], [address], [place] [facility] 2 10:31:11 Carotid artery stenosis 48978684 Active Eusebia Alexander MD [address], [place], [address], [place] [facility] 2 10:31:11 Coronary arterios clerosis 20747607 Active Eusebia Alexander MD [address], [place], [address], [place] [facility] 2 10:31:11 Gastroes ophageal reflux disease 419828678 Active Eusebia Alexander MD [address], [place], [address], [place] [facility] 2 10:31:10 Actinic keratosi s Active Skyla Love null, [place] - [facility] 3 09:05:50 Malignan t neoplasm of breast 148944218 Active 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 ER/PA/he r2 negative , nodes negative . s/p lumpecto my, radiatio n and adjuvant CMF Eusebia Alexander MD [address], [place], [address], [place] [facility] 2 10:31:11 Herpes zoster 1914541 Active 2015 Eusebia Alexander MD [address], [place], [address], [place] [facility] 2 10:31:11 Hernia of anterior abdomina l wall 330877492 Active 2019 Eusebia Alexander MD [address], [place], [address], [place] [facility] 2 10:31:11 Painless rectal bleeding 609356904 Active 2019 Eusebia Alexander MD [address], [place], [address], [place] [facility] 2 10:31:11 Overacti ve urinary bladder 329067931 Active 2019 Eusebia Alexadner MD [address], [place], [address], [place] [facility] 2 10:31:11 Mixed urinary incontin ence 320328328 Active 2019 Eusebia Alexander MD [address], [place], [address], [place] [facility] 2 10:31:11 Cystocel e 674348077 Active 2019 Eusebia Alexander MD [address], [place], [address], [place] [facility] 2 10:31:11 Posterio r vaginal wall prolapse 603795428 Active 2019 Eusebia Alexander MD [address], [place], [address], [place] [facility] 2 10:31:10 Exposure to SARS-CoV -2 Active 2019 Eusebia Alexander MD [address], [place], [address], [place] [facility] 2 10:31:11 Vaccine declined by patient 42555881358 2 Active 2020 Eusebia Alexander MD [address], [place], [address], [place] [facility] 2 10:31:11 History of adenomat ous polyp of colon 016731389 Active 2020 Eusebia Alexander MD [address], [place], [address], [place] [facility] 2 10:31:11 History of total hysterec filemon 107060127 Active 2020 Eusebia Alexander MD [address], [place], [address], [place] [facility] 2 10:31:11 Osteopen ia 285819120 Active 202005/31/21S till in osteopen ia reading, stable at LS and R FN but signific antly decrease d in LFN. Current fracture risk score at 3.6% enough to advise for treatmen t. Given prior history of breast cancer would advise E Beaman as top recommen dation. 60 mg #30 refill 11. Recheck 2 years. 06/13/21 pt declined rx. Eusebia Alexander MD [address], [place], [address], [place] [facility] 2 10:31:11 Pain of right knee joint 47842498253 4100 Active 2021 Eusebia Alexander MD [address], [place], [address], [place] [facility] 2 10:31:11 Cobalami n deficien cy 180212430 Active 2023 JOSE Cabrales - [facility] 4 10:41:31 Acute sinusiti s 34090764 Completed 202307/22/2025 Cas March, [employer] [address], [place], [address], [place] [facility] 5 09:17:09 Overweig ht 445839237 Active 2023 Heladio Prince, [employer] [address], [place], [address], [place] [facility] 4 13:15:36 Iron deficien cy anemia 60964523 Active 2023 JOSE Cabrales - [facility] 4 09:27:44 Problem Notes None recorded. Procedures Surgical History Date Name Laterality Status Provider Name and Address Organization Details Recorded Time 025 hernia repair completed Cristina GARCIA - [facility] 05/26/2025 15:35:00 025 Advance Care Planning completed Cristina GARCIA - [facility] 03/24/2025 09:26:24 025 Functional Status Assessed completed Cristina GARCIA - [facility] 03/24/2025 09:26:24 024 Appendectomy completed Cristina GARCIA [facility] 07/17/2024 14:44:53 024 Advance Care Planning completed Cristina GARCIA - [facility] 03/20/2024 09:42:23 024 Functional Status Assessed completed Cristina GARCIA [facility] 03/20/2024 09:42:23 023 Advance Care Planning completed Cristina GARCIA - [facility] 03/21/2023 09:48:13 023 Functional Status Assessed completed Cristinalydia GARCIA - [facility] 03/21/2023 09:48:13 023 Cryosurgery Dermatology completed Marissa Solorio, [employer] [address], [place], [address], [place] - [facility] 01/01/2023 09:39:15 Medication Reconcilliation completed Vielka Mcgregor [place] - [facility] 08/08/2022 08:28:58 022 Cryosurgery Dermatology completed Marissajessie Solorio APRN [address], [place], [address], [place] - [facility] 06/19/2022 12:08:59 022 Advance Care Planning completed Cristina Jimenez [place] - [facility] 03/29/2022 09:23:56 022 Functional Status [...] less than 80 mm Hg completed Cristina Hay [place] - [facility] 07/07/2020 17:00:33 020 Fitting & Insertion of Pessary completed Makenna Boucher MD [address], [place], [address], [place] [facility] 03/07/2020 20:34:53 020 Fitting & Insertion of Pessary completed Makenna Boucher MD [address], [place], [address], [place] [facility] 03/04/2020 13:22:48 020 Pediatric Cath completed Makenna Boucher MD [address], [place], [address], [place] [facility] 12/17/2019 13:40:51 020 Diastolic [...] completed Roberto Robles MD [address], [place], [address], [place] [facility] 05/03/2017 16:17:18 017 Cardiac ablation completed Chrissy Martinez [place] - [facility] 04/23/2017 14:56:56 017 hemorrhoid operation completed Makenna Boucher MD [address], [place], [address], [place] [facility] 01/22/2020 21:55:14 016 Colonoscopy completed Cristina Jimenez [place] - [facility] 11/14/2016 09:00:35 016 Pacemaker Placement completed Cristina Jim[place] - [facility] 11/14/2016 08:59:24 012 Angioplasty completed Tri Augie [place] - [facility] 10/22/2016 12:52:56 011 Date of Last Pap Smear completed Tri Augie [place] - [facility] 10/22/2016 12:50:08 001 Breast Lumpectomy completed Tri Augie [place] - [facility] 10/22/2016 12:54:21 987 Hysterectomy, Total Abdominal completed Tri Augie [place] - [facility] 10/22/2016 12:54:57 Cardiac Cath completed Tri Augie [place] - [facility] 10/22/2016 12:53:06 Cardioversion electric ext completed Tri Augie [place] - [facility] 10/22/2016 12:53:32 Dilation and curettage completed Tri Ghosh [place] - [facility] 10/22/2016 12:53:42 Tubal Ligation completed [facility] [place] - [facility] 10/22/2016 12:55:09 Imaging Results None recorded. Procedure Notes None recorded. Medical Equipment None Reported. Allergies Allergen ID Allergen Name Allergen Category Reaction Reaction Severity Criticality Documentation Date Start Date Code Code System Note Provider Name and Address Organization Details Recorded Time 96282 latex environme nt,medica tion Not available Not available Not available 08/10/20162009 96246 91 RxNorm Not Available [facility] 6 08:32:55 81936 Cipro medicatio n Not available Not available Not available 08/10/2016200856 3 RxNorm React ion: Tongu e sore; Not Available [facility] 6 08:32:55 75601 nickel environme nt,medica tion Not available Not available Not available 08/10/2016200916 29 RxNorm Not Available [facility] 6 08:33:10 60387 aspirin medicatio n rash Not available Not available 08/10/20162007 1191 RxNorm React ion: Rash; Comme nt: ASPIR IN; Not Available [facility] 6 09:15:36 03137 fluconazo le medicatio n hives Not available [...] Disconti nued on: 01/14/20 15 1:47PM;U ser: haym;Est . Completi on: 12/08/19 15;Pharm acyVerif ied: [...] Disconti nued on: 12/30/19 09 12:48PM; User: lois Not Available Not Available Not Available diltiazem [...] on: 10/09/20 11;Indic ation: Allergic Rhinitis - (4779 );Prin bry: 04/12/20 11 Not Available Not Available [...] nued on: 01/10/20 11 2:24PM;U ser: clayton ;Est. Completi on: 10/31/20 10;Indic ation: Acute Maxillar [...] nued on: 12/01/19 16 10:39AM; User: trudiEst Kylah Uribe on: 11/13/19 16;Pharm Endy ied: 10/14/20 15 4:39PM Not Available Not Available Not Available Requip 2 mg tablet take 1 tablet (2 mg) by oral route 1-3 hours before bedtime for 30 days 01/13 completed Requip 2 mg oral tablet;P rescribe Status: Prescrib ed on: 09/27/20 14 1:10PM;D iscontin ued Status: Disconti nued on: 01/14/20 15 2:20PM;U ser: lois;Est . Completi on: 12/26/19 15;Pharm acJuan Manuel ied: 09/27/20 14 1:10PM Not Available Not [...] nued on: 01/18/20 09 5:31PM;U ser: clayton MooneyEst. Completi on: 01/20/20 09;Print ed: 12/30/19 09 Not Available Not Available Not Available azelastin e 137 mcg (0.1 %) nasal spray instill 1 SPRAY IN EACH NOSTRIL EVERY 6 HOURS NEEDED FOR ALLERGY symptoms 03/20 completed Not Available Not Available Not Available Nasonex 50 mcg/actua tion [place] 1 sniff bilat bid 01/13 completed Nasonex [...] 12/17/19 12 2:00PM;U ser: haym;Ind ication: Hyperten naseem - (074019 00) Not Available Not Available Not Available cefuroxim [...] Disconti nued on: 06/11/20 12 4:24PM;U ser: lois;Est . Completi on: 04/02/20 11 Not Available [...] nued on: 06/05/20 13 10:57AM; User: clayton rUibe on: 10/14/20 12;Print ed: 04/17/20 12 Not [...] ation: PAIN - (16.7809 00);Prin bry: 11/05/19 Not Available Not Available Not Available spironola [...] on: 05/14/20 14 11:01AM; User: clayton MooneyEstKylah Xiaoi on: 07/20/20 14;Print ed: 01/22/20 14 Not [...] Disconti nued on: 06/05/20 13 10:57AM; User: trudiEst Kylah Completi on: 12/17/19 13 Not Available Not [...] Shingrix (PF) 50 mcg/0.5 mL intramusc ular suspio n, kit 12/16 completed Not Available Not [...] Updated DateTime 5 152.4 cm 29.5 kg/m2 18599.4 5 g 98.1 [degF] 68 /min 97 % 97 % 18 /min 0 124/70 mm[Hg] Cristina Jimenez [place] - [facility] 5 10:03:39 Social History Question Answer Notes LastModified by Organizat ion Details LastModified Time Tobacco Smoking Status Former Smoker JOSE Son - [facility] 10/22/2016 13:07:06 Able To Swim? [...] Or The Highest Degree You Have Received? [id number] Information not available 06/28/2021 Swimming/diving Yes Informati [...] anxious, or unable to sleep at night)? [id number] Information not available 06/28/2021 Do you have [...] available 03/24 09:14:52 Medical History Condition Response Acid Reflux (GERD) Y Hyperlipidemia Y Heart Disease Y Atrial Fibrillation Y Hypertension Y Breast Cancer Y Gynecological History Statement/Question Response Last Annual [...] Influenza, high-dose, quadrivalent, PF 1 completed Sakshi lloyd, [place] - [facility] 10/21/2024 10:44:09 Influenza, high-dose, quadrivalent, PF 2 completed Sakshi Marte null, [place] - [facility] 10/21/2024 10:44:09 COVID-19, mRNA, LNP-S, PF, 100 mcg/0.5mL dose or 50 mcg/0.25mL dose 1 completed Sakshi lloyd, [place] - [facility] 10/21/2024 10:44:10 Influenza, split virus, trivalent, PF 2 [place] [facility] 10/21/2024 10:44:10 Td (adult), 2 Lf tetanus toxoid, preservative free, adsorbed 3 completed Sakshi lloyd, [place] - [facility] 10/21/2024 10:44:10 Influenza, high-dose, quadrivalent, PF 3 completed Not Available [facility] 08/06/2025 15:52:17 RSV, bivalent, protein subunit RSVpreF, diluent reconstituted, 0.5 mL, PF 3 completed Not Available [facility] 08/06/2025 15:52:17 Influenza, high-dose, trivalent, PF 4 completed [facility] Available [facility] 08/06/2025 15:52:17 Tdap 2 completed Cristina lloyd, [place] - [facility] 03/29/2022 10:21:04 Pneumococcal conjugate PCV 13 7 completed Not Available [facility] 11/21/2019 03:54:53 influenza, unspecified formulation 4 completed Not Available [facility] 12/05/2019 02:21:49 Pneumococcal conjugate PCV 13 8 completed Not Available [facility] 12/05/2019 02:21:49 influenza, unspecified formulation 2 completed Sakshi Estu[place] - [facility] 10/21/2024 10:44:10 influenza, unspecified formulation 3 completed Not Available [facility] 12/05/2019 02:21:49 pneumococcal polysaccharide PPV23 3 completed [...] - [facility] 10/26/2019 16:06:36 Tdap 5 completed Neelimaeddie Castill[place]ha [place], [place] - [facility] 07/22/2025 10:02:38 Influenza, [...] [facility] 10/21/2024 10:44:10 zoster live 0 completed Lizaantonia [place] [facility] 04/18/2021 11:28:40 Td (adult) 3 completed Liza Breanna [place] [facility] 04/18/2021 11:29:09 Pneumococcal conjugate PCV 13 7 completed Not Available [facility] 11/21/2019 03:54:22 influenza nasal, unspecified formulation 2 completed Zoya [place] [facility] 08/29/2022 10:13:39 Influenza, high-dose, trivalent, PF 9 completed Not Available [facility] 11/21/2019 03:56:02 Past Encounters Encounter ID Performer Location Encounter Start Date Encounter Closed Date Diagnosis/Indication Diagnosis SNOMED-CT Code Diagnosis ICD10 Code Diagnosis IMO Codes Diagnosis Note [id number] Roberto Robles MD [address] [place] [address] 06/10/2025 12:29:09 06/10/2025 13:25:37 Overweight 703860192 E66.3 Restless l egs syndrome 51991469 G25.81 771066 [id number] Roberto Robles MD [address] [place] [address] 06/24/2025 09:09:02 06/24/2025 09:50:04 Overweight 466099126 E66.3 Pain in bi lateral legs 6384519099 1783601 M79.604 M79.605 007144 Overweight in adulthood with body mass index of 25 or more but less than 30 728722904 Z68.29 [id number] Roberto Robles MD [address] [place] [address] 07/01/2025 09:44:07 07/01/2025 10:29:16 Pharyngitis 359300001 J02.9 Overweight 205214989 E66 .3 Viral scre ening status 673619029 Z11.59 232339 Acute COVID-19 368461246 8 U07.1 1730060828 Influenza caused by Influenza B virus 73286045 J10.1 871727 Overweight in adulthood with body mass index of 25 or more but less than 30 441473738 Z68.29 72144394 Health Concerns Section Related Observation LastModified by Organization Detai ls LastModified Time None Recorded Concern Status LastModified by Organization Details LastModified Time None Recorded Payers Encounter Date Sequence Insurance Name Policy Number Policy Fernandez Covered Member ID Fernandez Member ID Guarantor Name 07/01/2025 1 [facility] (MEDICARE REPLACEMENT/A DVANTAGE - HMO) [id number] Sheryl Vazquez [id number] Sheryl Vazquez Notes Date Note Type Note Provider Name and Address Organization Details Recorded Time 07/01/2025 text/html C/O 4 day history fever, chills, aches, cough, clear sputum and nasal drainage. Roberto Robles MD [facility] [address], [place], [address], [facility] - [facility] 07/01/2025 10:32:53 OBGyn Episode No OBEpisode recorded.
--- OUTSIDE RECORDS SUMMARY | 2025-08-24 07:20 | XMS_ITS | Continuity of Care Document ---
Author Organization [facility] Address [address] [place] [address] Care Team Providers Care Stallion Manager Name Role Phone PIA [facility] Pathology Laboratory Director Unavailable ABILIO RAYMOND Scalp Specialist Assessment No assessment recorded. Plan of Treatment Reminders Order Date Submit Date Provider Last Modified By Organization Details Last Modified Time Details Appointments Establish ed Patient 20 2024 02:50P M Roberto Robles MD Not available Not available Not available Lab lipid panel, serum 2024 025 [facility], [address] [place] [address], [id number], 08/07/2025 08:19:10 cobalamin and folate panel, serum 2024 025 [facility], [address] [place] [address], [id number], 08/07/2025 08:19:11 TSH + free T4, serum 2024 025 [facility], [address] [place] [address], [id number], 08/07/2025 08:19:09 magnesium , serum or plasma 2024 025 [facility], [address] [place] [address], [id number], 08/07/2025 08:19:12 vitamin D, 25-hydrox y, total, serum 2024 [facility], [address] [facility], [place], [address], 08/07/2025 08:19:11 CBC w/ auto diff 2024 [facility], [address] [facility], [place], [address], 08/07/2025 08:19:09 iron + total iron-bind ing capacity (TIBC), serum 2024 [facility], [address] [facility], [place], [address], 08/07/2025 08:19:10 Referral None recorded. Procedures None recorded. Surgeries None recorded. Imaging None recorded. Medication Orders Anusol-HC 2.5 % topical cream with perineal applicato r 2024 [facility], [address] [place] [address], [id number], 08/06/2025 16:30:53 Patient TargetsNo targets recorded. Patient Instructions Encounter Date Encounter Id Patient Instructions Last Modified By Organization Details Last Modified Time 08/06/2025 [id number] hemorrhoids: car e instructions tgrosser Not available 08/06/2025 16:30:52 When You Want to Lose Weight: Care Instructions [email or web address] Not available 08/06/2025 16:31:34 body mass index: care instructions tgrosser Not available 08/06/2025 16:30:52 learning about healthy weight tgrosser Not available 08/06/2025 16:30:52 Reason for Referral None Reported. Results Created Date Observation Date Name Description Value Unit Range Abnormal Flag Note LastModifiedBy Organization Detail LastModifiedTime 08/06/2008/07/2025 TSH+F REE T4 TSH 1.540 uIU/m L 0.450- 4.500 normal Not Available [facility] ([facility]) [address] [facility], [place], [address], 08/07/2025 08:19:08/06/2008/07/2025 TSH+F REE T4 T4,free(dire ct) 1.16 NG/dL 0.82-1 .77 normal Not Available [facility] ([facility]) [address] [place], [address], 08/07/2025 08:19:09 08/06/2008/07/2025 CBC WITH DIFFE RENTI AL/PL ATELE T WBC 9.4 x10e3 /uL 3.4-10 .8 normal Not Available [facility] ([facility]) [address] [place], [address], 08/07/2025 08:19:09 08/06/2008/07/2025 CBC WITH DIFFE RENTI AL/PL ATELE T RBC 3.32 x10e6 /uL 3.77-5 .28 below low normal Not Available [facility] ([facility]) [address] [facility], [place], [address], 08/07/2025 08:19:09 08/06/2008/07/2025 CBC WITH DIFFE RENTI AL/PL ATELE T hemoglobin 8.7 g/dL 11.1-1 5.9 below low normal Not Available [facility] ([facility]) [address] [place], [address], 08/07/2025 08:19:09 08/06/2008/07/2025 CBC WITH DIFFE RENTI AL/PL ATELE T hematocrit 28.9 % 34.0-4 6.6 below low normal Not Available [facility] ([facility]) [address] [place], [address], 08/07/2025 08:19:09 08/06/2008/07/2025 CBC WITH DIFFE RENTI AL/PL ATELE T MCV 87 fL 79-97 normal Not Available [facility] ([facility]) [address] [place], [address], 08/07/2025 08:19:09 08/06/2008/07/2025 CBC WITH DIFFE RENTI AL/PL ATELE T MCH 26.2 pg 26.6-3 3.0 below low normal Not Available [facility] ([facility]) [address] [facility], [place], [address], 08/07/2025 08:19:09 08/06/2008/07/2025 CBC WITH DIFFE RENTI AL/PL ATELE T MCHC 30.1 g/dL 31.5-3 5.7 below low normal Not Available [facility] ([facility]) [address] [facility], [place], [address], 08/07/2025 08:19:09 08/06/2008/07/2025 CBC WITH DIFFE RENTI AL/PL ATELE T RDW 13.4 % 11.7-1 5.4 Not Available [facility] ([facility]) [address] [facility], [place], [address], 08/07/2025 08:19:09 08/06/2008/07/2025 CBC WITH DIFFE RENTI AL/PL ATELE T platelets 310 x10e3 /uL 150-45 0 normal Not Available [facility] ([facility]) [address] [facility], [place], [address], 08/07/2025 08:19:09 08/06/2008/07/2025 CBC WITH DIFFE RENTI AL/PL ATELE T neutrophils 63 % not estab. normal Not Available [facility] ([facility]) [address] [facility], [place], [address], 08/07/2025 08:19:09 08/06/2008/07/2025 CBC WITH DIFFE RENTI AL/PL ATELE T lymphs 23 % not estab. normal Not Available [facility] ([facility]) [address] [place], [address], 08/07/2025 08:19:09 08/06/2008/07/2025 CBC WITH DIFFE RENTI AL/PL ATELE T monocytes 11 % not estab. normal Not Available [facility] ([facility]) [address] [facility], [place], [address], 08/07/2025 08:19:09 08/06/2008/07/2025 CBC WITH DIFFE RENTI AL/PL ATELE T eos 2 % not estab. normal Not Available [facility] ([facility]) [address] [facility], [place], [address], 08/07/2025 08:19:09 08/06/2008/07/2025 CBC WITH DIFFE RENTI AL/PL ATELE T basos 1 % not estab. normal Not Available [facility] (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) [address] [facility], [place], [address], 08/07/2025 08:19:09 08/06/2008/07/2025 CBC WITH DIFFE RENTI AL/PL ATELE T neutrophils (absolute) 6.0 x10e3 /uL 1.4-7. 0 normal Not Available [facility] ([facility]) [address] [facility], [place], [address], 08/07/2025 08:19:09 08/06/2008/07/2025 CBC WITH DIFFE RENTI AL/PL ATELE T lymphs (absolute) 2.2 x10e3 /uL 0.7-3. 1 normal Not Available [facility] ([facility]) [address] [place], [address], 08/07/2025 08:19:09 08/06/2008/07/2025 CBC WITH DIFFE RENTI AL/PL ATELE T monocytes(ab solute) 1.0 x10e3 /uL 0.1-0. 9 above high normal Not Available [facility] ([facility]) [address] [facility], [place], [address], 08/07/2025 08:19:09 08/06/2008/07/2025 CBC WITH DIFFE RENTI AL/PL ATELE T eos (absolute) 0.2 x10e3 /uL 0.0-0. 4 normal Not Available [facility] ([facility]) [address] [facility], [place], [address], 08/07/2025 08:19:09 08/06/2008/07/2025 CBC WITH DIFFE RENTI AL/PL ATELE T baso (absolute) 0.1 x10e3 /uL 0.0-0. 2 normal Not Available [facility] ([facility]) [address] [facility], [place], [address], 08/07/2025 08:19:09 08/06/2008/07/2025 CBC WITH DIFFE RENTI AL/PL ATELE T immature granulocytes 0 % not estab. Not Available [facility] ([facility]) [address] [facility], [place], [address], 08/07/2025 08:19:09 08/06/2008/07/2025 CBC WITH DIFFE RENTI AL/PL ATELE T immature grans (abs) 0.0 x10e3 /uL 0.0-0. 1 Not Available [facility] (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) [address] [facility], [place], [address], 08/07/2025 08:19:09 08/06/20 25 08/07/2025 LIPID PANEL cholesterol, total 109 mg/dL 100-19 9 normal Not Available [facility] ([facility]) [address] [facility], [place], [address], 08/07/2025 08:19:10 08/06/2008/07/2025 LIPID PANEL triglyceride s 87 mg/dL 0-149 normal Not Available [facility] ([facility]) [address] [facility], [place], [address], 08/07/2025 08:19:10 08/06/2008/07/2025 LIPID PANEL HDL cholesterol 47 mg/dL >39 normal Not Available [facility]) [address] [facility], [place], [address], 08/07/2025 08:19:10 08/06/2008/07/2025 LIPID PANEL VLDL cholesterol xiomara 17 mg/dL 5-40 Not Available [facility] ([facility]) [address] [facility], [place], [address], 08/07/2025 08:19:10 08/06/2008/07/2025 LIPID PANEL LDL chol calc ([facility]) 45 mg/dL 0-99 Not Available [facility] (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) [address] [facility], [place], [address], 08/07/2025 08:19:10 08/06/20 25 08/07/2025 IRON AND TIBC iron bind.cap.(TI BC) 429 ug/dL 250-45 0 normal Not Available [facility] ([facility]) [address] [facility], [place], [address], 08/07/2025 08:19:10 08/06/20 25 08/07/2025 IRON AND TIBC UIBC 412 ug/dL 118-36 9 above high normal Not Available [facility] ([facility]) [address] [facility], [place], [address], 08/07/2025 08:19:10 08/06/2008/07/2025 IRON AND TIBC iron 17 ug/dL 27-139 below low normal Not Available [facility] ([facility]) [address] [facility], [place], [address], 08/07/2025 08:19:10 08/06/2008/07/2025 IRON AND TIBC iron saturation 4 % 15-55 alert low Not Available [facility] ([facility]) [address] [facility], [place], [address], 08/07/2025 08:19:10 08/06/20 25 08/07/2025 VITAM IN B12 AND FOLAT E vitamin B12 686 pg/mL 232-12 45 normal Not Available [facility] ([facility]) [address] [facility], [place], [address], 08/07/2025 08:19:11 08/06/2008/07/2025 VITAM IN B12 AND FOLAT E folate (folic acid), serum 12.6 NG/mL >3.0 normal A serum folat e ronna ntrat ion of less than 3.1 ng/mL is consi dered to repre sent clini xiomara defic iency . Not Available [facility] ([facility]) [address] [facility], [place], [address], 08/07/2025 08:19:11 08/06/20 25 08/07/2025 VITAM IN D, 25-HY DROXY vitamin D, [...] IOM (Inst itute of Medic ine). 2010. Sonam ry refer ence stacey es for calci um and D. Nidia betancourt [place]: [facility] . 2. Medhat kelley [place], Janie motley [place], Prince off-F errar i SAINI, et al. Evalu ation , treat ment, and preve ntion of vitam in D defic iency : an Endoc rine Socie ty clini xiomara pract ice guide line. JCEM. 2010; 96(7) :1911 -30. Not Available [facility] ([facility]) [address] [facility], [place], [address], 08/07/2025 08:19:11 08/06/20 25 08/07/2025 MAGNE SIUM magnesium 1.8 mg/dL 1.6-2. 3 normal Not Available [facility] ([facility]) [address] [facility], [place], [address], 08/07/2025 08:19:12 07/23/20 25 XR, foot, 3 or more view No observ ation record ed. [facility] [address], [place], [address], 07/30/2025 12:55:40 08/13/20 25 08/13/2025 CT, angio gram, chest , w/ contr ast No observ ation record ed. [facility] [address], [place], [address], 08/13/2025 12:55:00 Result Notes None recorded. 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 02/03/13 Eusebia Alexander MD [address], [place], [address], [place] - [facility] 10:31:10 Cardiac pacemake r in situ 908322702 Active Eusebia Alexander MD [address], [place], [address], [place] [facility] 10:31:11 Hyperlip idemia 77744850 Active Eusebia Alexander MD [address], [place], [address], [place] [facility] 10:31:11 Hyperten sive disorder 56920589 Active Eusebia Alexander MD [address], [place], [address], [place] [facility] 10:31:11 Sciatica 95483840 Active Eusebia Alexander MD [address], [place], [address], [place] [facility] 10:31:10 Atrial fibrilla tion 31760310 Active Eusebia Alexander MD [address], [place], [address], [place] [facility] 10:31:11 Carotid artery stenosis 58439351 Active Eusebia Alexander MD [address], [place], [address], [place] [facility] 10:31:11 Coronary arterios clerosis 02791012 Active Eusebia Alexander MD [address], [place], [address], [place] [facility] 10:31:11 Gastroes ophageal reflux disease 523353741 Active Eusebia Alexander MD [address], [place], [address], [place] [facility] 10:31:10 Actinic keratosi s 271054011 Active Skyla Love null, [place] - [facility] 09:05:50 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 ER/TN/he r2 negative , nodes negative . s/p lumpecto my, radiatio n and adjuvant CMF Eusebia Alexander MD [address], [place], [address], [place] [facility] 10:31:11 Herpes zoster 7578902 Active 2015 Eusebia Alexander MD [address], [place], [address], [place] [facility] 10:31:11 Hernia of anterior abdomina l wall 197524773 Active 2019 Eusebia Alexander MD [address], [place], [address], [place] [facility] 10:31:11 Painless rectal bleeding 310720100 Active 2019 Eusebia Alexander MD [address], [place], [address], [place] [facility] 10:31:11 Overacti ve urinary bladder 371665232 Active 2019 Eusebia Alexander MD [address], [place], [address], [place] [facility] 10:31:11 Mixed urinary incontin ence 684292797 Active 2019 Eusebia Alexander MD [address], [place], [address], [place] [facility] 10:31:11 Cystocel e 333725138 Active 2019 Eusebia Alexander MD [address], [place], [address], [place] [facility] 10:31:11 Posterio r vaginal wall prolapse 056693837 Active 2019 Eusebia Alexander MD [address], [place], [address], [place] [facility] 10:31:10 Exposure to SARS-CoV -2 Active 2019 Eusebia Alexander MD [address], [place], [address], [place] [facility] 10:31:11 Vaccine declined by patient 10233356131 2 Active 2020 Eusebia Alexander MD [address], [place], [address], [place] [facility] 10:31:11 History of adenomat ous polyp of colon 267017093 Active 2020 Eusebia Alexander MD [address], [place], [address], [place] [facility] 10:31:11 History of total hysterec filemon 545124166 Active 2020 Eusebia Alexander MD [address], [place], [address], [place] [facility] 10:31:11 Osteopen ia 562567770 Active 202005/31/21S till in osteopen ia reading, stable at LS and R FN but signific antly decrease d in LFN. Current fracture risk score at 3.6% enough to advise for treatmen t. Given prior history of breast cancer would advise [facility] [place] as top recommen dation. 60 mg #30 refill 11. Recheck 2 years. 06/13/21 pt declined rx. Eusebia Alexander MD [address], [place], [address], [place] [facility] 10:31:11 Pain of right knee joint 70758252544 4100 Active 2021 Eusebia Alexander MD [address], [place], [address], [place] [facility] 10:31:11 Cobalami n deficien cy 493723916 Active 2023 Cristina lloyd [place] - [facility] 10:41:31 Acute sinusiti s 22764379 Completed 202307/22/2025 Cas March, SMUDGER [address], [place], [address], [place] - [facility] 09:17:09 [facility] 685461940 Active 2023 Heladio Prince, SMUDGER [address], [place], [address], [facility] - [facility] 4 13:15:36 Iron deficien cy anemia 34267899 Active 2023 [facility] 09:27:44 Problem Notes None recorded. Procedures Surgical History Date Name Laterality Status Provider Name and Address Organization Details Recorded Time 025 hernia repair completed Cristina GARCIA - [facility] 05/26/2025 15:35:00 025 Advance Care Planning completed Cristina GARCIA [facility] 03/24/2025 09:26:24 025 Functional Status Assessed completed Cristina GARCIA [facility] 03/24/2025 09:26:24 024 Appendectomy completed Cristina GARCIA [facility] 07/17/2024 14:44:53 024 Advance Care Planning completed Cristina GARCIA [facility] 03/20/2024 09:42:23 024 Functional Status Assessed completed Cristinalydia GARCIA [facility] 03/20/2024 09:42:23 023 Advance Care Planning completed Cristina GARCIA [facility] 03/21/2023 09:48:13 023 Functional Status Assessed completed Cristinalydia GARCIA [facility] 03/21/2023 09:48:13 023 Cryosurgery Dermatology completed Marissa Solorio APRN [address], [place], [address], [facility] - [facility] 01/01/2023 09:39:15 022 Medication Reconcilliation completed Vielka Mcgregor [place] - [facility] 08/08/2022 08:28:58 022 Cryosurgery Dermatology completed Marissa Solorio APRN [address], [place], [address], [facility] - [facility] 06/19/2022 12:08:59 022 Advance Care Planning completed Cristina GARCIA [facility] 03/29/2022 09:23:56 022 Functional Status Assessed completed Cristina GARCIA - [facility] 03/29/2022 09:23:56 022 Date of Last Colonoscopy completed Liza GARCIA - [facility] 06/28/2022 16:34:56 021 Most Recent Bone Density completed Liza GARCIA - [facility] 06/13/2021 16:14:02 021 Date of Last Mammogram completed Liza GARCIA - [facility] 06/13/2021 16:13:43 021 Diastolic B/P less than 80 mm Hg completed Cristina GARCIA - [facility] 12/22/2020 10:55:22 021 Systolic B/P 130-139 mm Hg completed Cristina Jimenez [place] - [facility] 12/22/2020 10:55:18 020 Systolic B/P less than 130 mm Hg completed Cristina GARCIA - [facility] 07/07/2020 17:00:29 020 Diastolic B/P less than 80 mm Hg completed Cristina GARCIA - [facility] 07/07/2020 17:00:33 020 Fitting & Insertion of Pessary completed Makenna Boucehr MD [address], [place], [address], [place] - [facility] 03/07/2020 20:34:53 020 Fitting & Insertion of Pessary completed Makenna Boucher MD [address], [place], [address], [place] - [facility] 03/04/2020 13:22:48 020 Pediatric Cath completed Makenna Boucher MD [address], [place], [address], [place] - [facility] 12/17/2019 13:40:51 020 Diastolic B/P 80-89 mm Hg completed Aquiles Dutta [place] - [facility] 12/10/2019 08:39:12 020 Systolic B/P 130-139 mm Hg completed Aquiles Dutta [place] - [facility] 12/10/2019 08:39:05 019 Systolic B/P less than 130 mm Hg completed Cristina Hay [place] - [facility] 10/16/2019 09:38:43 019 Diastolic B/P less than 80 mm Hg completed Cristina Jimenez [facility] - [facility] 10/16/2019 09:38:52 017 Punch Biopsy completed Roberto Robles MD [address], [place], [address], [place] - [facility] 05/03/2017 16:17:18 017 Cardiac ablation completed Chrissy Martinez [place] - [facility] 04/23/2017 14:56:56 017 hemorrhoid operation completed Makenna Boucher MD [address], [place], [address], [facility] - [facility] 01/22/2020 21:55:14 016 Colonoscopy completed Cristina Jimenez [facility] - [facility] 11/14/2016 09:00:35 016 Pacemaker Placement completed Cristina Jimenez [facility] - [facility] 11/14/2016 08:59:24 012 Angioplasty completed [employer] - [facility] 10/22/2016 12:52:56 011 Date of Last Pap Smear completed [employer] - [facility] 10/22/2016 12:50:08 001 Breast Lumpectomy completed [employer] - [facility] 10/22/2016 12:54:21 987 Hysterectomy, Total Abdominal completed [employer] - [facility] 10/22/2016 12:54:57 Cardiac Cath completed [employer] - [facility] 10/22/2016 12:53:06 Cardioversion electric ext completed [employer] - [facility] 10/22/2016 12:53:32 Dilation and curettage completed [employer] - [facility] 10/22/2016 12:53:42 Tubal Ligation completed [employer] - [facility] 10/22/2016 12:55:09 Imaging Results None recorded. Procedure Notes None recorded. Medical Equipment None Reported. Allergies Allergen ID Allergen Name Allergen Category Reaction Reaction Severity Criticality Documentation Date Start Date Code Code System Note Provider Name and Address Organization Details Recorded Time 21511 latex environme nt,medica tion Not available Not available Not available 08/10/20162009 80370 91 RxNorm Not Available [facility] 6 08:32:55 42427 Cipro medicatio n Not available Not available Not available 08/10/2016200856 3 RxNorm React ion: Tongu e sore; Not Available [facility] 6 08:32:55 49694 nickel environme nt,medica tion Not available Not available Not available 08/10/20162009 79675 29 RxNorm Not Available [facility] 6 08:33:10 67792 aspirin medicatio n rash Not available Not available 08/10/20162007 1191 RxNorm React ion: Rash; Comme nt: ASPIR IN; Not Available [facility] 6 09:15:36 88182 fluconazo le medicatio n hives Not available Not available 05/03/2017 4450 RxNorm Cristina lloyd, [place] - [facility] 7 15:45:37 Medications Name Sig [...] User: lois;Est . Completi on: 11/17/19 15;Pharm acyVpiperf ied: 05/21/20 14 1:45PM Not Available Not [...] ser: lois;Est . Completi on: 12/08/19 15;Pharm acyVtony ied: 06/11/20 14 12:52PM Not Available Not [...] Disconti nued on: 05/14/20 14 11:01AM; User: lois Not Available Not Available Not Available valacyclo [...] nued on: 06/05/20 13 10:57AM; User: clayton MooneyEst. Completi on: 10/09/20 11;Indic ation: Allergic Rhinitis - ([phone]);Prin bry: 04/12/20 11 Not Available Not [...] nued on: 01/10/20 11 2:24PM;U ser: clayton MooneyEstKylah Uribe on: 10/31/20 10;Indic ation: Acute Maxillar [...] on: 12/01/19 16 10:39AM; User: lois;Est . Ninoskai on: 11/13/19 16;Pharm Endy ied: 10/14/20 15 4:39PM Not Available Not Available Not Available Requip 2 mg tablet take 1 tablet (2 mg) by oral route 1-3 hours before bedtime for 30 days 01/13 completed Requip 2 mg oral tablet;P rescribe Status: Prescrib ed on: 09/27/20 14 1:10PM;D iscontin ued Status: Disconti nued on: 01/14/20 15 2:20PM;U ser: [email or web address];Est . Completi on: 12/26/19 15;Pharm acJuan Manuel [...] nued on: 10/11/20 10 1:16PM;U ser: clayton VinicioEstKylah Uribe on: 06/27/20 10;Print ed: 12/29/19 10 Not [...] Available Not Available Nasonex 50 mcg/actua tion [place] 1 sniff bilat bid 01/13 completed Nasonex [...] Disconti nued on: 08/26/20 08 10:43AM; User: [email or web address] Not Available Not Available Not Available Zetia [...] nued on: 06/05/20 13 10:57AM; User: lois;Est Kylah Completi on: 12/17/19 13 Not Available [...] Updated DateTime 5 152.4 cm 30.5 kg/m2 28029.4 1 g 98 [degF] 64 /min 90 % 90 % 24 /min 10 120/72 mm[Hg] Cristina Jimenez [place] - [facility] 16:00:57 Social History Question Answer Notes LastModified [...] Or The Highest Degree You Have Received? [id number] Information not available 06/28/2021 Swimming/diving Yes Informati [...] anxious, or unable to sleep at night)? [id number] Information not available 06/28/2021 Do you have [...] Immunizations Vaccine Type Date Status Note Provider Tej roman and Address Organization Details Recorded Time Influenza, [...] toxoid, preservative free, adsorbed 3 completed Sakshi Estuardo null, [place] - [facility] 10/21/2024 10:44:10 Influenza, high-dose, quadrivalent, PF 3 completed Not Available [facility] 08/06/2025 15:52:17 RSV, bivalent, protein subunit RSVpreF, diluent reconstituted, 0.5 mL, PF 3 completed Not Available [facility] 08/06/2025 15:52:17 Influenza, high-dose, trivalent, PF 4 completed Not Available [facility] 08/06/2025 15:52:17 Tdap 2 completed Cristina Noah null, [place] - [facility] 03/29/2022 10:21:04 Pneumococcal conjugate PCV 13 7 completed Not Available [facility] 11/21/2019 03:54:53 influenza, unspecified formulation 4 completed Not Available [facility] 12/05/2019 02:21:49 Pneumococcal conjugate PCV 13 8 completed Not Available [facility] 12/05/2019 02:21:49 influenza, unspecified formulation 2 completed Sakshi Marte null, [place] - [facility] 10/21/2024 10:44:10 influenza, unspecified formulation 3 completed Not Available [facility] 12/05/2019 02:21:49 pneumococcal polysaccharide PPV23 3 completed [...] zoster live 0 completed Liza Carlos null, [place] - [facility] 04/18/2021 11:28:40 Td (adult) 3 completed Liza Carlos null, [place] - [facility] 04/18/2021 11:29:09 Pneumococcal conjugate PCV 13 7 completed Not Available [facility] 11/21/2019 03:54:22 influenza nasal, unspecified formulation 2 completed Zoya Mayers null, [place] - [facility] 08/29/2022 10:13:39 Influenza, high-dose, trivalent, PF 9 completed Not Available [facility] 11/21/2019 03:56:02 Past Encounters Encounter ID Performer Location Encounter Start Date Encounter Closed Date Diagnosis/Indication Diagnosis SNOMED-CT Code Diagnosis ICD10 Code Diagnosis IMO Codes Diagnosis Note [id number] Cas March APRN [facility] [address] [place] [address] 07/22/2025 08:02:25 07/22/2025 09:18:41 Active immunization 99038014 Z23 6080550 Puncture w ound of left foot [id number] S91.332A 0428647 New ProblemAcu teNo evidence of radiopaque foreign body on imageManag ement: 5-day course of Levofloxac inFollow up as needed [id number] Roberto Robles MD [address] [place] [address] 08/06/2025 15:51:34 08/06/2025 16:28:28 Overweight 292573697 E66.3 Fatigue 32020990 R53.83 0082040 Coronary arteriosclerosis 30914073 I25.10 External hemorrhoids 239 35007 K64.4 18488 Body mass index 30+ - obesity 369783949 Z68.30 [id number] Health Concerns Section Related Observation LastModified by Organization Detai ls LastModified Time None Recorded Concern Status LastModified by Organization Details LastModified Time None Recorded Payers Encounter Date Sequence Insurance Name Policy Number Policy Fernandez Covered Member ID Fernandez Member ID Guarantor Name 08/06/2025 1 [facility] (MEDICARE REPLACEMENT/A DVANTAGE - HMO) [id number] Sheryl Vazquez [id number] Sheryl Vazquez Notes Date Note Type Note Provider Name and Address Organization Details Recorded Time 08/06/2025 text/html C/O bleeding hemorrhoids and thinks lost lot blood. Worried blood count low. C/O SOB and weakness. Roberto Robles MD [address], [place], [address], [place] - [facility] 08/06/2025 16:31:26 OBGyn Episode No OBEpisode recorded.
--- OUTSIDE RECORDS SUMMARY | 2025-08-24 07:20 | XMS_ITS | Clinical Summary ---
Author Organization Healthcare Address [address] [place] [address] Care Team Providers Care Radio Equipment Repairer Name Role Phone Bin Cade MD Primary Care Provider [phone] Family History Medical History Relation Name Comments Conversions - Other Daughter Allergy to penicillin Relation Name Status Comments Daughter Social History Tobacco Use Types Packs/Day Years Used Date Smoking Tobacco: Former Alcohol Use Standard Drinks/Week Comments No 0 (1 standard drink = 0.6 oz pur e alcohol) Comments Unknown Sex and Gender Information Value Date Recorded Sex Assigned at Not on file Legal Sex Female 6:52 PM EDT Gender Identity Not on file Sexual Orientation Not on file Last Filed Vital Signs Vital Sign Reading Time Taken Comments Blood Pressure - - Pulse - - Temperature - - Respiratory Rate - - Oxygen Saturation - - Inhaled Oxygen Concentration - - Weight 67 kg (147 lb 9.6 oz) 12/16/2014 4:20 PM EST Height 152.4 cm (5') 12/16/2014 4:20 PM EST Body Mass Index 28.83 12/16/2014 4:20 PM EST Plan of Treatment Health Maintenance Due Date Last Done Comments [facility]-Bone Density Scan 1948 [facility]-Depression Screening 1948 [facility]-Hepatitis C Screening 1950 [facility]-Medicare Annual Wellness (AWV) 1950 [facility]-/Child/Adol SDOH Screenings 1950 [facility]- SDOH Screenings 1966 [facility]-Adult SDOH Screenings 1966 [facility]-Zoster Vaccines (2 of 3) 01/13/2010 11/18/2009 [id number] Vaccine ( season) 2025 09/11/2021, 01/05/2021, 12/08/2020 [facility]-Influenza Vaccine (#1) 07/05/202509/03, 08/03/2023, 08/18/2022, Additional history exists [facility]-DTaP,Tdap,and Td Vaccines (2 - Td or Tdap) 03/29/2032 03/29/2022, 06/25/2003 [facility]-Pneumococcal Vaccine: 50+ Years Completed 03/21/2023, 10/11/2017, 11/14/2016 [facility]-RSV Vaccine: 60+ Years or Completed 10/07/2023 HPV Vaccines Aged Out No longer eligi ble based on patient's age to complete this topic [facility]-HIB Vaccines Aged Out No longer e ligible based on patient's age to complete this topic [facility]-Hepatitis A Vaccines Aged Out No longer eligible based on patient's age to complete this topic [facility]-IPV Vaccines Aged Out No longer e ligible based on patient's age to complete this topic [facility]-Rotavirus Vaccines Aged Out No lo nger eligible based on patient's age to complete this topic Insurance Care Teams Radio Equipment Repairer Relationship Specialty Start Date End Date Bin Cade MD [address] [place] [address] PCP - General 03/17/21
--- NOTE | 2025-08-24 08:00 | CA_ITS ---
APPROVED REPORT EXAM: Comprehensive 2D, Doppler, and color-flow Echocardiogram Lead Java Developer Architect: Monika Joyner CRT Ht: 5 ft 0 in Wt: 149lbs BSA: 1.65 BP: 129/48 mmHg Indications: COPD, Shortness of Breath, CVA/TIA, Atrial Fibrillation, CAD, Hyperlipidemia, Ablation 2D Dimensions LA Volume 63.00 mL LA Volume Index 37.30 mL/m2 (M/F) 16-34 M-Mode Dimensions RVDd 3.99 cm (0.9-2.6) LA Diam 4.65 cm (1.9-4.0) LVDd 5.45 cm (3.5-5.7) LVDs 3.95 cm (3.5-5.7) IVSd 0.89 cm (0.6-1.1) PWd 1.00 cm (0.6-1.1) EF (Teich) 53.00% FS 27.50% EDV (Teich) 144.40 mL TAPSE 1.90 (<1.7) ESV (Teich) 67.90 mL LV Diastology E Decel Time 233 (160-240 msec) E/A Ratio 4.05 MED A' 4.30 cm/s LAT A' 4.50 cm/s Aortic Valve AO Peak GR. 7.70 mmHg Mitral Valve MV E Max Jayme. 136.0 (40-130 cm/s) MV A Velocity 34.0 (40-130 cm/s) E/A Ratio 4.05 MV PHT 68.0 ms Pulmonary Valve PV Peak Velocity 268.0 (50-150 cm/s) Tricuspid Valve TR P. Velocity 303.00 cm/s RAP Estimate 10.00 mmHg RVSP 46.60 mmHg Left Ventricle The left ventricle is normal size. Left ventricular systolic function is mildly to moderately reduced. There is increased left ventricular wall thickness. The septum is asynchronous. There is moderate hypokinesis of the anterior and anteroseptal LV nicole. The left ventricular diastolic function is indeterminate. LVEF is 40% Right Ventricle The right ventricle is moderately dilated. The right ventricular systolic function is mildly reduced. There is a device lead in the right ventricle. Atria The left atrium is moderately dilated. The right atrium is moderately dilated. There is no color Doppler evidence of interatrial shunt. Aortic Valve The aortic valve is mildly thickened. There is no hemodynamically significant aortic valvular stenosis. Mild aortic regurgitation is present. Mitral Valve The mitral valve is mildly thickened. No evidence of mitral valve stenosis. Mild mitral regurgitation is present. Tricuspid Valve The tricuspid valve leaflets are thin and pliable. Mild tricuspid regurgitation. RVSP is 40-45 mmHg. Pulmonic Valve The pulmonary valve is grossly normal in structure. Mild pulmonic valve regurgitation is present. Great Vessels The aortic root is normal in size. IVC is dilated. Pericardium There is no pericardial effusion. Other Information Study Quality: Technically Difficult Conclusion Mild to moderate reduction in LV systolic function (LVEF 40%). Moderate hypokinesis of the anterior and anteroseptal LV nicole. Moderate RV dilation with mild reduction in RV function. Biatrial dilation. Mild AI, mild MR, mild TR, mild PI. RVSP 40-45 mmHg. Compared to prior study from 07/31/2024, there are significant changes noted. Electronically signed by : Kira Talamantes MD 08/30/2025 12:52:04
--- NOTE | 2025-08-24 08:45 | CA_ITS ---
FINAL REPORT CLINICAL HISTORY: Left ICA occlusion, MARTA COMPARISON: 02/13/2024 FINDINGS: RIGHT CAROTID: CCA PSV -99 cm/sec ICA PSV -160 cm/sec ICA/CCA PSV ratio -2.2. Comments: Moderate plaque disease is noted. LEFTCAROTID: CCA PSV -61. cm/sec ICA PSV -no flow is identified in the left internal carotid artery. ICA/CCA PSV ratio -not calculated secondary to lack of flow in the left internal carotid artery Comments: Moderate plaque disease is noted. Antegrade flow is seen within the vertebral arteries. IMPRESSION: Right carotid artery stenosis less than 50%, with moderate plaque. Left internal carotid artery totally occluded, also seen on the prior carotid Doppler of 2023. Antegrade flow bilateral vertebral arteries. Reviewed, Interpreted and Dictated by Greg Sanders MD Transcribed by Flaca Paz Authenticated and [facility]
== END 2025-08-24 23:59 | disposition home or self-care (01) ==
PROVIDERS: PCP Family Medicine; Visit Provider Nurse Practitioner Family
DX: I65.23 Occlusion and stenosis of bilateral carotid arteries (principal); I08.8 Other rheumatic multiple valve diseases; R93.1 Abnormal findings on diagnostic imaging of heart and coronary circulation; J44.9 Chronic obstructive pulmonary disease, unspecified; I48.91 Unspecified atrial fibrillation; I25.10 Atherosclerotic heart disease of native coronary artery without angina pectoris; E78.5 Hyperlipidemia, unspecified; I63.9 Cerebral infarction, unspecified; Z98.890 Other specified postprocedural states
CPT/HCPCS: 93306; 93880

== ENCOUNTER 2025-09-09 09:10 | Outpatient (CLI) | payer MEDICARE, SELFPAY ==
--- OUTSIDE RECORDS SUMMARY | 2025-09-09 09:21 | XMS_ITS | Data Portability ---
Author Organization [facility] [place] [facility] AD[facility] Address [address] [place] [id number] Care Team Providers Care Metal Furniture Repairer Name Role Phone RAFA JIMENEZ Primary Care Provider RAFA JIMENEZ Primary Care Provider Assessment No assessment recorded. Plan of Treatment Reminders Order Date Submit Date Provider Last Modified By Organization Details Last Modified Time Details Appointments PROCEDURE 30 2024 09:30A Toney Hui MD Not available Not available Not available POST OP FU 15 2024 08:00A Toney GOLDSTEIN NP Not available Not available Not available Lab None recorded. Referral None recorded. Procedures colonosco py procedure (PROC) - PHYSICIAN ORDERS 1. Ensure patient is NPO and bowel prep complete. 0.9% normal saline @kvo preferabl y in right arm; IV patent to gravity. 3. Verify consent. Colonosco py with possible biopsy with possible polypecto my. 4. On-Call to Endoscopy . 5. If prep not clear, give large volume enema and report results. 6. Draw pt/inr if patient on Coumadin Hold 2024 025 DERIK [facility] ([facility]), [address] [place] [address] , [place], [address], 09/09/2025 04:11:00 Surgeries None recorded. Imaging None recorded. Medication Orders Suflave 178.7 gram-7.3 gram-0.5 gram oral solution 2024 025 DERIK [facility], [address] [place] [address], [place], [address], 08/27/2025 08:53:13 prednison e 5 mg tablet 2023 [email or web address] [place] [address], [address], 08/27/2025 08:29:40 Patient TargetsNo targets recorded. Patient Instructions Encounter Date Encounter Id Patient Instructions Last Modified By Organization Details Last Modified Time 06/11/2024 [id number] I have personall y reviewed the data obtained and entered from the scribe, director global medical affairs or nurse for this patient for this patient encounter. Discussed with patient pain in ear possibly related to underlying musculoskeletal issue. We will begin prednisone. Also consider CT imaging of middle ear throughout vascular lesion. Not available 06/11/2024 14:03:05 06/17/2024 [id number] The patient can return to normal activity. [email or web address] Not available 06/17/2024 11:24:02 Patient seen by physician salon assistant. I have reviewed the patient's medical record, the medical decision making and treatment plan. [email or web address] Not available 06/17/2024 11:24:05 06/25/2024 [id number] I have personall y reviewed the data obtained and entered from the scribe, director global medical affairs or nurse for this patient for this [...] Address Organization Details Recorded Time Myocardial infarction 36785712 Active JOSE Yost [facility] [place] [facility] [place] 4 13:30:01 Atrial fibrillatio n 51058623 Active JOSE Yost [facility] & [place] 4 13:30:01 History of cardiac catheteriza tion 1863722129431 0 Active JOSE Yost [facility] & [place] 4 13:30:01 Gastrointes tinal hemorrhage 22943013 Active JOSE Yost [facility] & [place] 4 13:30:01 Notes:Some problems listed i n Document: #[id number] could not be added to this patient's chart. Please review this document and add these problems to the patient's chart manually as needed. Problem Notes None recorded. Procedures Surgical History Date Name Laterality Status Provider Name and Address Organization Details Recorded Time 2023 Appendectomy completed Yoselin DUKE [facility] & [place] 4 13:39:41 lumpectomy of breast completed Kari DUKE [facility] & [place] 4 13:40:28 colonoscopy completed Yoselin DUKE [facility] & [place] 4 13:40:38 esophagogastroduodenoscopy completed Yoselin DUKE [facility] & [place] 4 13:40:51 coronary artery bypa ss graft completed Yoselin DUKE [facility] [place] 4 13:41:05 Coronary Artery Stent completed Julio DUKE [facility] & [place] 4 13:41:39 cardiac pacemaker procedure complete d Yoselin DUKE [facility] & [place] 4 13:41:50 hysterectomy completed Yoselin DUKE [facility] & [place] 4 13:42:06 Imaging Results None recorded. Procedure Notes None recorded. Medical Equipment None Reported. Allergies Allergen ID Allergen Name Allergen Category Reaction Reaction Severity Criticality Documentation Date Start Date Code Code System Note Provider Name and Address Organization Details Recorded Time 363321 Rubber (substanc e) medicatio n rash severe Not available 06/11/20242017 74338 003 SNOMED JOSE Yost [place] [facility] [place] 4 13:29:29 706398 aspirin medicatio n rash mild Not available 06/11/20242023 1191 RxNorm JOSE Yost [place] [facility] [place] 4 13:29:29 316317 ciproflox acin medicatio n Not available Not available Not available 06/11/20242013 2551 RxNorm JOSE Yost [facility] & [place] 4 13:29:29 194761 fluconazo le medicatio n hives mild Not available 06/11/20242017 4450 RxNorm JOSE Yost [facility] & [place] 4 13:29:29 531285 nickel environme nt hives severe Not available 06/11/20242013 89904 29 RxNorm JOSE Yost [facility] & [place] 4 13:29:29 808358 latex environme nt,medica tion rash severe Not available 06/11/20242012 00710 91 RxNorm JOSE Yost [facility] & [place] 4 13:29:29 Medications Name Sig Start Date Stop Date Status Note LastModified by Organization Details LastModified Time losartan 50 mg tablet TAKE TWO (2) [...] completed Not Available Not Available Not Available ropinirole 1 mg tablet TAKE ONE (1) TABLET EVERY DAY BY ORAL ROUTE AT BEDTIME. active Not Available Not Available No t Available donepezil 5 mg tablet TAKE ONE (1) TABLET EVERY DAY BY ORAL ROUTE. active Not Available Not Available No t Available bumetanide 2 mg tablet TAKE 1 TABLET BY [...] completed Not Available Not Available Not Available tizanidine 4 mg tablet TAKE ONE (1) TABLET THREE (3) TIMES A DAY BY ORAL ROUTE. 08/27 completed Not Available Not Available Not Available [...] LOWER LEGS TWICE DAILY FOR 3 WEEKS 08/27 completed Not Available Not Available Not Available prednisone 5 mg tablet ONE TABLET BY MOUTH TWICE DAILY FOR SEVEN DAYS, THEN ONE TABLET BY MOUTH ONCE DAILY FOR SEVEN DAYS 08/27 completed Not Available Not Available Not Available bisoprolol 5 mg-hydrochl orothiazide 6.25 mg tablet 06/11 completed Not Available Not Available Not Available clopidogrel 75 mg tablet TAKE ONE (1) TABLET BY MOUTH EVERY DAY active Not Available Not Available No t Available valacyclovi r 500 mg tablet TAKE ONE (1) TABLET BY MOUTH EVERY DAY 08/27 completed Not Available Not Available Not Available [...] Available Not Available Not Available hydrocortis one 2.5 % topical cream with perineal applicator APPLY A THIN LAYER TO THE AFFECTED AREA(S) BY TOPICAL ROUTE FOUR (4) TIMES DAILY active Not Available Not Available No t Available isosorbide mononitrate ER 60 mg tablet,exte nded release 24 hr Take 60 mg by oral route. 06/11 completed Not Available Not Available Not Available furosemide 80 mg tablet TAKE ONE (1) TABLET BY MOUTH EVERY DAY active Not Available Not Available No t Available pantoprazol e 40 mg tablet,eugenio yed release TAKE ONE (1) TABLET BY MOUTH EVERY DAY active Not Available Not Available No t Available oseltamivir 75 mg capsule TAKE ONE (1) CAPSULE TWICE A DAY BY ORAL ROUTE. 08/27 completed Not Available Not Available Not Available nitroglycer in 0.[address] ONE (1) TABLET (0.4 MG) BY BUCCAL ROUTE AT THE FIRST SIGN OF AN ATTACK; NO MORE THAN THREE (3) TABS ARE RECOMMEND ED WITHIN A 15 MINUTE PERIOD. FOR THREE (3) active Not Available Not Available No t Available raloxifene 60 mg tablet 60 mg by oral route. 12/06 completed Not Available Not Available Not Available cyanocobala min (vit B-12) 1,[address] ONE (1) TABLET UNDER THE TONGUE EVERY DAY active Not Available Not Available No t Available mupirocin 2 % topical ointment APPLY A SMALL AMOUNT TO THE AFFECTED AREA BY TOPICAL ROUTE THREE (3) TIMES PER DAY FOR 10 DAYS 08/27 completed Not Available Not Available Not Available levofloxaci n 750 mg tablet TAKE ONE (1) TABLET EVERY DAY BY ORAL ROUTE FOR FIVE (5) DAYS. 08/24 completed Not Available Not Available Not Available losartan 100 mg tablet 100 mg by oral route. 06/05 completed Not Available Not Available Not Available spironolact one 50 mg tablet TAKE ONE (1) TABLET BY MOUTH TWICE DAILY active Not Available Not Available No t Available amoxicillin 875 mg-potassiu m clavulanate 125 mg tablet TAKE ONE (1) TABLET BY ORAL ROUTE EVERY 12 HOURS FOR 10 DAYS 08/24 completed Not Available Not Available Not Available oxycodone 5 mg tablet TAKE ONE (1) TABLET BY MOUTH EVERY SIX (6) HOURS NEEDED FOR MAJOR SURGERY/T RAUMA (G89.18). 08/27 completed Not Available Not Available Not Available rosuvastati n 40 mg tablet TAKE ONE (1) TABLET BY MOUTH EVERY DAY active Not Available Not Available No t Available nitrofurant oin monohydrate /macrocryst als 100 mg capsule TAKE ONE (1) CAPSULE (100 MG) BY ORAL ROUTE EVERY 12 HOURS WITH FOOD FOR 10 DAYS 08/24 completed Not Available Not Available Not Available cholecalcif beryl (vitamin D3) 25 mcg (1,000 unit) tablet 06/05 completed Not Available Not Available Not Available ferrous gluconate 324 mg (38 mg iron) tablet TAKE ONE (1) TABLET TWICE A DAY BY ORAL ROUTE FOR 90 DAYS. 08/27 completed Not Available Not Available Not Available alendronate 70 mg-cholecal ciferol (vitamin D3) 5,600 unit tablet 02/26 completed Not Available Not Available Not Available FeroSul 325 mg (65 mg iron) tablet TAKE ONE (1) TABLET BY ORAL ROUTE TWO (2) TIMES A DAY active Not Available Not Available No t Available cholestyram ine-asparta me 4 gram oral [...] a dose pack USE DIRECTED ON PACKAGE 08/27 completed Not Available Not Available Not Available Suflave 178.7 gram-7.3 gram-0.5 gram oral solution USE DIRECTED PER MD OFFICE active Not Available Not Available No t Available Vitals Date Recorded Body height Body mass index (BMI) Body weight Body temperature Oxygen saturation Oxygen saturation in Arterial blood by Pulse oximetry Heart rate Respiratory rate Systolic And Diastolic Provider Name and Address Organization Details Last Updated DateTime 4 152.4 cm 29.3 kg/m2 55410.8 6 g 98.9 [degF] 95 % 95 % 70 /min 16 /min 116/66 mm[Hg] Yoselin GARCIA [facility] [place] 4 13:29:07 Date Recorded Body height Body mass index (BMI) Body weight Oxygen saturation Oxygen saturation in Arterial blood by Pulse oximetry Body temperature Heart rate Respiratory rate Systolic And Diastolic Provider Name and Address Organization Details Last Updated DateTime 4 152.4 cm 29.8 kg/m2 60013.9 1 g 95 % 95 % 97.9 [degF] 70 /min 16 /min 138/65 mm[Hg] Yoselin GARCIA [facility] [place] 4 11:07:35 Date Recorded Body height Body mass index (BMI) Body weight Body temperature Oxygen saturation Oxygen saturation in Arterial blood by Pulse oximetry Heart rate Respiratory rate Systolic And Diastolic Provider Name and Address Organization Details Last Updated DateTime 5 152.4 cm 29.7 kg/m2 46453.0 4 g 97.6 [degF] 98 % 98 % 76 /min 16 /min 138/58 mm[Hg] Yoselin GARCIA [facility] [place] 5 08:23:40 Social History Question Answer Notes LastModified by Organizat ion Details LastModified Time Tobacco Smoking Status Former Smoker Yoselin Bland [facility] [place] 06/11/2024 13:37:33 What Is Your Level Of Caffeine Consumption? Moderate [email or web address] Information not available 06/11/2024 What Type Of Diet Are You Following? REGULAR [email or web address] Information not available 06/11/2024 When Did You Quit Smoking? 16+yearsscot henderson 1989 [email or web address] Information not available 08/27/2025 Sex: Unknown Functional Status Question Answer Note LastModified by Organizat ion Details LastModified Time Do you use any illicit or recreational drugs? No [email or web address] Information not available 06/11/2024 Do you or have you ever used any other forms of tobacco or nicotine? No [email or web address] Information not available 06/11/2024 What is your level of alcohol consumption? None [email or web address] Information not available 06/11/2024 What is your exercise level? Occasional Information not available 06/11/2024 Mental Status None recorded. Family History Nothing Reported. Medical History Condition Response Coronary Artery Disease Y Gout N Colon Cancer N Kidney Stones N Hypothyroidism N COPD Y Depression N Osteoporosis/Osteopenia N Diverticulitis/Diverticulosis N Colon Polyps Y Anxiety Disorder N Diabetes N Bleeding Disorder N Vision or Eye Problems Y Arthritis Y Seizures/Epilepsy N Tuberculosis N Hyperlipidemia N Cancer Y Stroke Y Asthma N Sleep Apnea N GERD/Reflux Y High Cholesterol Y Hepatitis N Cirrhosis N Liver Disease N Heart Disease Y Hypertension Y Kidney Disease N Gynecological HistoryNo gynecological history recorded. Obstetrics History GPAL:G 0 P 0 0 0 0 Past Encounters Encounter ID Performer Location Encounter Start Date Encounter Closed Date Diagnosis/Indication Diagnosis SNOMED-CT Code Diagnosis ICD10 Code Diagnosis IMO Codes Diagnosis Note [id number] Jw Rodriguez MD [address] [place] [address] [place] [address] 8 06/11/2024 13:01:14 06/11/2024 14:04:14 Pain of ear 532669106 H92.09 Tinnitus 95380215 H93.11 [id number] MILO Pined[facility] [address] [place] [address] [place] [address] 06/17/2024 10:27:57 06/17/2024 11:19:56 Postoperative visit 610946856 Z48.89 S/PLaparos copic appendecto my for acute appendicit is 06/05/2024 [id number] MD LYNDA Damon[address] [place] [address] [place] [id number] 06/25/2024 08:31:31 06/25/2024 09:07:05 Pain of ear 971400262 H92.09 Tinnitus 05598830 H93.11 Hearing loss 56124478 H9 1.90 [id number] MABLE VALLECILLO [facility] [address] [place] [address],[facility] [address] 08/27/2025 08:05:46 08/27/2025 08:59:28 Rectal hemorrhage 46714753 K62.5 62712 clinically significan t rectal bleeding, every time patient has a bowel movement for at least 6 months. Patient reports the blood is dripping and fills the toilet bowl. It is associated with no pain. Given patient's significan t iron-defic iency anemia as well as her complaints of profuse rectal bleeding, I do think a colonoscop y is indicated for further evaluation of possible alternativ e bleeding lesions before totally attributin g this to hemorrhoid s. Patient and family are agreeable. We will send a cardiology clearance to her cardiologi st group which is Dr. Cade. we will also send a Plavix hold x5 days to her primary care provider who prescribes her Plavix. I will see her back in 4 weeks after procedure. I will wait endoscopis t recommenda tions. She requests Dr. Hui. Blood-tinged feces 14590 45689 22624 K92.1 7670 Iron defic iency anemia 91210523 D50.9 [id number] Health Concerns Section Related Observation LastModified by Organization Detai ls LastModified Time None Recorded Concern Status LastModified by Organization Details LastModified Time None Recorded Advance Directives Directive None Recorded Payers Insurance Date Sequence Insurance Name Policy Number Policy Fernandez Covered Member ID Fernandez Member ID Guarantor Name 08/27/2025 1 [facility] (MEDICARE REPLACEMENT/A DVANTAGE - HMO) [id number] Sheryl Vazquez [id number] Sheryl Vazquez 08/27/2025 1 [facility] ([facility]PLAC[facility]/A DVANTAGE - PPO) Sheryl Vazquez [id number] Sheryl Vazquez 08/27/2025 2 [place] Sheryl Vazquez [id number] Sheryl Vazquez 08/27/2025 2 [employer] (MEDICARE SUPPLEMENT) Sheryl Vazquez [id number] Sheryl Vazquez Notes Date Note Type Note [...] from the right ear. Jw Rodriguez MD [address] [place] [address],[address], [place], [address], [facility] 06/11/2024 14:03:44 06/17/2024 text/html Sheryl returns today [...] had acute appendicitis as well. MILO Pineda [address] [place] [address],[address], [place], [address], [facility] 06/17/2024 11:24:18 06/25/2024 text/html Patient presents in follow-up. States pain has improved. States has hearing loss. Jw Rodriguez MD [address] [place] [address],[address], [place], [address], [facility] 06/25/2024 09:12:56 08/27/2025 text/html 75-year-old female presents with a request for primary care provider for evaluation of clinically significant rectal bleeding with iron-deficiency anemia. Patient reports she believes this is strictly hemorrhoidal bleeding. PCP did do an exam and noted hemorrhoids. It has not improved with the medication prescribed by primary care provider. Patient reports she was subsequently started on iron supplements. She reports this has been ongoing for at least 6 months, every time she goes to the restroom, she has bright red blood,/ dark red blood in the toilet bowl, and dripping while she is trying to wipe. Patient reports it is a lot of blood. She has a history of colon polyps in 2016 with her last colonoscopy in 2019 being without polyps. She has no family history of colon cancer. She does take Plavix, prescribed by her primary care provider and sees her abstractor routinely. She notes some trouble swallowing, intermittent for the past few years, sometimes will get choked on solid foods only can not specify location that this gets stuck. She does not want to pursue intervention for this. GERALD GOLDSTEIN, TIME BROKER [address] [facility],[address], [place], [address], [place] - [facility] [place] [facility] [place] 08/27/2025 09:18:52 OBGyn Episode No OBEpisode recorded.
--- OUTSIDE RECORDS SUMMARY | 2025-09-09 09:21 | XMS_ITS | Clinical Summary ---
Author Organization [facility] Address [address] [place] [address] Care Team Providers Care Consulting Technical Manager Name Role Phone Unavailable Primary Care Provider [...]
--- OUTSIDE RECORDS SUMMARY | 2025-09-09 09:22 | XMS_ITS | Data Portability ---
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 Plan of Treatment Reminders Order Date Submit Date Provider Last Modified By Organization Details Last Modified Time Details Appointments Establish ed Patient 20 2024 02:50P M Roberto Rojas MD Not available Not available Not available Lab lipid panel, serum 2024 025 [facility], [address] [place] [address], [address], 08/07/2025 08:19:10 cobalamin and folate panel, serum 2024 025 [facility], [address] [place] [address], [address], 08/07/2025 08:19:11 TSH + free T4, serum 2024 025 [facility], [address] [place] [address], [address], 08/07/2025 08:19:09 magnesium , serum or plasma 2024 025 [facility], [address] [place] [address], [address], 08/07/2025 08:19:12 vitamin D, 25-hydrox y, total, serum 2024 [facility], [address] [place] [address], [address], 08/07/2025 08:19:11 CBC w/ auto diff 2024 [facility], [address] [place] [address], [address], 08/07/2025 08:19:09 iron + total iron-bind ing capacity (TIBC), serum 2024 [facility], [address] [place] [address], [address], 08/07/2025 08:19:10 rapid strep group A, throat 2024 025 [facility], [address] [place] [address] , [place], [address], 07/01/2025 10:39:20 rapid SARS CoV + SARS CoV 2 Ag, QL IA, respirato ry specimen 2024 025 [facility], [address] [place] [address] , [place], [address], 07/01/2025 10:39:20 rapid flu (A+B) 2024 025 [facility], [address] [place] [address] , [place], [address], 07/01/2025 10:39:20 Referral None recorded. Procedures None recorded. Surgeries None recorded. Imaging XR, foot, 3 or more view 2024 [facility], [address], [place], [address], 07/23/2025 14:58:19 XR, tibia + fibula, 2 view 2024 025 [facility] C4 Planner, [address] [place], [place] [address]Kylah, [place], [address], 06/25/2025 08:16:28 Medication Orders Anusol-HC 2.5 % topical cream with perineal applicato r 2024 025 [facility], [address] [place] [address], [address], 08/06/2025 16:30:53 levofloxa nicole 750 mg tablet [address], [address], 08/03/2025 05:02:05 Tamiflu 75 mg capsule [address], [address], 07/22/2025 08:37:07 Paxlovid 300 mg (150 mg x 2)-100 mg tablets in a dose pack 2024 025 [facility], [address] [place] [address], [address], 07/22/2025 08:37:04 tizanidin e 4 mg tablet [address], [address], 06/24/2025 09:48:29 ropinirol e 1 mg tablet [address], [address], 06/10/2025 13:27:04 Patient TargetsNo targets recorded. Patient Instructions Encounter Date Encounter Id Patient Instructions Last Modified By Organization Details Last Modified Time 06/10/2025 [id number] restless legs syndrome: care instructions [email or web address] Not available 06/10/2025 13:27:02 When You Want to Lose Weight: Care Instructions [email or web address] Not available 06/10/2025 13:01:38 Discussed option s for osteopenia, declines meds and will con't calcium/Vit D tgrosser Not available 06/10/2025 13:27:02 06/24/2025 [id number] When You Want to Lose Weight: Care Instructions [email or web address] Not available 06/25/2025 08:40:45 07/01/2025 [id number] When You Want to Lose Weight: Care Instructions [email or web address] Not available 07/01/2025 10:39:20 07/22/2025 [id number] puncture wounds: care instructions [email or web address] Not available 07/22/2025 09:20:22 Levofloxacin Ora l Tablet (LEVOFLOXACIN - ORAL) [email or web address] Not available 07/22/2025 09:20:22 Puncture Wound Take [...] You do not get better as expected. [email or web address] Not available 07/22/2025 09:16:18 Discussed plan o f care with the patient. Answered all of patient's questions. Patient agreeable to plan of care. Advised patient to take medications as prescribed. Discussed possible side effects of new medication with patient. Patient verbalized understanding. [email or web address] Not available 07/22/2025 09:20:30 08/06/2025 [id number] hemorrhoids: car e instructions [email or web address] Not available [...] SARS CoV antigen Positi ve Not Available [address] , [place], [address], 07/01/2025 10:05:49 07/01/20 25 07/01/2025 rapid strep group A, throa t Strep negati ve Not Available [address] , [place], [address], 07/01/2025 10:02:03 07/01/20 25 07/01/2025 rapid strep group A, throa t Culture No Not Available [address] , [place], [address], 07/01/2025 10:02:03 07/01/20 25 07/01/2025 rapid flu (A+B) Flu positi ve Not Available [address] , [place], [address], 07/01/2025 10:06:22 07/01/20 25 07/01/2025 rapid flu (A+B) Type B Not Available [address] , [place], [address], 07/01/2025 10:06:22 08/06/20 25 08/07/2025 TSH+F REE T4 TSH 1.540 uIU/m L 0.450- 4.500 normal Not Available [facility] ([facility]) [address] [place], [address], 08/07/2025 08:19:09 08/06/2008/07/2025 TSH+F REE T4 T4,free(dire ct) 1.16 NG/dL 0.82-1 .77 normal Not Available [facility] ([facility]) [address] [place], [address], 08/07/2025 08:19:09 08/06/2008/07/2025 CBC WITH DIFFE RENTI AL/PL ATELE T WBC 9.4 x10e3 /uL 3.4-10 .8 normal Not Available [facility] ([facility]) [address] [facility], [place], [address], 08/07/2025 08:19:09 08/06/2008/07/2025 CBC WITH DIFFE RENTI AL/PL ATELE T RBC 3.32 x10e6 /uL 3.77-5 .28 below low normal Not Available [facility] ([facility]) [address] [place], [address], 08/07/2025 08:19:09 08/06/2008/07/2025 CBC WITH DIFFE RENTI AL/PL ATELE T hemoglobin 8.7 g/dL 11.1-1 5.9 below low normal Not Available [facility] ([facility]) [address] [place], [address], 08/07/2025 08:19:09 08/06/2008/07/2025 CBC WITH DIFFE RENTI AL/PL ATELE T hematocrit 28.9 % 34.0-4 6.6 below low normal Not Available [facility] ([facility]) [address] [place], [address], 08/07/2025 08:19:09 08/06/2008/07/2025 CBC WITH DIFFE RENTI AL/PL ATELE T MCV 87 fL 79-97 normal Not Available [facility] ([facility]) [address] [place], [address], 08/07/2025 08:19:09 08/06/20 25 08/07/2025 CBC WITH DIFFE RENTI AL/PL ATELE T MCH 26.2 pg 26.6-3 3.0 below low normal Not Available [facility] ([facility]) [address] [place], [address], 08/07/2025 08:19:09 08/06/2008/07/2025 CBC WITH DIFFE RENTI AL/PL ATELE T MCHC 30.1 g/dL 31.5-3 5.7 below low normal Not Available [facility] ([facility]) [address] [place], [address], 08/07/2025 08:19:09 08/06/2008/07/2025 CBC WITH DIFFE RENTI AL/PL ATELE T RDW 13.4 % 11.7-1 5.4 Not Available [facility] ([facility]) [address] [place], [address], 08/07/2025 08:19:09 08/06/2008/07/2025 CBC WITH DIFFE RENTI AL/PL ATELE T platelets 310 x10e3 /uL 150-45 0 normal Not Available [facility] ([facility]) [address] [place], [address], 08/07/2025 08:19:09 08/06/2008/07/2025 CBC WITH DIFFE RENTI AL/PL ATELE T neutrophils 63 % not estab. normal Not Available [facility] ([facility]) [address] [place], [address], 08/07/2025 08:19:09 08/06/20 25 08/07/2025 CBC WITH DIFFE RENTI AL/PL ATELE T lymphs 23 % not estab. normal Not Available [facility] ([facility]) [address] [facility], [place], [address], 08/07/2025 08:19:09 08/06/2008/07/2025 CBC WITH DIFFE RENTI AL/PL ATELE T monocytes 11 % not estab. normal Not Available [facility] ([facility]) [address] [facility], [place], [address], 08/07/2025 08:19:09 08/06/2008/07/2025 CBC WITH DIFFE RENTI AL/PL ATELE T eos 2 % not estab. normal Not Available [facility] ([facility]) [address] [facility], [place], [address], 08/07/2025 08:19:09 08/06/2008/07/2025 CBC WITH DIFFE RENTI AL/PL ATELE T basos 1 % not estab. normal Not Available [facility] ([facility]) [address] [facility], [place], [address], 08/07/2025 08:19:09 08/06/2008/07/2025 CBC WITH DIFFE RENTI AL/PL ATELE T immature cells US ADMINISTRATIVE LAW JUDGE Not Available [facility] ([facility]) [address] [place], [address], 08/07/2025 08:19:09 08/06/2008/07/2025 CBC WITH DIFFE RENTI AL/PL ATELE T neutrophils (absolute) 6.0 x10e3 /uL 1.4-7. 0 normal Not Available [facility] ([facility]) [address] [place], [address], 08/07/2025 08:19:09 08/06/20 25 08/07/2025 CBC WITH DIFFE RENTI AL/PL ATELE T lymphs (absolute) 2.2 x10e3 /uL 0.7-3. 1 normal Not Available [facility] ([facility]) [address] [facility], [place], [address], 08/07/2025 08:19:09 08/06/20 25 08/07/2025 CBC WITH DIFFE RENTI AL/PL ATELE T monocytes(ab solute) 1.0 x10e3 /uL 0.1-0. 9 above high normal Not Available [facility] ([facility]) [address] [facility], [place], [address], 08/07/2025 08:19:09 08/06/20 25 08/07/2025 CBC WITH DIFFE RENTI AL/PL ATELE T eos (absolute) 0.2 x10e3 /uL 0.0-0. 4 normal Not Available [facility] ([facility]) [address] [facility], [place], [address], 08/07/2025 08:19:09 08/06/20 25 08/07/2025 CBC WITH DIFFE RENTI AL/PL ATELE T baso (absolute) 0.1 x10e3 /uL 0.0-0. 2 normal Not Available [facility] ([facility]) [address] [facility], [place], [address], 08/07/2025 08:19:09 08/06/20 25 08/07/2025 CBC WITH DIFFE RENTI AL/PL ATELE T immature granulocytes 0 % not estab. Not Available [facility] ([facility]) [address] [place], [address], 08/07/2025 08:19:09 08/06/20 25 08/07/2025 CBC WITH DIFFE RENTI AL/PL ATELE T immature grans (abs) 0.0 x10e3 /uL 0.0-0. 1 Not Available [facility] ([facility]) [address] [facility], [place], [address], 08/07/2025 08:19:09 08/06/20 25 08/07/2025 CBC WITH DIFFE RENTI AL/PL ATELE T NRBC US ADMINISTRATIVE LAW JUDGE Not Available [facility] ([facility]) [address] [facility], [place], [address], 08/07/2025 08:19:09 08/06/2008/07/2025 CBC WITH DIFFE RENTI AL/PL ATELE T hematology comments: US ADMINISTRATIVE LAW JUDGE Not Available [facility] ([facility]) [address] [facility], [place], [address], 08/07/2025 08:19:09 08/06/2008/07/2025 LIPID PANEL cholesterol, total 109 mg/dL 100-19 9 normal Not Available [facility] ([facility]) [address] [facility], [place], [address], 08/07/2025 08:19:10 08/06/2008/07/2025 LIPID PANEL triglyceride s 87 mg/dL 0-149 normal Not Available [facility] ([facility]) [address] [facility], [place], [address], 08/07/2025 08:19:10 08/06/2008/07/2025 LIPID PANEL HDL cholesterol 47 mg/dL >39 normal Not Available [facility] ([facility]) [address] [facility], [place], [address], 08/07/2025 08:19:10 08/06/20 25 08/07/2025 LIPID PANEL VLDL cholesterol xiomara 17 mg/dL 5-40 Not Available [facility] ([facility]) [address] [facility], [place], [address], 08/07/2025 08:19:10 08/06/2008/07/2025 LIPID PANEL LDL chol calc ([facility]) 45 mg/dL 0-99 Not Available [facility] ([facility]) [address] [facility], [place], [address], 08/07/2025 08:19:10 08/06/20 08/07/2025 LIPID PANEL LDL calc comment: US ADMINISTRATIVE LAW JUDGE Not Available [facility] ([facility]) [address] [facility], [place], [address], 08/07/2025 08:19:10 08/06/2008/07/2025 IRON AND TIBC iron bind.cap.(TI BC) 429 ug/dL 250-45 0 normal Not Available [facility] ([facility]) [address] [facility], [place], [address], 08/07/2025 08:19:10 08/06/2008/07/2025 IRON AND TIBC UIBC 412 ug/dL 118-36 9 above high normal Not Available [facility] ([facility]) [address] [facility], [place], [address], 08/07/2025 08:19:10 08/06/2008/07/2025 IRON AND TIBC iron 17 ug/dL 27-139 below low normal Not Available [facility] ([facility]) [address] [facility], [place], [address], 08/07/2025 08:19:10 08/06/2008/07/2025 IRON AND TIBC iron saturation 4 % 15-55 alert low Not Available [facility] ([facility]) [address] [facility], [place], [address], 08/07/2025 08:19:10 08/06/2008/07/2025 VITAM IN B12 AND FOLAT E vitamin B12 686 pg/mL 232-12 45 normal Not Available [facility] ([facility]) [address] [facility], [place], [address], 08/07/2025 08:19:11 08/06/2008/07/2025 VITAM IN B12 AND FOLAT E folate (folic acid), serum 12.6 NG/mL >3.0 normal A serum folat e ronna ntrat ion of less than 3.1 ng/mL is consi dered to repre sent clini xiomara defic iency . Not Available [facility] ([facility]) [address] [facility], [place], [address], 08/07/2025 08:19:11 08/06/2008/07/2025 VITAM IN D, 25-HY [...] um and D. Nidia betancourt [place]: The [facility] Press . 2. Medhat kelley MF, Janie motley [place], Prince off-F errar i SAINI, et al. Evalu ation , treat ment, and preve ntion of vitam in D defic iency : an Endoc rine Socie ty clini xiomara pract ice guide line. JCEM. 2010; 96(7) :1911 -30. Not Available [facility] ([facility]) [address] [facility], [place], [address], 08/07/2025 08:19:11 08/06/2008/07/2025 MAGNE SIUM magnesium 1.8 mg/dL 1.6-2. 3 normal Not Available [facility] ([facility]) [address] [facility], [place], [address], 08/07/2025 08:19:12 06/01/2005/31/2025 DEXA [facility] Name: DOUG REINA [address] Phys: Ana velásquez MD, [place] [address] : 1949 Age: 74 Sex: F Acct: [id number] Loc: LIVIER PHONE #: Exam Date: 2024 Status : LATISHA CURTISI FAX #: Rad# [id number] Unit# [id number] Admit Date: 2024 EXAMS: CPT CODE: [id number] DEXA BONE DENSIT Y AXIAL 51802 EXAMIN ATION: DUAL X-RAY ABSORP TIOMET RY [...] was perfor med, as approp riate, using [employer] y densit ometer . Images are [...] BMD. PAGE 1 Signed Report (MERE NUED) [facility] Name: DOUG REINA [facility] [address] Phys: Ana velásquez MD, [place] [address] : 1949 Age: 74 Sex: F Acct: [id number] Loc: EmyRAD PHONE #: Exam Date: 2024 Status : DEP CLI FAX #: Rad# [id number] Unit# [id number] Admit Date: 2024 EXAMS: CPT CODE: [id number] DEXA BONE DENSIT Y AXIAL 49220 [employer] zation criter ia for [...] treatm ent can be found at the [facility] tion's websit [...] FINNEGAN PAGE 2 Signed Report (MERE NUED) [facility] Name: DOUG REINA [address] Phys: Ana velásquez MD, [place] [address] : 1949 Age: 74 Sex: F Acct: [id number] Loc: LIVIER PHONE #: [phone] Exam Date: 2024 Status : DEP CLI FAX #: Rad# [id number] Unit# [id number] Admit Date: 2024 EXAMS: CPT CODE: [id number] DEXA BONE DENSIT Y AXIAL 98609 CC: Govind velásquez Dictat ed Date/T rich: [...] Consul ting Provid er: ANA CURIEL Y [address] , [place], [address], 06/10/2025 10:25:15 06/25/20 25 XR, tibia + fibul a, 2 view No observ ation record ed. [address] C[address] Planner [address] [place] [address] , [place], [address], 06/25/2025 09:51:56 06/25/20 25 XR, tibia + fibul a, 2 view No observ ation record ed. [address] C4 Planner [address] [place] [address] , [place], [address], 06/25/2025 09:51:56 07/23/20 25 XR, foot, 3 or more view No observ ation record ed. [facility] [address], [place], [address], 07/30/2025 12:55:40 08/13/20 25 08/13/2025 CT, angio gram, chest , w/ contr ast No observ ation record ed. [facility] [address], [place], [address], 08/13/2025 12:55:00 08/24/2008/24/2025 US, naomile x, carot id arter y No observ ation record ed. [facility] [address], [place], [address], 08/25/2025 10:21:50 08/30/2008/24/2025 trans -thor acic echoc ardio gram (TTE) (PROC ) No observ ation record ed. [facility] [address], [place], [place], [address], 08/31/2025 10:16:01 Result Notes None recorded. 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 02/03/13 Eusebia Alexander MD [address], [place], [address], [place] - [facility] 10:31:10 Cardiac pacemake r in situ 730011681 Active Eusebia Alexander MD [address], [place], [address], [place] [facility] 10:31:11 Hyperlip idemia 56719662 Active Eusebia Alexander MD [address], [place], [address], [place] [facility] 10:31:11 Hyperten sive disorder 91901631 Active Eusebia Alexander MD [address], [place], [address], [place] [facility] 10:31:11 Sciatica 48321146 Active Eusebia Alexander MD [address], [place], [address], [place] [facility] 10:31:10 Atrial fibrilla tion 21372053 Active Eusebia Alexander MD [address], [place], [address], [place] [facility] 10:31:11 Carotid artery stenosis 95752110 Active Eusebia Alexander MD [address], [place], [address], [place] [facility] 10:31:11 Coronary arterios clerosis 38647576 Active Eusebia Alexander MD [address], [place], [address], [place] [facility] 10:31:11 Gastroes ophageal reflux disease 718347818 Active Eusebia Alexander MD [address], [place], [address], [place] [facility] 10:31:10 Actinic keratosi s Active Skyla lloyd, [place] - [facility] 09:05:50 Malignan t neoplasm of breast 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 ER/NJ/he r2 negative , nodes negative . s/p lumpecto my, radiatio n and adjuvant CMF Eusebia Alexander MD [address], [place], [address], [place] [facility] 10:31:11 Herpes zoster 0972965 Active 2015 Eusebia Alexander MD [address], [place], [address], [place] [facility] 10:31:11 Hernia of anterior abdomina l wall 925949602 Active 2019 Eusebia Alexander MD [address], [place], [address], [place] [facility] 10:31:11 Painless rectal bleeding 371936117 Active 2019 Eusebia Alexander MD [address], [place], [address], [place] [facility] 10:31:11 Overacti ve urinary bladder 814102746 Active 2019 Eusebia Alexander MD [address], [place], [address], [place] [facility] 10:31:11 Mixed urinary incontin ence 801227957 Active 2019 Eusebia Alexander MD [address], [place], [address], [place] [facility] 10:31:11 Cystocel e 945502988 Active 2019 Eusebia Alexander MD [address], [place], [address], [place] [facility] 10:31:11 Posterio r vaginal wall prolapse 394870729 Active 2019 Eusebia Alexander MD [address], [place], [address], [place] [facility] 10:31:10 Exposure to SARS-CoV -2 Active 2019 Eusebia Alexander MD [address], [place], [address], [place] [facility] 10:31:11 Vaccine declined by patient 58567868732 2 Active 2020 Eusebia Alexander MD [address], [place], [address], [place] [facility] 10:31:11 History of adenomat ous polyp of colon 611710200 Active 2020 Eusebia Alexander MD [address], [place], [address], [place] [facility] 10:31:11 History of total hysterec filemon 850520322 Active 2020 Eusebia Alexander MD [address], [place], [address], [place] [facility] 10:31:11 Osteopen ia 899310658 Active 202005/31/21S till in osteopen ia reading, stable at LS and R FN but signific antly decrease d in LFN. Current fracture risk score at 3.6% enough to advise for treatmen t. Given prior history of breast cancer would advise E Troy as top recommen dation. 60 mg #30 refill 11. Recheck 2 years. 06/13/21 pt declined rx. Eusebia Alexander MD [address], [place], [address], [place] [facility] 10:31:11 Pain of right knee joint 09254092058 4100 Active 2021 Eusebia Alexander MD [address], [place], [address], [place] [facility] 10:31:11 Cobalami n deficien cy 780088411 Active 2023 JOSE Cabrales - [facility] 4 10:41:31 Acute sinusiti s 99508567 Completed 202307/22/2025 Cas March, STOCK ROOM MANAGER [address], [place], [address], [place] [facility] 09:17:09 Overweig ht 372077535 Active 2023 Heladio Prince APRN [address], [place], [address], [place] [facility] 13:15:36 Iron deficien cy anemia 21972353 Active 2023 JOSE Cabrales - [facility] 4 09:27:44 Problem Notes None recorded. Procedures Surgical History Date Name Laterality Status Provider Name and Address Organization Details Recorded Time 025 hernia repair completed Cristina Hay [facility] 05/26/2025 15:35:00 025 Advance Care Planning completed Cristina GARCIA [facility] 03/24/2025 09:26:24 025 Functional Status Assessed completed Cristinalydia GARCIA [facility] 03/24/2025 09:26:24 024 Appendectomy completed Cristinalydia GARCIA [facility] 07/17/2024 14:44:53 024 Advance Care Planning completed Cristinalydia GARCIA [facility] 03/20/2024 09:42:23 024 Functional Status Assessed completed Cristina Tony GARCIA [facility] 03/20/2024 09:42:23 023 Advance Care Planning completed Cristinalydia GARCIA [facility] 03/21/2023 09:48:13 023 Functional Status Assessed completed Cristina Tony GARCIA [facility] 03/21/2023 09:48:13 023 Cryosurgery Dermatology completed Marissa Solorio, STOCK ROOM MANAGER [address], [place], [address], [place] - [facility] 01/01/2023 09:39:15 022 Medication Reconcilliation completed Vielkaюлия Mcgregor [place] - [facility] 08/08/2022 08:28:58 022 Cryosurgery Dermatology completed Marissa Solorio, STOCK ROOM MANAGER [address], [place], [address], [place] [facility] 06/19/2022 12:08:59 022 Advance Care Planning completed Cristina Jimenez [place] - [facility] 03/29/2022 09:23:56 022 Functional Status Assessed completed Cristina Jimenez [place] [facility] 03/29/2022 09:23:56 022 Date of Last Colonoscopy completed Liza GARCIA - [facility] 06/28/2022 16:34:56 021 Most Recent Bone Density completed Liza Carlos [place] [facility] 06/13/2021 16:14:02 021 Date of Last Mammogram completed Liza Kennedys [place] - [facility] 06/13/2021 16:13:43 021 Diastolic B/P less than 80 mm Hg completed Cristina Jimenez [place] [facility] 12/22/2020 10:55:22 021 Systolic B/P 130-139 mm Hg completed Cristina Hay [place] [facility] 12/22/2020 10:55:18 020 Systolic B/P less than 130 mm Hg completed Cristina [place] [facility] 07/07/2020 17:00:29 020 Diastolic B/P less than 80 mm Hg completed Cristina Hay [place] [facility] 07/07/2020 17:00:33 020 Fitting & Insertion of Pessary completed Makenna Boucher MD [address], [place], [address], [place] [facility] 03/07/2020 20:34:53 020 Fitting & Insertion of Pessary completed Makenna Boucher MD [address], [place], [address], [place] [facility] 03/04/2020 13:22:48 020 Pediatric Cath completed Makenna Boucher MD [address], [place], [address], [place] [facility] 12/17/2019 13:40:51 020 Diastolic [...] completed Roberto Rojas MD [address], [place], [address], [place] [facility] 05/03/2017 16:17:18 017 Cardiac ablation completed Chrissy Martinez [place] [facility] 04/23/2017 14:56:56 017 hemorrhoid operation completed Makenna Boucher MD [address], [place], [address], [place] [facility] 01/22/2020 21:55:14 016 Colonoscopy completed Cristina Jimenez [place] [facility] 11/14/2016 09:00:35 016 Pacemaker Placement completed Cristina Jimenez [place] [facility] 11/14/2016 08:59:24 012 Angioplasty completed [...] 10/22/2016 12:53:32 Dilation and curettage completed Tri Rodriguez [facility] 10/22/2016 12:53:42 Tubal Ligation completed [facility] Augie Mario - [facility] 10/22/2016 12:55:09 Imaging Results None recorded. Procedure Notes None recorded. Medical Equipment None Reported. Allergies Allergen ID Allergen Name Allergen Category Reaction Reaction Severity Criticality Documentation Date Start Date Code Code System Note Provider Name and Address Organization Details Recorded Time 83726 latex environme nt,medica tion Not available Not available Not available 08/10/20162009 93394 91 RxNorm Not Available [facility] 6 08:32:55 80208 Cipro medicatio n Not available Not available Not available 08/10/2016200856 3 RxNorm React ion: Tongu e sore; Not Available [facility] 6 08:32:55 06598 nickel environme nt,medica tion Not available Not available Not available 08/10/20162009 92672 29 RxNorm Not Available [facility] 6 08:33:10 94533 aspirin medicatio n rash Not available Not available 08/10/20162007 1191 RxNorm React ion: Rash; Comme nt: ASPIR IN; Not Available [facility] 6 09:15:36 95038 fluconazo le medicatio n hives Not available Not available 05/03/2017 4450 RxNorm JOSE Cabrales [facility] 7 15:45:37 Medications Name Sig Start Date [...] 16 10:39AM; User: trudiEst . Completi on: 11/17/19 15;Pharm acyVerif ied: [...] User: bunny gabriel;Est. Completi on: 02/14/20 14;Pharm acyVpiperf ied: 01/15/20 14 9:04AM Not Available Not [...] on: 12/01/19 16 10:39AM; User: lois;Est . Completmanasa on: 11/13/19 16;Pharm acJuan Manuel ied: 10/14/20 [...] ser: lois;Est . Completi on: 12/26/19 15;Pharm acyVpiperf ied: 09/27/20 14 1:10PM Not Available Not [...] Available Not Available Nasonex 50 mcg/actua tion Declo 1 sniff bilat bid 01/13 completed Nasonex [...] 2:00PM;U ser: haym;Ind ication: Hyperten cris - (07.4019 00) Not Available Not Available Not Available [...] 13 10:57AM; User: clayton MooneyEst. Completi on: 10/14/20 12;Print ed: 04/17/20 12 Not [...] Uribe on: 12/17/19 09;Indic ation: PAIN - (28.4970 13);Prin bry: 11/05/19 09 Not Available Not Available [...] nued on: 05/14/20 14 11:01AM; User: clayton ;EstKylah Completi on: 07/20/20 14;Print ed: 01/22/20 14 [...] nued on: 06/05/20 13 10:57AM; User: trudiEst . Completi on: 12/17/19 13 Not Available [...] Updated DateTime 5 152.4 cm 30.1 kg/m2 41586.2 2 g 98.2 [degF] 68 /min 92 % 92 % 18 /min 0 104/62 mm[Hg] Cristina Jimenez [facility] 5 13:06:51 Date Recorded Body height Body mass index (BMI) Body weight Body temperature Heart rate Oxygen saturation Oxygen saturation in Arterial blood by Pulse oximetry Respiratory rate Pain severity - 0-10 verbal numeric rating [Score] - Reported Systolic And Diastolic Provider Name and Address Organization Details Last Updated DateTime 5 152.4 cm 29.9 kg/m2 33044.6 3 g 97.9 [degF] 70 /min 96 % 96 % 18 /min 0 130/60 mm[Hg] Cristina Jimenez [facility] 5 09:24:44 Date Recorded Body height Body mass index (BMI) Body weight Body temperature Heart rate Oxygen saturation Oxygen saturation in Arterial blood by Pulse oximetry Respiratory rate Pain severity - 0-10 verbal numeric rating [Score] - Reported Systolic And Diastolic Provider Name and Address Organization Details Last Updated DateTime 5 152.4 cm 29.5 kg/m2 64165.4 5 g 98.1 [degF] 68 /min 97 % 97 % 18 /min 0 124/70 mm[Hg] Cristina Jimenez [facility] 5 10:03:39 Date Recorded Body height Body mass index (BMI) Body weight Respiratory rate Pain severity - 0-10 verbal numeric rating [Score] - Reported Oxygen saturation Oxygen saturation in Arterial blood by Pulse oximetry Heart rate Body temperature Systolic And Diastolic Provider Name and Address Organization Details Last Updated DateTime 5 152.4 cm 29.1 kg/m2 53111.6 6 g 16 /min 0 96.99 % 96.99 % 69 /min 98.1 [degF] 128/64 mm[Hg] Neelima Antonio [place] - [facility] 5 08:23:05 Date Recorded Body height Body mass index (BMI) Body weight Body temperature Heart rate Oxygen saturation Oxygen saturation in Arterial blood by Pulse oximetry Respiratory rate Pain severity - 0-10 verbal numeric rating [Score] - Reported Systolic And Diastolic Provider Name and Address Organization Details Last Updated DateTime 5 152.4 cm 30.5 kg/m2 31249.4 1 g 98 [degF] 64 /min 90 % 90 % 24 /min 10 120/72 mm[Hg] Cristina Jimenez [place] - [facility] 5 16:00:57 Social History Question Answer Notes LastModified by Organizat ion Details LastModified Time Tobacco Smoking Status Former Smoker Tri Ghosh prema [facility] 10/22/2016 13:07:06 Able To Swim? No [...] Or The Highest Degree You Have Received? AZ54884-9 Information not available 06/28/2021 Swimming/diving Yes Informati [...] anxious, or unable to sleep at night)? [id number] Information not available 06/28/2021 Do you have [...] high-dose, quadrivalent, PF 1 completed Sakshi Marte [facility] 10/21/2024 10:44:09 Influenza, high-dose, quadrivalent, PF 2 completed Sakshi Mrate [facility] 10/21/2024 10:44:09 COVID-19, mRNA, LNP-S, PF, 100 mcg/0.5mL dose or 50 mcg/0.25mL dose 1 completed Sakshi Marte [facility] 10/21/2024 10:44:10 Influenza, split virus, trivalent, PF 2 completed Sakshi Marte [facility] 10/21/2024 10:44:10 Td (adult), 2 Lf tetanus toxoid, preservative free, adsorbed 3 completed Sakshi Marte [facility] 10/21/2024 10:44:10 Influenza, high-dose, quadrivalent, PF 3 completed Not Available [facility] 08/06/2025 15:52:17 RSV, bivalent, protein subunit RSVpreF, diluent reconstituted, 0.5 mL, PF 3 completed Not Available [facility] 08/06/2025 15:52:17 Influenza, high-dose, trivalent, PF 4 completed Not Available [facility] 08/06/2025 15:52:17 Tdap 2 completed Cristina Jimenez [facility], [facility] 03/29/2022 10:21:04 Pneumococcal conjugate PCV 13 7 completed Not Available [facility] 11/21/2019 03:54:53 influenza, unspecified formulation 4 completed Not Available [facility] 12/05/2019 02:21:49 Pneumococcal conjugate PCV 13 8 completed Not Available [facility] 12/05/2019 02:21:49 influenza, unspecified formulation 2 completed Sakshi Marte [place], [place] - [facility] 10/21/2024 10:44:10 influenza, unspecified formulation 3 completed Not Available [facility] 12/05/2019 02:21:49 pneumococcal polysaccharide PPV23 3 [...] [facility] 10/26/2019 16:06:36 Tdap 5 completed Neelima Castillotiesha [place], [place] - [facility] 07/22/2025 10:02:38 Influenza, split virus, quadrivalent, preservative 0 completed Cristina Jimenez [place], [place] - [facility] 12/22/2020 10:54:17 COVID-19, mRNA, LNP-S, PF, 100 mcg/0.5mL dose or 50 mcg/0.25mL dose 1 completed Sakshi Marte [place], [place] - [facility] 10/21/2024 10:44:09 COVID-19, mRNA, LNP-S, PF, 100 mcg/0.5mL dose or 50 mcg/0.25mL dose 1 completed Sakshi King [place], [place] - [facility] 10/21/2024 10:44:10 zoster live 0 completed Lizaantonia Kennedys [place], [place] - [facility] 04/18/2021 11:28:40 Td (adult) 3 completed Liza Breanna [place], [place] - [facility] 04/18/2021 11:29:09 Pneumococcal conjugate PCV 13 7 completed Not Available [facility] 11/21/2019 03:54:22 influenza nasal, unspecified formulation 2 completed Zoya Riana prema, [place] - [facility] 08/29/2022 10:13:39 Influenza, high-dose, trivalent, PF 9 completed Not Available [facility] 11/21/2019 03:56:02 Past Encounters Encounter ID Performer Location Encounter Start Date Encounter Closed Date Diagnosis/Indication Diagnosis SNOMED-CT Code Diagnosis ICD10 Code Diagnosis IMO Codes Diagnosis Note [id number] [facility] [address] [place] [address] 05/21/2008 00:00:00 [id number] [facility] [address] [place] [address] 06/18/2008 00:00:00 [id number] [facility] [address] [place] [address] 06/23/2008 00:00:00 [id number] [facility] [address] [place] [address] 11/21/2005 00:00:00 [id number] [facility] [address] [place] [address] 01/01/2006 00:00:00 [id number] [facility] [address] [place] [address] 01/01/2007 00:00:00 [id number] [facility] [address] [place] [address] 08/26/2008 00:00:00 [id number] [facility] [address] [place] [address] 11/05/2008 00:00:00 [id number] [facility] [address] [place] [address] 11/24/2008 00:00:00 [id number] [facility] [address] [place] [address] 12/15/2008 00:00:00 [id number] [facility] [address] [place] [address] 12/30/2008 00:00:00 [id number] [facility] [address] [place] [address] 01/17/2009 00:00:00 [id number] [facility] [address] [place] [address] 09/15/2009 00:00:00 [id number] [facility] [address] [place] [address] 12/29/2009 00:00:00 [id number] [facility] [address] [place] [address] 09/24/2013 00:00:00 [id number] [facility] [address] [place] [address] 01/21/2014 00:00:00 [id number] [facility] [address] [place] [address] 06/13/2010 00:00:00 [id number] [facility] [address] [place] [address] 06/22/2010 00:00:00 [id number] [facility] [address] [place] [address] 01/29/2014 00:00:00 [id number] [facility] [address] [place] [address] 09/20/2010 00:00:00 [id number] [facility] [address] [place] [address] 05/14/2014 00:00:00 [id number] [facility] [address] [place] [address] 10/11/2010 00:00:00 [id number] [facility] [address] [place] [address] 01/13/2015 00:00:00 [id number] [facility] [address] [place] [address] 05/09/2015 00:00:00 [id number] [facility] [address] [place] [address] 12/01/2015 00:00:00 [id number] [facility] [address] [place] [address] 03/21/2016 00:00:00 [id number] [facility] [address] [place] [address] 04/24/2016 00:00:00 [id number] [facility] [address] [place] [address] 05/01/2016 00:00:00 [id number] [facility] [address] [place] [address] 12/13/2010 00:00:00 [id number] [facility] [address] [place] [address] 01/09/2011 00:00:00 [id number] [facility] [address] [place] [address] 04/12/2011 00:00:00 [id number] [facility] [address] [place] [address] 08/30/2011 00:00:00 [id number] [facility] [address] [place] [address] 12/17/2011 00:00:00 [id number] [facility] [address] [place] [address] 01/16/2012 00:00:00 [id number] [facility] [address] [place] [address] 01/31/2012 00:00:00 [id number] [facility] [address] [place] [address] 04/17/2012 00:00:00 [id number] [facility] [address] [place] [address] 05/16/2012 00:00:00 [id number] [facility] [address] [place] [address] 06/11/2012 00:00:00 [id number] [facility] [address] [place] [address] [address] 07/24/2012 00:00:00 [id number] [facility] [address] [place] [address] 10/31/2012 00:00:00 [id number] [facility] [address] [place] [address] [address] 06/05/2013 00:00:00 [id number] [facility] [address] [place] [address] 07/23/2013 00:00:00 [id number] Pia Jim MD [place] [employer] [address] [place] [address] [place] [address] 10/22/2016 12:33:34 10/22/2016 13:58:49 Herpes zoster 8206693 B02.9 Herniation of rectum into vagina 506014065 N81.6 [id number] Pia Jim MD [place] [employer] [address] [place] [address] [place] [id number] 10/31/2016 09:39:58 10/31/2016 11:26:31 Herpes zoster 8234314 B02.9 [id number] Roberto Roajs MD [address] [place] [address] 11/14/2016 08:30:32 11/14/2016 09:46:09 Gastroesophageal reflux disease 894664108 K21.9 Malignant neoplasm of breast 668259642 C50.911 Hypertensive disorder 38 399168 I10 Herpes zoster 0757790 B0 2.9 Atrial fibrillation 4943 6004 I48.91 Coronary arteriosclerosis 30321838 I25.10 Hyperlipidemia 12926236 E78.5 Carotid ar corey stenosis 19623359 I65.29 Sciatica 95633241 M54.31 Administra tion of pneumococcal vaccine 10682706 Z23 Body mass index 25-29 - overweight 687340182 Z68.28 [id number] Pia Jim MD [place] [employer] [address] [place] [address] [place] [id number] 04/23/2017 14:10:50 04/23/2017 15:28:54 Viral infection of skin 403745575 B[address] Rojas DIOGENES for probable biopsy [id number] Roberto Rojas MD [address] [place] [id number] 05/03/2017 15:34:16 05/03/2017 16:44:53 Chronic eczema 22518894 L30.9 Body mass index 25-29 - overweight 977597443 Z68.28 [id number] Roberto Rojas MD [address] [place] [address] 05/17/2017 09:43:51 05/17/2017 10:23:59 Allergic rhinitis 96960623 J30.9 Mass of neck 914542366 R 22.1 Eczema 94730691 L30.9 Body mass index 25-29 - overweight 491469218 Z68.29 [id number] Roberto Rojas MD [address] [place] [address] 10/10/2017 16:41:21 10/10/2017 17:31:13 Coronary arteriosclerosis 77862738 I25.10 Acute maxi llary sinusitis 55204904 J01.00 Generalize d osteoarthritis 819186680 M15.9 Administra tion of pneumococcal vaccine 79315634 Z23 Body mass index 25-29 - overweight 397509562 Z68.29 [id number] Roberto Rojas MD [address] [place] [address] 11/20/2017 12:50:32 11/20/2017 13:41:55 Acute gastroenteritis 82574624 K52.9 resolved Hilar lymphadenopathy 87 203304 R59.0 History of gastrointestinal bleed 933993380 Z87.19 Body mass index 25-29 - overweight 677332064 Z68.28 [id number] Roberto Rojas MD [address] [place] [address] 02/05/2018 09:35:31 02/05/2018 10:50:37 Influenza 2946517 J11.1 Acute bronchitis 6846210 2 J20.9 Candidiasis 53116072 B37 .9 Body mass index 25-29 - overweight 087590216 Z68.29 [id number] Roberto Rojas MD [address] [place] [address] 02/28/2018 15:44:32 02/28/2018 16:16:30 Acute bronchitis 80883998 J20.9 Herpes zoster 5869462 B0 2.9 Body mass index 25-29 - overweight 566129094 Z68.29 [id number] Roberto Rojas MD [address] [place] [address] 06/06/2018 13:27:04 06/06/2018 14:40:08 Inflammation of right sacroiliac joint 2693409552 9476548 M46.1 Body mass index 30+ - obesity 474505725 Z68.30 [id number] Roberto Rojas MD [address] [place] [address] 06/13/2018 14:49:22 06/13/2018 16:25:47 Abdominal mass 317201345 R19.00 Solitary n odule of lung 559985345 R91.1 Body mass index 30+ - obesity 792101225 Z68.31 Essential hypertension 17082833 I10 [id number] Roberto oRjas MD [address] [place] [address] 09/05/2018 08:13:51 09/05/2018 09:22:01 Acute otitis externa 10836789 H60.502 Body mass index 25-29 - overweight 183970787 Z68.29 [id number] Roberto Rojas MD [address] [place] [address] 11/14/2018 15:28:26 11/14/2018 16:42:57 Acute urinary tract infection 176117819 N39.0 Body mass index 30+ - obesity 707436748 Z68.30 [id number] Roberto Rojas MD [address] [place] [address] 06/17/2019 08:49:40 06/17/2019 10:07:47 Sciatica 42392809 M54.31 Gastroesop hageal reflux disease 421918761 K21.9 Malignant neoplasm of breast 209698300 C50.911 Hypertensive disorder 38 602785 I10 Herpes zoster 7944886 B0 2.9 Atrial fibrillation 4943 6004 I48.91 Coronary arteriosclerosis 32111272 I25.10 Hyperlipidemia 13522065 E78.5 Carotid ar corey stenosis 38608544 I65.29 Essential hypertension 73393625 I10 Body mass index 30+ - obesity 919791097 Z68.30 [id number] Roberto Rojas MD [address] [place] [address] 08/13/2019 15:43:12 08/13/2019 16:36:07 Administration of influenza vaccine 02614929 Z23 Acute maxi llary sinusitis 45884081 J01.00 Candidal vulvovaginitis 92032911 B37.3 Body mass index 30+ - obesity 935738723 Z68.30 [id number] Roberto oRjas MD [address] [place] [address] 09/24/2019 09:46:29 09/24/2019 11:52:28 Acute bronchitis 73231837 J20.9 Body mass index 30+ - obesity 786331761 Z68.30 [id number] Roberto Rojas MD [address] [place] [address] 10/16/2019 09:17:38 10/16/2019 09:53:17 Contusion of thoracic spine 130399725 S24.159A Pain in lumbar spine 267 418781 M54.5 Otalgia of right ear 495 0105380 642695 H92.01 normal exam Body mass index 30+ - obesity 026649810 Z68.31 [id number] Roberto Rojas MD [address] [place] [address] 12/10/2019 08:13:12 12/10/2019 09:29:21 Acute urinary tract infection 677705891 N39.0 Hernia of anterior abdominal wall 816443697 K43.9 Body mass index 30+ - obesity 044335300 Z68.30 [id number] MD Chano [employer] [address] [facility] [place] [address] 12/16/2019 12:51:52 12/16/2019 14:57:27 Posterior vaginal wall prolapse 466285189 N81.6 Grade 3-and irritation symptoms only noted within the last 2 weeks. Suspect has been more symptomati c after possible yeast infection that has now been self treated, as well as with atrophy rather than any significan t anatomic shift recently. Had been described as grade 2 and asymptomat ic 3 years ago. No defecation symptoms Cystocele 264148144 N81. 10 Grade 1-2 Increased frequency of urination 655442822 R35.0 cath ua culture. post void residual 30cc. Reassess with microscopi c given possible occult hematuria on dip specimen here last week. 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 She will be notified by facility of result after completion . Advise yearly Clinical Breast exam with Annual exam. Mixed urin william incontinence 496038485 N39.46 . Not requesting any treatment currently Malignant neoplasm of breast 671953730 C50.911 2000 history. No longer following with oncology [id number] MD Chano Freeman [employer] [address] [facility] [place] [address] 01/22/2020 09:14:40 01/22/2020 11:11:20 Increased frequency of urination 196598433 R35.0 OAB/Noctui a.. Previous negative culture despite empiric treatment. Negative PVR at initial visit 12/16 . Recheck UA culture with ongoing symptoms. Interested in medical treatment now, trial oxybutynin , risks and benefits reviewed Mixed urin william incontinence 619115999 N39.46 . Starting oxybutynin trial Atrophy of vagina 490804 009 N95.2 Encourage continued use at least through current 3-month supply reassured with relative safety with vaginal applicatio n even in setting of prior breast cancer. Posterior vaginal wall prolapse 414550620 N81.6 Grade 3-and irritation symptoms only noted [...] estrogen and interested in pessary trial Cystocele 274570288 N81. 10 Grade 1-2 Malignant neoplasm of breast 280280006 C50.911 2000 history. No longer following with oncology Painless r ectal bleeding 879878029 K62.5 Suspect bleeding internal hemorrhoid s. ;last [...] Advise stool softeners and over-the-c ounter fiber [id number] MD Chano Freeman [employer] [address] [facility] [place] [address] 03/04/2020 11:07:54 03/04/2020 12:25:02 Mixed urinary incontinence 959000995 N39.46 Overactive urinary bladder 729383514 N32.81 d/c oxybutynin due to dry mouth. samples given for myrbetriq Posterior vaginal wall prolapse 817669088 N81.6 Grade 3-and irritation symptoms only noted [...] adequately today and will follow-up short-term Cystocele 767561507 N81. 10 Grade 1-2 Painless r ectal bleeding 116092304 K62.5 Suspect bleeding internal hemorrhoid s. ;last [...] ies had normal digital rectal exam. Very 2020. Advise stool softeners and over-the-c ounter fiber. Pending referral from January to Dr. Olmos, check on status at RTO [id number] MD Chano Freeman [employer] [address] [place] [address] [place] [id number] 03/07/2020 10:10:51 03/07/2020 11:07:30 Posterior vaginal wall prolapse 617191183 N81.6 Pessary care 327245344 Z 46.89 Changed today from initial size 3 pink with support and knob to size 3 white with support no knob, states more comfortabl e. Follow-up as scheduled approximat chastity 10 days, sooner as needed. Continue Premarin cream [id number] MD Chano Freeman [employer] [address] [place] [address] [place] [id number] 03/18/2020 11:05:55 03/18/2020 12:47:57 Pessary care 438743479 Z46.89 Posterior vaginal wall prolapse 294601890 N81.6 Replaced #3 right ring with support today after spontaneou s expulsion. Fits well and she wants to continue trial with this. We did not have a 3 pink without knob available for trial Cystocele 283870330 N81. 10 Grade 1-2 Constipation 90428493 K5 9.00 OTC bowel regimen dosing reviewed. Discussed if he can avoid straining may have better he long-term pessary use [id number] MD Chano Freeman [employer] [address] [place] [address] [place] [address] 05/09/2020 09:23:49 05/09/2020 10:58:51 Increased frequency of urination 148298867 R35.0 Pessary care 889921052 Z 46.89 Size 3 white ring without knob with support seems comfortabl e tumor but is fallen out now twice after 1 to 2 weeks of use each time with straining Posterior vaginal wall prolapse 331589098 N81.6 Replaced #3 right ring with support [...] to significan t cardiovasc ular history Cystocele 499044892 N81. 10 Grade 1-2 Mixed urin william incontinence 353046452 N39.46 Prior history. Primarily frequency rather than urinary incontinen ce as of today Overactive urinary bladder 632896424 N32.81 Oxybutynin trial started 4 2 8 visit. 5 1 visit d/c oxybutynin due to dry mouth. samples given for myrbetriq- we will check on status of use 1 week call with urine results [id number] WINSTON Ku [employer] [address] [place] [address] [place] [address] 05/20/2020 10:15:27 05/20/2020 10:46:30 Cystocele 152235970 N81.10 Grade 1-2 Posterior vaginal wall prolapse 999697901 N81.6 Removed # 3 white pessary with support.Pt given pessary to take home and encouraged to bring with her to her f/u appt with Dr. Mojica on 06/07/20 [id number] Roberto Rojas MD [address] [place] [id number] 07/07/2020 16:37:57 07/07/2020 17:47:41 Sciatica 97088735 M54.31 Cerebrovas cular accident 248448988 I63.9 Gastroesop hageal reflux disease 494458411 K21.9 Malignant neoplasm of breast 923034650 C50.911 Hypertensive disorder 38 445260 I10 Mixed urin william incontinence 369499150 N39.46 Hernia of anterior abdominal wall 556486828 K43.9 Cardiac pa cemaker in situ 282060638 Z95.0 Herpes zoster 4834808 B0 2.9 Atrial fibrillation 4943 6004 I48.91 Coronary arteriosclerosis 96430952 I25.10 Hyperlipidemia 07018338 E78.5 Carotid ar corey stenosis 50356265 I65.29 Overactive urinary bladder 126129133 N32.81 Thyroid nodule 505668340 E04.1 Tremor 37792766 R25.1 Body mass index 25-29 - overweight 645118366 Z68.29 [id number] Tri Serna APRN [address] [place] [address] 10/11/2020 08:27:05 10/11/2020 09:20:40 Exposure to SARS-CoV-2 992158003 Z20.832 [id number] Roberto Rojas MD [address] [place] [address] 12/22/2020 10:41:18 12/22/2020 11:26:02 Cerebrovascular accident 842661001 I63.9 resolved Gastroesop hageal reflux disease 249683725 K21.9 controlled , Malignant neoplasm of breast 980351212 C50.911 remission, Hypertensive disorder 38 408096 I10 controlled Mixed urin william incontinence 323186896 N39.46 controlled Cardiac pa cemaker in situ 527165017 Z95.0 Atrial fibrillation 4943 6004 I48.91 controlled Coronary arteriosclerosis 25201004 I25.10 stable Hyperlipidemia 98824390 E78.5 controlled Carotid ar corey stenosis 88098498 I65.29 stable Cough 03112699 R05 Body mass index 25-29 - overweight 449810328 Z68.29 [id number] Makenna Boucher MD [facility] [address] [place] [address] [place] [address] 04/19/2021 08:02:18 04/19/2021 10:52:33 Gynecologic examination 89608788 Z01.419 No pap indicated as status post total hysterecto my. Depression screening 171 649532 Z13.89 Hypertensi on screening 669441496 Z13.6 Patient currently is within goal of less than 140/90. We will rescreen at annual visit, sooner if needed Exercises education, guidance, and counseling 723540245 Z71.82 Advise 30 minutes 3 times a week at a minimum of purposeful exercise. Patient is not currently meeting this goal. History of total hysterectomy 462949709 Z90.710 Screening for malignant neoplasm of breast 353576639 Z12.31 Patient aware of due date for next Mammogram as indicated below. lunatn but advised She will be notified by facility of result after completion . Advise yearly Clinical Breast exam with Annual exam. Screening for osteoporosis 864873039 Z13.820 Z78.0 Overdue, osteopenia 2008 Body mass index 30+ - obesity 213928347 Z68.30 Atrophy of vagina 496347 009 N95.2 Improving with treatment. Continue Dysuria 60527764 R30.9 Microscopic hematuria 19 1925885 R31.29 noted today- await micro adn CS, last visit was 0-2 cells- below threshold for eval Painless r ectal bleeding 722721361 K62.5 Suspect bleeding internal hemorrhoid s. ;last [...] tx. History of adenomatous polyp of colon 427454262 Z86.010 09/03/16 per path- pt has not recieved callback- referred back 04/24 for CS Vaccine de clined by patient 9630123898 02 Z28.20 declines tdap , say will dw dr rojas. due flu this fall Personal h istory of primary malignant neoplasm of breast 479612526 Z85.3 R lumpectomy 2000 Vaginal irritation 50486 6004 N89.8 Unclear vaginal versus urethral irritation . Check urinary and vaginal swabs. Osteopenia 250020622 M85 .80 2008 diagnosis. No active treatment since?2018 Posterior vaginal wall prolapse 341745452 N81.6 Grade 3 -mild symptoms. Previous trials [...] Premarin cream use to limit symptoms Cystocele 698042204 N81. 10 Grade 1-2 Female uri nary stress incontinence 99705802 N39.3 Stable rare symptoms. Does not feel things are bad enough to consider surgery from the standpoint . Continue Premarin cream and pelvic floor exercises [id number] Roberto Rojas MD [address] [place] [address] 06/01/2021 12:34:47 06/01/2021 14:46:03 Hernia of anterior abdominal wall 827171737 K43.9 Body mass index 25-29 - overweight 023694352 Z68.29 [id number] Roberto Rojas MD [address] [place] [address] 06/28/2021 09:54:53 06/28/2021 10:56:11 Atrial fibrillation 00748084 I48.91 controlled Cardiac pa cemaker in situ 126932933 Z95.0 Carotid ar corey stenosis 60806231 I65.29 stable Cerebrovas cular accident 494035230 I63.9 resolved Coronary arteriosclerosis 19070380 I25.10 stable Cystocele 580688145 N81. 10 Gastroesop hageal reflux disease 536648167 K21.9 controlled , Hernia of anterior abdominal wall 900901433 K43.9 Herpes zoster 0919807 B0 2.9 Hyperlipidemia 25899629 E78.5 controlled Hypertensive disorder 38 538306 I10 controlled Malignant neoplasm of breast 382051372 C50.911 remission, Osteopenia 261699564 M85 .80 Overactive urinary bladder 452027210 N32.81 Body mass index 30+ - obesity 531973574 Z68.30 [id number] Marissa Solorio APRN [address] [place] [address] 12/20/2021 09:07:56 12/20/2021 10:04:47 Actinic keratosis 824266252 L57.0 monitoring nose. Follow up in 6 months to re-eval lesion on left upper inner portion of arm. If not resolved post cryo, 8 mm punch, 4 nylon [id number] Tri Serna APRN [address] [place] [address] 12/22/2021 14:53:19 12/22/2021 15:36:54 Acute otitis media with effusion 118932443 H65.199 Otitis media 44643632 H6 6.91 Body mass index 30+ - obesity 094492034 Z68.30 [id number] Roberto Rojas MD [address] [place] [address] 02/01/2022 09:13:22 02/01/2022 10:01:34 Pain of right calf 2823514488 058096 M79.661 Diarrhea 67429860 R19.7 Body mass index 30+ - obesity 558693119 Z68.30 [id number] Roberto Rojas MD [address] [place] [address] 03/29/2022 09:09:11 03/29/2022 10:16:09 Adult health examination 428827691 Z00.00 Depression screening 171 481808 Z13.89 Examinatio n of blood pressure 562640704 Z01.30 Diet education 12336716 Z71.3 Counseling 324028711 Z71 .82 Exercise counseling . Patient encouraged to exercise 30 minutes 5 days a week. At [facility] ed risk for falls 188596561 Z91.81 STEADI FAST screening score of __5___. 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 Osteopenia 991575583 M85 .80 Overactive urinary bladder 044185695 N32.81 Hepatitis C screening 41 1297628 Z11.59 Active or passive immunization 584950316 Z23 Body mass index 30+ - obesity 022890162 Z68.30 [id number] Marissa Solorio APRN [facility] [address] [facility] [place] [address] 06/19/2022 07:59:32 06/19/2022 09:15:36 Actinic keratosis 265892336 L57.0 Apply Efudex BID during the cooler months cryo on right upper arm, Senile hyperkeratosis 39 9917160 L82.1 cryo on left arm x3 [id number] Roberto Rojas MD [address] [place] [address] 07/26/2022 14:17:42 07/26/2022 15:16:47 Pain of bilateral hands 4320572017 2992339 M79.641 Body mass index 25-29 - overweight 144992542 Z68.29 [id number] Roberto Rojas MD [address] [place] [address] 08/08/2022 08:27:08 08/08/2022 09:07:06 Cellulitis of lower limb 729728337 L03.119 Injury of soft tissue 28 1632195 T14.90XA Pain of right calf 20773 98958 241510 M79.661 Body mass index 30+ - obesity 942476857 Z68.31 [id number] Eusebia Alexander MD [address] [place] [address] 08/29/2022 09:42:51 08/29/2022 10:52:59 Infected abrasion of skin of right knee region 6603777681 9858184 L08.9 Lipoma of skin 724917337 D17.30 right lateral thigh [id number] Roberto Rojas MD [address] [place] [address] 09/13/2022 11:06:55 09/13/2022 11:45:57 Ulcer of lower extremity 39337903 L97.909 Body mass index 25-29 - overweight 239620371 Z68.28 [id number] Roberto Rojas MD [address] [place] [address] 09/20/2022 09:05:01 09/20/2022 10:14:33 Sore throat 425101822 J02.9 Ulcer of l ower extremity 85510330 L97.909 improved Body mass index 25-29 - overweight 144089459 Z68.29 Candidiasis of mouth 797 18501 B37.0 [id number] Roberto Rojas MD [address] [place] [address] 09/26/2022 08:51:21 09/26/2022 09:42:13 Ulcer of lower extremity 56545178 L97.909 improved Pain of right calf 65200 57877 928315 M79.661 Body mass index 25-29 - overweight 878201982 Z68.29 [id number] Roberto Rojas MD [address] [place] [address] 10/25/2022 12:39:55 10/25/2022 13:30:16 Hypertensive disorder 36227664 I10 controlled Ulcer of l ower extremity 47734231 L97.909 improved Body mass index 25-29 - overweight 051620125 Z68.29 [id number] Marissa Solorio APRN [facility] [address] [place] [address] 01/01/2023 08:37:48 01/01/2023 09:40:45 Actinic keratosis 366555352 L57.0 much improvemen t post Efudex. treat remaining places with cryo today. [id number] Roberto Rojas MD [address] [place] [address] 01/23/2023 13:57:32 01/23/2023 14:44:50 Acute urinary tract infection 236576111 N39.0 Poor short -term memory 310331365 R41.3 Body mass index 30+ - obesity 785918170 Z68.30 [id number] Roberto Rojas MD [address] [place] [address] 03/21/2023 09:22:25 03/21/2023 10:35:35 Adult health examination 570419095 Z00.00 Depression screening 171 123765 Z13.89 Examinatio n of blood pressure 713864656 Z01.30 Diet education 12010621 Z71.3 Counseling 139445602 Z71 .82 Exercise counseling . Patient encouraged to exercise 30 minutes 5 days a week. At [facility] ed risk for falls 552857721 Z91.81 STEADI FAST screening score of ___5__. Advance care planning 71 4567083 Z71.89 Cerebrovas cular accident 138047679 I63.9 resolved Gastroesop hageal reflux disease 389666766 K21.9 controlled , Malignant neoplasm of breast 012422106 C50.911 remission, Osteopenia 484356100 M85 .80 Hypertensive disorder 38 827708 I10 controlled Mixed urin william incontinence 546437274 N39.46 controlled Hernia of anterior abdominal wall 878119775 K43.9 Atrial fibrillation 4943 6004 I48.91 controlled Coronary arteriosclerosis 32985212 I25.10 Hyperlipidemia 01140373 E78.5 controlled Carotid ar corey stenosis 99520875 I65.29 stable Overactive urinary bladder 766965587 N32.81 Body mass index 30+ - obesity 212181964 Z68.30 Allergic conjunctivitis 783144240 H10.11 Active or passive immunization 455534781 Z23 [id number] Roberto Rojas MD [address] [place] [address] 09/19/2023 09:06:03 09/19/2023 10:00:46 Acute bronchitis 75648384 J20.9 Body mass index 30+ - obesity 899148140 Z68.30 [id number] Roberto Rojas MD [address] [place] [address] 03/20/2024 09:22:48 03/20/2024 10:40:29 Adult health examination 380312727 Z00.00 Depression screening 171 417309 Z13.31 A depression screening was completed via a standardiz ed screening tool. 5 minutes were spent discussing depression screening results and risk factors. Examinatio n of blood pressure 174694220 Z01.30 Diet education 81640231 Z71.3 Counseling 802415258 Z71 .82 Exercise counseling . Patient encouraged to exercise 30 minutes 5 days a week. At [facility] ed risk for falls 375687840 Z91.81 STEADI FAST screening score of ___5__. Advance care planning 71 9077971 Z71.89 Atrial fibrillation 4943 6004 I48.91 controlled Carotid ar corey stenosis 29589999 I65.29 stable Cerebrovas cular accident 597417323 I63.9 resolved Coronary arteriosclerosis 11022703 I25.10 Gastroesop hageal reflux disease 676648196 K21.9 controlled , Hernia of anterior abdominal wall 413996626 K43.9 Herpes zoster 7040872 B0 2.9 Hyperlipidemia 51910854 E78.5 controlled Hypertensive disorder 38 286424 I10 controlled Malignant neoplasm of breast 467145716 C50.911 remission, Mixed urin william incontinence 879397030 N39.46 controlled Osteopenia 234526876 M85 .80 Overactive urinary bladder 756251363 N32.81 Poor short -term memory 132924912 R41.3 Body mass index 30+ - obesity 313647490 Z68.30 [id number] Roberto Rojas MD [address] [place] [address] 03/25/2024 10:40:36 03/25/2024 12:18:35 Cobalamin deficiency 825622145 E53.8 [id number] Heladio Prince APRN [address] [place] [address] 05/04/2024 12:48:42 05/04/2024 13:22:37 Body mass index 25-29 - overweight 219878384 Z68.29 Overweight 709996830 E66 .3 Acute sinusitis 95809267 J01.90 Patient likely has an acute bacterial [...] reviewed appropriat e doses. Follow-up as below. [id number] Roberto Rojas MD [address] [place] [address] 06/05/2024 10:28:11 06/05/2024 11:11:13 Abdominal pain 06257251 R10.9 Overweight 777266848 E66 .3 Acute urin william tract infection 523125034 N39.0 Allergic rhinitis 247904 04 J30.9 Body mass index 25-29 - overweight 417890702 Z68.29 Morgan hematuria 23333076 5 R31.0 [id number] Roberto Rojas MD [address] [place] [address] 07/17/2024 14:26:48 07/17/2024 15:11:56 Overweight 501071901 E66.3 External hemorrhoids 239 86310 K64.4 Body mass index 25-29 - overweight 789363751 Z68.29 [id number] Roberto Rojas MD [address] [place] [address] 10/21/2024 10:34:58 10/21/2024 11:18:43 Fatigue 40141519 R53.83 Dyspnea on exertion 6084 5006 R06.09 Cobalamin deficiency 190 921289 E53.8 Body mass index 25-29 - overweight 267921269 Z68.29 [id number] Roberto Rojas MD [address] [place] [address] 01/06/2025 15:49:46 01/06/2025 16:53:45 Overweight 244572389 E66.3 Abdominal mass 913440946 R19.00 Screening for malignant neoplasm of colon 536134690 Z12.11 Diarrhea 44350427 R19.7 Herpes labialis 6033888 B00.1 Body mass index 25-29 - overweight 636331328 Z68.29 [id number] Roberto Rojas MD [address] [place] [address] 02/17/2025 14:13:41 02/17/2025 15:03:45 Overweight 278098145 E66.3 Diarrhea 91734908 R19.7 21091040 Overweight in adulthood with body mass index of 25 or more but less than 30 972512022 Z68.29 44496382 [id number] Roberto Rojas MD [address] [place] [address] 03/24/2025 09:14:36 03/24/2025 10:12:53 Adult health examination 455855973 Z00.00 Depression screening 171 413019 Z13.31 A depression screening was completed via a standardiz ed screening tool. 5 minutes were spent discussing depression screening results and risk factors. Examinatio n of blood pressure 925410433 Z01.30 Diet education 05132841 Z71.3 Counseling 121785181 Z71 .82 Exercise counseling . Patient encouraged to exercise 30 minutes 5 days a week. At [facility] ed risk for falls 738605460 Z91.81 STEADI FAST screening score of ___6__. Advance care planning 71 0196294 Z71.89 Hypertensive disorder 38 918824 I10 controlled Coronary arteriosclerosis 20345370 I25.10 Atrial fibrillation 4943 6004 I48.91 controlled Carotid ar corey stenosis 20607267 I65.29 stable Hyperlipidemia 47111948 E78.5 controlled Osteopenia 362145581 M85 .80 Overweight 432118221 E66 .3 Cobalamin deficiency 190 350399 E53.8 Gastroesop hageal reflux disease 570276736 K21.9 controlled , Mixed urin william incontinence 833509986 N39.46 controlled Overactive urinary bladder 554148062 N32.81 Iron defic iency anemia 57032318 D50.9 Malignant neoplasm of breast 807449204 C50.911 remission, Herpes zoster 9768585 B0 2.9 Cerebrovas cular accident 887344708 I63.9 resolved Ventral in cisional hernia 731016678 K43.2 26556706 Physical examination 588 0005 Z01.449 5181103 Overweight in adulthood with body mass index of 25 or more but less than 30 761572367 Z68.29 24655379 [id number] Roberto Rojas MD [address] [place] [address] 05/26/2025 15:13:00 05/26/2025 15:50:28 Overweight 642335925 E66.3 Osteopenia 672848254 M85 .80 Postmenopa usal osteoporosis 233351330 M81.0 2201 Restless l egs syndrome 95290718 G25.81 001894 Skin ulcer 84284657 L98. 535 6802224 Overweight in adulthood with body mass index of 25 or more but less than 30 598666796 Z68.29 01930228 [id number] Roberto Rojas MD [address] [place] [address] 06/10/2025 12:29:09 06/10/2025 13:25:37 Overweight 455766243 E66.3 Restless l egs syndrome 18769279 G25.81 271397 [id number] Roberto Rojas MD [address] [place] [address] 06/24/2025 09:09:02 06/24/2025 09:50:04 Overweight 559691281 E66.3 Pain in bi lateral legs 2050025483 6010202 M79.604 M79.605 514507 Overweight in adulthood with body mass index of 25 or more but less than 30 665841267 Z68.29 75277975 [id number] Roberto Rojas MD [address] [place] [address] 07/01/2025 09:44:07 07/01/2025 10:29:16 Pharyngitis 043542768 J02.9 Overweight 829438668 E66 .3 Viral scre ening status 576439284 Z11.59 401347 Acute COVID-19 883338615 8 U07.2 4283864753 Influenza caused by Influenza B virus 66118272 J10.1 711039 Overweight in adulthood with body mass index of 25 or more but less than 30 442323476 Z68.29 77602157 [id number] Cas March APRN [facility] [address] [place] [address] 07/22/2025 08:02:25 07/22/2025 09:18:41 Active immunization 50683826 Z23 5752285 Puncture w ound of left foot 7368552951 9939146 S91.332A 7373321 New ProblemAcu teNo evidence of radiopaque foreign body on imageManag ement: 5-day course of Levofloxac inFollow up as needed [id number] Roberto Rojas MD [address] [place] [address] 08/06/2025 15:51:34 08/06/2025 16:28:28 Overweight 443061830 E66.3 Fatigue 31256088 R53.83 4072656 Coronary arteriosclerosis 72965693 I25.10 External hemorrhoids 239 74690 K64.4 86407 Body mass index 30+ - obesity 968353219 Z68.30 4522705885 Health Concerns Section Related Observation LastModified by Organization Detai ls LastModified Time None Recorded Concern Status LastModified by Organization Details LastModified Time None Recorded Advance Directives Directive Y: Payers Insurance Date Sequence Insurance Name Policy Number Policy Fernandez Covered Member ID Fernandez Member ID Guarantor Name 08/06/2025 [employer] [place] - [place] [facility] (MEDICARE) Sheryl Vazquez [id number] Sheryl Vazquez 05/04/2024 1 [place] Sheryl Vazquez [id number] Sheryl Vazquez 05/04/2024 2 [employer] Sheryl Vazquez [id number] Sheryl Vazquez 12/02/2024 1 [employer] (MEDICARE REPLACEMENT/A DVANTAGE - PPO) Sheryl Vazquez [id number] Sheryl Vazquez 09/01/2025 1 [facility] (MEDICARE REPLACEMENT/A DVANTAGE - HMO) [id number] Sheryl Vazquez [id number] Sheryl Vazquez 05/04/2024 2 [employer] (MEDICARE SUPPLEMENT) Sheryl Vazquez 05/04/2024 2 [place] Sheryl Vazquez [id number] Sheryl Vazquez Notes Date Note Type Note Provider Name and Address Organization Details Recorded Time 06/10/2025 text/html Here to discuss bone dex. T score hips -2.3, worse than 4 years ago. Also ins denied pramipexol for RLS. Roberto Rojas MD [address], [place], [address], [facility] 06/10/2025 13:27:37 06/24/2025 text/html Still c/O bilat lower leg cramps day and night. Ropinolol did not help much. Roberto Rojas MD [address], [place], [address], [facility] 06/24/2025 09:49:03 07/01/2025 text/html C/O 4 day history fever, chills, aches, cough, clear sputum and nasal drainage. 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 Worried blood count low. C/O SOB and weakness. Roberto Rojas MD [address], [place], [address], [facility] 08/06/2025 16:31:26 OBGyn Episode No OBEpisode recorded.
--- OUTSIDE RECORDS SUMMARY | 2025-09-09 09:23 | XMS_ITS | Continuity of Care Document ---
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 Plan of Treatment Reminders Order Date Submit Date Provider Last Modified By Organization Details Last Modified Time Details Appointments Establish ed Patient 20 2024 02:50P M Roberto Robles MD Not available Not available Not available Lab None recorded. Referral None recorded. Procedures None recorded. Surgeries None recorded. Imaging XR, foot, 3 or more view [address] [facility], [address], [place], [address], 07/23/2025 14:58:19 Medication Orders levofloxa nicole 750 mg tablet 2024 025 [facility], [address] [place] [address], [address], 08/03/2025 05:02:05 Patient TargetsNo targets recorded. Patient Instructions Encounter Date Encounter Id Patient Instructions Last Modified By Organization Details Last Modified Time 07/22/2025 [id number] puncture wounds: care instructions [email or web address] Not available 07/22/2025 09:20:22 Levofloxacin Ora l [...] You do not get better as expected. [email or web address] Not available 07/22/2025 09:16:18 Discussed plan o f care with the patient. Answered all of patient's questions. Patient agreeable to plan of care. Advised patient to take medications as prescribed. Discussed possible side effects of new medication with patient. Patient verbalized understanding. [email or web address] Not available 07/22/2025 09:20:30 Reason for Referral None Reported. Results Created Date Observation Date Name Description Value Unit Range Abnormal Flag Note LastModifiedBy Organization Detail LastModifiedTime 07/01/2007/01/2025 rapid SARS CoV + SARS CoV 2 Ag, QL IA, respi rator y speci men SARS CoV antigen Positi ve Not Available [address] , [place], [address], 07/01/2025 10:05:49 07/01/2007/01/2025 rapid strep group A, throa t Strep negati ve Not Available [address] , [place], [address], 07/01/2025 10:02:03 07/01/2007/01/2025 rapid strep group A, throa t Culture No Not Available [address] , [place], [address], 07/01/2025 10:02:03 07/01/20 25 07/01/2025 rapid flu (A+B) Flu positi ve Not Available [address] , [place], [address], 07/01/2025 10:06:22 07/01/20 25 07/01/2025 rapid flu (A+B) Type B Not Available [address] , [place], [address], 07/01/2025 10:06:22 06/25/20 25 XR, tibia + fibul a, 2 view No observ ation record ed. [address] Esl Instructional Assistant [address] [place] [address] , [place], [address], 06/25/2025 09:51:56 06/25/20 25 XR, tibia + fibul a, 2 view No observ ation record ed. [address] Esl Instructional Assistant [address] [place] [address] , [place], [address], 06/25/2025 09:51:56 07/23/20 25 XR, foot, 3 or more view No observ ation record ed. [facility] [address], [place], [address], 07/30/2025 12:55:40 08/13/20 25 08/13/2025 CT, angio gram, chest , w/ contr ast No observ ation record ed. [facility] [address], [place], [address], 08/13/2025 12:55:00 08/24/20 25 08/24/2025 US, duple x, carot id arter y No observ ation record ed. [facility] [address], [place], [address], 08/25/2025 10:21:50 08/30/20 25 08/24/2025 trans -thor acic echoc ardio gram (TTE) (PROC ) No observ ation record ed. [email or web address] [address], [place], [address], 08/31/2025 10:16:01 Result Notes None recorded. 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 Active 02/03/13 Eusebia Alexander MD [address], [place], [address], [place] - [facility] 10:31:10 Cardiac pacemake r in situ 443157341 Active Eusebia Alexander MD [address], [place], [address], [place] [facility] 10:31:11 Hyperlip idemia 25291169 Active Eusebia Alexander MD [address], [place], [address], [place] [facility] 2 10:31:11 Hyperten sive disorder 45592900 Active Eusebia Alexander MD [address], [place], [address], [place] [facility] 2 10:31:11 Sciatica 26613209 Active Eusebia Alexander MD [address], [place], [address], [place] [facility] 10:31:10 Atrial fibrilla tion 46598527 Active Eusebia Alexander MD [address], [place], [address], [place] [facility] 10:31:11 Carotid artery stenosis 34574077 Active Eusebia Alexander MD [address], [place], [address], [place] [facility] 2 10:31:11 Coronary arterios clerosis 15066171 Active Esuebia Alexander MD [address], [place], [address], [place] [facility] 2 10:31:11 Gastroes ophageal reflux disease 483837427 Active Eusebia Alexander MD [address], [place], [address], [place] [facility] 2 10:31:10 Actinic keratosi s 975040174 Active Skyla Love null, [place] - [facility] 3 09:05:50 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 ER/RI/he r2 negative , nodes negative . s/p lumpecto my, radiatio n and adjuvant CMF Eusebia Alexander MD [address], [place], [address], [place] [facility] 10:31:11 Herpes zoster 5416303 Active 2015 Eusebia Alexander MD [address], [place], [address], [place] [facility] 10:31:11 Hernia of anterior abdomina l wall 533816676 Active 2019 Eusebia Alexander MD [address], [place], [address], [place] [facility] 10:31:11 Painless rectal bleeding 714080923 Active 2019 Eusebia Alexander MD [address], [place], [address], [place] [facility] 2 10:31:11 Overacti ve urinary bladder 791910235 Active 2019 Eusebia Alexander MD [address], [place], [address], [place] [facility] 10:31:11 Mixed urinary incontin ence 582844678 Active 2019 Eusebia Alexander MD [address], [place], [address], [place] [facility] 10:31:11 Cystocel e 955562573 Active 2019 Eusebia Alexander MD [address], [place], [address], [place] [facility] 10:31:11 Posterio r vaginal wall prolapse 477524438 Active 2019 Eusebia Alexander MD [address], [place], [address], [place] [facility] 10:31:10 Exposure to SARS-CoV -2 Active 2019 Eusebia Alexander MD [address], [place], [address], [place] [facility] 10:31:11 Vaccine declined by patient 38301951917 2 Active 2020 Eusebia Alexander MD [address], [place], [address], [place] [facility] 10:31:11 History of adenomat ous polyp of colon 733913759 Active 2020 Eusebia Alexander MD [address], [place], [address], [place] [facility] 10:31:11 History of total hysterec filemon 439817195 Active 2020 Eusebia Alexander MD [address], [place], [address], [place] [facility] 10:31:11 Osteopen ia 924854651 Active 202005/31/21S till in osteopen ia reading, stable at LS and R FN but signific antly decrease d in LFN. Current fracture risk score at 3.6% enough to advise for treatmen t. Given prior history of breast cancer would advise E Follansbee as top recommen dation. 60 mg #30 refill 11. Recheck 2 years. 06/13/21 pt declined rx. Eusebia Alexander MD [address], [place], [address], [place] [facility] 10:31:11 Pain of right knee joint 68124356359 4100 Active 2021 Eusebia Alexander MD [address], [place], [address], [place] [facility] 10:31:11 Cobalami n deficien cy 482834101 Active 2023 JOSE Cabrales - [facility] 4 10:41:31 Acute sinusiti s 78379795 Completed 202307/22/2025 Cas March, [employer] [address], [place], [address], [place] - [facility] 5 09:17:09 Overwe ht 604347018 Active 2023 Heladio Prince, [employer] [address], [place], [address], [place] - [facility] 4 13:15:36 Iron deficien cy anemia 00648837 Active 2023 JOSE Cabrales - [facility] 4 09:27:44 Problem Notes None recorded. Procedures Surgical History Date Name Laterality Status Provider Name and Address Organization Details Recorded Time 025 hernia repair completed Cristina Hay [place] - [facility] 05/26/2025 15:35:00 025 Advance Care Planning completed Cristina Jimenez [place] - [facility] 03/24/2025 09:26:24 025 Functional Status Assessed completed Cristina Jimenez [place] - [facility] 03/24/2025 09:26:24 024 Appendectomy completed Cristina Jimenez [facility] 07/17/2024 14:44:53 024 Advance Care Planning completed Cristina GARCIA [facility] 03/20/2024 09:42:23 024 Functional Status Assessed completed Cristina Hay [facility] 03/20/2024 09:42:23 023 Advance Care Planning completed Cristina GARCIA [facility] 03/21/2023 09:48:13 023 Functional Status Assessed completed Cristina GARCIA - [facility] 03/21/2023 09:48:13 023 Cryosurgery Dermatology completed Marissa Solorio, [employer] [address], [place], [address], [place] - [facility] 01/01/2023 09:39:15 022 Medication Reconcilliation completed Vielka Mcgregor [place] - [facility] 08/08/2022 08:28:58 022 Cryosurgery Dermatology completed Marissa Solorio, [employer] [address], [place], [address], [place] - [facility] 06/19/2022 12:08:59 022 Advance Care Planning completed Cristina Jimenez [place] - [facility] 03/29/2022 09:23:56 Functional Status Assessed completed Cristina Jimenez [place] - [facility] 03/29/2022 09:23:56 Date of Last Colonoscopy completed Liza Carlos [place] - [facility] 06/28/2022 16:34:56 021 Most Recent Bone Density completed Liza Carlos [place] - [facility] 06/13/2021 16:14:02 021 Date of Last Mammogram completed Liza GARCIA - [facility] 06/13/2021 16:13:43 021 Diastolic B/P less than 80 mm Hg completed Cristina Jimenez [place] - [facility] 12/22/2020 10:55:22 021 Systolic B/P 130-139 mm Hg completed Cristina GARCIA - [facility] 12/22/2020 10:55:18 020 Systolic B/P less than 130 mm Hg completed Cristina Jimenez [place] - [facility] 07/07/2020 17:00:29 020 Diastolic B/P less than 80 mm Hg completed Cristina Jimenez [place] - [facility] 07/07/2020 17:00:33 020 Fitting & Insertion of Pessary completed Makenna Boucher MD [address], [place], [address], [place] [facility] 03/07/2020 20:34:53 020 Fitting & Insertion of Pessary completed Makenna Boucher MD [address], [place], [address], [place] [facility] 03/04/2020 13:22:48 020 Pediatric Cath completed Makenna Boucher MD [address], [place], [address], [place] [facility] 12/17/2019 13:40:51 020 Diastolic B/P 80-89 mm Hg completed Aquiles Dutta [place] - [facility] 12/10/2019 08:39:12 020 Systolic B/P 130-139 mm Hg completed Aquiles Dutta [place] - [facility] 12/10/2019 08:39:05 019 Systolic B/P less than 130 mm Hg completed Cristina Jimenez [place] - [facility] 10/16/2019 09:38:43 019 Diastolic B/P less than 80 mm Hg completed Cristina Jimenez [facility] 10/16/2019 09:38:52 017 Punch Biopsy completed Roberto Robles MD [address], [place], [address], [facility] - [facility] 05/03/2017 16:17:18 017 Cardiac ablation completed Chrissy Martinez [place] - [facility] 04/23/2017 14:56:56 017 hemorrhoid operation completed Makenna Boucher MD [address], [place], [address], [facility] 01/22/2020 21:55:14 016 Colonoscopy completed Cristina Jimenez [place] - [facility] 11/14/2016 09:00:35 016 Pacemaker Placement completed Cristina Jimenez [employer] - [facility] 11/14/2016 08:59:24 012 Angioplasty completed [employer] - [facility] 10/22/2016 12:52:56 011 Date of Last Pap Smear completed [facility] 10/22/2016 12:50:08 001 Breast Lumpectomy completed [employer] - [facility] 10/22/2016 12:54:21 987 Hysterectomy, Total Abdominal completed [facility] - [facility] 10/22/2016 12:54:57 Cardiac Cath completed [facility] - [facility] 10/22/2016 12:53:06 Cardioversion electric ext completed [facility] - [facility] 10/22/2016 12:53:32 Dilation and curettage completed [facility] - [facility] 10/22/2016 12:53:42 Tubal Ligation completed [facility] - [facility] 10/22/2016 12:55:09 Imaging Results None recorded. Procedure Notes None recorded. Medical Equipment None Reported. Allergies Allergen ID Allergen Name Allergen Category Reaction Reaction Severity Criticality Documentation Date Start Date Code Code System Note Provider Name and Address Organization Details Recorded Time 03912 latex environme nt,medica tion Not available Not available Not available 08/10/20162009 33863 91 RxNorm Not Available Pending sale to [facility] 6 08:32:55 24420 Cipro medicatio n Not available Not available Not available 08/10/2016200856 3 RxNorm React ion: Tongu e sore; Not Available Pending sale to [facility] 6 08:32:55 27643 nickel environme nt,medica tion Not available Not available Not available 08/10/2016200916 29 RxNorm Not Available Pending sale to [facility] 6 08:33:10 41764 aspirin medicatio n rash Not available Not available 08/10/20162007 1191 RxNorm React ion: Rash; Comme nt: ASPIR IN; Not Available Pending sale to [facility] 6 09:15:36 32846 fluconazo le medicatio n hives Not available Not available 05/03/2017 4450 RxNorm Cristina lloyd, JOSE - [facility] 7 15:45:37 Medications Name Sig [...] Disconti nued on: 01/22/20 14 11:23AM; User: [email or web address];Est . Completi on: 10/29/20 12 Not Available [...] Disconti nued on: 12/30/19 09 12:48PM; User: [email or web address] Not Available Not Available Not Available diltiazem [...] Disconti nued on: 12/01/19 16 10:39AM; User: lois Not Available Not Available Not [...] on: 10/09/20 11;Indic ation: Allergic Rhinitis - (7079 00);Prin bry: 04/12/20 11 Not Available Not [...] bhargavi Influenz ae Sinusiti s - (08.4610 );Prin bry: 10/11/20 10 Not Available Not Available [...] on: 12/01/19 16 10:39AM; User: lois;Est . Jojo on: 11/13/19 16;Pharm acyVtony ied: 10/14/20 15 4:39PM Not Available Not Available Not Available Requip 2 mg tablet take 1 tablet (2 mg) by oral route 1-3 hours before bedtime for 30 days 01/13 completed Requip 2 mg oral tablet;P rescribe Status: Prescrib ed on: 09/27/20 14 1:10PM;D iscontin ued Status: Disconti nued on: 01/14/20 15 2:20PM;U ser: [email or web address] . Completi on: 12/26/19 15;Pharm acyVpiperf ied: [...] nued on: 10/11/20 10 1:16PM;U ser: clayton MooneyEstKylah Completmanasa on: 06/27/20 10;Print ed: 12/29/19 10 Not [...] Disconti nued on: 09/20/20 10 3:16PM;U ser: joek;Tianna t. Completi on: 06/20/20 10;Indic ation: Pruritus of Skin - (12.6989 00);Prin bry: 06/13/20 10 Not Available Not Available Not Available Levaquin 500 mg tablet take 1 tablet (500 mg) by oral route once daily for 10 days 01/15 completed Levaquin 500 mg oral tablet;R ecorded Status: Recorded on: 01/16/20 12 12:04PM; Disconti nued Status: Disconti nued on: 01/16/20 12 12:06PM; User: clayton MooneyEst. Ninoskai on: 02/05/20 12;Indic ation: Bronchit is, Acute [...] nued on: 01/18/20 09 5:31PM;U ser: clayton MooneyEstKylah Completi on: 01/20/20 09;Print ed: 12/30/19 09 Not Available Not Available Not Available azelastin e 137 mcg (0.1 %) nasal spray instill 1 SPRAY IN EACH NOSTRIL EVERY 6 HOURS NEEDED FOR ALLERGY symptoms 03/20 completed Not Available Not Available Not Available Nasonex 50 mcg/actua tion [place] 1 sniff bilat bid 01/13 completed Nasonex [...] Disconti nued on: 06/11/20 12 4:24PM;U ser: Roby Uribe on: 04/02/20 11 Not Available Not Available [...] Disconti nued on: 06/05/20 13 10:57AM; User: Roby Uribe on: 12/17/19 13 Not Available Not Available [...] Updated DateTime 5 152.4 cm 29.1 kg/m2 11240.6 6 g 16 /min 0 96.99 % 96.99 % 69 /min 98.1 [degF] 128/64 mm[Hg] Neelima Marisela [place] - [facility] 5 08:23:05 Social History Question Answer Notes LastModified by Organizat ion Details LastModified Time Tobacco Smoking Status Former Smoker Tri Augie lloyd [place] - [facility] 10/22/2016 13:07:06 Able [...] Or The Highest Degree You Have Received? [id number] Information not available 06/28/2021 Swimming/diving Yes Informati [...] anxious, or unable to sleep at night)? [id number] Information not available 06/28/2021 Do you have [...] Medical History Condition Response Atrial Fibrillation Y Acid Reflux (GERD) Y Breast Cancer Y Hyperlipidemia Y Heart Disease Y Hypertension [...] high-dose, quadrivalent, PF 1 completed Sakshi lloyd, [facility] 10/21/2024 10:44:09 Influenza, high-dose, quadrivalent, PF 2 [facility] 10/21/2024 10:44:09 COVID-19, mRNA, LNP-S, PF, 100 mcg/0.5mL dose or 50 mcg/0.25mL dose 1 [facility] 10/21/2024 10:44:10 Influenza, split virus, trivalent, PF 2 [facility] 10/21/2024 10:44:10 Td (adult), 2 Lf tetanus toxoid, preservative free, adsorbed 3 [facility] 10/21/2024 10:44:10 Influenza, high-dose, quadrivalent, PF 3 completed Not Available Pending sale to [facility] 08/06/2025 15:52:17 RSV, bivalent, protein subunit RSVpreF, diluent reconstituted, 0.5 mL, PF 3 completed Not Available [facility] 15:52:17 Influenza, high-dose, trivalent, PF 4 completed Not Available Pending sale to [facility] 08/06/2025 15:52:17 Tdap 2 [facility] 03/29/2022 10:21:04 Pneumococcal conjugate PCV 13 7 completed Not Available Pending sale to [facility] 11/21/2019 03:54:53 influenza, unspecified formulation 4 completed Not Available [facility] 12/05/2019 02:21:49 Pneumococcal conjugate PCV 13 8 completed Not Available [facility] 12/05/2019 02:21:49 influenza, unspecified formulation 2 [facility] 10/21/2024 10:44:10 influenza, unspecified formulation 3 completed Not Available Pending sale to [facility] 12/05/2019 02:21:49 pneumococcal polysaccharide PPV23 3 completed [...] mcg/0.25mL dose 1 completed Sakshi King null, [place] - [facility] 10/21/2024 10:44:09 COVID-19, mRNA, LNP-S, PF, 100 mcg/0.5mL dose or 50 mcg/0.25mL dose 1 completed Sakshi Marte null, [place] - [facility] 10/21/2024 10:44:10 zoster live 0 completed Lizaantonia Carlos null, [place] [facility] 04/18/2021 11:28:40 Td (adult) 3 completed Liza Kennedys null, [place] [facility] 04/18/2021 11:29:09 Pneumococcal conjugate PCV 13 7 completed Not Available Pending sale to [facility] 11/21/2019 03:54:22 influenza nasal, unspecified formulation 2 completed Zoya Mayers null, [place] - [facility] 08/29/2022 10:13:39 Influenza, high-dose, trivalent, PF 9 completed Not Available [facility] 11/21/2019 03:56:02 Past Encounters Encounter ID Performer Location Encounter Start Date Encounter Closed Date Diagnosis/Indication Diagnosis SNOMED-CT Code Diagnosis ICD10 Code Diagnosis IMO Codes Diagnosis Note [id number] Roberto Robles MD [address] [place] [address] 06/24/2025 09:09:02 06/24/2025 09:50:04 Overweight 718308475 E66.3 Pain in bi lateral legs 9545330575 2292158 M79.604 M79.605 193085 Overweight in adulthood with body mass index of 25 or more but less than 30 193268407 Z68.29 33868367 [id number] Roberto Robles MD [address] [place] [address] 07/01/2025 09:44:07 07/01/2025 10:29:16 Pharyngitis 921375173 J02.9 Overweight 331744199 E66 .3 Viral scre ening status 060062618 Z11.59 041422 Acute COVID-19 672375367 8 U07.9 4205844201 Influenza caused by Influenza B virus 54402008 J10.1 903717 Overweight in adulthood with body mass index of 25 or more but less than 30 107398106 Z68.29 [id number] Cas March APRN [facility] [address] [place] [address] 07/22/2025 08:02:25 07/22/2025 09:18:41 Active immunization 30003002 Z23 3683360 Puncture w ound of left foot 0192647110 4828204 S91.332A 7849860 New ProblemAcu teNo evidence of radiopaque foreign body on imageManag ement: 5-day course of Levofloxac inFollow up as needed Health Concerns Section Related Observation LastModified by Organization Detai ls LastModified Time None Recorded Concern Status LastModified by Organization Details LastModified Time None Recorded Payers Encounter Date Sequence Insurance Name Policy Number Policy Fernandez Covered Member ID Fernandez Member ID Guarantor Name 07/22/2025 1 [facility] (MEDICARE REPLACEMENT/A DVANTAGE - HMO) [id number] Sheryl Vazquez [id number] Sheryl George Notes Date Note Type Note Provider Name [...] carotid artery disease, CAD, HTN Cas March, [employer] [address], [place], [address], [facility] - [facility] 07/22/2025 09:21:27 OBGyn Episode No OBEpisode recorded.
--- OUTSIDE RECORDS SUMMARY | 2025-09-09 09:23 | XMS_ITS | Continuity of Care Document ---
Author Organization [facility] Address [address] [place] [address] Care Team Providers Care Mathematics Teacher Name Role Phone PIA SIMS Manager Vehicle Unavailable ABILIO RAYMOND License Examiner Assessment No assessment recorded. Plan of Treatment Reminders Order Date Submit Date Provider Last Modified By Organization Details Last Modified Time Details Appointments Establish ed Patient 20 2024 02:50P M Roberto Robles MD Not available Not available Not available Lab lipid panel, serum 2024 025 [facility], [address] [place] [address], [id number], 08/07/2025 08:19:10 cobalamin and folate panel, serum 2024 025 [facility], [address] [place] [address], [id number], 08/07/2025 08:19:11 TSH + free T4, serum 2024 025 [facility], [address] [place] [address], [id number], 08/07/2025 08:19:09 magnesium , serum or plasma 2024 025 [facility], [address] [place] [address], [id number], 08/07/2025 08:19:12 vitamin D, 25-hydrox y, total, serum 2024 [facility], [address] [facility], [place], [address], 08/07/2025 08:19:11 CBC w/ auto diff 2024 [facility], [address] [facility], [place], [address], 08/07/2025 08:19:09 iron + total iron-bind ing capacity (TIBC), serum 2024 [facility], [address] [facility], [place], [address], 08/07/2025 08:19:10 Referral None recorded. Procedures None recorded. Surgeries None recorded. Imaging None recorded. Medication Orders Anusol-HC 2.5 % topical cream with perineal applicato r 2024 [facility], [address] [place] [address], [address], 08/06/2025 16:30:53 Patient TargetsNo targets recorded. Patient Instructions Encounter Date Encounter Id Patient Instructions Last Modified By Organization Details Last Modified Time 08/06/2025 [id number] hemorrhoids: car e instructions tgrosser Not available [...] 4.500 normal Not Available [facility] ([facility]) [address] [facility], [place], [address], 08/07/2025 08:19:08/06/2008/07/2025 TSH+F REE T4 T4,free(dire ct) 1.16 NG/dL 0.82-1 .77 normal Not Available [facility] ([facility]) [address] [place], [address], 08/07/2025 08:19:09 08/06/2008/07/2025 CBC WITH DIFFE RENTI AL/PL ATELE T WBC 9.4 x10e3 /uL 3.4-10 .8 normal Not Available [facility] ([facility]) [address] [place], [address], 08/07/2025 08:19:09 08/06/2008/07/2025 CBC WITH DIFFE RENTI AL/PL ATELE T RBC 3.32 x10e6 /uL 3.77-5 .28 below low normal Not Available [facility] ([facility]) [address] [facility], [place], [address], 08/07/2025 08:19:09 08/06/2008/07/2025 CBC WITH DIFFE RENTI AL/PL ATELE T hemoglobin 8.7 g/dL 11.1-1 5.9 below low normal Not Available [facility] ([facility]) [address] [place], [address], 08/07/2025 08:19:09 08/06/2008/07/2025 CBC WITH DIFFE RENTI AL/PL ATELE T hematocrit 28.9 % 34.0-4 6.6 below low normal Not Available [facility] ([facility]) [address] [place], [address], 08/07/2025 08:19:09 08/06/2008/07/2025 CBC WITH DIFFE RENTI AL/PL ATELE T MCV 87 fL 79-97 normal Not Available [facility] ([facility]) [address] [place], [address], 08/07/2025 08:19:09 08/06/2008/07/2025 CBC WITH DIFFE RENTI AL/PL ATELE T MCH 26.2 pg 26.6-3 3.0 below low normal Not Available [facility] ([facility]) [address] [facility], [place], [address], 08/07/2025 08:19:09 08/06/2008/07/2025 CBC WITH DIFFE RENTI AL/PL ATELE T MCHC 30.1 g/dL 31.5-3 5.7 below low normal Not Available [facility] ([facility]) [address] [facility], [place], [address], 08/07/2025 08:19:09 08/06/2008/07/2025 CBC WITH DIFFE RENTI AL/PL ATELE T RDW 13.4 % 11.7-1 5.4 Not Available [facility] ([facility]) [address] [facility], [place], [address], 08/07/2025 08:19:09 08/06/2008/07/2025 CBC WITH DIFFE RENTI AL/PL ATELE T platelets 310 x10e3 /uL 150-45 0 normal Not Available [facility] ([facility]) [address] [facility], [place], [address], 08/07/2025 08:19:09 08/06/2008/07/2025 CBC WITH DIFFE RENTI AL/PL ATELE T neutrophils 63 % not estab. normal Not Available [facility] ([facility]) [address] [facility], [place], [address], 08/07/2025 08:19:09 08/06/2008/07/2025 CBC WITH DIFFE RENTI AL/PL ATELE T lymphs 23 % not estab. normal Not Available [facility] ([facility]) [address] [place], [address], 08/07/2025 08:19:09 08/06/2008/07/2025 CBC WITH DIFFE RENTI AL/PL ATELE T monocytes 11 % not estab. normal Not Available [facility] ([facility]) [address] [facility], [place], [address], 08/07/2025 08:19:09 08/06/2008/07/2025 CBC WITH DIFFE RENTI AL/PL ATELE T eos 2 % not estab. normal Not Available [facility] ([facility]) [address] [facility], [place], [address], 08/07/2025 08:19:09 08/06/2008/07/2025 CBC WITH DIFFE RENTI AL/PL ATELE T basos 1 % not estab. normal Not Available [facility] ([facility]) [address] [facility], [place], [address], 08/07/2025 08:19:09 08/06/2008/07/2025 CBC WITH DIFFE RENTI AL/PL ATELE T immature cells COLLECTOR Not Available [facility] ([facility]) [address] [facility], [place], [address], 08/07/2025 08:19:09 08/06/2008/07/2025 CBC WITH DIFFE RENTI AL/PL ATELE T neutrophils (absolute) 6.0 x10e3 /uL 1.4-7. 0 normal Not Available [facility] ([facility]) [address] [facility], [place], [address], 08/07/2025 08:19:09 08/06/2008/07/2025 CBC WITH DIFFE RENTI AL/PL ATELE T lymphs (absolute) 2.2 x10e3 /uL 0.7-3. 1 normal Not Available [facility] ([facility]) [address] [place], [address], 08/07/2025 08:19:09 08/06/2008/07/2025 CBC WITH DIFFE RENTI AL/PL ATELE T monocytes(ab solute) 1.0 x10e3 /uL 0.1-0. 9 above high normal Not Available [facility] ([facility]) [address] [facility], [place], [address], 08/07/2025 08:19:09 08/06/2008/07/2025 CBC WITH DIFFE RENTI AL/PL ATELE T eos (absolute) 0.2 x10e3 /uL 0.0-0. 4 normal Not Available [facility] ([facility]) [address] [facility], [place], [address], 08/07/2025 08:19:09 08/06/2008/07/2025 CBC WITH DIFFE RENTI AL/PL ATELE T baso (absolute) 0.1 x10e3 /uL 0.0-0. 2 normal Not Available [facility] ([facility]) [address] [facility], [place], [address], 08/07/2025 08:19:09 08/06/2008/07/2025 CBC WITH DIFFE RENTI AL/PL ATELE T immature granulocytes 0 % not estab. Not Available [facility] ([facility]) [address] [facility], [place], [address], 08/07/2025 08:19:09 08/06/2008/07/2025 CBC WITH DIFFE RENTI AL/PL ATELE T immature grans (abs) 0.0 x10e3 /uL 0.0-0. 1 Not Available [facility] ([facility]) [address] [facility], [place], [address], 08/07/2025 08:19:09 08/06/2008/07/2025 CBC WITH DIFFE RENTI AL/PL ATELE T NRBC COLLECTOR Not Available [facility] ([facility]) [address] [facility], [place], [address], 08/07/2025 08:19:09 08/06/2008/07/2025 CBC WITH DIFFE RENTI AL/PL ATELE T hematology comments: COLLECTOR Not Available [facility] ([facility]) [address] [facility], [place], [address], 08/07/2025 08:19:09 08/06/20 25 08/07/2025 LIPID PANEL cholesterol, total 109 mg/dL 100-19 9 normal Not Available [facility] ([facility]) [address] [facility], [place], [address], 08/07/2025 08:19:10 08/06/2008/07/2025 LIPID PANEL triglyceride s 87 mg/dL 0-149 normal Not Available [facility] ([facility]) [address] [facility], [place], [address], 08/07/2025 08:19:10 08/06/2008/07/2025 LIPID PANEL HDL cholesterol 47 mg/dL >39 normal Not Available [facility]) [address] [facility], [place], [address], 08/07/2025 08:19:10 08/06/2008/07/2025 LIPID PANEL VLDL cholesterol xiomara 17 mg/dL 5-40 Not Available [facility] ([facility]) [address] [facility], [place], [address], 08/07/2025 08:19:10 08/06/2008/07/2025 LIPID PANEL LDL chol calc ([facility]) 45 mg/dL 0-99 Not Available [facility]) [address] [facility], [place], [address], 08/07/2025 08:19:10 08/06/2008/07/2025 LIPID PANEL LDL calc comment: COLLECTOR Not Available [facility] ([facility]) [address] [facility], [place], [address], 08/07/2025 08:19:10 08/06/20 25 08/07/2025 IRON AND TIBC iron bind.cap.(TI BC) 429 ug/dL 250-45 0 normal Not Available [facility] ([facility]) [address] [facility], [place], [address], 08/07/2025 08:19:10 08/06/20 25 08/07/2025 IRON AND TIBC UIBC 412 ug/dL 118-36 9 above high normal Not Available [facility] ([facility]) [address] [facility], [place], [address], 08/07/2025 08:19:10 08/06/2008/07/2025 IRON AND TIBC iron 17 ug/dL 27-139 below low normal Not Available [facility] ([facility]) [address] [facility], [place], [address], 08/07/2025 08:19:10 08/06/2008/07/2025 IRON AND TIBC iron saturation 4 % 15-55 alert low Not Available [facility] ([facility]) [address] [facility], [place], [address], 08/07/2025 08:19:10 08/06/20 25 08/07/2025 VITAM IN B12 AND FOLAT E vitamin B12 686 pg/mL 232-12 45 normal Not Available [facility] ([facility]) [address] [facility], [place], [address], 08/07/2025 08:19:11 08/06/2008/07/2025 VITAM IN B12 AND FOLAT E folate (folic acid), serum 12.6 NG/mL >3.0 normal A serum folat e ronna ntrat ion of less than 3.1 ng/mL is consi dered to repre sent clini xiomara defic iency . Not Available [facility] ([facility]) [address] [facility], [place], [address], 08/07/2025 08:19:11 08/06/20 25 08/07/2025 VITAM IN [...] um and D. Nidia betancourt [place]: [facility] . 2. Medhat kelley MF, Janie motley [place], Prince off-F errar i SAINI, et al. Evalu ation , treat ment, and preve ntion of vitam in D defic iency : an Endoc rine Socie ty clini xiomara pract ice guide line. JCEM. 2010; 96(7) :1911 -30. Not Available [facility] ([facility]) [address] [facility], [place], [address], 08/07/2025 08:19:11 08/06/20 25 08/07/2025 MAGNE SIUM magnesium 1.8 mg/dL 1.6-2. 3 normal Not Available [facility] ([facility]) [address] [facility], [place], [address], 08/07/2025 08:19:12 07/23/20 25 XR, foot, 3 or more view No observ ation record ed. [facility] [address], [place], [address], 07/30/2025 12:55:40 08/13/20 25 08/13/2025 CT, angio gram, chest , w/ contr ast No observ ation record ed. [facility] [address], [place], [address], 08/13/2025 12:55:00 08/24/2008/24/2025 US, santy x, jcaamir id arter y No observ ation record ed. [facility] [address], [place], [address], 08/25/2025 10:21:50 08/30/2008/24/2025 trans -thor acic echoc ardio gram (TTE) (PROC ) No observ ation record ed. [facility] [address], [place], [address], 08/31/2025 10:16:01 Result Notes None recorded. Problems Name Problem SNOMED Code Status Onset Date Resolution Date Notes Provider Name and Address Organization Details Recorded Time Cerebrov ascular accident 605087349 Active 02/03/13 Eusebia Alexander MD [address], [place], [address], [place] - [facility] 2 10:31:10 Cardiac pacemake r in situ 578777298 Active Eusebia Alexander MD [address], [place], [address], [place] - [facility] 2 10:31:11 Hyperlip idemia 00710789 Active Eusebia Alexander MD [address], [place], [address], [place] [facility] 2 10:31:11 Hyperten sive disorder 14660694 Active Eusebia Alexander MD [address], [place], [address], [place] [facility] 2 10:31:11 Sciatica 06805052 Active Eusebia Alexander MD [address], [place], [address], [place] [facility] 2 10:31:10 Atrial fibrilla tion 87709944 Active Eusebia Alexander MD [address], [place], [address], [place] [facility] 2 10:31:11 Carotid artery stenosis 02465483 Active Eusebia Alexander MD [address], [place], [address], [place] [facility] 2 10:31:11 Coronary arterios clerosis 42875955 Active Eusebia Alexander MD [address], [place], [address], [place] [facility] 2 10:31:11 Gastroes ophageal reflux disease 813420359 Active Eusebia Alexander MD [address], [place], [address], [place] [facility] 2 10:31:10 Actinic keratosi s 202426474 Active Skyla lloyd, [place] - [facility] 3 09:05:50 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 ER/NC/he r2 negative , nodes negative . s/p lumpecto my, radiatio n and adjuvant CMF Eusebia Alexander MD [address], [place], [address], [place] [facility] 2 10:31:11 Herpes zoster 7887676 Active 2015 Eusebia Alexander MD [address], [place], [address], [place] [facility] 2 10:31:11 Hernia of anterior abdomina l wall 984860241 Active 2019 Eusebia Alexander MD [address], [place], [address], [place] [facility] 2 10:31:11 Painless rectal bleeding 118970338 Active 2019 Eusebia Alexander MD [address], [place], [address], [place] [facility] 2 10:31:11 Overacti ve urinary bladder 146592585 Active 2019 Eusebia Alexander MD [address], [place], [address], [place] [facility] 2 10:31:11 Mixed urinary incontin ence 020668428 Active 2019 Eusebia Alexander MD [address], [place], [address], [place] [facility] 2 10:31:11 Cystocel e 817768249 Active 2019 Eusebia Alexander MD [address], [place], [address], [place] [facility] 2 10:31:11 Posterio r vaginal wall prolapse 430599556 Active 2019 Eusebia Alexander MD [address], [place], [address], [place] [facility] 2 10:31:10 Exposure to SARS-CoV -2 Active 2019 Eusebia Alexander MD [address], [place], [address], [place] [facility] 2 10:31:11 Vaccine declined by patient 44158819301 2 Active 2020 Eusebia Alexander MD [address], [place], [address], [place] [facility] 2 10:31:11 History of adenomat ous polyp of colon 241868214 Active 2020 Eusebia Alexander MD [address], [place], [address], [place] [facility] 2 10:31:11 History of total hysterec filemon 511745031 Active 2020 Eusebia Alexander MD [address], [place], [address], [place] [facility] 2 10:31:11 Osteopen ia 625256685 Active 202005/31/21S till in osteopen ia reading, stable at LS and R FN but signific antly decrease d in LFN. Current fracture risk score at 3.6% enough to advise for treatmen t. Given prior history of breast cancer would advise E Whitewood as top recommen dation. 60 mg #30 refill 11. Recheck 2 years. 06/13/21 pt declined rx. Eusebia Alexander MD [address], [place], [address], [place] [facility] 2 10:31:11 Pain of right knee joint 13022821036 4100 Active 2021 Eusebia Alexander MD [address], [place], [address], [place] [facility] 2 10:31:11 Cobalami n deficien cy 312835960 Active 2023 [place] - [facility] 4 10:41:31 Acute sinusiti s 53525466 Completed 202307/22/2025 Cas March, SOCIOLOGY TEACHER [address], [place], [address], [facility] - [facility] 5 09:17:09 Overweig ht 372078168 Active 2023 Heladio Prince, SOCIOLOGY TEACHER [address], [place], [address], [facility] - [facility] 4 13:15:36 Iron deficien cy anemia 58365740 Active 2023 JOSE Cabrales - [facility] 4 09:27:44 Problem Notes None recorded. Procedures Surgical History Date Name Laterality Status Provider Name and Address Organization Details Recorded Time 025 hernia repair completed Cristina Hay [facility] 05/26/2025 15:35:00 025 Advance Care Planning completed Cristinalydia GARCIA [facility] 03/24/2025 09:26:24 025 Functional Status Assessed completed Cristinalydia GARCIA [facility] 03/24/2025 09:26:24 024 Appendectomy completed Cristina GARCIA [facility] 07/17/2024 14:44:53 024 Advance Care Planning completed Cristinalydia GARCIA [facility] 03/20/2024 09:42:23 024 Functional Status Assessed completed Cristinalydia GARCIA [facility] 03/20/2024 09:42:23 023 Advance Care Planning completed Cristinalydia GARCIA [facility] 03/21/2023 09:48:13 023 Functional Status Assessed completed Cristina Tony GARCIA [facility] 03/21/2023 09:48:13 023 Cryosurgery Dermatology completed Marissa Solorio APRN [address], [place], [address], [place] - [facility] 01/01/2023 09:39:15 022 Medication Reconcilliation completed Vielka Mcgregor [place] - [facility] 08/08/2022 08:28:58 022 Cryosurgery Dermatology completed Marissa Solorio APRN [address], [place], [address], [place] - [facility] 06/19/2022 12:08:59 022 Advance Care Planning completed Cristina Jimenez [place] - [facility] 03/29/2022 09:23:56 022 Functional Status Assessed completed Cristina Jimenez [place] - [facility] 03/29/2022 09:23:56 022 Date of Last Colonoscopy completed Liza Carlos [place] - [facility] 06/28/2022 16:34:56 021 Most Recent Bone Density completed Liza Breanna [place] - [facility] 06/13/2021 16:14:02 021 Date of Last Mammogram completed Liza Andrus [place] - [facility] 06/13/2021 16:13:43 021 Diastolic B/P less than 80 mm Hg completed Cristina Hay [place] - [facility] 12/22/2020 10:55:22 021 Systolic B/P 130-139 mm Hg completed Cristina Hay [facility] 12/22/2020 10:55:18 020 Systolic B/P less than 130 mm Hg completed Cristina Hay [place] - [facility] 07/07/2020 17:00:29 020 Diastolic B/P less than 80 mm Hg completed Cristina [facility] - [facility] 07/07/2020 17:00:33 020 Fitting & Insertion of Pessary completed Makenna Boucher MD [address], [place], [address], [place] [facility] 03/07/2020 20:34:53 020 Fitting & Insertion of Pessary completed Makenna Boucher MD [address], [place], [address], [place] [facility] 03/04/2020 13:22:48 020 Pediatric Cath completed Makenna Boucher MD [address], [place], [address], [place] [facility] 12/17/2019 13:40:51 020 Diastolic [...] completed Roberto Robles MD [address], [place], [address], [place] [facility] 05/03/2017 16:17:18 017 Cardiac ablation completed Chrissy Martinez [place] - [facility] 04/23/2017 14:56:56 017 hemorrhoid operation completed Makenna Boucher MD [address], [place], [address], [facility] - [facility] 01/22/2020 21:55:14 016 Colonoscopy completed [...] [facility] 10/22/2016 12:53:06 [facility]version electric ext [facility] [place] [facility] 10/22/2016 12:53:32 Dilation and curettage completed Tri Augie [place] - [facility] 10/22/2016 12:53:42 Tubal Ligation completed [facility] [place] [facility] 10/22/2016 12:55:09 Imaging Results None recorded. Procedure Notes None recorded. Medical Equipment None Reported. Allergies Allergen ID Allergen Name Allergen Category Reaction Reaction Severity Criticality Documentation Date Start Date Code Code System Note Provider Name and Address Organization Details Recorded Time 94646 latex environme nt,medica tion Not available Not available Not available 08/10/20162009 00160 91 RxNorm Not Available [facility] 6 08:32:55 25959 Cipro medicatio n Not available Not available Not available 08/10/2016200856 3 RxNorm React ion: Tongu e sore; Not Available [facility] 6 08:32:55 82513 nickel environme nt,medica tion Not available Not available Not available 08/10/20162009 91737 29 RxNorm Not Available [facility] 6 08:33:10 03483 aspirin medicatio n rash Not available Not available 08/10/20162007 1191 RxNorm React ion: Rash; Comme nt: ASPIR IN; Not Available [facility] 6 09:15:36 50022 fluconazo le medicatio n hives Not available Not available 05/03/2017 4450 RxNorm JOSE Cabrales [facility] 7 15:45:37 Medications Name Sig Start [...] 10/09/20 11;Indic ation: Allergic Rhinitis - (4779 00);Prin bry: 04/12/20 11 Not Available Not [...] on: 12/01/19 16 10:39AM; User: trudiEst Kylah Urieb on: 11/13/19 16;Pharm acJuan Manuel ied: 10/14/20 15 4:39PM Not Available Not Available Not Available Requip 2 mg tablet take 1 tablet (2 mg) by oral route 1-3 hours before bedtime for 30 days 01/13 completed Requip 2 mg oral tablet;P rescribe Status: Prescrib ed on: 09/27/20 14 1:10PM;D iscontin ued Status: Disconti nued on: 01/14/20 15 2:20PM;U ser: trudiEst Kylah Completmanasa on: 12/26/19 15;Pharm acyVtony ied: 09/27/20 14 1:10PM Not Available Not [...] nued on: 10/11/20 10 1:16PM;U ser: clayton Uribe on: 06/27/20 10;Print ed: 12/29/19 10 [...] Disconti nued on: 01/18/20 09 5:31PM;U ser: grossert ;Est. Completi on: 01/20/20 09;Print ed: 12/30/19 09 Not Available Not Available Not Available azelastin e 137 mcg (0.1 %) nasal spray instill 1 SPRAY IN EACH NOSTRIL EVERY 6 HOURS NEEDED FOR ALLERGY symptoms 03/20 completed Not Available Not Available Not Available Nasonex 50 mcg/actua tion [place] 1 sniff bilat bid 01/13 completed Nasonex [...] 2:00PM;U ser: haym;Ind ication: Hyperten cris - (074019 00) Not Available Not Available [...] 13 10:57AM; User: clayton ;Est. Completi on: 10/14/20 12;Print ed: 04/17/20 12 [...] Disconti nued on: 11/24/19 09 11:19AM; User: [email or web address] perez Completi on: 12/17/19 09;Indic ation: PAIN - ([phone]);Prin bry: 11/05/19 Not Available Not Available Not [...] Disconti nued on: 08/26/20 08 10:43AM; User: [email or web address] Not Available Not Available Not Available Crestor [...] Shingrix (PF) 50 mcg/0.5 mL intramusc ular sydnie woods kit 12/16 completed Not Available Not Available [...] Updated DateTime 5 152.4 cm 30.5 kg/m2 59053.4 1 g 98 [degF] 64 /min 90 % 90 % 24 /min 10 120/72 mm[Hg] Cristina Jim[place] - [facility] 5 16:00:57 Social History Question Answer Notes LastModified by Adar ITizat ion Details LastModified Time Tobacco Smoking Status [...] Or The Highest Degree You Have Received? OH19912-2 Information not available 06/28/2021 Swimming/diving Yes Informati [...] anxious, or unable to sleep at night)? [id number] Information not available 06/28/2021 Do you have [...] quadrivalent, PF 1 completed Sakshi Marte null, [facility] 10/21/2024 10:44:09 Influenza, high-dose, quadrivalent, PF 2 completed Sakshi Marte [facility] 10/21/2024 10:44:09 COVID-19, mRNA, LNP-S, PF, 100 mcg/0.5mL dose or 50 mcg/0.25mL dose 1 completed Sakshi Marte [facility] 10/21/2024 10:44:10 Influenza, split virus, trivalent, PF 2 completed Sakshi Marte [facility] 10/21/2024 10:44:10 Td (adult), 2 Lf tetanus toxoid, preservative free, adsorbed 3 completed Sakshi Marte [facility] 10/21/2024 10:44:10 Influenza, high-dose, quadrivalent, PF 3 completed Not Available [facility] 08/06/2025 15:52:17 RSV, bivalent, protein subunit RSVpreF, diluent reconstituted, 0.5 mL, PF 3 completed Not Available [facility] 08/06/2025 15:52:17 Influenza, high-dose, trivalent, PF 4 completed Not Available [facility] 08/06/2025 15:52:17 Tdap 2 completed Cristina Jimenez [facility] 03/29/2022 10:21:04 Pneumococcal conjugate PCV 13 7 completed Not Available [facility] 11/21/2019 03:54:53 influenza, unspecified formulation 4 completed Not Available [facility] 12/05/2019 02:21:49 Pneumococcal conjugate PCV 13 8 completed Not Available [facility] 12/05/2019 02:21:49 influenza, unspecified formulation 2 completed Sakshi Marte null, [place] - [facility] 10/21/2024 10:44:10 influenza, unspecified formulation 3 completed Not Available [facility] 12/05/2019 02:21:49 pneumococcal polysaccharide PPV23 [...] 10/21/2024 10:44:10 zoster live 0 completed Liza Kennedys null, [place] - [facility] 04/18/2021 11:28:40 Td (adult) 3 completed Liza Breanna null, [place] - [facility] 04/18/2021 11:29:09 Pneumococcal conjugate PCV 13 7 completed Not Available [facility] 11/21/2019 03:54:22 influenza nasal, unspecified formulation 2 completed Zoya Riana null, [place] - [facility] 08/29/2022 10:13:39 Influenza, high-dose, trivalent, PF 9 completed Not Available [facility] 11/21/2019 03:56:02 Past Encounters Encounter ID Performer Location Encounter Start Date Encounter Closed Date Diagnosis/Indication Diagnosis SNOMED-CT Code Diagnosis ICD10 Code Diagnosis IMO Codes Diagnosis Note [id number] Cas March APRN [facility] [address] [place] [address] 07/22/2025 08:02:25 07/22/2025 09:18:41 Active immunization 59858943 Z23 1351014 Puncture w ound of left foot 5241386341 7129859 S91.332A 1807672 New ProblemAcu teNo evidence of radiopaque foreign body on imageManag ement: 5-day course of Levofloxac inFollow up as needed [id number] Roberto Robles MD [address] [place] [address] 08/06/2025 15:51:34 08/06/2025 16:28:28 Overweight 937816855 E66.3 Fatigue 43101350 R53.83 0912731 Coronary arteriosclerosis 61559791 I25.10 External hemorrhoids 239 57588 K64.4 12933 Body mass index 30+ - obesity 949881176 Z68.30 [id number] Health Concerns Section Related Observation LastModified by Organization Detai ls LastModified Time None Recorded Concern Status LastModified by Organization Details LastModified Time None Recorded Payers Encounter Date Sequence Insurance Name Policy Number Policy Fernandez Covered Member ID Fernandez Member ID Guarantor Name 08/06/2025 1 [facility] (MEDICARE REPLACEMENT/A DVANTAGE - HMO) [id number] Sheryl Vazquez [id number] Sheryl Vazquez Notes Date Note Type Note Provider Name and Address Organization Details Recorded Time 08/06/2025 text/html C/O bleeding hemorrhoids and thinks lost lot blood. Worried blood count low. C/O SOB and weakness. Roberto Robles MD [address], [place], [address], [facility] - [facility] 08/06/2025 16:31:26 OBGyn Episode No OBEpisode recorded.
--- OUTSIDE RECORDS SUMMARY | 2025-09-09 09:23 | XMS_ITS | Clinical Summary ---
Author Organization Healthcare Address [address] [place] [address] Care Team Providers Care Program Scheduler Name Role Phone Bin Cade MD Primary Care Provider [phone]- [phone] Family History Medical History Relation Name Comments [...] UKY-Zoster Vaccines (2 of 3) 01/13/2010 11/18/2009 [id number] Vaccine ( season) 2025 09/11/2021, 01/05/2021, 12/08/2020 [...] patient's age to complete [place] [address] Care Teams Program Scheduler Relationship Specialty Start Date End Date Bin Cade MD [address] [place] [address] PCP - General 03/17/21
--- OUTSIDE RECORDS SUMMARY | 2025-09-09 09:23 | XMS_ITS | Continuity of Care Document ---
Author Organization [facility] Address [address] [place] [address] Care Team Providers Care Hazardous Materials Waste Technician Name Role Phone RAFA JIMENEZ Primary Care Provider [phone] RAFA JIMENEZ Primary Care Provider Assessment No [...] Hold 2024 [id number] DERIK [place] (Outpatient Surgery), [address] , [place], [address], 09/09/2025 04:11:00 Surgeries None recorded. Imaging None recorded. Medication Orders Suflave 178.7 gram-7.3 gram-0.5 gram oral solution [id number] [facility], [address] [place] [address], [place], [address], 08/27/2025 08:53:13 Patient TargetsNo targets recorded. Patient InstructionsNo instructions recorded. Reason for Referral None Reported. Problems Name Problem SNOMED Code Status Onset Date Resolution Date Notes Provider Name and Address Organization Details Recorded Time Myocardial infarction 17647834 Active Yoselin lloyd, JOSE - [facility] - [place] & [place] 4 13:30:01 Atrial fibrillatio n 12565676 Active Yoselin lloyd, JOSE Rodriguez [facility] - [place] & [place] 4 13:30:01 History of cardiac catheteriza tion 6127401234780 0 Active Yoselin lloyd, JOSE Rodriguez [facility] - [place] & [place] 4 13:30:01 Gastrointes tinal hemorrhage 05070991 Active Yoselin lloyd, JOSE Rodriguez [facility] - [place] & [place] 4 13:30:01 Notes:Some problems listed i n Document: #[id number] could not be added to this patient's chart. Please review this document and add these problems to the patient's chart manually as needed. Problem Notes None recorded. Procedures Surgical History Date Name Laterality Status Provider Name and Address Organization Details Recorded Time 2023 Appendectomy completed Yoselin Rodriguez [facility] & [place] 4 13:39:41 lumpectomy of breast completed Kari Rodriguez LPNT [facility] & [place] 4 13:40:28 colonoscopy completed Yoselin Rodriguez LPNT [facility] & [place] 4 13:40:38 esophagogastroduodenoscopy completed Yoselin Rodriguez [facility] - [place] & [place] 4 13:40:51 coronary artery bypa ss graft completed Yoselin Rodriguez LPNT [facility] & [place] 4 13:41:05 Coronary Artery Stent completed Julio Rodriguez [facility] - [place] & [place] 4 13:41:39 cardiac pacemaker procedure complete d Yoselin Rodriguez [facility] - [place] & [place] 4 13:41:50 hysterectomy completed Yoselin [facility] & [place] 4 13:42:06 Imaging Results None recorded. Procedure Notes None recorded. Medical Equipment None Reported. Allergies Allergen ID Allergen Name Allergen Category Reaction Reaction Severity Criticality Documentation Date Start Date Code Code System Note Provider Name and Address Organization Details Recorded Time 883967 Rubber (substanc e) medicatio n rash severe Not available 06/11/20242017 15853 003 SNOMED JOSE Yost [facility] & [place] 4 13:29:29 926707 aspirin medicatio n rash mild Not available 06/11/20242023 1191 RxNorm JOSE Yost [facility] & [place] 4 13:29:29 567631 ciproflox acin medicatio n Not available Not available Not available 06/11/20242013 2551 RxNorm JOSE Yost [facility] & [place] 4 13:29:29 897897 fluconazo le medicatio n hives mild Not available 06/11/20242017 4450 RxNorm JOSE Yost [facility] & [place] 4 13:29:29 219942 nickel environme nt hives severe Not available 06/11/20242013 56751 29 RxNorm JOSE Yost [facility] & [place] 4 13:29:29 221113 latex environme nt,medica tion rash severe Not available 06/11/20242012 38943 91 RxNorm JOSE Yost [facility] & [place] 4 13:29:29 Medications Name Sig Start Date [...] and Address Organization Details Last Updated DateTime 152.4 cm 29.7 kg/m2 23445.0 4 g 97.6 [degF] 98 % 98 % 76 /min 16 /min 138/58 mm[Hg] Yoselin Baldo GARCIA [facility] & [place] 08:23:40 Social History Question Answer Notes LastModified by [employer] Details LastModified Time Tobacco Smoking Status Former Smoker Yoselin Baldo [facility] & [place] 06/11/2024 13:37:33 What Is Your Level Of Caffeine Consumption? Moderate [email or web address] Information not available 06/11/2024 What Type Of Diet Are You Following? REGULAR Information not available 06/11/2024 When Did You Quit Smoking? 14+yearsscot henderson 1989 [email or web address] Information not available 08/27/2025 Sex: Unknown Functional Status Question Answer Note LastModified by [employer] Details LastModified Time Do you use any illicit or recreational drugs? No [email or web address] Information not available 06/11/2024 Do you or have you ever used any other forms of tobacco or nicotine? No [email or web address] Information not available 06/11/2024 What is your level of alcohol consumption? None Information not available 06/11/2024 What is your exercise level? Occasional [id number] Information not available 06/11/2024 Mental Status None recorded. Family History Nothing Reported. Medical History Condition Response Coronary Artery Disease Y Gout N Colon Cancer N Kidney Stones N Depression N COPD Y Hypothyroidism N Osteoporosis/Osteopenia N Diverticulitis/Diverticulosis N Colon Polyps Y Diabetes N Anxiety Disorder N Bleeding Disorder N Vision or Eye [...] ICD10 Code Diagnosis IMO Codes Diagnosis Note [id number] GERALD GOLDSTEIN NP [facility] [address] [place] [address] 08/27/2025 08:05:46 08/27/2025 08:59:28 Rectal hemorrhage 90888991 K62.5 33027 clinically significan t rectal bleeding, every time [...] tions. She requests Dr. Hui. Blood-tinged feces 70321 58595 87545 K92.1 7670 Iron defic iency anemia 34871778 D50.9 00978397 Health Concerns Section Related Observation LastModified by Organization Detai ls LastModified Time None Recorded Concern Status LastModified by Organization Details LastModified Time None Recorded Payers Encounter Date Sequence Insurance Name Policy Number Policy Fernandez Covered Member ID Fernandez Member ID Guarantor Name 08/27/2025 1 [facility] (MEDICARE REPLACEMENT/A DVANTAGE - HMO) [id number] Sheryl Vazquez [id number] Sheryl Vazquez Notes Date Note Type Note Provider Name and Address Organization Details Recorded Time 08/27/2025 text/html 75-year-old female presents with a [...] her primary care provider and sees her product owner routinely. She notes some trouble swallowing, intermittent for the past few years, sometimes will get choked on solid foods only can not specify location that this gets stuck. She does not want to pursue intervention for this. GERALD GOLDSTEIN, MABLE [address], [place], [address], [facility] - [place] & [place] 08/27/2025 09:18:52 OBGyn Episode No OBEpisode recorded.
[2025-09-09 10:13] LABS: Chloride 100 mmol/L (98-107)
[2025-09-09 10:14] LABS: Potassium 4.5 mmoL/L (3.5-5.1); Sodium 137 mmol/L (136-145)
[2025-09-09 10:16] LABS: Blood Urea Nitrogen 19 mg/dl (7-17); Creatinine,Serum 0.70 mg/dl (0.52-1.04); Estimated Glomerular Filt Rate 81 ml/min (>60); GFR (African American) 98 ML/MIN (>60)
[2025-09-09 10:17] LABS: Anion Gap 13.5 mEq/L (5-15); Calcium 9.1 mg/dl (8.4-10.2); Carbon Dioxide 28 mmol/L (22.0-30.0); Glucose 113 mg/dl (74-100)
== END 2025-09-09 23:59 | disposition home or self-care (01) ==
LOC: LAB 09:11
PROVIDERS: PCP Family Medicine; Visit Provider Nurse Practitioner Family
DX: I25.10 Atherosclerotic heart disease of native coronary artery without angina pectoris (principal)
CPT/HCPCS: 36415; 80048